=== PATIENT | female | born 1975 | race Caucasian/White ===

== ENCOUNTER → 2017-11-08 11:09 | Outpatient (CLI) | payer OTHER, SELFPAY ==
--- NOTE | 2017-11-08 11:11 | BI_ITS ---
MAMMOGRAPHY - BILATERAL SCREENING REASON FOR EXAM: Female, 42 years old. Routine annual screening examination. PERTINENT HISTORY: Non-contributory. TECHNIQUE: Digital bilateral breast larry (3D mammographic acquisition) in the CC and MLO projections. 2-D mediolateral oblique (MLO) and craniocaudad (CC) views of both breasts were obtained. CAD: Full Field Digital Mammography with Computer Added Detection was performed. COMPARISON: None. Baseline examination. FINDINGS: Breast Composition: The breasts are almost entirely fatty. There are no dominant masses or suspicious calcifications. Several small benign-appearing bilateral axillary lymph nodes. No other significant abnormalities are identified. BI/SCREENING MAMM (CAD), BILAT IMPRESSION: Negative screening mammogram. Yearly followup mammogram recommended. (A) ASSESSMENT CATEGORY: BIRADS Category 2: Benign. A letter regarding these results will be sent to the patient by the facility within 30 days. Approximately 10% of breast cancers are not detected by mammography. A normal mammogram should not delay biopsy of a clinically suspicious abnormality. [id number] Electronically Signed: Erwin Griffin MD at 12:46 EDT Tel [phone], Service support ,
== END ==
PROVIDERS: Family Provider Internal Medicine; PCP Internal Medicine; Visit Provider Obstetrics & Gynecology
DX: Z12.31 Encounter for screening mammogram for malignant neoplasm of breast (principal)
CPT/HCPCS: 77063; 77067

== ENCOUNTER 2019-01-19 17:41 | Emergency (ER) | payer OTHER, SELFPAY ==
[2019-01-19 17:42] VITALS: BP 167/80; PULSE 78; RESP 16; TEMP 36.1; O2SAT 97; BMI 51.5
--- NOTE | 2019-01-19 18:11 | RAD_ITS ---
STUDY: X-RAY - RIGHT SHOULDER REASON FOR EXAM: Female, 43 years old. Injury TECHNIQUE: 4 view(s) of the shoulder. COMPARISON: None. FINDINGS: Normal glenohumeral articulation. Normal acromioclavicular joint. Normal acromion. Normal humeral head and visualized proximal humerus. There is periarticular soft tissue calcification consistent with a calcific tendinitis. There is no demonstrated fracture. Normal visualized pulmonary apex. RAD/Shoulder min 2 Views IMPRESSION: No acute fracture or dislocation. Calcific tendinitis. Electronically Signed: Mik Figueroa MD at 18:47 EDT , Service support ,
--- NOTE | 2019-01-19 18:12 | ED.VISSUMM ---
- ER Visit Summary Date of Service: 01/19/19 Chief Complaint: Right shoulder pain History of Present Illness: The patient is a 43 F presenting with right shoulder pain. Patient states that yesterday she was playing badminton and injured her right shoulder. She states that she was reaching backwards several times over her head as she was using the racquet. She did not fall directly on her shoulder. She denies other injuries. She has tried Tylenol at home. Physical Examination: Vitals are stable. Patient is afebrile. Alert no acute distress. HEENT exam is unremarkable. Neck is supple. Right paraspinal cervical muscle tenderness. No midline tenderness Lungs are clear and equal bilaterally. Heart is regular rate and rhythm. Abdomen is soft nontender nondistended. Extremities right shoulder diffuse tenderness. Painful active full range of motion. Neurovascular intact distally. Skin is warm and dry. No focal neurologic deficit. Remainder of exam is unremarkable. Emergency Department Course and Treatment: Patient was given Toradol IM. Right shoulder x-ray shows no acute fracture or dislocation. Calcific tendinitis. Patient was given a sling and advised range of motion exercises. Advised to follow-up with primary care physician. She is given a prescription for Naprosyn and Flexeril. Advised return to ED for worsening complaints. Disposition: Discharge home Impression: Right shoulder sprain This note was generated with [employer] dictation software. It may contain incorrect words, spelling, and punctuation that were not noted in review of the chart prior to signing ED Disposition - Plan for ED Patient: Instructions: Shoulder Sprain Prescriptions: cycloBENZAPRine HCl [Flexeril] 10 mg PO TID PRN #20 tab PRN Reason: Muscle Spasm Prescription Printed Naproxen [Naprosyn] 500 mg PO BID PRN #20 tab Prescription Printed Referrals: Liana Ashley MD [Primary Care Provider] -
[2019-01-19] MEDS: Ketorolac 60 MG/2 ML Vial IM (18:28)
--- NOTE | 2019-01-19 19:35 | ED.DEP ---
ED Disposition - Plan for ED Patient: Instructions: Shoulder Sprain Prescriptions: cycloBENZAPRine HCl [Flexeril] 10 mg PO TID PRN #20 tablet PRN Reason: Muscle Spasm Naproxen [Naprosyn] 500 mg PO BID PRN #20 tablet Referrals: Liana Ashley MD [Primary Care Provider] -
== END 2019-01-19 19:47 | disposition home or self-care (01) ==
LOC: ED 18:11
PROVIDERS: Emergency Provider Emergency Medicine; Family Provider Internal Medicine; PCP Internal Medicine
DX: S43.401A Unspecified sprain of right shoulder joint, initial encounter (principal); E11.9 Type 2 diabetes mellitus without complications; I10 Essential (primary) hypertension; Z79.84 Long term (current) use of oral hypoglycemic drugs; Z79.899 Other long term (current) drug therapy; X50.1XXA Overexertion from prolonged static or awkward postures, initial encounter; Y93.73 Activity, racquet and hand sports; Y92.89 Other specified places as the place of occurrence of the external cause; Y99.8 Other external cause status
CPT/HCPCS: 73030; 96372; 99283

== ENCOUNTER → 2019-07-18 | Outpatient (CLI) | payer OTHER, SELFPAY ==
--- NOTE | 2019-07-18 07:15 | BI_ITS ---
MAMMOGRAPHY - BILATERAL SCREENING REASON FOR EXAM: Female, 44 years old. Routine annual screening examination. PERTINENT HISTORY: Non-contributory. TECHNIQUE: Digital bilateral breast nasreen (3D mammographic acquisition) in the CC and MLO projections. 2-D mediolateral oblique (MLO) and craniocaudad (CC) views of both breasts were obtained. CAD: Full Field Digital Mammography with Computer Added Detection was performed. COMPARISON: Comparison is made with prior study dated November 08, 2017. FINDINGS: Breast Composition: The breasts are almost entirely fatty. There are no dominant masses or suspicious calcifications. Stable small benign-appearing bilateral axillary lymph nodes. No other significant abnormalities are identified. There has been no significant change since the prior study. BI/SCREEN MAMM (CAD) W/NASREEN BILAT IMPRESSION: Stable bilateral screening mammogram. Yearly follow-up mammogram recommended. (A) ASSESSMENT CATEGORY: BIRADS Category 2: Benign. A letter regarding these results will be sent to the patient by the facility within 30 days. Approximately 10% of breast cancers are not detected by mammography. A normal mammogram should not delay biopsy of a clinically suspicious abnormality. [id number] Electronically Signed: Erwin Griffin, at 8:36 EDT , Service support ,
== END | disposition home or self-care (01) ==
LOC: OPBI 07:13
PROVIDERS: Family Provider Internal Medicine; PCP Internal Medicine; Referring Provider Obstetrics & Gynecology; Visit Provider Obstetrics & Gynecology
DX: Z12.31 Encounter for screening mammogram for malignant neoplasm of breast (principal)
CPT/HCPCS: 77063; 77067

== ENCOUNTER → 2020-05-10 | Outpatient (CLI) | payer OTHER, SELFPAY ==
[2020-05-17 14:20] LABS: HPV APTIMA, High Risk Negative (Negative)
== END | disposition home or self-care (01) ==
LOC: LABSPEC 13:29
PROVIDERS: PCP Internal Medicine; Visit Provider Student in an Organized Health Care Education/Training Program
DX: Z12.4 Encounter for screening for malignant neoplasm of cervix (principal)
CPT/HCPCS: 87624; 88175; G0145

== ENCOUNTER → 2020-08-16 15:09 | Outpatient (CLI) | payer OTHER, SELFPAY ==
--- NOTE | 2020-08-16 15:12 | BI_ITS ---
MAMMOGRAPHY - BILATERAL SCREENING 3-D TOMOSYNTHESIS REASON FOR EXAM: Female, 45 years old. SCREENING PERTINENT HISTORY: No significant family history. TECHNIQUE: 2-D mammograms and 3-D Tomosynthesis of the breast (s) were performed. CAD was performed. COMPARISON: 07/18/2019 FINDINGS: The breast composition is almost entirely fat. Scattered benign calcifications are seen. No dense spiculated masses or suspicious microcalcifications are identified. No architectural distortion is identified. There is no skin thickening or retraction. There has been no significant change since the prior study. BI/SCRN MAMM (CAD)W/NASREEN BILAT IMPRESSION: No mammographic signs of malignancy. Routine yearly mammograms recommended. ASSESSMENT CATEGORY: BIRADS Category 1: Negative. A letter regarding these results will be sent to the patient by the facility within 30 days. FOLLOW UP RECOMMENDATION: Yearly follow up mammogram recommended. (A) Approximately 10% of breast cancers are not detected by mammography. A normal mammogram should not delay biopsy of a clinically suspicious abnormality. Electronically Signed: Manoj Polk MD at 8:36 EDT , Service support ,
== END ==
PROVIDERS: PCP Internal Medicine; Visit Provider Student in an Organized Health Care Education/Training Program
DX: Z12.31 Encounter for screening mammogram for malignant neoplasm of breast (principal)
CPT/HCPCS: 77063; 77067

== ENCOUNTER 2021-03-27 17:34 | Emergency (ER) | payer OTHER, SELFPAY ==
[2021-03-27 17:35] VITALS: BP 155/102; PULSE 71; RESP 16; TEMP 36.6; O2SAT 97; BMI 54.1
--- NOTE | 2021-03-27 18:26 | EDS_ITS ---
HPI History of Present Illness Chief Complaint: Lower Extremity Injury Informant: patient Narrative Narrative: 46-year-old female states that on Saturday she attempted to lift for vishnu of paper as she did so she felt a pulling sensation in her right buttock upper hamstring region. By the time she woke up on Saturday she was having significant pain in the buttock radiating down to her foot and really was unable to get out of bed for most of the weekend. Symptoms persisted through today. She denies any bowel or bladder dysfunction. No fevers. No prolonged steroid use is. She is a diabetic. She states she has had pains in her back before but nothing like this. No IVDU. No red flag history [facility] Medical History Depression Hypertension Home Medications sertraline [Zoloft] 100 mg PO DAILY 11/19/13 [History Last Taken Unknown] buspirone 10 mg PO BID 05/17/17 [History Last Taken Unknown] lorazepam 1 tab PO DAILY PRN PRN 05/17/17 [History Last Taken Unknown] losartan-hydrochlorothiazide 1 ea PO DAILY 05/17/17 [History Last Taken Unknown] metformin 1,000 mg PO BID 05/17/17 [History Last Taken Unknown] norgestimate-ethinyl estradiol [Sprintec] 1 ea PO DAILY 05/17/17 [History Last Taken Unknown] aspirin 1 tab PO DAILY 01/19/19 [History Last Taken Unknown] cyclobenzaprine 10 mg PO TID PRN #20 tab 01/19/19 [Rx Last Taken Unknown] liraglutide SQ DAILY 01/19/19 [History Last Taken Unknown] naproxen 500 mg PO BID PRN #20 tab 01/19/19 [Rx Last Taken Unknown] potassium chloride 10 meq PO DAILY 01/19/19 [History Last Taken Unknown] pravastatin 20 mg PO DAILY 01/19/19 [History Last Taken Unknown] cyclobenzaprine 10 mg PO TID PRN #15 tablet 03/27/21 [Rx Last Taken Unknown] ketorolac 10 mg PO TID PRN 5 Days #15 tab 03/27/21 [Rx Last Taken Unknown] oxycodone 10 mg PO TID PRN 3 Days #9 tab 03/27/21 [Rx Last Taken Unknown] Allergy/AdvReac Type Severity Reaction Status Date / Time amoxicillin [Amoxicillin] Allergy Other Verified 03/27/21 17:37 niacin Allergy Hives Verified 03/27/21 17:37 Social History (Updated 03/27/21 @ 18:[address] Geovany Nichols, DO) current gender identity: female Smoking Status: Never smoker substance use type: does not use ROS ROS ED Constitutional Constitutional ED: Denies chills or weight loss Eyes Eyes: Denies change in vision or diplopia ENT ENT ED: Denies ear pain, rhinorrhea or sore throat Cardiovascular Cardiovascular: Denies chest pain, orthopnea, palpitations or racing heartbeat Respiratory/Chest Respiratory/Chest: Denies cough, dyspnea or orthopnea Gastrointestinal Gastrointestinal: Denies abdominal pain, diarrhea, nausea or vomiting Genitourinary Genitourinary ED: Denies dysuria, hematuria or urinary frequency Musculoskeletal Musculoskeletal: Reports back pain; Denies arthralgias or myalgias Integumentary Denies abscess or rash Neurologic Neurologic: Denies headache(s), paresthesias or weakness Psychiatric Psychiatric: Denies anxiety, depression, suicidal ideation or suicidal thoughts Endocrine Endocrinology: Denies polydipsia, polyphagia or polyuria Allergic/Immunologic Allergic/Immunologic ED: Denies mouth swelling, tongue swelling or urticaria EXAM Physical Exam Const Vital Signs: 03/27/21 17:35 03/27/21 19:15 Temperature 97.8 F Temperature Source Temporal Pulse Rate 71 Respiratory Rate 16 18 Blood Pressure 155/102 H Blood Pressure Mean 119 Pulse Ox 97 Oxygen Delivery Method Room Air Positive well nourished, well developed and obese General Appearance ED: well developed Nutritional Appearance: obese HEENT Reports normocephalic, head/scalp atraumatic, TM's clear and moist mucous membranes Negative for trauma Tympanic Membrane ED: Yes TM's clear Eyes PERRL and EOMs intact bilaterally Neck no lymphadenopathy, supple and no JVD Resp normal respiratory effort and clear to auscultation bilaterally Cardio regular rate, regular rhythm and no murmurs GI normal to inspection, nondistended, normoactive bowel sounds and non-tender Palpation: soft Back/Spine no CVA tenderness and normal ROM Back/Spine Narrative: Right lower paraspinal muscular tenderness. Tenderness in the right buttock. No rashes or cutaneous findings to suggest underlying abscess or infection Extremity General Extremety ED: Negative for edema General Extremity: Negative for edema Neuro oriented x3 and CN's II-XII intact bilaterally Neuro Narrative: Normal patellar and Achilles DTR. Sensorium / Orientation: alert Motor Exam: strength 5/5 throughout Psych mental status grossly normal Mood & Affect: Negative for depressed or tearful Skin no rashes or lesions noted and no wounds MDM MDM MDM Narrative Medical decision making narrative: The patient will be started on oxycodone and Flexeril. I will also add in Toradol. She can get a dose of Toradol here. I recommend that she follow-up with her primary care doctor as I suspect this may become a recurrent issue. She would probably benefit from physical therapy eval. I do feel that her BMI/deconditioning is a significant contributor. The original prescriptions were sent to the [facility] pharmacy. Unfortunately unbeknownst to us or the patient they do not have a pharmacist on tonight. The prescriptions were canceled and sent to [facility] Discharge Plan Triage Chief Complaint: Lower Extremity Injury ED Provider: Geovany Nichols Dx/Rx/DC Orders Clinical Impression: Acute right-sided back pain with sciatica Instructions: ED Sciatica Prescriptions: New cyclobenzaprine [cyclobenzaprine] 10 MG tablet 10 mg PO TID PRN (Reason: Muscle Spasm) Qty: 15 RF: 0 ketorolac 10 mg tablet 10 mg PO TID PRN (Reason: pain) 5 Days Qty: 15 RF: 0 oxycodone 10 mg tablet 10 mg PO TID PRN (Reason: pain) 3 Days Qty: 9 RF: 0 No Action sertraline [Zoloft] 25 MG tablet 100 mg PO DAILY RF: 0 buspirone 5 MG tablet 10 mg PO BID RF: 0 norgestimate-ethinyl estradiol [Sprintec (28)] 1 TABLET tablet 1 ea PO DAILY RF: 0 lorazepam 0.5 tablet 1 tab PO DAILY PRN PRN (Reason: Anxiety) RF: 0 losartan-hydrochlorothiazide 1 EACH tablet 1 ea PO DAILY RF: 0 metformin 500 MG tablet 1,000 mg PO BID RF: 0 potassium chloride 10 MEQ capsule, extended release 10 meq PO DAILY RF: 0 aspirin 81 tablet,chewable 1 tab PO DAILY RF: 0 pravastatin 20 MG tablet 20 mg PO DAILY RF: 0 liraglutide 18 pen injector SQ DAILY RF: 0 cyclobenzaprine 10 MG tablet 10 mg PO TID PRN (Reason: Muscle Spasm) Qty: 20 RF: 0 naproxen 500 MG tablet 500 mg PO BID PRN Qty: 20 RF: 0 Stand Alone Forms: ED Work / School Excuse Primary Care Provider: Liana Ashley Referrals: Liana Ashley MD [Primary Care Provider] - 1-2 Weeks (As discussed you would most likely benefit from a physical therapy evaluation.) Disposition Disposition: Home, Self Care Discharge Date/Time: 03/27/21 19:16
[2021-03-27] MEDS: Ketorolac 60 MG/2 ML Vial IM (18:36)
[2021-03-27 19:15] VITALS: RESP 18
== END 2021-03-27 19:16 | disposition home or self-care (01) ==
LOC: ED 18:29
PROVIDERS: Emergency Provider Emergency Medicine; PCP Internal Medicine
DX: M54.41 Lumbago with sciatica, right side (principal); E11.9 Type 2 diabetes mellitus without complications; I10 Essential (primary) hypertension; E66.9 Obesity, unspecified; Z79.84 Long term (current) use of oral hypoglycemic drugs; Z79.899 Other long term (current) drug therapy
CPT/HCPCS: 96372; 99282

== ENCOUNTER → 2021-09-01 | Outpatient (CLI) | payer OTHER, SELFPAY ==
--- NOTE | 2021-09-01 10:24 | BI_ITS ---
MAMMOGRAPHY - BILATERAL SCREENING 3-D TOMOSYNTHESIS REASON FOR EXAM: Female, 46 years old. SCREENING PERTINENT HISTORY: No significant family history. TECHNIQUE: 2-D mammograms and 3-D Tomosynthesis of the breast (s) were performed. CAD was performed. COMPARISON: 08/16/2020 FINDINGS: The breast composition is composed of scattered fibroglandular density. Scattered benign calcifications are seen. No dense spiculated masses or suspicious microcalcifications are identified. No architectural distortion is identified. There is no skin thickening or retraction. There has been no significant change since the prior study. BI/SCRN MAMM (CAD)W/NASREEN BILAT IMPRESSION: No mammographic signs of malignancy. Routine yearly mammograms recommended. ASSESSMENT CATEGORY: BIRADS Category 1: Negative. A letter regarding these results will be sent to the patient by the facility within 30 days. FOLLOW UP RECOMMENDATION: Yearly follow up mammogram recommended. (A) Approximately 10% of breast cancers are not detected by mammography. A normal mammogram should not delay biopsy of a clinically suspicious abnormality. Electronically Signed: Dagoberto Potter MD at 15:42 EDT ,
== END | disposition home or self-care (01) ==
PROVIDERS: PCP Internal Medicine; Referring Provider Student in an Organized Health Care Education/Training Program; Visit Provider Student in an Organized Health Care Education/Training Program
DX: Z12.31 Encounter for screening mammogram for malignant neoplasm of breast (principal)
CPT/HCPCS: 77063; 77067

== ENCOUNTER → 2022-09-11 | Outpatient (CLI) | payer OTHER, SELFPAY ==
--- NOTE | 2022-09-11 16:28 | BI_ITS ---
MAMMOGRAPHY - BILATERAL SCREENING REASON FOR EXAM: Female, 47 years old. Routine annual screening examination. PERTINENT HISTORY: Non-contributory. TECHNIQUE: Digital bilateral breast nasreen (3D mammographic acquisition) in the CC and MLO projections. 2-D mediolateral oblique (MLO) and craniocaudad (CC) views of both breasts were obtained. CAD: Full Field Digital Mammography with Computer Added Detection was performed. COMPARISON: Comparison is made with prior study dated September 01, 2021 and August 16, 2020. FINDINGS: Breast Composition: The breasts are almost entirely fatty. There are no dominant masses or suspicious calcifications. Stable benign-appearing bilateral axillary lymph nodes. No other significant abnormalities are identified. There has been no significant change since the prior study. BI/SCRN MAMM (CAD)W/NASREEN BILAT IMPRESSION: Stable bilateral screening mammogram. Yearly follow-up mammogram recommended. (A) ASSESSMENT CATEGORY: BIRADS Category 2: Benign. A letter regarding these results will be sent to the patient by the facility within 30 days. Approximately 10% of breast cancers are not detected by mammography. A normal mammogram should not delay biopsy of a clinically suspicious abnormality. [id number] Electronically Signed: Erwin Griffin MD at 8:41 EDT ,
== END | disposition home or self-care (01) ==
LOC: OPBI 09-12 07:02
PROVIDERS: PCP Internal Medicine; Referring Provider Student in an Organized Health Care Education/Training Program; Visit Provider Student in an Organized Health Care Education/Training Program
DX: Z12.31 Encounter for screening mammogram for malignant neoplasm of breast (principal)
CPT/HCPCS: 77063; 77067

== ENCOUNTER → 2024-11-10 | Outpatient (CLI) | payer OTHER, SELFPAY ==
--- OUTSIDE RECORDS SUMMARY | 2024-11-10 06:58 | XMS RPT_ITS | CCD ---
Author Organization 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, Morenita Unavailable Quentin Salazar PA-C Unavailable GANTA, DARSHANA Primary Care Unavailable GANTA, DARSHANA Referring Unavailable GANTA, DARSHANA Primary Care Unavailable SELF Referring Unavailable OLDER, MORENITA Attending Unavailable GANTA, DARSHANA Primary Care Unavailable ABDIRASHID MILLER Attending Unavailable GANTA, DARSHANA Primary Care Unavailable LUDWIG LINDSAY Referring Unavailable GANTA, DARSHANA Primary Care Unavailable OLDER, MORENITA Referring Unavailable GANTA, DARSHANA Primary Care Unavailable OLDER, MORENITA Referring Unavailable GANTA, DARSHANA Primary Care Unavailable SELF Referring Unavailable OLDER, MORENITA Attending Unavailable GANTA, DARSHANA Primary Care Unavailable BEBETO LOPEZ Referring Unavailable GANTA, DARSHANA Primary Care Unavailable SOLITARIO PERERA Attending Unavailable GANTA, DARSHANA Primary Care Unavailable GANTA, DARSHANA Primary Care Unavailable GANTA, DARSHANA Primary Care Unavailable CHEYENNE SOTELO Referring Unavailable GANTA, DARSHANA Primary Care Unavailable OLDER, MORENITA Referring Unavailable GANTA, DARSHANA Primary Care Unavailable GANTA, DARSHANA Primary Care Unavailable NEVAEH PARKER Referring Unavailable GANTA, DARSHANA Primary Care Unavailable BOGHEBERT, QUENTIN Attending Unavailable GANTA, DARSHANA Primary Care Unavailable GANTA, DARSHANA Primary Care Unavailable ROSA BALLARD Referring Unavailable GANTA, DARSHANA Primary Care Unavailable BOGNER, QUENTIN Referring Unavailable GANTA, DARSHANA Primary Care Unavailable BOGNER, QUENTIN Referring Unavailable GANTA, DARSHANA Primary Care Unavailable SHIRLEY MANDI Attending Unavailable GANTA, DARSHANA Primary Care Unavailable SHIRLEY, MANDI Attending Unavailable GANTA, DARSHANA Primary Care Unavailable MORENITA BUTLER Referring Unavailable Juan Barker Attending Unavailable Ganta, Darshana Primary Care Unavailable Ganta, Darshana Referring Unavailable Juan Barker Referring Unavailable Ganta, Darshana Primary Care Unavailable Juan Barker Attending Unavailable Allergies Allergy Classification Reported Allergen(s) Allergy Type Date of Onset Reaction(s) Facility Angiotensin Converting Enzyme (LEONORA) Inhibitors (1 source) Lisinopril Drug Allergy 02-22-2017 [facility] Work Phone: Niacin (1 source) Niacin Drug Allergy 12-13-2008 Intolerance [facility] Penicillins (antibiotic) (1 source) Amoxicillin Drug Allergy 01-04-2012 [facility] (20 sources) amoxicillin; Translations: [AMOXICILLIN] Drug Allergy 01-04-2012 [facility] Other [place] [facility] (20 sources) niacin; Translations: [NIACIN] Drug Allergy 12-13-2008 [facility] Repository (20 sources) Lisinopril; Translations: [LISINOPRIL] Drug Allergy 02-22-2017 [facility] Work Phone: (1 source) Lisinopril Drug Allergy 09-16-2024 [facility] Repository Medications Current Medications Medication Drug Class(es) Dates Sig (Normalized) Sig (Original) [id number] 200 actuat albuterol 0.09 mg/actuat metered dose inhaler (20 sources) beta2-Adrenergic Agonist Start: 06-23-2024 take 2 puff(s) by inhalation every four hours as needed for wheezing albuterol HFA (PROVENTIL HFA, VENTOLIN HFA) 90 mcg/actuation inhaler Inhale 2 Puffs as instructed every 4 hours as needed for wheezing/shortnes s of breath. 1 Each 3 06/23/2024 Active Start: 03-22-2016 End: 11-26-2023 take 2 puff(s) by inhalation every four hours as needed for wheezing albuterol HFA (PROAIR HFA) 90 mcg/actuation inhaler Indications: Sinobronchitis Inhale 2 Puffs as instructed every 4 hours as needed for Wheezing/Shortness of Breath. 1 Inhaler 0 03/22/2016 11/26/2023 Discontinued (Other) Comment on above: Inhale 2 Puffs as in structed every 4 hours as needed for Wheezing/Shortness of Breath. aspirin 81 mg chewable tablet (20 sources) Platelet Aggregation Inhibitor, Nonsteroidal Anti-inflammatory Drug Start: 01-19-2019 aspirin 81 mg chewable tablet Indications: Type 2 diabetes mellitus with microalbuminuria, without long-term current use of insulin (HCC) CHEW 1 TABLET ONCE DAILY 90 tablet 3 10/20/2020 Active Comment on above: CHEW 1 TABLET ONCE D AILY Blood-Glucose Meter monitoring kit (20 sources) Start: 04-11-2017 Blood-Glucose Meter monitoring kit Glucose Meter of Choice (pending insurance coverage) - Kit - Dx: Type 2 DM - Uncontrolled E11.65 1 Each 04/11/2017 Active Start: 04-11-2017 Blood-Glucose Meter monitoring kit Glucose Meter of Choice (pending insurance coverage) - Kit - Dx: Type 2 DM - Uncontrolled E11.65 1 Each 0 04/11/2017 Active Comment on above: Glucose Meter of Cho ice (pending insurance coverage) - Kit - Dx: Type 2 DM - Uncontrolled E11.65 busPIRone hydrochloride 10 mg oral tablet (20 sources) Start: take 1 tablet by mouth twice daily busPIRone (BUSPAR) 10 mg tablet Indications: Anxiety Take 1 tablet by mouth two times a day. 20 tablet 08/22/2024 Active Start: 05-14-2024 End: 08-12-2024 take 1 tablet by mouth twice daily busPIRone (BUSPAR) 10 mg tablet Indications: Anxiety Take 1 tablet by mouth two times a day. 20 tablet 08/22/2024 Active Start: 04-25-2023 End: 04-19-2024 take 1 tablet by mouth twice daily busPIRone (BUSPAR) 10 mg tablet Take 1 tablet by mouth two times a day. 180 tablet 3 04/25/2023 04/19/2024 Active Start: 04-24-2021 End: 05-30-2022 take 1 tablet by mouth twice daily busPIRone (BUSPAR) 10 mg tablet Take 1 tablet by mouth twice daily. 180 tablet 3 03/01/2022 05/30/2022 Active Start: 05-17-2017 take 10 mg by mouth twice joseph y Buspirone Active 10 MG PO TWICE A DAY May 17, 2017 2:07am Comment on above: TAKE 1 TABLET TWICE A DAY AT 6AM AND 9PM Take 1 tablet by miki th twice daily. Take 1 tablet by miki th two times a day. CPAP (20 sources) Start: 11-28-2022 CPAP Indicatio ns: RANDA (obstructive sleep apnea) Settings 13 - 20 cm H2O, suitable mask per pt preference, chin strap, head gear, humidity, filters, tubing, lifetime supplies. G47.33 RANDA 1 Each 11/28/2022 Active Start: 11-28-2022 CPAP Indicatio ns: RANDA (obstructive sleep apnea) Settings 13 - 20 cm H2O, suitable mask per pt preference, chin strap, head gear, humidity, filters, tubing, lifetime supplies. G47.33 RANDA 1 Each 0 11/28/2022 Active Start: 11-27-2022 End: 11-28-2022 CPAP Indications: RANDA (obstr uctive sleep apnea) Settings 13 - 20 cm H2O, suitable mask per pt preference, chin strap, head gear, humidity, filters, tubing, lifetime supplies. G47.33 RANDA 1 Each 0 11/27/2022 11/28/2022 Discontinued Start: 05-08-2018 End: 11-27-2022 CPAP Settings 13 - 20 cm H2O , suitable mask per pt preference, chin strap, head gear, humidity, filters, tubing, lifetime supplies. G47.33 RANDA 1 Device 0 05/08/2018 11/27/2022 Discontinued Start: 05-08-2018 CPAP Settings 13 - 20 cm H2O, suitable mask per pt preference, chin strap, head gear, humidity, filters, tubing, lifetime supplies. G47.33 RANDA 1 Device 0 05/08/2018 Active Comment on above: Settings 13 - 20 cm H2O, suitable mask per pt preference, chin strap, head gear, humidity, filters, tubing, lifetime supplies. G47.33 RANDA cyclobenzaprine hydrochloride 10 mg oral tablet (4 sources) Muscle Relaxant Start: 01-20-20 take 10 mg by mouth three times daily Cyclobenzaprine Active 10 MG PO THREE TIMES A DAY March 27, 2021 1:00am doxycycline hyclate 100 mg oral tablet (4 sources) Tetracycline-class Drug Start: 10-30-19 End: 11-06-19 take 1 tablet by mouth twice daily doxycycline (VIBRA-TABS) 100 mg tablet Indications: Rash and other nonspecific skin eruption Take 1 tablet by mouth two times a day for 7 days. 14 tablet 10/29/2024 11/05/2024 Active Start: 03-26-2024 End: 04-02-2024 take 1 tablet by mouth twice daily doxycycline (VIBRA-TABS) 100 mg tablet Indications: Rhinosinusitis Take 1 tablet by mouth two times a day for 7 days. 14 tablet 03/26/2024 04/02/2024 Active Start: 12-31-2023 End: 01-05-2024 take 1 tablet by mouth twice daily doxycycline (VIBRA-TABS) 100 mg tablet Take 1 tablet by mouth two times a day for 5 days. 10 tablet 12/31/2023 01/05/2024 Active Norgestimate-Ethinyl Estradiol (4 sources) Progestin, Estrogen Start: 05-17-2017 take 1 tablet by mouth once daily Norgestimate-Ethinyl Estradiol (Sprintec) 1 TABLET tablet Active 1 EACH PO DAILY May 17, 2017 2:07am Start: 05-17-2017 take 1 tablet by [facility] once daily Norgestimate-Ethinyl Estradiol (Sprintec) 1 TABLET tablet Active 1 EACH PO DAILY May 17, 2017 1:00am Start: 11-22-2013 End: 11-24-2013 take 2 tablets by mouth once daily Norgestimate-Ethinyl Estradiol (Sprintec 28 Day Tablet) 1 EACH tablet Discontinued 2 EACH PO DAILY November 22, 2013 4:42am November 24, 2013 10:50am 2 tabs a day until D&C Start: 11-22-2013 End: 11-24-2013 take 2 tablets by mouth once daily Norgestimate-Ethinyl Estradiol (Sprintec 28 Day Tablet) 1 EACH tablet Discontinued 2 EACH PO DAILY November 22, 2013 12:00am November 24, 2013 10:50am 2 tabs a day until D&C ferrous sulfate 325 mg oral tablet (20 sources) Start: 09-23-2024 take 1 tablet by mouth once daily ferrous sulfate 325 mg (65 mg iron) tablet Take 1 tablet by mouth once daily. 90 tablet 1 09/23/2024 Active Start: 01-08-2022 End: 09-23-2024 take 1 tablet by mouth twice daily at mealtime ferrous sulfate 325 mg (65 mg iron) tablet Take 1 tablet by mouth two times a day with meals. 180 tablet 1 03/11/2024 09/23/2024 Discontinued Start: 04-27-2021 End: 01-06-2022 take 1 tablet by mouth twice daily at mealtime ferrous sulfate 325 mg (65 mg iron) tablet Take 1 tablet by mouth twice daily with meals. 180 tablet 1 09/04/2021 01/06/2022 Discontinued Comment on above: Take 1 tablet by miki th twice daily with meals. gabapentin 100 mg oral capsule (20 sources) Anti-epileptic Agent Start: 10-19-2023 End: 11-10-2024 take 1 capsule by mouth three times daily gabapentin (NEURONTIN) 100 mg capsule Indications: Acute pain of right knee , Positive Lauryn test of right knee, initial encounter Take 1 capsule by mouth three times a day for 180 days. 270 capsule 1 05/14/2024 11/10/2024 Active Start: 08-16-2023 End: 10-17-2023 take 1 capsule by mouth three times daily gabapentin (NEURONTIN) 100 mg capsule Indications: Acute pain of right knee , Positive Lauryn test of right knee, initial encounter Take 1 capsule by mouth three times a day for 30 days. 90 capsule 08/16/2023 10/17/2023 Discontinued Start: 06-27-2023 End: 08-16-2023 take 1 capsule by mouth twice daily gabapentin (NEURONTIN) 100 mg capsule Take 1 capsule by mouth two times a day for 30 days. 60 capsule 06/27/2023 08/16/2023 Discontinued Start: 01-03-2022 End: 02-02-2022 take 1 capsule by mouth twice daily gabapentin (NEURONTIN) 300 mg capsule Take 1 capsule by mouth twice daily for 30 days. 60 capsule 5 01/03/2022 Active Start: 10-23-2021 End: 11-22-2021 take 1 capsule by mouth twice daily gabapentin (NEURONTIN) 300 mg capsule Take 1 capsule by mouth twice daily for 30 days. 60 capsule 1 10/23/2021 Active Start: 07-27-2021 End: 08-26-2021 take 1 capsule by mouth twice daily gabapentin (NEURONTIN) 300 mg capsule Take 1 capsule by mouth twice daily for 30 days. 60 capsule 1 07/27/2021 Active Comment on above: Take 1 capsule by mo uth twice daily for 30 days. Take 1 capsule by mo uth two times a day for 30 days. Take 1 capsule by mo uth three times a day for 30 days. glimepiride 4 mg oral tablet (20 sources) Sulfonylurea Start: 02-06-20 End: 09-24-19 25 take 1 tablet by mouth once daily at breakfast glimepiride (AMARYL) 4 mg tablet Indications: Controlled type 2 diabetes mellitus without complication, without long-term current use of insulin (HCC) Take 1 tablet by mouth daily with breakfast. 90 tablet 3 09/23/2024 Active Start: 05-09-2022 take 1 tablet by miki th once daily at breakfast glimepiride (AMARYL) 4 mg tablet Indications: Controlled type 2 diabetes mellitus without complication, without long-term current use of insulin (HCC) Take 1 tablet by mouth daily with breakfast. 90 tablet 1 05/09/2022 Active Start: 04-26-2021 take 1 tablet by miki th twice daily at mealtime glimepiride (AMARYL) 4 mg tablet Indications: Controlled type 2 diabetes mellitus without complication, without long-term current use of insulin (HCC) Take 1 tablet by mouth twice daily with meals. 180 tablet 3 04/26/2021 Active Comment on above: Take 1 tablet by miki th twice daily with meals. Take 1 tablet by miki th daily with breakfast. TAKE 1 TABLET DAILY WITH BREAKFAST hydroCHLOROthiazide 12.5 mg / losartan potassium 50 mg oral tablet (20 sources) Thiazide Diuretic, Angiotensin 2 Receptor Lilia Start: End: take 1 tablet by mouth once daily losartan-hydro CHLOROthiazide (HYZAAR) 50-12.5 mg per tablet Take 1 tablet by mouth once daily. 90 tablet 3 08/12/2024 Active Start: 07-11-2020 End: 10-11-2023 losartan-hydroCHLOROthiazide (HYZAAR) 50-12.5 mg per tablet TAKE 1 TABLET ONCE DAILY 90 tablet 3 08/27/2022 Active Start: 05-17-2017 Losartan-Alber[place]on chlorothiazide Active 1 EACH PO DAILY May 17, 2017 2:07am Comment on above: TAKE 1 TABLET ONCE D AILY Take 1 tablet by miki th once daily. ketorolac tromethamine 10 mg oral tablet (2 sources) Nonsteroidal Anti-inflammatory Drug, Cyclooxygenase Inhibitor Start: 1 take 10 mg by mouth three times daily Ketorolac Active 10 MG PO THREE TIMES A DAY 24 09March 27, 2021 9:10pm Lancing Device misc (20 sources) Start: 1 Lancing Device misc Indications: Controlled type 2 diabetes mellitus without complication, without long-term current use of insulin (HCC) Use to monitor blood sugars a directed 1 Each 04/26/2021 Active Start: 04-26-2021 Lancing Device misc Indications: Controlled type 2 diabetes mellitus without complication, without long-term current use of insulin (HCC) Use to monitor blood sugars a directed 1 Each 0 04/26/2021 Active Comment on above: Use to monitor blood sugars a directed 3 ml liraglutide 6 mg/ml pen injector (2 sources) GLP-1 Receptor Agonist Start: 01-20-20 19 Liraglutide Active SQ DAILY January 19, 2019 6:01pm LORazepam 0.5 mg oral tablet (2 sources) Benzodiazepine Start: 05-17-19 18 take 1 tablet by mouth once daily as needed Lorazepam Active 1 TABLET PO DAILY NEEDED May 17, 2017 2:07am 24 hr metFORMIN hydrochloride 500 mg extended release oral tablet (20 sources) Biguanide Start: 07-06-19 25 take 2 tablets by mouth twice daily in the morning, then take 9 tablets by mouth in the evening metFORMIN ER (GLUCOPHAGE XR) 500 mg 24 hr tablet Indications: Controlled type 2 diabetes mellitus without complication, without long-term current use of insulin (HCC) Take 2 tablets by mouth two times a day at 6 am and 9 pm. 360 tablet 1 07/06/2024 Active Start: 10-19-2023 End: 07-04-2024 take 2 tablets by mouth twice daily in the morning, then take 9 tablets by mouth in the evening metFORMIN ER (GLUCOPHAGE XR) 500 mg 24 hr tablet Indications: Controlled type 2 diabetes mellitus without complication, without long-term current use of insulin (HCC) Take 2 tablets by mouth two times a day at 6 am and 9 pm. 360 tablet 1 10/19/2023 07/04/2024 Discontinued Start: 10-22-2022 End: 10-17-2023 take 2 tablets by mouth twice daily metFORMIN ER (GLUCOPHAGE XR) 500 mg 24 hr tablet Take 2 tablets by mouth twice daily at 6AM and 9PM. 360 tablet 3 10/22/2022 10/17/2023 Discontinued Start: 05-17-2017 take 2 tablets by mo uth twice daily metFORMIN ER (GLUCOPHAGE XR) 500 mg 24 hr tablet Take 2 tablets by mouth twice daily at 6AM and 9PM. 360 tablet 3 11/03/2021 Active Comment on above: Take 2 tablets by mo uth twice daily at 6AM and 9PM. montelukast 10 mg oral tablet (8 sources) Leukotriene Receptor Antagonist Start: End: take 1 tablet by mouth once daily at bedtime montelukast (SINGULAIR) 10 mg tablet Take 1 tablet by mouth daily at bedtime. 90 tablet 1 09/23/2024 Active mupirocin 0.02 mg/mg topical ointment (2 sources) RNA Synthetase Inhibitor Antibacterial Start: End: mupirocin (BACTROBAN) 2 % ointment Indications: Rash and other nonspecific skin eruption Apply 1 application to affected area two times a day for 10 days. 30 g 1 10/29/2024 11/08/2024 Active Start: 12-31-2023 End: 01-05-2024 mupirocin (BACTROBAN) 2 % oi ntment Apply to affected area three times a day for 5 days. 30 g 12/31/2023 01/05/2024 Active naproxen 500 mg oral tablet (2 sources) Nonsteroidal Anti-inflammatory Drug Start: 01-19-2019 take 500 mg by mouth twice daily as needed Naproxen Active 500 MG PO TWICE DAILY NEEDED January 19, 2019 7:36pm NORGESTIMATE-ETH INYL ESTRADIOL (PREVIFEM ORAL) (20 sources) take 1 tablet by mouth once daily NORGESTIMATE-ET HINYL ESTRADIOL (PREVIFEM ORAL) Take 1 tablet by mouth once daily. Active take 1 tablet by mouth once joseph y NORGESTIMATE-ETHINYL ESTRADIOL (PREVIFEM ORAL) Take 1 tablet by mouth once daily. 0 Active Comment on above: Take 1 tablet by miki th once daily. oxyCODONE hydrochloride 10 mg oral tablet (2 sources) Opioid Agonist Start: 021 take 10 mg by mouth three times daily Oxycodone Active 10 MG PO THREE TIMES A DAY 9 March 27, 2021 9:10pm pioglitazone 15 mg oral tablet (20 sources) Peroxisome Proliferator Receptor alpha Agonist, Peroxisome Proliferator Receptor gamma Agonist, Thiazolidinedione Start: 025 take 1 tablet by mouth once daily pioglitazone (ACTOS) 15 mg tablet Take 1 tablet by mouth once daily. 90 tablet 3 10/28/2024 Active Start: 10-22-2022 End: 10-26-2024 pioglitazone (ACTOS) 15 mg t ablet take 1 tablet once daily 90 tablet 3 10/04/2023 10/26/2024 Discontinued Start: 11-03-2021 take 1 tablet by miki th once daily pioglitazone (ACTOS) 15 mg tablet Take 1 tablet by mouth once daily. 90 tablet 3 11/03/2021 Active Start: 04-04-2021 take 1 tablet by miki th once daily pioglitazone (ACTOS) 15 mg tablet Take 1 tablet by mouth once daily. 30 tablet 1 04/04/2021 Active Comment on above: Take 1 tablet by miki th once daily. potassium chloride 10 meq extended release oral tablet (20 sources) Start: 01-03-2022 End: 09-23-2024 take 1 tablet by mouth once daily at breakfast potassium chloride (K-TAB) 10 mEq tablet Indications: Hypokalemia Take 1 tablet by mouth daily with breakfast. 90 tablet 3 09/23/2024 Active Start: 12-28-2020 End: 12-31-2021 take 1 tablet by mouth once daily at breakfast potassium chloride (K-TAB) 10 mEq tablet Indications: Hypokalemia Take 1 tablet by mouth daily with breakfast. 90 tablet 3 12/28/2020 12/31/2021 Discontinued Start: 01-19-2019 take 10 mEq by mouth once joseph y Potassium Chloride Active 10 MEQ PO DAILY January 19, 2019 6:01pm Comment on above: Take 1 tablet by miki th daily with breakfast. TAKE 1 TABLET DAILY WITH BREAKFAST pravastatin sodium 20 mg oral tablet (20 sources) HMG-CoA Reductase Inhibitor Start: End: take 1 tablet by mouth once daily pravastatin (PRAVACHOL) 20 mg tablet Indications: Mixed hyperlipidemia Take 1 tablet by mouth once daily. 90 tablet 3 08/12/2024 Active Start: 01-19-2019 End: 03-27-2022 take 1 tablet by mouth once daily pravastatin (PRAVACHOL) 20 mg tablet Indications: Mixed hyperlipidemia Take 1 tablet by mouth once daily. 90 tablet 1 03/27/2022 Active Comment on above: Take 1 tablet by miki th once daily. take 1 tablet once d aily predniSONE 10 mg oral tablet (20 sources) Start: 06-17-2024 End: 06-22-2024 take 2 tablets by mouth once daily predniSONE (DELTASONE) 20 mg tablet Indications: URI, acute , Wheezing Take 2 tablets by mouth once daily for 5 days. 10 tablet 06/17/2024 06/22/2024 Active Start: 05-21-2024 End: 10-29-2024 take 4 tablets by mouth once daily, then take 3 tablets by mouth once daily, then take 2 tablets by mouth once daily, then take 1 tablet by mouth once daily predniSONE (DELTASONE) 10 mg tablet Indications: Rash and other nonspecific skin eruption TAKE BY MOUTH 4 TABLETS DAILY FOR 2 DAYS, THEN 3 TABLETS DAILY FOR 2 DAYS, THEN 2 TABLETS DAILY FOR 2 DAYS, THEN 1 TABLET DAILY FOR 2 DAYS. 20 tablet 10/29/2024 Active semaglutide (OZEMPIC) 2 mg/dose (8 mg/3 mL) pen injector (20 sources) Start: 09-23-2024 inject 2 mg by subcutaneous injection every week semaglutide (OZEMPIC) 2 mg/dose (8 mg/3 mL) pen injector Indications: Controlled type 2 diabetes mellitus without complication, without long-term current use of insulin (HCC) Inject 2 mg subcutaneously one time a week. 3 each 5 09/23/2024 Active Start: 05-14-2024 End: 09-23-2024 inject 2 mg by subcutaneous injection every week semaglutide (OZEMPIC) 2 mg/dose (8 mg/3 mL) pen injector Indications: Controlled type 2 diabetes mellitus without complication, without long-term current use of insulin (HCC) Inject 2 mg subcutaneously one time a week. 3 Each 05/14/2024 09/23/2024 Discontinued Start: 05-14-2024 inject 2 mg by subcu taneous injection every week semaglutide (OZEMPIC) 2 mg/dose (8 mg/3 mL) pen injector Indications: Controlled type 2 diabetes mellitus without complication, without long-term current use of insulin (HCC) Inject 2 mg subcutaneously one time a week. 3 Each 05/14/2024 Active Start: 03-11-2024 End: 05-14-2024 inject 2 mg by subcutaneous injection every week semaglutide (OZEMPIC) 2 mg/dose (8 mg/3 mL) pen injector Indications: Controlled type 2 diabetes mellitus without complication, without long-term current use of insulin (HCC) Inject 2 mg subcutaneously one time a week. 3 Each 03/11/2024 05/14/2024 Discontinued Start: 03-11-2024 inject 2 mg by subcu taneous injection every week semaglutide (OZEMPIC) 2 mg/dose (8 mg/3 mL) pen injector Indications: Controlled type 2 diabetes mellitus without complication, without long-term current use of insulin (HCC) Inject 2 mg subcutaneously one time a week. 3 Each 03/11/2024 Active Start: 10-22-2022 End: 03-11-2024 inject 2 mg by subcutaneous injection every week semaglutide (OZEMPIC) 2 mg/dose (8 mg/3 mL) pen injector Indications: Controlled type 2 diabetes mellitus without complication, without long-term current use of insulin (HCC) Inject 2 mg subcutaneously one time a week. 3 Each 5 10/22/2022 03/11/2024 Discontinued Start: 10-22-2022 inject 2 mg by subcu taneous injection every week semaglutide (OZEMPIC) 2 mg/dose (8 mg/3 mL) pen injector Indications: Controlled type 2 diabetes mellitus without complication, without long-term current use of insulin (HCC) Inject 2 mg subcutaneously one time a week. 3 Each 5 10/22/2022 Active Comment on above: Inject 2 mg subcutan eously one time a week. sertraline 100 mg oral tablet (20 sources) Serotonin Reuptake Inhibitor Start: take 1.5 tablets by mouth once daily sertraline (ZOLOFT) 100 mg tablet Take 1.5 tablets by mouth once daily. 135 tablet 3 09/18/2024 Active Start: 10-04-2023 End: 09-16-2024 sertraline (ZOLOFT) 100 mg t ablet TAKE 1 AND 1/2 TABLETS ONCEDAILY 135 tablet 3 10/04/2023 09/16/2024 Discontinued Start: 10-22-2022 End: 10-04-2023 take 1.5 tablets by mouth once daily sertraline (ZOLOFT) 100 mg tablet Take 1.5 tablets by mouth once daily. 135 tablet 3 10/22/2022 10/04/2023 Discontinued Start: 07-27-2021 take 1.5 tablets by mouth once daily sertraline (ZOLOFT) 100 mg tablet Take 1.5 tablets by mouth once daily. 135 tablet 3 07/27/2021 Active Start: 11-19-2013 take 4 tablets by mo [facility] once daily Sertraline (Zoloft) 25 MG tablet Active 100 MG PO DAILY November 19, 2013 10:26am Comment on above: Take 1.5 tablets by mouth once daily. terbinafine 250 mg oral tablet (1 source) Allylamine Antifungal Start: 10-23-19 End: 12-04-19 take 1 tablet by mouth once daily terbinafine HCl (LAMISIL) 250 mg tablet Take 1 tablet by mouth once daily. 30 tablet 1 10/22/2022 12/03/2022 Active Comment on above: Take [facility] daily. triamcinolone acetonide 1 mg/ml topical cream (1 source) Corticosteroid Start: 10-30-19 End: 11-09-19 triamcinolone acetonide (KENALOG) 0.1 % cream Indications: Rash and other nonspecific skin eruption Apply 1 application to affected area two times a day for 10 days. Apply to affected area. 30 g 1 10/29/2024 11/08/2024 Active Completed/Discontinued Medications Medication Drug Class(es) Dates Sig (Normalized) Sig (Original) 60 actuat budesonide 0.09 mg/actuat dry powder inhaler (18 sources) Corticosteroid Start: 06-23-2024 End: 01-27-2025 take 1 puff(s) by inhalation twice daily budesonide (PULMICORT FLEXHALER) 90 mcg/actuation aepb Indications: Dyspnea on exertion , Wheezing Inhale 1 puff as instructed two times a day. 1 each 2 10/29/2024 10/29/2024 Discontinued buPROPion hydrochloride 75 mg oral tablet (20 sources) Aminoketone Start: 02-13-2021 End: 12-12-2021 take 1 tablet by mouth twice daily buPROPion (WELLBUTRIN) 75 mg tablet Indications: Anxiety Take 1 tablet by mouth twice daily. 180 tablet 1 12/13/2021 Active Comment on above: Take 1 tablet by miki twice daily. ergocalciferol 1.25 mg oral capsule (20 sources) Provitamin D2 Compound Start: 10-19-2023 End: 09-23-2024 take 1 capsule by mouth every week ergocalciferol 50,000 unit capsule (VITAMIN D2, DRISDOL) Indications: Vitamin D deficiency Take 1 capsule by mouth one time a week. 12 capsule 05/14/2024 09/23/2024 Discontinued Start: 09-06-2021 End: 10-17-2023 take 1 capsule by mouth every week ergocalciferol 50,000 unit capsule (VITAMIN D2, DRISDOL) Indications: Vitamin D deficiency Take 1 capsule by mouth one time a week. 12 capsule 1 05/02/2023 Active Start: 11-28-2020 End: 09-03-2021 take 1 capsule by mouth every week ergocalciferol 50,000 unit capsule (VITAMIN D2, DRISDOL) Indications: Vitamin D deficiency Take 1 capsule by mouth one time a week. 12 capsule 1 11/28/2020 09/03/2021 Discontinued Comment on above: Take 1 capsule by mo [facility] one time a week. flash glucose scanning reader (FREESTYLE SHILO 2 READER) (20 sources) Start: 07-05-2021 End: 08-16-2023 flash glucose scanning reader (FREESTYLE SHILO 2 READER) Indications: Controlled type 2 diabetes mellitus without complication, without long-term current use of insulin (HCC) Use to monitor blood sugars 4 times daily 1 Each 07/05/2021 08/16/2023 Discontinued Start: 07-05-2021 End: 08-16-2023 flash glucose scanning reade r (FREESTYLE SHILO 2 READER) Indications: Controlled type 2 diabetes mellitus without complication, without long-term current use of insulin (HCC) Use to monitor blood sugars 4 times daily 1 Each 0 07/05/2021 08/16/2023 Discontinued Start: 07-05-2021 flash glucose scanning reader (FREESTYLE SHILO 2 READER) Indications: Controlled type 2 diabetes mellitus without complication, without long-term current use of insulin (HCC) Use to monitor blood sugars 4 times daily 1 Each 0 07/05/2021 Active Comment on above: Use to monitor blood sugars 4 times daily flash glucose sensor (FREESTYLE SHILO 2 SENSOR) kit (20 sources) Start: 07-05-2021 End: 08-16-2023 flash glucose sensor (FREESTYLE SHILO 2 SENSOR) kit Indications: Controlled type 2 diabetes mellitus without complication, without long-term current use of insulin (HCC) Use to monitor blood sugars 4 times daily 6 Each 2 07/05/2021 08/16/2023 Discontinued Start: 07-05-2021 flash glucose sensor (FREESTYLE SHILO 2 SENSOR) kit Indications: Controlled type 2 diabetes mellitus without complication, without long-term current use of insulin (HCC) Use to monitor blood sugars 4 times daily 6 Each 2 07/05/2021 Active Comment on above: Use to monitor blood sugars 4 times daily perflutren lipid microspheres 1.3 mL in NaCl (PF) 0.9% 10 mL injection (DEFINITY) (2 sources) Start: 08-10-2024 End: 08-10-2024 perflutren lipid microspheres 1.3 mL in NaCl (PF) 0.9% 10 mL injection (DEFINITY) Start: 08-10-2024 End: 08-10-2024 take 1 dose intravenously once as needed INTRAVENOUS, DIRECTED NEEDED, 1 dose, Starting on Sat08/10/24 at 1204, Until Sat08/10/24 at 1130, Per-Protocol - for use during ECHO procedure only, If no IV access, insert saline lock prior to administering contrast. Discontinue saline lock post exam. It patient has central line or IVAD, may access for administering according to line specific nursing protocol. Once exam is complete, flush line and de-access per line specific nursing protocol. Dilute 1.3 mL of Definity with 8.7 mL of preservative-free saline., Cardiac Procedure Med Orders 0.25 mg, 0.5 mg dose 1.5 ml semaglutide 1.34 mg/ml pen injector (4 sources) Start: 07-27-2021 End: 09-05-2021 semaglutide (OZEMPIC) 0.25 mg or 0.5 mg(2 mg/1.5 mL) pen injector Indications: Controlled type 2 diabetes mellitus without complication, without long-term current use of insulin (HCC) Inject 0.5 mg subcutaneously one time a week. 4 mL 3 07/27/2021 09/05/2021 Discontinued (Dosage adjustment) Comment on above: Inject 0.5 mg subcutaneously one time a week. semaglutide (OZEMPIC) 1 mg/dose (4 mg/3 mL) pen (7 sources) Start: 03-29-2022 inject 1 mg by subcutaneous injection every week semaglutide (OZEMPIC) 1 mg/dose (4 mg/3 mL) pen Indications: Controlled type 2 diabetes mellitus without complication, without long-term current use of insulin (HCC) Inject 1 mg subcutaneously one time a week. 9 mL 4 03/29/2022 Active Comment on above: Inject 1 mg subcutaneously one time a we ek. semaglutide (OZEMPIC) 1 mg/dose (4 mg/3 mL) pen injector (5 sources) Start: 09-05-2021 inject 1 mg by subcutaneous injection every week semaglutide (OZEMPIC) 1 mg/dose (4 mg/3 mL) pen injector Indications: Controlled type 2 diabetes mellitus without complication, without long-term current use of insulin (HCC) Inject 1 mg subcutaneously one time a week. 9 mL 4 09/05/2021 Active Comment on above: Inject 1 mg subcutaneously one time a we ek. semaglutide (OZEMPIC) 2 mg/dose (8 mg/3 mL) pen injector (10 sources) Start: 03-27-2022 inject 2 mg by subcutaneous injection every week semaglutide (OZEMPIC) 2 mg/dose (8 mg/3 mL) pen injector Indications: Controlled type 2 diabetes mellitus without complication, without long-term current use of insulin (HCC) Inject 2 mg subcutaneously one time a week. 9 mL 2 03/27/2022 Active Start: 12-11-2021 End: 03-27-2022 inject 2 mg by subcutaneous injection every week semaglutide (OZEMPIC) 2 mg/dose (8 mg/3 mL) pen injector Indications: Controlled type 2 diabetes mellitus without complication, without long-term current use of insulin (HCC) Inject 2 mg subcutaneously one time a week. 9 mL 2 12/11/2021 03/27/2022 Discontinued Start: 12-11-2021 inject 2 mg by subcu taneous injection every week semaglutide (OZEMPIC) 2 mg/dose (8 mg/3 mL) pen injector Indications: Controlled type 2 diabetes mellitus without complication, without long-term current use of insulin (HCC) Inject 2 mg subcutaneously one time a week. 9 mL 2 12/11/2021 Active Comment on above: Inject 2 mg subcutan eously one time a week. 125 ml sodium chloride 9 mg/ml prefilled syringe (2 sources) Start: 08-10-2024 End: 08-10-2024 sodium chloride 0.9 % (flush) 10 mL (BD POSIFLUSH) Start: 08-10-2024 End: 08-10-2024 10 mL, INTRAVENOUS, DIREC KATHY NEEDED, 1 dose, Starting on Sat08/10/24 at 1204, Until Sat08/10/24 at 1130, Per-Protocol - for use during ECHO procedure only, If no IV access, insert saline lock prior to administering contrast. Discontinue saline lock post exam. If patient has central line or IVAD, may access for administering according to line specific nursing protocol. Once exam is complete, flush line and de-access per line specific nursing protocol., Cardiac Procedure Med Orders tirzepatide (MOUNJARO) 2.5 mg/0.5 mL pen injector (5 sources) Start: 05-09-2022 inject 2.5 mg by subcutaneous injection every week tirzepatide (MOUNJARO) 2.5 mg/0.5 mL pen injector Inject 2.5 mg subcutaneously one time a week. 4 Each 1 05/09/2022 Active Comment on above: Inject 2.5 mg subcutaneously one time a week. Problems Active Problems Problem Classification Problem Date Documented Da te Episodic/Chronic Anxiety disorders (20 sources) Anxiety; Translations: [Anxiety disorder, unspecified] Onset: 03-01-2015 05-08-2021 Chronic Diabetes mellitus without complication (20 sources) Type 2 diabetes mellitus without complication; Translations: [Type 2 diabetes mellitus without complications] Onset: 10-01-2018 07-08-2019 Chronic Disorders of lipid metabolism (20 sources) Mixed hyperlipidemia; Translations: [Mixed hyperlipidemia] Onset: 09-01-2010 07-04-2011 Chronic Essential hypertension (20 sources) Essential hypertension; Translations: [Essential (primary) hypertension] Onset: 01-09-2008 02-22-2017 Chronic Fluid and electrolyte disorders (5 sources) Hypokalemia; Translations: [Hypokalemia] Onset: 09-23-2024 Episodic Immunizations and screening for infectious disease (4 sources) Needs influenza immunization; Translations: [Encounter for immunization] Onset: 09-23-2024 05-02-2023 Episodic Malaise and fatigue (2 sources) Other fatigue; Translations: [Fatigue] Onset: 11-15-2016 05-02-2023 Episodic Nonspecific chest pain (2 sources) Chest pain, unspecified; Translations: [Chest pain, unspecified] Onset: 09-16-2024 Episodic Nutritional deficiencies (7 sources) Vitamin D deficiency; Translations: [Vitamin D deficiency, unspecified] Onset: 08-10-2024 Chronic Nutritional deficiencies (2 sources) Iron deficiency; Translations: [Iron deficiency] Onset: 09-23-2024 09-23-2024 Episodic Other and ill-defined heart disease (2 sources) Left ventricular hypertrophy; Translations: [Cardiomegaly] 08-12-2024 Chronic Other and ill-defined heart disease (2 sources) Cardiomegaly; Translations: [LVH (left ventricular hypertrophy)] Onset: 08-12-2024 Chronic Other connective tissue disease (2 sources) Pain in right hand; Translations: [Pain in right hand] 07-10-2023 Episodic Other lower respiratory disease (5 sources) Cough; Translations: [Acute cough] 03-26-2024 Episodic Other lower respiratory disease (7 sources) Wheezing; Translations: [Wheezing] 06-17-2024 Episodic Other lower respiratory disease (6 sources) Dyspnea; Translations: [Shortness of breath] 06-23-2024 Episodic Other lower respiratory disease (4 sources) Dyspnea on exertion; Translations: [Other forms of dyspnea] 08-12-2024 Episodic Other lower respiratory disease (3 sources) Chronic cough; Translations: [Chronic cough] Onset: 09-23-2024 08-12-2024 Episodic Other lower respiratory disease (3 sources) Other forms of dyspnea; Translations: [Dyspnea on exertion] Onset: 09-16-2024 Episodic Other lower respiratory disease (1 source) Wheezing; Translations: [Wheezing] Onset: 09-23-2024 Episodic Other lower respiratory disease (1 source) Shortness of breath; Translations: [SOB (shortness of breath)] Onset: 08-10-2024 Episodic Other nervous system disorders (20 sources) Carpal tunnel syndrome; Translations: [Carpal tunnel syndrome, unspecified upper limb] 09-07-2013 Chronic Other non-traumatic joint disorders (3 sources) Pain in wrist; Translations: [Pain in left wrist] 05-18-2024 Episodic Other nutritional; endocrine; and metabolic disorders (20 sources) Morbid obesity; Translations: [Morbid (severe) obesity due to excess calories] Onset: 12-18-2006 07-04-2011 Chronic Other nutritional; endocrine; and metabolic disorders (20 sources) Metabolic syndrome X; Translations: [Metabolic syndrome] Onset: 01-02-2007 01-02-2007 Chronic Other nutritional; endocrine; and metabolic disorders (2 sources) History of iron deficiency; Translations: [Personal history of other endocrine, nutritional and metabolic disease] 05-02-2023 Episodic Other nutritional; endocrine; and metabolic disorders (1 source) Personal history of other endocrine, nutritional and metabolic disease; Translations: [History of iron deficiency] Onset: 08-12-2024 Episodic Other skin disorders (1 source) Eruption; Translations: [Rash and other nonspecific skin eruption] 10-29-2024 Episodic Other skin disorders (1 source) Rash and other nonspecific skin eruption; Translations: [Rash and other nonspecific skin eruption] Onset: 10-29-2024 Episodic Other upper respiratory infections (3 sources) Chronic sinusitis, unspecified; Translations: [Unspecified sinusitis (chronic)] Onset: 10-29-2024 03-26-2024 Chronic Other upper respiratory infections (3 sources) Acute upper respiratory infection; Translations: [Acute upper respiratory infection, unspecified] Onset: 08-12-2024 06-17-2024 Episodic Residual codes; unclassified (20 sources) Obstructive sleep apnea syndrome; Translations: [Obstructive sleep apnea (adult) (pediatric)] Onset: 08-14-2017 08-14-2017 Chronic Residual codes; unclassified (1 source) Obstructive sleep apnea (adult) (pediatric); Translations: [Obstructive sleep apnea (adult) (pediatric)] Onset: 09-23-2024 Chronic Residual codes; unclassified (2 sources) Family history of sudden cardiac ; Translations: [Family history of sudden cardiac ] 08-12-2024 Episodic Residual codes; unclassified (1 source) Family history of sudden cardiac ; Translations: [Family history of sudden cardiac ] Onset: 08-12-2024 Episodic Skin and subcutaneous tissue infections (1 source) Cellulitis of skin; Translations: [Cellulitis, unspecified] 12-31-2023 Episodic Unclassified (1 source) Hypersomnia, unspecified; Translations: [Hypersomnia, unspecified] Onset: 11-15-2016 Unclassified (1 source) Acute cough 06-23-2024 Unclassified (1 source) Acute cough; Translations: [Acute cough] Onset: 03-26-2024 Past or Other Problems Problem Classification Problem Date Documented Date Episodic/Chronic Intestinal infection (20 sources) Clostridium difficile diarrhea; Translations: [Enterocolitis due to Clostridium difficile, not specified as recurrent] Resolved: 05-21-2024 05-08-2021 Episodic Joint disorders and dislocations; trauma-related (9 sources) Lauryn test positive; Translations: [Unspecified tear of unspecified meniscus, current injury, right knee, initial encounter] Onset: 12-12-2023 10-17-2023 Episodic Other circulatory disease (20 sources) Elevated blood-pressure reading without diagnosis of hypertension; Translations: [Elevated blood-pressure reading, without diagnosis of hypertension] Onset: 12-18-2006 Resolved: 01-09-2008 01-09-2008 Episodic Other lower respiratory disease (1 source) Apnea, not elsewhere classified; Translations: [Apnea, not elsewhere classified] Onset: 11-15-2016 Episodic Other non-traumatic joint disorders (8 sources) Pain in right knee; Translations: [Pain in joint, lower leg] Onset: 12-12-2023 10-17-2023 Episodic Other non-traumatic joint disorders (1 source) Pain in left wrist; Translations: [Acute wrist pain, left] Onset: 05-18-2024 Episodic Other screening for suspected conditions (not mental disorders or infectious disease) (20 sources) Echocardiogram abnormal; Translations: [Abnormal findings on diagnostic imaging of heart and coronary circulation] Onset: 10-23-2010 05-08-2021 Episodic Other skin disorders (5 sources) Localized swelling, mass and lump, right upper limb; Translations: [Localized superficial swelling, mass, or lump] Onset: 12-04-2023 11-01-2023 Episodic Spondylosis; intervertebral disc disorders; other back problems (20 sources) Sciatica; Translations: [Sciatica, unspecified side] Onset: 04-11-2021 Resolved: 05-11-2021 03-27-2021 Episodic Results Test Name Value Interpretation Reference Range Facility [facility] 10-29-2024 CNOV Office Visit (INTMWS ) TOBI FARFAN ([id number]) 1975 F Date Time Provider Department 10/29/24 10:40 AM ABDIRASHID MILLER INTMWS During your visit today, we recorded the following information about you: Pulse Respiration Blood pressure Weight 65/minute 16/minute 109/74 142 kg Abdirashid Miller APRN.[employer]PER[employer] 10/29/2024 11:26 AM Signed Subjective Patient ID: Tobi is a 49 year old female who presents for Rash (R inner arm, R inner thigh and L side). HPI Tobi Farfan is a 49-year-old female presenting with a rash, suspected to be poison oak. Rash: - Suspected poison oak exposure while trimming bushes and discarding them into the [place] her [place]. - Rash is located on the back, inner thighs, and sides. - Wore pants but short sleeves during exposure. - Rash has been present for about a week. - Applying alcohol and cortisone anti-itch spray with no improvement; reports rash is spreading. - Rash is both sore and pruritic. - Previous similar episode last year treated with an oral medication from urgent care, which was effective. - Reports minimal drainage from the rash on the back. ROS Skin: (+) rash, (+) pruritus, (+) skin pain, (+) skin drainage Objective BP 109/74 Pulse 65 Resp 16 Wt (!) 142 kg (313 lb 0.9 oz) LMP 11/05/2023 (Exact Date) BMI 52.09 kg/m? Physical Exam Vitals and nursing note reviewed. Constitutional: Appearance: Normal appearance. HENT: Head: Normocephalic and atraumatic. Eyes: Conjunctiva/sclera: Conjunctivae normal. Cardiovascular: Rate and Rhythm: Normal rate. Pulmonary: Effort: Pulmonary effort is normal. Skin: General: Skin is warm and dry. Comments: multiple erythematous partial-thickness wounds over both arms and legs, largest behind the right knee approximately 3 x 5 inches there are drainage some warmth no induration, painful and pruritic Neurological: General: No focal deficit present. Mental Status: She is alert and oriented to person, place, and time. 1. Rash and other nonspecific skin eruption (R21) - Likely contact dermatitis from poison oak exposure; no signs of infection observed. - Initiated oral prednisone for a few days to reduce inflammation. - Prescribed topical steroid cream and antibacterial cream, to be applied once daily each; can increase frequency if needed. - Provided prescription for oral antibiotic to be used if no improvement in 2 days. - Follow-up next week if no improvement or if concerns arise. 2. Dyspnea on exertion (R06.09) 3. Wheezing (R06.2) 4. Rhinosinusitis (J32.9) - Refilled inhaler prescription; sent to mail order pharmacy ([facility]). Abdirashid Miller APRN.CNS Medical Decision Making: Problems: Low: Acute, uncomplicated illness or injury Risk: Moderate: Drug management Medical Decision Making Level: 3 - Abdirashid Chavarria APRN.CNS 10/29/2024 11:17 AM Signed Stop using alcohol on your skin and start using soap and water instead for cleaning. - Start the prescribed oral prednisone and take it each day for the next few days to calm the skin reaction. - Apply the topical steroid cream to the affected areas once daily (morning or evening); you may use it twice daily if itching persists. - Apply the topical antibiotic cream to the affected areas once daily (opposite time of day from the steroid); you may use it twice daily if needed. - If your rash has not improved after 2 days, fill and take the printed oral antibiotic prescription at [facility]; if you?re better in 2 days, do not take the antibiotic. - Your inhaler refill has been sent to mail-order pharmacy ([facility]). - Return in one week if your rash worsens or you have new concerns; no routine follow-up is needed if you?re improving. Allergies As of Date: 10/29/2024 Noted Allergy Reaction AMOXICILLIN 01/04/2012 2 - Rash LISINOPRIL 02/22/2017 3 - Cough Comments: cough NIACIN 12/13/2008 5 - Intolerance Comments: Caused whole body to become red and warm. Date Reviewed: 10/29/2024 Reviewed by: Abdirashid Miller APRN.SUPERVISOR [employer]ING ROOM - Fully Assessed Reason for Visit: Rash [1087] Cmt: R inner arm, R inner thigh and L side Primary Visit Diagnosis:Rash and other nonspecific skin eruption [R21] Other Visit Diagnoses:Dyspnea on exertion [R06.09] Wheezing [R06.2] Rhinosinusitis [J32.9] Order(s):predniSONE (DELTASONE) 10 mg tabletTAKE BY MOUTH 4 TABLETS DAILY FOR 2 DAYS, THEN 3 TABLETS DAILY FOR 2 DAYS, THEN 2 TABLETS DAILY FOR 2 DAYS, THEN 1 TABLET DAILY FOR 2 DAYS.Disp: 20 tabletRfl: 0 triamcinolone acetonide (KENALOG) 0.1 % creamApply 1 application to affected area two times a day for 10 days. Apply to affected area.Disp: 30 gRfl: 1 mupirocin (BACTROBAN) 2 % ointmentApply 1 application to affected area two times a day for 10 days.Disp: 30 gRfl: 1 doxycycline (VIBRA-TABS) 100 mg tabletTake 1 tablet by mouth two times a day for 7 days (more content not included)... [facility] CNOVon 09-23-2024 CNOV Office Visit (INTMWS ) TOBI FARFAN ([id number]) 1975 F Date Time Provider Department 09/23/24 4:40 PM MORENITA BUTLER INTMWS During your visit today, we recorded the following information about you: Pulse Respiration Blood pressure Weight 68/minute 16/minute 118/72 142.9 kg Morenita Butler APRN.[facility] 09/23/2024 6:51 PM Signed CC: Patient presents with: Recheck: 6 week follow up HPI Tobi Farfan is a 49 year old female who presents today for follow up. Recording using Lumoid software for draft documentation of the visit was discussed with the patient/authorized billing customer service representative; all questions welcomed and answered. Patient/authorized billing customer service representative agreed to proceed Chronic cough: - Started on montelukast 6 weeks ago; reports decreased cough. - Occasional wheezing and dyspnea on exertion, improved with inhaler and montelukast. - Noted cough when lying down at night, requiring elevation to alleviate. With the dyspnea on exertion she also has some chest pressure and family history of early cardiac . - Undergoing further evaluation by cardiology, including a nuclear stress test as she was unable to get appropriate heart rate with treadmill stress test. . - Has undergone pulmonary function testing. Hypertension: - Blood pressure today: 118/72 mmHg. - No home blood pressure monitoring. - Occasional chest pain and palpitations, especially when not using CPAP. - Denies edema or headaches. - Currently on losartan-hydrochlorot hiazide and a potassium supplement. REVIEW OF SYSTEMS See HPI PAST MEDICAL HISTORY Diagnosis Date Anxiety Carpal tunnel syndrome Clostridium difficile diarrhea Recurrent infection 2011 Diabetes mellitus (HCC) Dysmetabolic syndrome Gestational diabetes (HCC) Hypertension Obesity RANDA (obstructive sleep apnea) DME [employer] for AutoPAP - AHI 70.5 PAST SURGICAL HISTORY Procedure Laterality Date DELIVERY ONLY 12/03/2011 , low transverse; wound infection DILATION AND CURETTAGE DXAND/THER NONOBSTETRIC 11/24/2013 Dilation AND curettage HYSTEROSCOPY, DIAGNOSTIC (SEPARATE 11/24/2013 Hysteroscopy PAST SURGICAL HISTORY OF 01/12/2012 debridement post infection WOUND VAC 2012 ALLERGIES Amoxicillin, Lisinopril, and Niacin MEDICATIONS glimepiride (AMARYL) 4 mg tablet Take 1 tablet by mouth daily with breakfast. potassium chloride (K-TAB) 10 mEq tablet Take 1 tablet by mouth daily with breakfast. semaglutide (OZEMPIC) 2 mg/dose (8 mg/3 mL) pen injector Inject 2 mg subcutaneously one time a week. montelukast (SINGULAIR) 10 mg tablet Take 1 tablet by mouth daily at bedtime. ferrous sulfate 325 mg (65 mg iron) tablet Take 1 tablet by mouth once daily. sertraline (ZOLOFT) 100 mg tablet Take 1.5 tablets by mouth once daily. busPIRone (BUSPAR) 10 mg tablet Take 1 tablet by mouth two times a day. busPIRone (BUSPAR) 10 mg tablet Take 1 tablet by mouth two times a day. losartan-hydroCHLOROt hiazide (HYZAAR) 50-12.5 mg per tablet Take 1 tablet by mouth once daily. pravastatin (PRAVACHOL) 20 mg tablet Take 1 tablet by mouth once daily. metFORMIN ER (GLUCOPHAGE XR) 500 mg 24 hr tablet Take 2 tablets by mouth two times a day at 6 am and 9 pm. albuterol HFA (PROVENTIL HFA, VENTOLIN HFA) 90 mcg/actuation inhaler Inhale 2 Puffs as instructed every 4 hours as needed for wheezing/shortness of breath. budesonide (PULMICORT FLEXHALER) 90 mcg/actuation aepb Inhale 1 Puff as instructed two times a day. predniSONE (DELTASONE) 10 mg tablet TAKE BY MOUTH 4 TABLETS DAILY FOR 2 DAYS, THEN 3 TABLETS DAILY FOR 2 DAYS, THEN 2 TABLETS DAILY FOR 2 DAYS, THEN 1 TABLET DAILY FOR 2 DAYS. (Patient not taking: Reported on 06/17/2024) gabapentin (NEURONTIN) 100 mg capsule Take 1 capsule by mouth three times a day for 180 days. pioglitazone (ACTOS) 15 mg tablet take 1 tablet once daily CPAP Settings 13 - 20 cm H2O, suitable mask per pt preference, chin strap, head gear, humidity, filters, tubing, lifetime supplies. G47.33 RANDA Lancing Device misc Use to monitor blood sugars a directed Lancets lancets Use as instructed to monitor blood sugars when prompted by Freestyle Shilo. Up to 4 per day. insulin needles, DISPOSABLE, (BD INSULIN PEN NEEDLE UF) 31 gauge x 5/16 1 Each once daily. With Victoza. ICD10: E11.65 aspirin 81 mg chewable tablet CHEW 1 TABLET ONCE DAILY Blood-Glucose Meter monitoring kit Glucose Meter of Choice (pending insurance coverage) - Kit - Dx: Type 2 DM - Uncontrolled E11.65 NORGESTIMATE-ETHINYL ESTRADIOL (PREVIFEM ORAL) Take 1 tablet by mouth once daily. (Patient not taking: Reported on 06/23/2024) FAMILY HISTORY Problem Relation Age of Onset Osteoporosis Mother Psychiatry Mother anorexia, depression Diabetes Father Hypertension Father Psychiatry Father bipolar d/o Cancer Maternal Grandmother Liver Heart Maternal (more content not included)... Normal [facility] ALBUMIN/CREATININE RATIO, UR INEon 09-19-2024 Albumin DL <= 20 mg/L (U) [Mass/Vol] mg/dL Normal [facility] Comment on above: Order Comment: Speci men Type: URINE SPECIMENOrdering Facility: [facility] Address: [address] [place] [address] Performed By: #### U ACR ####[facility] LABIA [id number] [place] [address] [place] Albumin/Creatinine (U) [Mass ratio] <5 Normal <30 [facility] Comment on above: Order Comment: Speci men Type: URINE SPECIMENOrdering Facility: [facility] Address: [address] [place] [address] Result Comment: Adul t Male and Female Nephrotic Criteria: <30 mg/g is considered normal to mildly increased 30-300 mg/g is considered moderately increased >300 mg/g is considered severely increased KDIGO. (2013). KDIGO 2012 Clinical Practice Guideline for the Evaluation and Management of Chronic Kidney Disease. Official Journal of the International Society of Nephrology, 3(1), 1-150. Performed By: #### U ACR ####[facility] LABCLIA [id number] [place] [id number] [place] Creatinine (U) [Mass/Vol] 219.6 mg/dL Normal 20.0-300.0 [facility] Comment on above: Order Comment: Speci men Type: URINE SPECIMENOrdering Facility: [facility] Address: [address] [place] [address] Performed By: #### U ACR ####[facility] LABCLIA [id number] [place] [address] [place] Lipid 1996 panelon 5 Cholesterol [Mass/Vol] 135 mg/dL Normal <200 [facility] Comment on above: Order Comment: Speci men Type: BLOOD SPECIMENOrdering Facility: [facility] Address: [address] [place] [address] Result Comment: <200 mg/dL, Desirable 200-239 mg/dL, Borderline high >239 mg/dL, High Performed By: #### 2 4331-1 ####[facility] LABCLIA [id number] [address] [place] [facility] Cholesterol in HDL [Mass/Vol] 37 mg/dL Low >39 [facility] Comment on above: Order Comment: Speci men Type: BLOOD SPECIMENOrdering Facility: [facility] Address: [address] [place] [address] Result Comment: 40-5 9 mg/dL, Acceptable >59 mg/dL, High: Negative risk factor for coronary heart disease <40 mg/dL, Low: Positive risk factor for coronary heart disease Performed By: #### 2 4331-1 ####[facility] LABCLIA [id number] [address] STATES [place] [facility] Cholesterol in LDL [Mass/Vol] 81 mg/dL Normal <100 [facility] Comment on above: Order Comment: Speci men Type: BLOOD SPECIMENOrdering Facility: [facility] Address: [address] [place] [address] Result Comment: <100 mg/dL, Optimal 100-129 mg/dL, Near optimal/above optimal 130-159 mg/dL, Borderline high 160-189 mg/dL, High >189 mg/dL, Very high Secondary prevention optimal LDL Cholesterol levels are recommended to be <70 mg/dL LDL cholesterol is calculated using the Sanford-NIH equation. Performed By: #### 2 4331-1 ####[facility] LABIA [id number] [address] [place] Cholesterol in LDL/Cholesterol in HDL [Mass ratio] 2.19 {ratio} Normal <2.54 [facility] Comment on above: Order Comment: Michelle men Type: BLOOD SPECIMENOrdering Facility: [facility] Address: [address] [place] [address] Result Comment: Refe rence: 1. National Cholesterol Education Program ATP III Guideline At-A-Glance Quick Desk Reference: National Heart, Lung, and Blood [place]. National Institutes of Health. 2001: NIH Publication No. 01-3305. 2. An International Atherosclerosis Society position paper: global recommendations for the management of dyslipidemia: executive summary, Atherosclerosis. 2014: 232(2):410-413. Performed By: #### 2 4331-1 ####[facility] LABIA [id number] [place] [address] [place] Cholesterol in VLDL [Mass/Vol] 14 mg/dL Normal <30 [facility] Comment on above: Order Comment: Michelle ashby Type: BLOOD SPECIMENOrdering Facility: [facility] Address: [address] [place] [address] Performed By: #### 2 4331-1 ####[facility] LABIA [id number] [place] [id number] [place] Cholesterol non HDL [Mass/Vol] 98 mg/dL Normal <130 [facility] Comment on above: Order Comment: Michelle ashby Type: BLOOD SPECIMENOrdering Facility: [facility] Address: [address] [place] [address] Result Comment: <130 mg/dL, Optimal 130-159 mg/dL, Near optimal/above optimal 160-189 mg/dL, Borderline high 190-219 mg/dL, High >219 mg/dL, Very high Secondary prevention optimal non HDL Cholesterol levels are recommended to be <100 mg/dL Performed By: #### 2 4331-1 ####[facility] LABCLIA [id number] [address] [address] [place] Cholesterol.total/[place] sterol in HDL [Mass ratio] 3.65 {ratio} Normal <5.10 [facility] Comment on above: Order Comment: Speci men Type: BLOOD SPECIMENOrdering Facility: [facility] Address: [address] [place] [address] Performed By: #### 2 4331-1 ####[facility] LABCLIA [id number] [place] [id number] [place] FASTING TIME 13 hrs Normal [facility] Comment on above: Order Comment: Speci men Type: BLOOD SPECIMENOrdering Facility: [facility] Address: [address] [place] [address] Performed By: #### 2 4331-1 ####[facility] LABCLIA [id number] [address] [address] [place] Triglyceride [Mass/Vol] 89 mg/dL Normal <[address] [facility] Comment on above: Order Comment: Speci men Type: BLOOD SPECIMENOrdering Facility: [facility] Address: [address] [place] [address] Result Comment: <150 mg/dL, Normal 150-199 mg/dL, Borderline high 200-499 mg/dL, High >499 mg/dL, Very high Performed By: #### 2 4331-1 ####[facility] LABCLIA [id number] [address] [place] [address] [place] 12 Lead EKG performed by [facility] on 09-16-2024 12 Lead EKG performed by [facility] [address] [place] [address] 12 Lead EKG performed by [facility] 09/16/24 1120 MR#: [id number] Acct: [id number] Name: TOBI FARFAN Rep #: [id number] : 1975 49 From: Juan Barker MD Attending Dr: Dr. Juan Barker MD Status: DE P AMB Ordering Dr: Juan Barker MD Date: 09/16/24 Location: [facility] Sex: F C Admitted: BMS/12 Lead EKG performed by [facility] ECG Report Interpretation -----Sinus Rhythm Low voltage in precordial leads. ABNORMAL Electronically signed on 09/16/2024 at 15:[address] Juan Barker [employer] Software Version [id number] 09/16/24 1532 Date Juan Barker MD CC: Dr. Darshana Munoz MD Date Dictated: 09/16/24 1120 Date Transcribed: 09/16/24 112 Console Attendant: Signed Normal [facility] Cardiology Visit Reporton Cardiology Visit Report [facility] [address] [place], [place] [address] OFFICE VISIT Date of Service: 09/16/24 MR#: [id number] Acct: [id number] Name: TOBI FARFAN Rep #: [id number] : 1975 Provider: Dr. Juan barber MD Age/Sex: 49/F Location: [facility] Status: Signed HPI HPI History of Present Illness Details: The patient is a pleasant 49-year-old white female that comes in today with her . She is here for a new patient visit because of family history of sudden cardiac in her grandfather. She also has a history of a nondiagnostic stress echocardiogram done August 12, 2024. Patient reports that she has occasional some chest discomfort she does not know of is related to stress or activity. She also does have significant dyspnea on exertion but she is morbidly obese. Patient carries a history of increased LV size documented at the [facility] was said to be related to obesity. Last echocardiogram done as part of the stress test scented to her EF was 58???5%. But she only reached 67% of maximal predicted heart rate. Patient does carry history of LVH as well. She has a history of hypertension which is well-controlled she is diabetic hemoglobin A1c has been well-controlled by her report. Last fasting blood sugar was 105. She also has a history of obstructive sleep apnea treated with CPAP which she uses about 5 hours a night. The patient is here because of this nondiagnostic stress test. She does have some worrisome symptoms of this dyspnea on exertion and she has a significant risk factor profile with a family history in her grandfather, she is hypertensive, hyperlipidemic, and diabetic. She does not smoke. She has been diabetic for about 5 years. The patient has failed Jardiance in the past due to yeast infection she is currently on Ozempic and originally had lost 30 pounds but is now started to gain it back. ECG in the office today shows normal sinus rhythm at 63 bpm low voltage in the precordial leads probably related to body habitus otherwise is unremarkable. 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 Accompanied by: Is patient in pain?: No Allergies amoxicillin (Amoxicillin) Allergy (Verified 09/16/24 14:18) Other lisinopril Allergy (Verified 09/16/24 14:18) Other niacin Allergy (Verified 09/16/24 14:18) Hives Medications ???Medication ???Instructions ???Recorded ???Confirmed ???Type losartan 50 mg-hydrochlorothiazid e 1 ea PO DAILY 05/17/17 09/16/24 History 12.5 mg tablet metformin 500 mg tablet,extended 1,000 mg PO BID 05/17/17 09/16/24 History release 24 hr aspirin 81 mg chewable tablet 1 tab PO DAILY 01/19/19 09/16/24 H istory potassium chloride 10 mEq 10 meq PO DAILY 01/19/19 09/16/24 History capsule,extended release pravastatin 20 mg tablet 20 mg PO DAILY 01/19/19 09/16/24 H istory albuterol sulfate 90 mcg/actuation 2 puff inhalation Q4-6H PRN 10/0409/16/24 History aerosol inhaler budesonide 90 mcg/actuation breath 1 inh inhalation BID 09/14/24 History activated powder inhaler (Pulmicort Flexhaler) ergocalciferol (vitamin D2) 1,250 1,250 mcg PO QWEEK 09/14/2409/16 History mcg (50,000 unit) capsule (Vitamin D2) gabapentin 100 mg capsule 100 mg PO TID 09/14/24 09/16/24 Hi story glimepiride 4 mg tablet 4 mg PO QDAY 09/14/24 09/16/24 His tory pioglitazone 15 mg tablet (Actos) 15 mg PO QDAY 09/14/24 09/16/24 H istory semaglutide 2 mg/dose (8 mg/3 mL) 2 mg subcut QWEEK 09/14/24 History subcutaneous pen injector sertraline 100 mg tablet 150 mg PO QDAY 09/14/24 09/16/24 H istory buspirone 10 mg tablet 10 mg PO BID 09/16/24 09/16/24 His tory ferrous sulfate 325 mg (65 mg 325 mg PO QDAY 09/16/24 09/16/24 H istory iron) tablet montelukast 10 mg tablet 10 mg PO QHS 09/16/24 09/16/24 His tory Ejection fraction %: 58 Have you fallen in the past year?: No PFS Medical History Family history of sudden cardiac Mixed hyperlipidemia Left ventricular hypertrophy Dyspnea on exertion RANDA (obstructive sleep apnea) Obesity Dysmetabolic syndrome Type 2 diabetes mellitus Carpal tunnel syndrome Anxiety Depression Hypertension Surgical History History of section Family History ... Normal [facility] CBC W Auto Differential pane l (Bld)on 08-22-2024 Basophils (Bld) [#/Vol] 0.03 10*3/uL Normal <0.11 [facility] Comment on above: Order Comment: Speci men Type: BLOOD SPECIMENOrdering Facility: [facility] Address: [address] [place] [address] Performed By: #### 5 7021-8 ####[facility] LABCLIA [id number] [address] [place] [address] [place] Basophils/100 WBC (Bld) 0.4 % Normal [facility] Comment on above: Order Comment: Speci men Type: BLOOD SPECIMENOrdering Facility: [facility] Address: [address] [place] [address] Performed By: #### 5 7021-8 ####[facility] LABCLIA [id number] [address], [place] [address] [place] Differential cell count method Nom (Bld) Auto Normal [facility] Comment on above: Order Comment: Speci men Type: BLOOD SPECIMENOrdering Facility: [facility] Address: [address] [place] [address] Performed By: #### 5 7021-8 ####[facility] LABCLIA [id number] [place] [address] [place] Eosinophils (Bld) [#/Vol] 0.22 10*3/uL Normal <0.46 [facility] Comment on above: Order Comment: Speci men Type: BLOOD SPECIMENOrdering Facility: [facility] Address: [address] [place] [address] Performed By: #### 5 7021-8 ####[facility] LABCLIA [id number] [address] [place] Eosinophils/100 WBC (Bld) 2.9 % Normal [facility] Comment on above: Order Comment: Speci men Type: BLOOD SPECIMENOrdering Facility: [facility] Address: [address] [place] [address] Performed By: #### 5 7021-8 ####[facility] LABCLIA [id number] [place] [address] [place] Erythrocyte distribution width (RBC) [Ratio] 14.3 % Normal 11.5-15.0 [facility] Comment on above: Order Comment: Speci men Type: BLOOD SPECIMENOrdering Facility: [facility] Address: [address] [place] [address] Performed By: #### 5 7021-8 ####[facility] LABIA [id number] [place] [address] [place] Hematocrit (Bld) [Volume fraction] 40.6 % Normal 36.0-46.0 [facility] Comment on above: Order Comment: Speci men Type: BLOOD SPECIMENOrdering Facility: [facility] Address: [address] [place] [address] Performed By: #### 5 7021-8 ####[facility] LABIA [id number] [place] [address] [place] Hemoglobin (Bld) [Mass/Vol] 12.6 g/dL Normal 11.5-15.5 [facility] Comment on above: Order Comment: Speci men Type: BLOOD SPECIMENOrdering Facility: [facility] Address: [address] [place] [address] Performed By: #### 5 7021-8 ####[facility] LABIA [id number] [place] [address] [place] Immature granulocytes (Bld) [#/Vol] 10*3/uL Normal <0.10 [facility] Comment on above: Order Comment: Speci men Type: BLOOD SPECIMENOrdering Facility: [facility] Address: [address] [place] [address] Performed By: #### 5 7021-8 ####[facility] LABIA [id number] [place] [address] [place] Immature granulocytes/100 WBC (Bld) 0.3 % Normal [facility] Comment on above: Order Comment: Speci men Type: BLOOD SPECIMENOrdering Facility: [facility] Address: [address] [place] [address] Performed By: #### 5 7021-8 ####[facility] LABCLIA [id number] [place] [address] [place] Lymphocytes (Bld) [#/Vol] 1.92 10*3/uL Normal 1.00-4.00 [facility] Comment on above: Order Comment: Speci men Type: BLOOD SPECIMENOrdering Facility: [facility] Address: [address] [place] [address] Performed By: #### 5 7021-8 ####[facility] LABCLIA [id number] [place] [address] [place] Lymphocytes/100 WBC (Bld) 25.7 % Normal [facility] Comment on above: Order Comment: Speci men Type: BLOOD SPECIMENOrdering Facility: [facility] Address: [address] [place] [address] Performed By: #### 5 7021-8 ####[facility] LABCLIA [id number] [place] [address] [place] MCH (RBC) [Entitic mass] 27.6 pg Normal 26.0-34.0 [facility] Comment on above: Order Comment: Speci men Type: BLOOD SPECIMENOrdering Facility: [facility] Address: [address] [place] [address] Performed By: #### 5 7021-8 ####[facility] LABCLIA [id number] [place] [address] [place] MCHC (RBC) [Mass/Vol] 31.0 g/dL Normal 30.5-36.0 [facility] Comment on above: Order Comment: Speci men Type: BLOOD SPECIMENOrdering Facility: [facility] Address: [address] [place] [address] Performed By: #### 5 7021-8 ####[facility] LABCLIA [id number] [place] [address] [place] MCV (RBC) [Entitic vol] 89.0 fL Normal 80.0-100.[address] [facility] Comment on above: Order Comment: Speci men Type: BLOOD SPECIMENOrdering Facility: [facility] Address: [address] [place] [address] Performed By: #### 5 7021-8 ####[facility] LABCLIA [id number] [place] [address] [place] Monocytes (Bld) [#/Vol] 0.47 10*3/uL Normal <0.87 [facility] Comment on above: Order Comment: Speci men Type: BLOOD SPECIMENOrdering Facility: [facility] Address: [address] [place] [address] Performed By: #### 5 7021-8 ####[facility] LABIA [id number] [place] [address] [place] Monocytes/100 WBC (Bld) 6.3 % Normal [facility] Comment on above: Order Comment: Speci men Type: BLOOD SPECIMENOrdering Facility: [facility] Address: [address] [place] [address] Performed By: #### 5 7021-8 ####[facility] LABCLIA [id number] [place] [address] [place] Neutrophils (Bld) [#/Vol] 4.81 10*3/uL Normal 1.45-7.50 [facility] Comment on above: Order Comment: Speci men Type: BLOOD SPECIMENOrdering Facility: [facility] Address: [address] [place] [address] Performed By: #### 5 7021-8 ####[facility] LABIA [id number] [place] [address] [place] Neutrophils/100 WBC (Bld) 64.4 % Normal [facility] Comment on above: Order Comment: Speci men Type: BLOOD SPECIMENOrdering Facility: [facility] Address: [address] [place] [address] Performed By: #### 5 7021-8 ####[facility] LABCLIA [id number] [facility] [address], [place] [address] [place] Nucleated RBC (Bld) [#/Vol] 10*3/uL Normal <0.01 [facility] Comment on above: Order Comment: Speci men Type: BLOOD SPECIMENOrdering Facility: [facility] Address: [address] [place] [address] Performed By: #### 5 7021-8 ####[facility] LABCLIA [id number] [address], [place] [address] [place] Nucleated RBC/100 WBC (Bld) [Ratio] 0.0 /100 WBC Normal [facility] Comment on above: Order Comment: Speci men Type: BLOOD SPECIMENOrdering Facility: [facility] Address: [address] [place] [address] Performed By: #### 5 7021-8 ####[facility] LABCLIA [id number] [address], [facility] [place] Platelet mean volume (Bld) [Entitic vol] 11.6 fL Normal 9.0-12.7 [facility] Comment on above: Order Comment: Speci men Type: BLOOD SPECIMENOrdering Facility: [facility] Address: [address] [place] [address] Performed By: #### 5 7021-8 ####[facility] LABCLIA [id number] [place] [id number] [place] Platelets (Bld) [#/Vol] 247 10*3/uL Normal 150-400 [facility] Comment on above: Order Comment: Speci men Type: BLOOD SPECIMENOrdering Facility: [facility] Address: [address] [place] [address] Performed By: #### 5 7021-8 ####[facility] LABIA [id number] [address] [address] [place] RBC (Bld) [#/Vol] 4.56 10*6/uL Normal 3.90-5.20 [facility] Comment on above: Order Comment: Speci men Type: BLOOD SPECIMENOrdering Facility: [facility] Address: [address] [place] [address] Performed By: #### 5 7021-8 ####[facility] LABIA [id number] [place] [id number] [place] WBC (Bld) [#/Vol] 7.47 10*3/uL Normal 3.70-11.00 [facility] Comment on above: Order Comment: Speci men Type: BLOOD SPECIMENOrdering Facility: [facility] Address: [address] [place] [address] Performed By: #### 5 7021-8 ####[facility] [id number] [place] [id number] [place] Comprehensive metabolic 2000 panelon 08-22-2024 Albumin [Mass/Vol] 3.8 g/dL Low 3.9-4.9 [facility] Comment on above: Order Comment: Speci men Type: BLOOD SPECIMENOrdering Facility: [facility] Address: [address] [place] [address] Performed By: #### 2 4323-8, 70034-2, 2276-4, 3016-3 ####[facility] [id number] [place] [id number] [place] ALP [Catalytic activity/Vol] 106 U/L Normal 34-123 [facility] Comment on above: Order Comment: Speci men Type: BLOOD SPECIMENOrdering Facility: [facility] Address: [address] [place] [address] Performed By: #### 2 4323-8, 55168-0, 6-4, 3016-3 ####[facility] LABCLIA [id number] [address] [address] [place] ALT [Catalytic activity/Vol] 21 U/L Normal 7-38 [facility] Comment on above: Order Comment: Speci men Type: BLOOD SPECIMENOrdering Facility: [facility] Address: [address] [place] [address] Performed By: #### 2 4323-8, 15095-2, 6-4, 3016-3 ####[facility] LABCLIA [id number] [place] [id number] [place] Anion gap [Moles/Vol] 12 mmol/L Normal 8-15 [facility] Comment on above: Order Comment: Speci men Type: BLOOD SPECIMENOrdering Facility: [facility] Address: [address] [place] [address] Performed By: #### 2 4323-8, 34539-5, 6-4, 3016-3 ####[facility] LABIA [id number] [address] [address] [place] AST [Catalytic activity/Vol] 15 U/L Normal 13-35 [facility] Comment on above: Order Comment: Speci men Type: BLOOD SPECIMENOrdering Facility: [facility] Address: [address] [place], [place] [address] Performed By: #### 2 4323-8, 38621-2, 6-4, 3016-3 ####[facility] LABIA [id number] [address] [address] [place] Bilirubin [Mass/Vol] 0.5 mg/dL Normal 0.2-1.3 [facility] Comment on above: Order Comment: Speci men Type: BLOOD SPECIMENOrdering Facility: [facility] Address: [address] [place], [place] [address] Performed By: #### 2 4323-8, 85762-9, 6-4, 3016-3 ####[facility] LABCLIA [id number] [address] [address] [place] Calcium [Mass/Vol] 8.6 mg/dL Normal 8.5-10.2 [facility] Comment on above: Order Comment: Speci men Type: BLOOD SPECIMENOrdering Facility: [facility] Address: [address] [place], [place] [address] Performed By: #### 2 4323-8, 57779-3, 6-4, 3016-3 ####[facility] [facility] LAB[facility] [id number] [address] [address] [place] Chloride [Moles/Vol] 102 mmol/L Normal 98-107 [facility] Comment on above: Order Comment: Speci men Type: BLOOD SPECIMENOrdering Facility: [facility] Address: [address] [place], [place] [address] Performed By: #### 2 4323-8, 36608-4, 6-4, 3016-3 ####[facility] LABIA [id number] [address] [address] [place] CO2 [Moles/Vol] 23 mmol/L Normal 22-30 [facility] Comment on above: Order Comment: Speci men Type: BLOOD SPECIMENOrdering Facility: [facility] Address: [address] [place], [place] [address] Performed By: #### 2 4323-8, 03634-9, 6-4, 3016-3 ####[facility] LABIA [id number] [address] [address] [place] Creatinine [Mass/Vol] 0.44 mg/dL Low 0.58-0.96 [facility] Comment on above: Order Comment: Speci men Type: BLOOD SPECIMENOrdering Facility: [facility] Address: [address] [place], [place] [address] Performed By: #### 2 4323-8, 92012-4, 2276-4, 3016-3 ####[facility] LABIA [id number] [place] [id number] [place] Creatinine and Glomerular filtration rate.predicted panel (S/P/Bld) 120 mL/min/1.73m??? Normal >=60 [facility] Comment on above: Order Comment: Michelle ashby Type: BLOOD SPECIMENOrdering Facility: [facility] Address: [address] [place] [address] Result Comment: Zelda mated Glomerular Filtration Rate (eGFR) is calculated using the 2020 CKD-EPI creatinine equation. This equation utilizes serum creatinine, sex, and age as parameters. The creatinine assay has traceable calibration to isotope dilution-mass spectrometry. Refer to KDIGO guidelines for clinical interpretation. In patients with unstable renal function, e.g. those with acute kidney injury, the eGFR may not accurately reflect actual GFR. Performed By: #### 2 4323-8, 93383-8, 6-4, 3016-3 ####[facility] LABIA [id number] [address] [address] [place] Glucose [Mass/Vol] 105 mg/dL High 74-99 [facility] Comment on above: Order Comment: Michelle ashby Type: BLOOD SPECIMENOrdering Facility: [facility] Address: [address] [place] [address] Result Comment: The [place] Diabetes Association (ADA) provides guidance for cutoff values for fasting glucose and random glucose. The ADA defines fasting as no caloric intake for at least 8 hours. Fasting plasma glucose results between 100 to 125 mg/dL indicate increased risk for diabetes (prediabetes). Fasting plasma glucose results greater than or equal to 126 mg/dL meet the criteria for diagnosis of diabetes. In the absence of unequivocal hyperglycemia, results should be confirmed by repeat testing. In a patient with classic symptoms of hyperglycemia or hyperglycemic crisis, random plasma glucose results greater than or equal to 200 mg/dL meet the criteria for diagnosis of diabetes. Reference: Standards of Medical Care in Diabetes 2016, [place] Diabetes Association. Diabetes Care. 2016.39(Suppl 1). Performed By: #### 2 4323-8, 86683-6, 6-4, 3016-3 ####[facility] LABCLIA [id number] [address] [address] [place] Potassium [Moles/Vol] 4.4 mmol/L Normal 3.7-5.1 [facility] Comment on above: Order Comment: Speci men Type: BLOOD SPECIMENOrdering Facility: [facility] Address: [address] [place], [place] [address] Performed By: #### 2 4323-8, 26905-9, 6-4, 3016-3 ####[facility] LABIA [id number] [address] [address] [place] Protein [Mass/Vol] 7.0 g/dL Normal 6.3-8.0 [facility] Comment on above: Order Comment: Speci men Type: BLOOD SPECIMENOrdering Facility: [facility] Address: [address] [place] [address] Performed By: #### 2 4323-8, 67886-7, 6-4, 3016-3 ####[facility] LABIA [id number] [address] [address] [place] Sodium [Moles/Vol] 137 mmol/L Normal 136-144 [facility] Comment on above: Order Comment: Speci men Type: BLOOD SPECIMENOrdering Facility: [facility] Address: [address] [place], [place] [address] Performed By: #### 2 4323-8, 86181-2, 6-4, 3016-3 ####[facility] LABIA [id number] [address] [address] [place] Urea nitrogen [Mass/Vol] 9 mg/dL Normal 7-21 [facility] Comment on above: Order Comment: Speci men Type: BLOOD SPECIMENOrdering Facility: [facility] Address: [address] [place], [place] [address] Performed By: #### 2 4323-8, 97334-6, 6-4, 3016-3 ####[facility] LABCLIA [id number] [address] [address] [place] Ferritin SerPl-mCncon 2024 Ferritin [Mass/Vol] 49.2 ng/mL Normal 14.7-205.1 [facility] Comment on above: Order Comment: Speci men Type: BLOOD SPECIMENOrdering Facility: [facility] Address: [address] [place] [address] Performed By: #### 2 4323-8, 81173-4, 6-4, 3016-3 ####[facility] LABCLIA [id number] [place] [id number] [place] Iron and Iron binding capaci ty panel 08-22-2024 Iron [Mass/Vol] 37 ug/dL Low 41-186 [facility] Comment on above: Order Comment: Speci men Type: BLOOD SPECIMENOrdering Facility: [facility] Address: [address] [place] [address] Performed By: #### 2 4323-8, 94031-7, 6-4, 3016-3 ####[facility] LABIA [id number] [place] [id number] [place] Iron binding capacity [Mass/Vol] 325 ug/dL Normal 232-386 [facility] Comment on above: Order Comment: Speci men Type: BLOOD SPECIMENOrdering Facility: [facility] Address: [address] [place] [address] Performed By: #### 2 4323-8, 98907-2, 6-4, 3016-3 ####[facility] LABCLIA [id number] [place] [id number] [place] Iron/TIBC [Molar ratio] 11.4 % Low 15.0-57.[address] [facility] Comment on above: Order Comment: Speci men Type: BLOOD SPECIMENOrdering Facility: [facility] Address: [address] [place] [id number] Performed By: #### 2 4323-8, 91463-2, 2276-4, 3016-3 ####[facility] LABIA [id number] [address] [address] [place] TSH SerPl-aCncon 08-22-2024 TSH Qn 1.820 m[IU]/L Normal 0.270-4.200 [facility] Comment on above: Order Comment: Speci men Type: BLOOD SPECIMENOrdering Facility: [facility] Address: [address] [place] [id number] Result Comment: If t he patient is , TSH reference range varies by gestational period: First Trimester (weeks 9-12): 0.180-2.990 mIU/L Second Trimester: 0.110-3.980 mIU/L Third Trimester: 0.480-4.710 mIU/L Fabian Kimbrough et al. A Practical Approach for the Verifications and Determination of Site- and Trimester-Specific Reference Intervals for Thyroid Function tests in . Thyroid, 2019:29:3:412-420. Low E, et al. 2017 Guidelines of the [place] Thyroid Association for the Diagnosis and Management of Thyroid Disease during and the . Thyroid, 2017:27:3:315-389. Performed By: #### 2 4323-8, 08579-4, 2276-4, 3016-3 ####[facility] LABIA [id number] [address] [address] [place] CNOVon 08-12-2024 CNOV Office Visit (INTMWS ) TOBI AFRFAN ([id number]) 1975 F Date Time Provider Department 08/12/24 5:40 PM MORENITA BUTLER During your visit today, we recorded the following information about you: Pulse Respiration Blood pressure Weight 70/minute 16/minute 126/78 142 kg Morenita Butler APRN.RETAIL WIRELESS SALES REPRESENTATIVE 08/12/2024 6:40 PM Signed CC: Patient presents with: Recheck: DM follow up HPI Tobi Farfan is a 49 year old female who presents today for shortness of breath on exertion, cough, and wheezing. Her to review her new medications and workup. Over the winter had 2 different respiratory infections requiring antibiotics. CXR was normal but still with symptoms. Saw other provider 2 months ago, started on pulmicort and albuterol inhaler. Has seen some improvement with her cough, shortness of breath,and wheezing with her medications. Still present but with heavier exertion. Cough is dry when present. Has history of sinus issues but has not noticed sinus drainage. Voice seems to crack easily. Denies fever, chills, ear pressure, sore throat, heartburn, difficulty swallowing, or nausea. PFTs: Unremarkable. Stress ECHO: Moderately enlarged left ventricle but unable to get accurate stress reading due to termination due to fatigue and not getting HR up. RANDA: Wears CPAP nightly for average of 5 hours. Wakes up feeling refreshed. HTN: Ms. Farfan denies headache, chest pain, palpitations, dyspnea, and peripheral edema. Patient denies any side effects of her medication(s) and is compliant with their regimen. Tobi denies regular aerobic exercise. She watches her diet for sodium, low fat and low cholesterol some of the time. Last 3 Encounter BP Readings: Date: BP: 08/12/2024 126/78 06/23/2024 117/73 06/17/2024 114/80 REVIEW OF SYSTEMS See HPI PAST MEDICAL HISTORY Diagnosis Date Anxiety Carpal tunnel syndrome Clostridium difficile diarrhea Recurrent infection 2011 Diabetes mellitus (HCC) Dysmetabolic syndrome Gestational diabetes Hypertension Obesity RANDA (obstructive sleep apnea) DME [employer] for AutoPAP - AHI 70.5 PAST SURGICAL HISTORY Procedure Laterality Date DELIVERY ONLY 12/03/2011 , low transverse; wound infection DILATION AND CURETTAGE DXAND/THER NONOBSTETRIC 11/24/2013 Dilation AND curettage HYSTEROSCOPY, DIAGNOSTIC (SEPARATE 11/24/2013 Hysteroscopy PAST SURGICAL HISTORY OF 01/12/2012 debridement post infection WOUND VAC 2012 ALLERGIES Amoxicillin, Lisinopril, and Niacin MEDICATIONS metFORMIN ER (GLUCOPHAGE XR) 500 mg 24 hr tablet Take 2 tablets by mouth two times a day at 6 am and 9 pm. albuterol HFA (PROVENTIL HFA, VENTOLIN HFA) 90 mcg/actuation inhaler Inhale 2 Puffs as instructed every 4 hours as needed for wheezing/shortness of breath. budesonide (PULMICORT FLEXHALER) 90 mcg/actuation aepb Inhale 1 Puff as instructed two times a day. predniSONE (DELTASONE) 10 mg tablet TAKE BY MOUTH 4 TABLETS DAILY FOR 2 DAYS, THEN 3 TABLETS DAILY FOR 2 DAYS, THEN 2 TABLETS DAILY FOR 2 DAYS, THEN 1 TABLET DAILY FOR 2 DAYS. (Patient not taking: Reported on 06/17/2024) ergocalciferol 50,000 unit capsule (VITAMIN D2, DRISDOL) Take 1 capsule by mouth one time a week. busPIRone (BUSPAR) 10 mg tablet Take 1 tablet by mouth two times a day. gabapentin (NEURONTIN) 100 mg capsule Take 1 capsule by mouth three times a day for 180 days. semaglutide (OZEMPIC) 2 mg/dose (8 mg/3 mL) pen injector Inject 2 mg subcutaneously one time a week. ferrous sulfate 325 mg (65 mg iron) tablet Take 1 tablet by mouth two times a day with meals. potassium chloride (K-TAB) 10 mEq tablet Take 1 tablet by mouth daily with breakfast. losartan-hydroCHLOROt hiazide (HYZAAR) 50-12.5 mg per tablet Take 1 tablet by mouth once daily. sertraline (ZOLOFT) 100 mg tablet TAKE 1 AND 1/2 TABLETS ONCEDAILY pioglitazone (ACTOS) 15 mg tablet take 1 tablet once daily pravastatin (PRAVACHOL) 20 mg tablet take 1 tablet once daily glimepiride (AMARYL) 4 mg tablet TAKE 1 TABLET DAILY WITH BREAKFAST CPAP Settings 13 - 20 cm H2O, suitable mask per pt preference, chin strap, head gear, humidity, filters, tubing, lifetime supplies. G47.33 RANDA Lancing Device misc Use to monitor blood sugars a directed Lancets lancets Use as instructed to monitor blood sugars when prompted by Tamy Montgomery. Up to 4 per day. insulin needles, DISPOSABLE, (BD INSULIN PEN NEEDLE UF) 31 gauge x 5/16 1 Each once daily. With Victoza. ICD10: E11.65 aspirin 81 mg chewable tablet CHEW 1 TABLET ONCE DAILY Blood-Glucose Meter monitoring kit Glucose Meter of Choice (pending insurance coverage) - Kit - Dx: Type 2 DM - Uncontrolled E11.65 NORGESTIMATE-ETHINYL ESTRADIOL (PREVIFEM ORAL) Take 1 tablet by mouth once daily. (Patient not taking: Reported on 06/23/2024) FAMILY HISTORY Problem Relation Age of Onset Osteoporosis (more content not included)... Normal [facility] 25(OH)D3 SerPl-mCncon 2024 25-hydroxyvitamin D3 [Mass/Vol] 53.9 ng/mL Normal 31.0-80.0 [facility] Comment on above: Order Comment: Speci men Type: BLOOD SPECIMENOrdering Facility: [facility] Address: [address] [place] [address] Performed By: #### 1 989-3 ####[facility] LABCLIA [id number] [address] [place] CNOVon 08-10-2024 CNOV Office Visit (CARDWS ) TOBI FARFAN ([id number]) 1975 F Date Time Provider Department 08/10/24 11:20 AM ECHOCARDIOGRAM WSTR CARDWS During your visit today, we recorded the following information about you: Madhuri Rodriguez RN 08/10/2024 12:06 PM Signed 22 ga angio started to Left FA. Good blood return. Flushed easily with NSS. Dressing applied. Pt tolerated procedure well. No C/o's, Hep lock D/c'd and dressing applied. Patient discharged ambulatory with It Service Delivery Manager. Madhuri Rodriguez RN Referring Provider: QUENTIN SALAZAR [[id number]] Allergies As of Date: 08/10/2024 Noted Allergy Reaction AMOXICILLIN 01/04/2012 2 - Rash LISINOPRIL 02/22/2017 3 - Cough Comments: cough NIACIN 12/13/2008 5 - Intolerance Comments: Caused whole body to become red and warm. Date Reviewed: 08/10/2024 Reviewed by: Lainey Weiner RPFT - Fully Assessed Visit Diagnoses:Controlled type 2 diabetes mellitus without complication, without long-term current use of insulin (HCC) [E11.9] SOB (shortness of breath) [R06.02] Order(s):STRESS ECHO TREADMILL [[id number]] Order #: [id number]: 1 [] perflutren lipid microspheres 1.3 mL in NaCl (PF) 0.9% 10 mL injection (DEFINITY)Disp: Rfl: [] sodium chloride 0.9 % (flush) 10 mL (BD POSIFLUSH)Disp: Rfl: Prescriptions as of 08/10/2024 - metFORMIN ER (GLUCOPHAGE XR) 500 mg 24 hr tablet Take 2 tablets by mouth two times a day at 6 am and 9 pm. - albuterol HFA (PROVENTIL HFA, VENTOLIN HFA) 90 mcg/actuation inhaler Inhale 2 Puffs as instructed every 4 hours as needed for wheezing/shortness of breath. - budesonide (PULMICORT FLEXHALER) 90 mcg/actuation aepb Inhale 1 Puff as instructed two times a day. - predniSONE (DELTASONE) 10 mg tablet TAKE BY MOUTH 4 TABLETS DAILY FOR 2 DAYS, THEN 3 TABLETS DAILY FOR 2 DAYS, THEN 2 TABLETS DAILY FOR 2 DAYS, THEN 1 TABLET DAILY FOR 2 DAYS. - ergocalciferol 50,000 unit capsule (VITAMIN D2, DRISDOL) Take 1 capsule by mouth one time a week. - busPIRone (BUSPAR) 10 mg tablet Take 1 tablet by mouth two times a day. - gabapentin (NEURONTIN) 100 mg capsule Take 1 capsule by mouth three times a day for 180 days. - semaglutide (OZEMPIC) 2 mg/dose (8 mg/3 mL) pen injector Inject 2 mg subcutaneously one time a week. - ferrous sulfate 325 mg (65 mg iron) tablet Take 1 tablet by mouth two times a day with meals. - potassium chloride (K-TAB) 10 mEq tablet Take 1 tablet by mouth daily with breakfast. - losartan-hydroCHLOROt hiazide (HYZAAR) 50-12.5 mg per tablet Take 1 tablet by mouth once daily. - sertraline (ZOLOFT) 100 mg tablet TAKE 1 AND 1/2 TABLETS ONCEDAILY - pioglitazone (ACTOS) 15 mg tablet take 1 tablet once daily - pravastatin (PRAVACHOL) 20 mg tablet take 1 tablet once daily - glimepiride (AMARYL) 4 mg tablet TAKE 1 TABLET DAILY WITH BREAKFAST - CPAP Settings 13 - 20 cm H2O, suitable mask per pt preference, chin strap, head gear, humidity, filters, tubing, lifetime supplies. G47.33 RANDA - Lancing Device misc Use to monitor blood sugars a directed - Lancets lancets Use as instructed to monitor blood sugars when prompted by [employer]. Up to 4 per day. - insulin needles, DISPOSABLE, (BD INSULIN PEN NEEDLE UF) 31 gauge x 5/16 1 Each once daily. With Victoza. ICD10: E11.65 - aspirin 81 mg chewable tablet CHEW 1 TABLET ONCE DAILY - Blood-Glucose Meter monitoring kit Glucose Meter of Choice (pending insurance coverage) - Kit - Dx: Type 2 DM - Uncontrolled E11.65 - NORGESTIMATE-ETHINYL ESTRADIOL (PREVIFEM ORAL) Take 1 tablet by mouth once daily. Problem List As Of Date 08/10/2024 Noted Resolved Morbid obesity [E66.01] 12/18/2006 ELEV BL PRES W/O HYPERTN [R03.0] 12/18/2006 01/09/2008 DYSMETABOLIC SYNDROME X [E88.810] 01/02/2007 Essential hypertension [I10] 01/09/2008 Mixed hyperlipidemia [E78.2] 09/01/2010 Abnormal echocardiogram [R93.1] 10/23/2010 Routine gynecological examination [Z01.419] 07/04/2011 Class: Chronic Clostridium difficile diarrhea [A04.72] 05/21/2024 Carpal tunnel syndrome [G56.00] Anxiety [F41.9] Panic attack [F41.0] 03/01/2015 RANDA (obstructive sleep apnea) [G47.33] 08/14/2017 Controlled type 2 diabetes mellitus without com*10/01/2018 Right sided sciatica [M54.31] 04/11/2021 05/11/2021 Prescriptions ordered this encounter Disp Refills Start End PERFLUTREN LIPID MICROSPHERES 1.1 MG* 08/10/2024 08/10/2024 Route: INTRAVENOUS SODIUM CHLORIDE 0.9 % (FLUSH) INJECT* 08/10/2024 08/10/2024 Route: INTRAVENOUS Encounter Status:Closed by MADHURI RODRIGUEZ on 08/10/24 Normal [facility] SPIROMETRY - BASELINE AND PO ST DILATORon 08-10-2024 FEF25% POST (L/S) 3.59 L/S [facility] FEF25% PRE (L/S) 4.35 L[facility]S [facility] BZH18-83% LLN (L/S) 1.67 L/S [facility] JDU01-58% POST (L/S) 2.85 L/S [facility] SZB60-85% PRE (L/S) 2.36 L/S [facility] AJB40-79% PREDICTED (L/S) 2.91 L/S [facility] FEF75% LLN (L/S) 0.45 L/S [facility] FEF75% POST (L/S) 1.28 L/S [facility] FEF75% PRE (L/S0 0.82 L/S [facility] FEF75% PREDICTED (L/S) 1.02 L/S Cl [facility] FEF75% ULN (L/S) 2.07 L[facility] FET POST (S) 5.95 S [facility] FET PRE (S) 7.06 S [facility] FEV1 LLN (L) 2.08 L [facility] FEV1 PRE (L) 2.39 L [facility] FEV1 PREDICTED (L) 2.8 L [facility] FEV1 ULN (L) 3.47 L [facility] FEV1/FVC LLN (%) 70 % [facility] FEV1/FVC POST (%) 82 % [facility] FEV1/FVC PRE (%) 80 % [facility] FEV1/FVC PREDICTED (%) 81 % Cl [facility] FEV1_POST (L) 2.49 L [facility] FVC LLN (L) 2.57 L [facility] FVC POST (L) 3.04 L [facility] FVC PRE (L) 2.99 L [facility] FVC PREDICTED (L) 3.42 L [facility] FVC ULN (L) 4.3 L [facility] PEF LLN (L/S) 5.2 L/S [facility] PEF POST (L/S) 4.78 L/S [facility] PEF PRE (L/S) 4.49 L/S [facility] PEF ULN (L/S) 8.73 L/S [facility] [address] [place] [address] Test Date: 2024-08-10 Pat Name: TOBI FARFAN Department: Room: Gender: Female Roll Up Helper: : 1975 Requested By: Order Number: [id number] Reading MD: Sherry Zayas MD Interpretive Statements Medications and Allergies were reviewed for possible drug interactions per policy. No contraindications or sensitivities were noted. Meds taken: Pulmicort flexhaler 1.5 hours before testing. 2 puffs Albuterol (180 mcg) delivered by MDI via holding chamber. HR pre = 65/min, HR post = 68/min. PRE/POST BRONCHODILATOR: The two largest FVCs were repeatable. The two largest FEV1s were repeatable. Time to Peak Flow greater than ATS/ERS standard, FEV1 may not be valid. IMPRESSION: Spirometry is normal. Negative bronchodilator response. Electronically Signed On 08-10-2024 16:35:10 EDT by Sherry Zayas MD ID: [id number] Name: TOBI FARFAN Race: White Ht: 65.00 in Wt: 314.00 lbs Age: 49 Gender: Female : 1975 Dx: Shortness of breath Smoking Hx: Non-smoker Doctor: QUENTIN SALAZAR Test Date: 08/10/2024 Site: [facility] [place]: Lainey Weiner PRE-BRONCH POST-BRONCH Zheng LLN Pred ULN %Pred ZScore Zheng %Pred %Chg ZScore SPIROMETRY FVC 2.99 2.57 3.42 4.30 87 -0.82 3.04 88 1 -0.73 FEV1 2.39 2.08 2.80 3.47 85 -0.95 2.49 88 3 -0.72 FEV1/FVC 0.80 0.70 0.81 0.90 98 -0.27 0.82 100 2 0.07 FEFMax 4.49 5.20 6.97 8.73 64 -2.31 4.78 68 6 -2.04 FEF50 4.15 2.11 3.72 5.33 111 0.44 3.13 84 -24 -0.60 FIF50 3.01 2.32 -22 FEF50/FIF50 1.38 90-100 1.35 -2 FIVC 2.95 2.82 -4 KHB51-40 2.36 1.67 2.91 4.46 81 -0.68 2.85 97 20 -0.07 ExpiredTime 7.06 5.95 -15 TimeToFEFMax 0.13 0.19 44 FRANCOIS 0.07 0.10 43 VolExtrap% 2 3 40 Comments: Medications and Allergies were reviewed for possible drug interactions per policy. No contraindications or sensitivities were noted. Meds taken: Pulmicort flexhaler 1.5 hours before testing. 2 puffs Albuterol (180 mcg) delivered by MDI via holding chamber. HR pre = 65/min, HR post = 68/min. PRE/POST BRONCHODILATOR: The two largest FVCs were repeatable. The two largest FEV1s were repeatable. Time to Peak Flow greater than ATS/ERS standard, FEV1 may not be valid. PULMONARY FUNCTION LAB [facility] STRESS ECHO TREADMILLon 03-3 STRESS ECHO TREADMILL Stress Pulp Drier Report: Stress Echo [facility] Date of service: 08/10/2024 11:07:11 AM THERAPY PROFESSOR Supervising physician: Quan Mayes MD PATIENT: Name: MRS. TOBI FARFAN Age: 49 years Gender: F The supervising physician was in the department and immediately available. Final -------- Echocardiography Report: Stress Echo [facility] Date of service: 08/10/2024 11:07:11 AM THERAPY PROFESSOR Ordering physician: QUENTIN SALAZAR Indication: Shortness of Breath Technologist: Idalia Bell [facility] Interpreting physician: Fitz Walker MD PATIENT: Name: MRS. TOBI FARFAN : 1975 Age: 49 years Gender: F Height: 165.10 cm BSA: 2.54 m Weight: 140.34 kg BMI: 51.5 kg/m Heart rate 60 bpm Blood pressure 142/68 mmHg Technically difficult exam due to body habitus. Color Doppler was utilized to interrogate the cardiac valves assessed and spectral Doppler was utilized to determine the flow velocities and pressure gradients reported in this exam. MEASUREMENTS: Value Indexed Normal Max aortic dimension 3.3 cm Ao < 3.8 Left atrial volume 73 ml (biplane A-L) 29 ml/m Dell <= 34 LV ID (diastole) 4.7 cm (2D) 1.85 cm/m LV ID (systole) 3.0 cm (2D) 1.18 cm/m IVS, leaflet tips 1.0 cm (2D) Posterior wall thickness 0.9 cm (2D) Left ventricular mass 155 g (2D) 61 g/m LV stroke volume 107 ml (2D biplane) LV end diastolic volume 183 ml (2D biplane) 72.1 ml/m 29<=EDVi<62 LV end systolic volume 76 ml (2D biplane) 30.1 ml/m Ejection Fraction 58 % (2D biplane) EF > 54 FINDINGS: LEFT VENTRICLE The left ventricle is moderately dilated. Left ventricular systolic function is normal. Normal left ventricular diastolic function. Mitral annular lateral E/e': 7.7. Mitral annular septal E/e': 14.4. Definity contrast used for endocardial border detection. Wall Motion: Rest: All scored segments are normal. Stress: RIGHT VENTRICLE The right ventricle is normal in size. Right ventricular systolic function is normal. LEFT ATRIUM The left atrial cavity is normal in size. RIGHT ATRIUM Unable to reliably measure RA volume due to technical limitations. MITRAL VALVE The mitral valve leaflets are structurally normal. There is trace mitral valve regurgitation. The pressure half time is 63 msec. The peak mitral E/A ratio is 1.08. The average mitral E/e' ratio is 11.1. The mitral flow deceleration time is 217 msec. TRICUSPID VALVE The tricuspid valve leaflets are structurally normal. There is trace tricuspid valve regurgitation. AORTIC VALVE The aortic valve cusps are structurally normal. There is no aortic valve regurgitation. The peak gradient is 11 mmHg (peak velocity = 168.6 cm/s). PULMONIC VALVE AORTA The visualized aorta is normal in size. Measurements - Mid ascending aorta 3.3 cm. PERICARDIUM There is no pericardial effusion. There is an epicardial fat pad. STRESS ECHO Peak HR 116 bpm. (67 % MPHR) Peak BP 158 mmHg/82 mmHg. The left ventricular cavity size is unchanged with stress. CONCLUSIONS: - Technically difficult exam due to body habitus. - Exam indication: Shortness of Breath - The exercise stress echo was non-diagnostic due to sub-optimal heart rate response at 67 % of MPHR (6.4 METS). No regional wall motion abnormality seen at heart rate achieved. - The left ventricle is moderately dilated. Left ventricular systolic function is normal. EF = 58 5% (2D biplane) Definity contrast used for endocardial border detection. Normal left ventricular diastolic function. - The right ventricle is normal in size. Right ventricular systolic function is normal. - Exam was compared with the prior echocardiographic exam performed on 10/25/2010, the LV is dilated in size now. Final -------- Stress ECG Report: Stress Echo [facility] Date of service: 08/10/2024 11:07:11 AM THERAPY PROFESSOR Ordering physician: QUENTIN SALAZAR acute specialist: Madhuri Rodriguez RN Interpreting physician: Quan Mayes MD Patient name: MRS. TOBI FARFAN Age: 49 years Gender: F Height: 165.10 cm BSA: 2.54 m Weight: 140.34 kg BMI: 51.5 kg/m Indication: Shortness of breath and Encounter for screening for cardiovascular disorders Stress ECG Conclusion: Conclusion: Non-diagnostic due to technical difficulty Comments: unable to get accurate HR during stress due to technical difficulty. Prior exam comparison: No prior CC exam Stress ECG Summary: The patient's resting heart rate was 60 bpm and blood pressure was 142/68 mmHg. The patient exercised accord (more content not included)... [facility] CNOVon 06-23-2024 CNOV Office Visit (FAMPWS ) TOBI FARFAN ([id number]) 1975 F Date Time Provider Department 06/23/24 8:20 AM [facility] During your visit today, we recorded the following information about you: Temperature Pulse Respiration Blood pressure 95.2 degrees 67/minute 16/minute 117/73 Weight 140.3 kg Quentin Salazar PA-C 06/23/2024 9:17 AM Signed 06/23/2024 Patient presents with: Cough with SOB AND intermittent wheeze x6 months SUBJECTIVE: This is a 49 year old that is here today for cough x 6 months. States she had CXR in March-normal. Prednisone seemed to help. She then recently had a cold on top of the cough and repeat CXR was normal on 06/17/24. URI symptoms improved overall, but cough is persisting. Describes as deep cough with wheezing and some SOB. Denies fever/chills, chest pain, hemoptysis, night sweats, weight loss, recent travel, leg swelling, recent surgeries, calf pain. No history of asthma or COPD. Non-smoker. FH cardiac disease-maternal GF with KS at age 49. PMH DM-well controlled. Last A1c 5.7 1 month ago. PAST MEDICAL HISTORY Diagnosis Date Anxiety Carpal tunnel syndrome Clostridium difficile diarrhea Recurrent infection 2011 Diabetes mellitus (HCC) Dysmetabolic syndrome Gestational diabetes Hypertension Obesity RANDA (obstructive sleep apnea) DME [employer] for AutoPAP - AHI 70.5 ALLERGIES Amoxicillin, Lisinopril, and Niacin MEDICATIONS Current Outpatient Medications Medication Sig ergocalciferol 50,000 unit capsule (VITAMIN D2, DRISDOL) Take 1 capsule by mouth one time a week. busPIRone (BUSPAR) 10 mg tablet Take 1 tablet by mouth two times a day. gabapentin (NEURONTIN) 100 mg capsule Take 1 capsule by mouth three times a day for 180 days. semaglutide (OZEMPIC) 2 mg/dose (8 mg/3 mL) pen injector Inject 2 mg subcutaneously one time a week. ferrous sulfate 325 mg (65 mg iron) tablet Take 1 tablet by mouth two times a day with meals. potassium chloride (K-TAB) 10 mEq tablet Take 1 tablet by mouth daily with breakfast. metFORMIN ER (GLUCOPHAGE XR) 500 mg 24 hr tablet Take 2 tablets by mouth two times a day at 6 am and 9 pm. losartan-hydroCHLOROt hiazide (HYZAAR) 50-12.5 mg per tablet Take 1 tablet by mouth once daily. sertraline (ZOLOFT) 100 mg tablet TAKE 1 AND 1/2 TABLETS ONCEDAILY pioglitazone (ACTOS) 15 mg tablet take 1 tablet once daily pravastatin (PRAVACHOL) 20 mg tablet take 1 tablet once daily glimepiride (AMARYL) 4 mg tablet TAKE 1 TABLET DAILY WITH BREAKFAST CPAP Settings 13 - 20 cm H2O, suitable mask per pt preference, chin strap, head gear, humidity, filters, tubing, lifetime supplies. G47.33 RANDA Lancing Device misc Use to monitor blood sugars a directed Lancets lancets Use as instructed to monitor blood sugars when prompted by Freestyle Shilo. Up to 4 per day. insulin needles, DISPOSABLE, (BD INSULIN PEN NEEDLE UF) 31 gauge x 5/16 1 Each once daily. With Victoza. ICD10: E11.65 aspirin 81 mg chewable tablet CHEW 1 TABLET ONCE DAILY Blood-Glucose Meter monitoring kit Glucose Meter of Choice (pending insurance coverage) - Kit - Dx: Type 2 DM - Uncontrolled E11.65 predniSONE (DELTASONE) 10 mg tablet TAKE BY MOUTH 4 TABLETS DAILY FOR 2 DAYS, THEN 3 TABLETS DAILY FOR 2 DAYS, THEN 2 TABLETS DAILY FOR 2 DAYS, THEN 1 TABLET DAILY FOR 2 DAYS. (Patient not taking: Reported on 06/17/2024) NORGESTIMATE-ETHINYL ESTRADIOL (PREVIFEM ORAL) Take 1 tablet by mouth once daily. (Patient not taking: Reported on 06/23/2024) No current facility-administered medications for this visit. SOCIAL HISTORY Social History Tobacco Use Smoking status: Never Smokeless tobacco: Never Vaping Use Vaping status: Never Used Substance Use Topics Alcohol use: No Drug use: No REVIEW OF SYSTEMS See HPI OBJECTIVE: BP 117/73 Pulse 67 Temp (!) 35.1 ?C (95.2 ?F) (Temporal) Resp 16 Wt (!) 140.3 kg (309 lb 6.4 oz) LMP 11/05/2023 (Exact Date) SpO2 97% BMI 51.49 kg/m? PHYSICAL EXAMINATION: General appearance: Well appearing, alert, in no acute distress, well-hydrated, well nourished. Skin: Skin color, texture, turgor normal, no suspicious rashes or lesions Head: Normocephalic, no masses, lesions, tenderness or abnormalities Eyes: Anicteric sclera. Pupils are equally round and reactive to light. Extraocular movements are intact. Nose/Sinuses: Nares normal, septum midline, mucosa normal, no drainage or sinus tenderness Oropharynx: Lips, mucosa, and tongue normal, teeth and gums normal, oropharynx normal Neck: Supple, no adenopathy; thyroid symmetric, normal size, no bruits Back: Lungs: Lungs clear to auscultation. + SINDHU scattered expiratory wheezing, no ronchi, rales. No accessory muscle use. Heart: RRR without murmur, gallop, or rubs EXT no LE edema. No calf TTP. Negative Homans' SINDHU. ASSESSMENT/PLAN: 1. Controlled type (more content not included)... [facility] ECG COMPLETEon 06-23-2024 ECG COMPLETE Ventricular Rate : 6 2 BPM Atrial Rate : 62 BPM P-R Interval : 144 ms QRS Duration : 96 ms Q-T Interval : 444 ms QTC Calculation(Bazett) : 450 ms Calculated P Edna : 31 degrees Calculated R Edna : -6 degrees Calculated T Edna : 34 degrees NORMAL SINUS RHYTHM NORMAL ECG Confirmed by MD AARON, FITZ ([id number]) on 06/24/2024 1:11:34 PM NAME : TOBI FARFAN PID : [id number] : 1975 Gender : Female Race : ORD : [id number] Procedure Date : Jun 23 2024 08:53:23 Edit Date : Jun 24 2024 13:11:40 Diagnosis: NORMAL SINUS RHYTHM NORMAL ECG Confirmed by MD WALKER QARAB ([id number]) on 06/24/2024 1:11:34 PM Test Reason : E11.9 Controlled type 2 diabetes mellitus without complication, without long-te Location : [address] : [place] Overread By : MD WALKER QARAB Edited By : MD WALKER QARAB Referred By : , Acquired by : [facility] [place] Telephone ([facility]) TOBI FARFAN ([id number]) 1975 F Date Time Provider Department 06/18/24 VANITA MEYER [facility] During your visit today, we recorded the following information about you: Vanita Meyer, PA 06/18/2024 7:09 AM Signed Negative COVID flu RSV Yana Munoz LPN 06/18/2024 12:56 PM Signed Pt reviewed her results on Mychart on 06/18 @ 10:42 am. Yana Munoz LPN Allergies As of Date: 06/18/2024 Noted Allergy Reaction AMOXICILLIN 01/04/2012 2 - Rash LISINOPRIL 02/22/2017 3 - Cough Comments: cough NIACIN 12/13/2008 5 - Intolerance Comments: Caused whole body to become red and warm. Date Reviewed: 06/17/2024 Reviewed by: Marielena Miranda MA - Fully Assessed Reason for Visit: Results [95] Prescriptions as of 06/18/2024 - predniSONE (DELTASONE) 20 mg tablet Take 2 tablets by mouth once daily for 5 days. - predniSONE (DELTASONE) 10 mg tablet TAKE BY MOUTH 4 TABLETS DAILY FOR 2 DAYS, THEN 3 TABLETS DAILY FOR 2 DAYS, THEN 2 TABLETS DAILY FOR 2 DAYS, THEN 1 TABLET DAILY FOR 2 DAYS. - ergocalciferol 50,000 unit capsule (VITAMIN D2, DRISDOL) Take 1 capsule by mouth one time a week. - busPIRone (BUSPAR) 10 mg tablet Take 1 tablet by mouth two times a day. - gabapentin (NEURONTIN) 100 mg capsule Take 1 capsule by mouth three times a day for 180 days. - semaglutide (OZEMPIC) 2 mg/dose (8 mg/3 mL) pen injector Inject 2 mg subcutaneously one time a week. - ferrous sulfate 325 mg (65 mg iron) tablet Take 1 tablet by mouth two times a day with meals. - potassium chloride (K-TAB) 10 mEq tablet Take 1 tablet by mouth daily with breakfast. - metFORMIN ER (GLUCOPHAGE XR) 500 mg 24 hr tablet Take 2 tablets by mouth two times a day at 6 am and 9 pm. - losartan-hydroCHLOROt hiazide (HYZAAR) 50-12.5 mg per tablet Take 1 tablet by mouth once daily. - sertraline (ZOLOFT) 100 mg tablet TAKE 1 AND 1/2 TABLETS ONCEDAILY - pioglitazone (ACTOS) 15 mg tablet take 1 tablet once daily - pravastatin (PRAVACHOL) 20 mg tablet take 1 tablet once daily - glimepiride (AMARYL) 4 mg tablet TAKE 1 TABLET DAILY WITH BREAKFAST - CPAP Settings 13 - 20 cm H2O, suitable mask per pt preference, chin strap, head gear, humidity, filters, tubing, lifetime supplies. G47.33 RANDA - Lancing Device misc Use to monitor blood sugars a directed - Lancets lancets Use as instructed to monitor blood sugars when prompted by Freestyle Shilo. Up to 4 per day. - insulin needles, DISPOSABLE, (BD INSULIN PEN NEEDLE UF) 31 gauge x 5/16 1 Each once daily. With Victoza. ICD10: E11.65 - aspirin 81 mg chewable tablet CHEW 1 TABLET ONCE DAILY - Blood-Glucose Meter monitoring kit Glucose Meter of Choice (pending insurance coverage) - Kit - Dx: Type 2 DM - Uncontrolled E11.65 - NORGESTIMATE-ETHINYL ESTRADIOL (PREVIFEM ORAL) Take 1 tablet by mouth once daily. Problem List As Of Date 06/18/2024 Noted Resolved Morbid obesity [E66.01] 12/18/2006 ELEV BL PRES W/O HYPERTN [R03.0] 12/18/2006 01/09/2008 DYSMETABOLIC SYNDROME X [E88.810] 01/02/2007 Essential hypertension [I10] 01/09/2008 Mixed hyperlipidemia [E78.2] 09/01/2010 Abnormal echocardiogram [R93.1] 10/23/2010 Routine gynecological examination [Z01.419] 07/04/2011 Class: Chronic Clostridium difficile diarrhea [A04.72] 05/21/2024 Carpal tunnel syndrome [G56.00] Anxiety [F41.9] Panic attack [F41.0] 03/01/2015 RANDA (obstructive sleep apnea) [G47.33] 08/14/2017 Controlled type 2 diabetes mellitus without com*10/01/2018 Right sided sciatica [M54.31] 04/11/2021 05/11/2021 Encounter Status:Closed by YANA MUNOZ on 06/18/24 [facility] CNOVon 06-17-2024 CNOV Office Visit (UCWSTR ) NAHEED,TOBI Kimbrough ([id number]) 1975 F Date Time Provider Department 06/17/24 11:30 AM NEVAEH PARKER [facility] During your visit today, we recorded the following information about you: Temperature Pulse Respiration Blood pressure 98.1 degrees 70/minute 20/minute 114/80 Weight 141.1 kg Nevaeh Parker APRN.[employer]ENT[employer]IVE 06/17/2024 12:47 PM Signed Subjective HPI HPI Tobi Kaylan Naheed is a 49 year old female who presents today for CC of cough, sob, congestion. This started 5 days ago. Has tried otc medication for relief. Symptoms are worsened by nothing. nonsmoker Has had cough/sob for 6 months .Patient presents with: Cough: Sob, sore throat, chest congestion x 5 days PAST MEDICAL HISTORY Diagnosis Date Anxiety Carpal tunnel syndrome Clostridium difficile diarrhea Recurrent infection 2011 Diabetes mellitus (HCC) Dysmetabolic syndrome Gestational diabetes Hypertension Obesity RANDA (obstructive sleep apnea) DME [employer] for AutoPAP - AHI 70.5 PAST SURGICAL HISTORY Procedure Laterality Date DELIVERY ONLY 12/03/2011 , low transverse; wound infection DILATION AND CURETTAGE DXAND/THER NONOBSTETRIC 11/24/2013 Dilation AND curettage HYSTEROSCOPY, DIAGNOSTIC (SEPARATE 11/24/2013 Hysteroscopy PAST SURGICAL HISTORY OF 01/12/2012 debridement post infection WOUND VAC 2011 ALLERGIES Amoxicillin, Lisinopril, and Niacin MEDICATIONS ergocalciferol 50,000 unit capsule (VITAMIN D2, DRISDOL) Take 1 capsule by mouth one time a week. busPIRone (BUSPAR) 10 mg tablet Take 1 tablet by mouth two times a day. gabapentin (NEURONTIN) 100 mg capsule Take 1 capsule by mouth three times a day for 180 days. semaglutide (OZEMPIC) 2 mg/dose (8 mg/3 mL) pen injector Inject 2 mg subcutaneously one time a week. ferrous sulfate 325 mg (65 mg iron) tablet Take 1 tablet by mouth two times a day with meals. potassium chloride (K-TAB) 10 mEq tablet Take 1 tablet by mouth daily with breakfast. metFORMIN ER (GLUCOPHAGE XR) 500 mg 24 hr tablet Take 2 tablets by mouth two times a day at 6 am and 9 pm. losartan-hydroCHLOROt hiazide (HYZAAR) 50-12.5 mg per tablet Take 1 tablet by mouth once daily. sertraline (ZOLOFT) 100 mg tablet TAKE 1 AND 1/2 TABLETS ONCEDAILY pioglitazone (ACTOS) 15 mg tablet take 1 tablet once daily pravastatin (PRAVACHOL) 20 mg tablet take 1 tablet once daily glimepiride (AMARYL) 4 mg tablet TAKE 1 TABLET DAILY WITH BREAKFAST CPAP Settings 13 - 20 cm H2O, suitable mask per pt preference, chin strap, head gear, humidity, filters, tubing, lifetime supplies. G47.33 RANDA Lancing Device [facility] Use to monitor blood sugars a directed Lancets lancets Use as instructed to monitor blood sugars when prompted by Freestyle Shilo. Up to 4 per day. insulin needles, DISPOSABLE, (BD INSULIN PEN NEEDLE UF) 31 gauge x 5/16 1 Each once daily. With Victoza. ICD10: E11.65 aspirin 81 mg chewable tablet CHEW 1 TABLET ONCE DAILY Blood-Glucose Meter monitoring kit Glucose Meter of Choice (pending insurance coverage) - Kit - Dx: Type 2 DM - Uncontrolled E11.65 predniSONE (DELTASONE) 10 mg tablet TAKE BY MOUTH 4 TABLETS DAILY FOR 2 DAYS, THEN 3 TABLETS DAILY FOR 2 DAYS, THEN 2 TABLETS DAILY FOR 2 DAYS, THEN 1 TABLET DAILY FOR 2 DAYS. (Patient not taking: Reported on 06/17/2024) NORGESTIMATE-ETHINYL ESTRADIOL (PREVIFEM ORAL) Take 1 tablet by mouth once daily. FAMILY HISTORY Problem Relation Age of Onset Osteoporosis Mother Psychiatry Mother anorexia, depression Diabetes Father Hypertension Father Psychiatry Father bipolar d/o Cancer Maternal Grandmother Liver Heart Maternal Grandfather [place] Diabetes Paternal Aunt Social History Tobacco Use Smoking status: Never Smokeless tobacco: Never Vaping Use Vaping status: Never Used Substance Use Topics Alcohol use: No Drug use: No Review of Systems Constitutional: Negative for fever. HENT: Positive for congestion and sore throat. Negative for ear pain and nosebleeds. Respiratory: Positive for cough and shortness of breath. Negative for wheezing. Musculoskeletal: Negative for neck pain. Objective Blood pressure 114/80, pulse 70, temperature 36.7 ?C (98.1 ?F), resp. rate 20, weight (!) 141.1 kg (311 lb 1.1 oz), last menstrual period 11/05/2023, SpO2 98%. Physical Exam Constitutional: General: She is not in acute distress. Appearance: She is not toxic-appearing or diaphoretic. HENT: Head: Normocephalic and atraumatic. Cardiovascular: Rate and Rhythm: Normal rate and regular rhythm. Heart sounds: Normal heart sounds, S1 normal and S2 normal. Pulmonary: Effort: Pulmonary effort is normal. Breath sounds: Examination of the right-lower field reveals wheezing. Examination of the left-lower field reveals wheezing. Wheezing present. No decreased breath sounds, rhonchi or rales. Lym (more content not included)... [facility] COVID AND INFLUENZA A/B AND RSV PCR, ROUTINEon 06-17-2024 SARS-CoV-2 (COVID-19) RNA WILLOW+probe Ql (Unsp spec) SARS-COV-2 (AGENT OF COVID-19) RNA: Not detected INFLUENZA A RNA: Not detected INFLUENZA B RNA: Not detected RESPIRATORY SYNCYTIAL VIRUS (RSV) RNA: Not detected [facility] Comment on above: Performed By: #### C VFLRS ####[facility] LABCLIA [id number] [address] [address] [place] XR CHEST 2V FRONTAL/LATon XR CHEST 2V FRONTAL/LAT * * *Final Repor t* * * DATE OF EXAM: Jun 17 2024 12:00PM WOX [id number] - XR CHEST 2V FRONTAL/LAT / PROCEDURE REASON: Acute cough * * * * Physician Interpretation * * * * EXAMINATION: CHEST RADIOGRAPH (2 VIEW FRONTAL and LATERAL) CLINICAL HISTORY: Acute cough MQ: XC2_6 EXAM DATE/TIME: 06/17/2024 12:00 PM COMPARISON: Chest x-ray of 03/26/2024 RESULT: Lines, tubes, and devices: None. Lungs and pleura: No consolidation. No lung mass. No pleural effusion. No pneumothorax. Cardiomediastinal silhouette: Normal cardiomediastinal silhouette. Bones and soft tissues: Unremarkable. IMPRESSION: No acute radiographic abnormality. Console Attendant: VERN Transcribe Date/Time: Jun 17 2024 12:01P Dictated by : DIANA CAMPBELL MD This examination was interpreted and the report reviewed and electronically signed by: DIANA CAMPBELL MD on Jun 17 2024 12:01PM EST [id number] [facility] XR Chest PA and Lateralon IMPRESSION: No acute radiographic abnormality. Console Attendant: PSCB Transcribe Date/Time: Jun 17 2024 12:01P Dictated by : DIANA CAMPBELL MD This examination was interpreted and the report reviewed and electronically signed by: DIANA CAMPBELL MD on Jun 17 2024 12:01PM EST DIVISION OF RADIOLOGY * * *Final Report* * * DATE OF EXAM: Jun 17 2024 12:00PM WOX [id number] - XR CHEST 2V FRONTAL/LAT / PROCEDURE REASON: Acute cough * * * * Physician Interpretation * * * * EXAMINATION: CHEST RADIOGRAPH (2 VIEW FRONTAL & LATERAL) CLINICAL HISTORY: Acute cough MQ: XC2_6 EXAM DATE/TIME: 06/17/2024 12:00 PM COMPARISON: Chest x-ray of 03/26/2024 RESULT: Lines, tubes, and devices: None. Lungs and pleura: No consolidation. No lung mass. No pleural effusion. No pneumothorax. Cardiomediastinal silhouette: Normal cardiomediastinal silhouette. Bones and soft tissues: Unremarkable. DIVISION OF RADIOLOGY Provider, [facility] [place] - 06/17/2024 * * *Final Report* * * DATE OF EXAM: Jun 17 2024 12:00PM WOX [id number] - XR CHEST 2V FRONTAL/LAT / PROCEDURE REASON: Acute cough * * * * Physician Interpretation * * * * EXAMINATION: CHEST RADIOGRAPH (2 VIEW FRONTAL & LATERAL) CLINICAL HISTORY: Acute cough MQ: XC2_6 EXAM DATE/TIME: 06/17/2024 12:00 PM COMPARISON: Chest x-ray of 03/26/2024 RESULT: Lines, tubes, and devices: None. Lungs and pleura: No consolidation. No lung mass. No pleural effusion. No pneumothorax. Cardiomediastinal silhouette: Normal cardiomediastinal silhouette. Bones and soft tissues: Unremarkable. IMPRESSION IMPRESSION: No acute radiographic abnormality. Console Attendant: PSCB Transcribe Date/Time: Jun 17 2024 12:01P Dictated by : DIANA CAMPBELL MD This examination was interpreted and the report reviewed and electronically signed by: DIANA CAMPBELL MD on Jun 17 2024 12:01PM [facility] Radiology Study observation (narrative) Liya loaiza [facility] XR Chest PA and LateralOrder ed By: Cc Provider on 06-17-2024 [facility] CNOVon 05-21-2024 CNOV Office Visit (INTMWS ) TOBI FARFAN ([id number]) 1975 F Date Time Provider Department 05/21/24 2:20 PM SOLITARIO PERERA INTMWS During your visit today, we recorded the following information about you: Temperature Pulse Respiration Blood pressure 97.9 degrees 72/minute 20/minute 118/53 Weight 140.3 kg Solitario Perera MD 05/21/2024 2:43 PM Signed This note was created using [employer]. Subjective Tobi Farfan is a 49 year old female. She developed progressively severe pain and swelling of the left wrist 12 days ago. 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 She was seen in 3 days ago, and xray of the wrist was negative. She was given a wrist splint. Advil 2 caps TID was not helping. Her diabetes mellitus was controlled. Review of Systems Constitutional: Negative for fatigue and fever. Neurological: Negative for weakness and numbness. ACTIVE PROBLEM LIST Morbid Obesity (Hcc) Dysmetabolic Syndrome X Essential Hypertension Mixed Hyperlipidemia Abnormal Echocardiogram Routine Gynecological Examination Carpal Tunnel Syndrome Anxiety Panic Attack Randa (Obstructive Sleep Apnea) Controlled Type 2 Diabetes Mellitus Without Complication, Without Long-Term Current Use of Insulin ([facility]) Social History Tobacco Use Smoking status: Never Smokeless tobacco: Never Vaping Use Vaping status: Never Used Substance Use Topics Alcohol use: No Drug use: No Current Outpatient Medications Medication Sig ergocalciferol 50,000 unit capsule (VITAMIN D2, DRISDOL) Take 1 capsule by mouth one time a week. busPIRone (BUSPAR) 10 mg tablet Take 1 tablet by mouth two times a day. gabapentin (NEURONTIN) 100 mg capsule Take 1 capsule by mouth three times a day for 180 days. semaglutide (OZEMPIC) 2 mg/dose (8 mg/3 mL) pen injector Inject 2 mg subcutaneously one time a week. ferrous sulfate 325 mg (65 mg iron) tablet Take 1 tablet by mouth two times a day with meals. potassium chloride (K-TAB) 10 mEq tablet Take 1 tablet by mouth daily with breakfast. metFORMIN ER (GLUCOPHAGE XR) 500 mg 24 hr tablet Take 2 tablets by mouth two times a day at 6 am and 9 pm. losartan-hydroCHLOROt hiazide (HYZAAR) 50-12.5 mg per tablet Take 1 tablet by mouth once daily. sertraline (ZOLOFT) 100 mg tablet TAKE 1 AND 1/2 TABLETS ONCEDAILY pioglitazone (ACTOS) 15 mg tablet take 1 tablet once daily pravastatin (PRAVACHOL) 20 mg tablet take 1 tablet once daily glimepiride (AMARYL) 4 mg tablet TAKE 1 TABLET DAILY WITH BREAKFAST CPAP Settings 13 - 20 cm H2O, suitable mask per pt preference, chin strap, head gear, humidity, filters, tubing, lifetime supplies. G47.33 RANDA Lancing Device misc Use to monitor blood sugars a directed Lancets lancets Use as instructed to monitor blood sugars when prompted by Freestyle Shilo. Up to 4 per day. insulin needles, DISPOSABLE, (BD INSULIN PEN NEEDLE UF) 31 gauge x 5/16 1 Each once daily. With Victoza. ICD10: E11.65 aspirin 81 mg chewable tablet CHEW 1 TABLET ONCE DAILY Blood-Glucose Meter monitoring kit Glucose Meter of Choice (pending insurance coverage) - Kit - Dx: Type 2 DM - Uncontrolled E11.65 NORGESTIMATE-ETHINYL ESTRADIOL (PREVIFEM ORAL) Take 1 tablet by mouth once daily. No current facility-administered medications for this visit. Objective BP 118/53 (BP Site: Left Arm, BP Position: Sitting, BP Cuff Size: Large Adult) Pulse 72 Temp 36.6 ?C (97.9 ?F) (Temporal) Resp 20 Wt (!) 140.3 kg (309 lb 4.9 oz) LMP 11/05/2023 (Exact Date) SpO2 99% BMI 51.47 kg/m? Physical Exam Constitutional: Appearance: She is not ill-appearing. Pulmonary: Effort: Pulmonary effort is normal. Musculoskeletal: Left elbow: Normal. Left forearm: Normal. Left wrist: Swelling and tenderness present. No deformity, effusion or crepitus. Decreased range of motion. Normal pulse. Left hand: Swelling present. No deformity or tenderness. Normal strength. Normal sensation. Normal capillary refill. Skin: Findings: No erythema. Neurological: Mental Status: She is alert. Sensory: No sensory deficit. Motor: No weakness. Assessment and Plan 1. Acute wrist pain, left - ICD9: 719.43, ICD10: M25.532 (primary diagnosis) Overuse vs. Crystal induced. - PREDNISONE 10 MG TABLET Discussed medication dosage, usage, goals of therapy, and side effects. Hold Advil temporarily. - Continue splint for support till better. - Work excuse per request. 2. Controlled type 2 diabetes mellitus without complication, without long-term current use of insulin ([facility] [facility]) - ICD9: 250.00, ICD10: E11.9 - Controlled - Expect temporary glucose elevation on prednisone. Solitario Perera MD Allergies As of Date: 05/21/2024 Noted Allergy Reaction AMOXICILLIN 01/04/2012 2 - Rash LISINOPRIL 02/22/2017 3 - Cough Comments: cough (more content not included)... [facility] CNPNon 05-21-2024 CNPN Telephone (INTMWS) TOBI FARFAN ([id number]) 1975 F Date Time Provider Department 05/21/24 DARSHANA MUNOZ INTWS During your visit today, we recorded the following information about you: Tania Yarbrough, GINO 05/21/2024 10:35 AM Signed Pt calling in and states she was seen in [facility] on Saturday for left wrist pain. Pt states the pain is worse and she had to call off of work today. States the swelling in her left hand is much worse. States her hand and fingers are so swollen and tight that she can't make a fist or fasten her seatbelt. States pain is an 8/10. Pt booked for an appt with Dr. Perera at 220 pm this afternoon. Allergies As of Date: 05/21/2024 Noted Allergy Reaction AMOXICILLIN 01/04/2012 2 - Rash LISINOPRIL 02/22/2017 3 - Cough Comments: cough NIACIN 12/13/2008 5 - Intolerance Comments: Caused whole body to become red and warm. Date Reviewed: 05/18/2024 Reviewed by: Yessy Hartman LPN - Fully Assessed Reason for Visit: continued left wrist pain [Other] Prescriptions as of 05/21/2024 - ergocalciferol 50,000 unit capsule (VITAMIN D2, DRISDOL) Take 1 capsule by mouth one time a week. - busPIRone (BUSPAR) 10 mg tablet Take 1 tablet by mouth two times a day. - gabapentin (NEURONTIN) 100 mg capsule Take 1 capsule by mouth three times a day for 180 days. - semaglutide (OZEMPIC) 2 mg/dose (8 mg/3 mL) pen injector Inject 2 mg subcutaneously one time a week. - ferrous sulfate 325 mg (65 mg iron) tablet Take 1 tablet by mouth two times a day with meals. - potassium chloride (K-TAB) 10 mEq tablet Take 1 tablet by mouth daily with breakfast. - metFORMIN ER (GLUCOPHAGE XR) 500 mg 24 hr tablet Take 2 tablets by mouth two times a day at 6 am and 9 pm. - losartan-hydroCHLOROt hiazide (HYZAAR) 50-12.5 mg per tablet Take 1 tablet by mouth once daily. - sertraline (ZOLOFT) 100 mg tablet TAKE 1 AND 1/2 TABLETS ONCEDAILY - pioglitazone (ACTOS) 15 mg tablet take 1 tablet once daily - pravastatin (PRAVACHOL) 20 mg tablet take 1 tablet once daily - glimepiride (AMARYL) 4 mg tablet TAKE 1 TABLET DAILY WITH BREAKFAST - CPAP Settings 13 - 20 cm H2O, suitable mask per pt preference, chin strap, head gear, humidity, filters, tubing, lifetime supplies. G47.33 RANDA - Lancing Device misc Use to monitor blood sugars a directed - Lancets lancets Use as instructed to monitor blood sugars when prompted by Freestyle Shilo. Up to 4 per day. - insulin needles, DISPOSABLE, (BD INSULIN PEN NEEDLE UF) 31 gauge x 5/16 1 Each once daily. With Victoza. ICD10: E11.65 - aspirin 81 mg chewable tablet CHEW 1 TABLET ONCE DAILY - Blood-Glucose Meter monitoring kit Glucose Meter of Choice (pending insurance coverage) - Kit - Dx: Type 2 DM - Uncontrolled E11.65 - NORGESTIMATE-ETHINYL ESTRADIOL (PREVIFEM ORAL) Take 1 tablet by mouth once daily. Problem List As Of Date 05/21/2024 Noted Resolved Morbid obesity [E66.01] 12/18/2006 ELEV BL PRES W/O HYPERTN [R03.0] 12/18/2006 01/09/2008 DYSMETABOLIC SYNDROME X [E88.810] 01/02/2007 Essential hypertension [I10] 01/09/2008 Mixed hyperlipidemia [E78.2] 09/01/2010 Abnormal echocardiogram [R93.1] 10/23/2010 Routine gynecological examination [Z01.419] 07/04/2011 Class: Chronic Clostridium difficile diarrhea [A04.72] Carpal tunnel syndrome [G56.00] Anxiety [F41.9] Panic attack [F41.0] 03/01/2015 RANDA (obstructive sleep apnea) [G47.33] 08/14/2017 Controlled type 2 diabetes mellitus without com*10/01/2018 Right sided sciatica [M54.31] 04/11/2021 05/11/2021 Encounter Status:Closed by TANIA YARBROUGH on 05/21/24 [facility] CNOVon 05-18-2024 CNOV Office Visit (UCWSTR ) TOBI FARFAN ([id number]) 1975 F Date Time Provider Department 05/18/24 5:30 PM BEBETO LOPEZ [facility] During your visit today, we recorded the following information about you: Temperature Pulse Respiration Blood pressure 97.5 degrees 60/minute 18/minute 112/68 Weight 141.8 kg Bebeto Lopez MD 05/18/2024 6:54 PM Signed Patient presents with: left wrist pain: X 8-9 days-cannot recall an injury HPI: Left wrist pain: Duration: 9 days. Thinks it may have been triggered by playing a new handheld game. Location: left ulnar wrist Character: aching and throbbing Radiation: sometimes up the forearm Aggravating: twisting and bending wrist, flexing fingers Relieving: Pain relievers: Advil, ice, heat, cockup splint Associated: numbness in 3-5th fingers, swelling Pertinent negatives: MEDICATIONS: ergocalciferol 50,000 unit capsule (VITAMIN D2, DRISDOL) Take 1 capsule by mouth one time a week. busPIRone (BUSPAR) 10 mg tablet Take 1 tablet by mouth two times a day. gabapentin (NEURONTIN) 100 mg capsule Take 1 capsule by mouth three times a day for 180 days. semaglutide (OZEMPIC) 2 mg/dose (8 mg/3 mL) pen injector Inject 2 mg subcutaneously one time a week. ferrous sulfate 325 mg (65 mg iron) tablet Take 1 tablet by mouth two times a day with meals. potassium chloride (K-TAB) 10 mEq tablet Take 1 tablet by mouth daily with breakfast. metFORMIN ER (GLUCOPHAGE XR) 500 mg 24 hr tablet Take 2 tablets by mouth two times a day at 6 am and 9 pm. losartan-hydroCHLOROt hiazide (HYZAAR) 50-12.5 mg per tablet Take 1 tablet by mouth once daily. sertraline (ZOLOFT) 100 mg tablet TAKE 1 AND 1/2 TABLETS ONCEDAILY pioglitazone (ACTOS) 15 mg tablet take 1 tablet once daily pravastatin (PRAVACHOL) 20 mg tablet take 1 tablet once daily glimepiride (AMARYL) 4 mg tablet TAKE 1 TABLET DAILY WITH BREAKFAST CPAP Settings 13 - 20 cm H2O, suitable mask per pt preference, chin strap, head gear, humidity, filters, tubing, lifetime supplies. G47.33 RANDA Lancing Device misc Use to monitor blood sugars a directed Lancets lancets Use as instructed to monitor blood sugars when prompted by Freestyle Shilo. Up to 4 per day. insulin needles, DISPOSABLE, (BD INSULIN PEN NEEDLE UF) 31 gauge x 5/16 1 Each once daily. With Victoza. ICD10: E11.65 aspirin 81 mg chewable tablet CHEW 1 TABLET ONCE DAILY Blood-Glucose Meter monitoring kit Glucose Meter of Choice (pending insurance coverage) - Kit - Dx: Type 2 DM - Uncontrolled E11.65 NORGESTIMATE-ETHINYL ESTRADIOL (PREVIFEM ORAL) Take 1 tablet by mouth once daily. ALLERGIES: ALLERGIES Allergen Reactions Amoxicillin Rash Lisinopril Cough cough Niacin Intolerance Caused whole body to become red and warm. VITALS: BP 112/68 Pulse 60 Temp 36.4 ?C (97.5 ?F) (Tympanic) Resp 18 Wt (!) 141.8 kg (312 lb 9.8 oz) LMP 11/05/2023 (Exact Date) SpO2 99% BMI 52.02 kg/m? PHYSICAL EXAM: GEN: pleasant, alert, no acute distress ELBOW: Left. No pain with flexion or extension. Near normal supination and pronation. No distal symptoms with cubital tunnel percussion. WRIST: left. Mild swelling. Limits flexion and extension. No pain with radial or ulnar deviation. Tender ulnar wrist. No snuffbox tenderness. HAND: left. Subjective pain with movement of medial fingers. Limited flexion and avoids full extension. Normal distal sensation. ASSESSMENT/PLAN: 1. Acute wrist pain, left - ICD9: 719.43, ICD10: M25.532 - XR WRIST GENERAL 3V PA/LAT/OBL LEFT - RESULT: No fracture, dislocation or destructive changes. Joint spaces and articular surfaces are preserved. Small ossicles project along the volar to the carpal bones on the lateral view. Suspect ulnar neuropathy and connective tissue irritation from positioning and overuse with new game system. Continue treatment with rest, ice, cock up splint, and NSAID. She may continue using ibuprofen 400 mg 3 times a day. Follow up with orthopedics with persistent or worsening symptoms. Bebeto Lopez MD Allergies As of Date: 05/18/2024 Noted Allergy Reaction AMOXICILLIN 01/04/2012 2 - Rash LISINOPRIL 02/22/2017 3 - Cough Comments: cough NIACIN 12/13/2008 5 - Intolerance Comments: Caused whole body to become red and warm. Date Reviewed: 05/18/2024 Reviewed by: Yessy Hartman LPN - Fully Assessed Reason for Visit: left wrist pain [Other] Cmt: X 8-9 days-cannot recall an injury Primary Visit Diagnosis:Acute wrist pain, left [M25.532] Order(s):XR WRIST GENERAL 3V PA/LAT/OBL LEFT [[id number]] Order #: [id number] FUTURE Prescriptions as of 05/18/2024 - ergocalciferol 50,000 unit capsule (VITAMIN D2, DRISDOL) Take 1 capsule by mouth one time a week. - busPIRone (BUSPAR) 10 mg tablet Take 1 tablet by mouth two times a day. - gabapentin (NEURONTIN) 100 mg capsule Take 1 capsule by mo (more content not included)... [facility] XR WRIST 3V PA/LAT/OBL LTon 05-18-2024 XR WRIST 3V PA/LAT/OBL LT * * *Final Report* * * DATE OF EXAM: May 18 2024 5:39PM WOX 5270 - XR WRIST 3V PA/LAT/OBL LT / PROCEDURE REASON: Acute wrist pain, left * * * * Physician Interpretation * * * * LEFT WRIST X-RAY SERIES HISTORY: Acute wrist pain, left TECHNIQUE: PA, lateral, oblique COMPARISON: None available. RESULT: No fracture, dislocation or destructive changes. Joint spaces and articular surfaces are preserved. Small ossicles project along the volar to the carpal bones on the lateral view. IMPRESSION: No acute osseous abnormalities are identified. Console Attendant: [facility] Transcribe Date/Time: May 18 2024 6:39P Dictated by : VANESSA HART MD This examination was interpreted and the report reviewed and electronically signed by: VANESSA HART MD on May 18 2024 6:42PM EST [id number] [facility] XR Wrist - left PA and Later al and Obliqueon 05-18-2024 IMPRESSION: No acute osseous abnormalities are identified. Console Attendant: [facility] Transcribe Date/Time: May 18 2024 6:39P Dictated by : VANESSA HART MD This examination was interpreted and the report reviewed and electronically signed by: VANESSA HART MD on May 18 2024 6:42PM EST DIVISION OF RADIOLOGY * * *Final Report* * * DATE OF EXAM: May 18 2024 5:39PM WOX 5270 - XR WRIST 3V PA/LAT/OBL LT / PROCEDURE REASON: Acute wrist pain, left * * * * Physician Interpretation * * * * LEFT WRIST X-RAY SERIES HISTORY: Acute wrist pain, left TECHNIQUE: PA, lateral, oblique COMPARISON: None available. RESULT: No fracture, dislocation or destructive changes. Joint spaces and articular surfaces are preserved. Small ossicles project along the volar to the carpal bones on the lateral view. DIVISION OF RADIOLOGY Provider, [facility] Mathew [facility] - 05/18/2024 * * *Final Report* * * DATE OF EXAM: May 18 2024 5:39PM WOX 5270 - XR WRIST 3V PA/LAT/OBL LT / PROCEDURE REASON: Acute wrist pain, left * * * * Physician Interpretation * * * * LEFT WRIST X-RAY SERIES HISTORY: Acute wrist pain, left TECHNIQUE: PA, lateral, oblique COMPARISON: None available. RESULT: No fracture, dislocation or destructive changes. Joint spaces and articular surfaces are preserved. Small ossicles project along the volar to the carpal bones on the lateral view. IMPRESSION IMPRESSION: No acute osseous abnormalities are identified. Console Attendant: [facility] Transcribe Date/Time: May 18 2024 6:39P Dictated by : VANESSA HART MD This examination was interpreted and the report reviewed and electronically signed by: VANESSA HART MD on May 18 2024 6:42PM EST [facility] Radiology Study observation (narrative) [facility] XR Wrist - left PA and Later al and ObliqueOrdered By: [facility] Provider on 05-18-2024 [facility] Basic metabolic 2000 panelon 05-08-2024 Anion gap [Moles/Vol] 11 mmol/L Normal 8-15 [facility] Comment on above: Order Comment: Speci men Type: BLOOD SPECIMENOrdering Facility: [facility] Address: [address] [place] [address] Performed By: #### 2 4321-2 ####[facility] [id number] [place] [address] [place] Calcium [Mass/Vol] 8.6 mg/dL Normal 8.5-10.2 [facility] Comment on above: Order Comment: Speci men Type: BLOOD SPECIMENOrdering Facility: [facility] Address: [address] [place] [address] Performed By: #### 2 4321-2 ####[facility] [id number] [place] [address] [place] Chloride [Moles/Vol] 101 mmol/L Normal 98-107 [facility] Comment on above: Order Comment: Speci men Type: BLOOD SPECIMENOrdering Facility: [facility] Address: [address] [place] [address] Performed By: #### 2 4321-2 ####[facility] [id number] [place] [address] [place] CO2 [Moles/Vol] 26 mmol/L Normal 22-30 [facility] Comment on above: Order Comment: Speci men Type: BLOOD SPECIMENOrdering Facility: [facility] Address: [address] [place] [address] Performed By: #### 2 4321-2 ####[facility] [id number] [place] [address] [place] Creatinine [Mass/Vol] 0.52 mg/dL Low 0.58-0.96 [facility] Comment on above: Order Comment: Speci men Type: BLOOD SPECIMENOrdering Facility: [facility] Address: [address] [place] [address] Performed By: #### 2 4321-2 ####[facility] [id number] [place] [address] [place] Creatinine and Glomerular filtration rate.predicted panel (S/P/Bld) 115 mL/min/1.73m??? Normal >=60 [facility] Comment on above: Order Comment: Speci men Type: BLOOD SPECIMENOrdering Facility: [facility] Address: [address] [place] [address] Result Comment: Zelda mated Glomerular Filtration Rate (eGFR) is calculated using the 2020 CKD-EPI creatinine equation. This equation utilizes serum creatinine, sex, and age as parameters. The creatinine assay has traceable calibration to isotope dilution-mass spectrometry. Refer to KDIGO guidelines for clinical interpretation. In patients with unstable renal function, e.g. those with acute kidney injury, the eGFR may not accurately reflect actual GFR. Performed By: #### 2 4321-2 ####[facility]CL[facility] [id number] [place] [address] [place] Glucose [Mass/Vol] 98 mg/dL Normal 74-99 [facility] Comment on above: Order Comment: Speci men Type: BLOOD SPECIMENOrdering Facility: [facility] Address: [address] [place] [address] Result Comment: The [place] Diabetes Association (ADA) provides guidance for cutoff values for fasting glucose and random glucose. The ADA defines fasting as no caloric intake for at least 8 hours. Fasting plasma glucose results between 100 to 125 mg/dL indicate increased risk for diabetes (prediabetes). Fasting plasma glucose results greater than or equal to 126 mg/dL meet the criteria for diagnosis of diabetes. In the absence of unequivocal hyperglycemia, results should be confirmed by repeat testing. In a patient with classic symptoms of hyperglycemia or hyperglycemic crisis, random plasma glucose results greater than or equal to 200 mg/dL meet the criteria for diagnosis of diabetes. Reference: Standards of Medical Care in Diabetes 2016, [place] Diabetes Association. Diabetes Care. 2016.39(Suppl 1). Performed By: #### 2 4321-2 ####[facility]ITALNILSONRichard [id number] [place] [address] [place] Potassium [Moles/Vol] 4.1 mmol/L Normal 3.7-5.1 [facility] Comment on above: Order Comment: Speci men Type: BLOOD SPECIMENOrdering Facility: [facility] Address: [address] [place] [address] Performed By: #### 2 4321-2 ####[facility] SYSTEMNGHIA [id number] [place] [address] [place] Sodium [Moles/Vol] 138 mmol/L Normal 136-144 [facility] Comment on above: Order Comment: Speci men Type: BLOOD SPECIMENOrdering Facility: [facility] Address: [address] [place] [id number] Performed By: #### 2 4321-2 ####[facility] [id number] [place] [address] [place] Urea nitrogen [Mass/Vol] 9 mg/dL Normal 7-21 [facility] Comment on above: Order Comment: Speci men Type: BLOOD SPECIMENOrdering Facility: [facility] Address: [address] [id number] Performed By: #### 2 4321-2 ####[facility] [id number] [place] [id number] [place] HbA1c (Bld)on 05-08-2024 Average glucose Estimated from glycated hemoglobin (Bld) [Mass/Vol] 117 mg/dL [facility] Comment on above: Order Comment: Michelle ashby Type: BLOOD SPECIMEN [facility] Address: [address] [place] [address] Result Comment: eAG: (Estimated average glucose) is a calculated value from HgbA1c and is billing customer service representative of the average blood glucose level in the last 2-3 month period. Performed By: #### 5 5454-3 #### [facility] CLIA [id number] [address] [place] [address] [place] HbA1c (Bld) [Mass fraction] 5.7 % High 4.3-5.6 [facility] Comment on above: Order Comment: Michelle ashby Type: BLOOD SPECIMEN [facility] Address: [address] [place] [address] Result Comment: [place] Diabetes Association guidelines indicate that patients with HgbA1c in the range 5.7-6.4% are at increased risk for development of diabetes, and intervention by lifestyle modification may be beneficial. HgbA1c greater or equal to 6.5% is considered diagnostic of diabetes. Performed By: #### 5 5454-3 #### [facility] CLIA [id number] [address] [place] [address] [place] CNOVon 03-26-2024 CNOV Office Visit (UCWSTR ) TOBI FARFAN ([id number]) 1975 F Date Time Provider Department 03/26/24 4:15 PM FE WHALEN During your visit today, we recorded the following information about you: Temperature Pulse Respiration Blood pressure 99.2 degrees 72/minute 20/minute 120/78 Weight 137.9 kg FritzCheyenne APRN.CNP 03/26/2024 5:49 PM Signed CC: Patient presents with: Cough: Cough persistent x 6 months last week became more deep AND productive Cough with sore throat, intermittent fever AND chest congesti: Persistent cough x 6 months last week became more deep with productive in the last 48 HR HPI: Tobi Farfan is a 49 year old female who presents to the office with complaint of chest congestion, head congestion, and cough, nonproductive for 2 weeks. Symptoms are worsening Associated symptoms includes wheezing and dyspnea. Denies nausea, vomiting , and diarrhea. Treatments tried include nothing so far. with no relief of symptoms. Sick contacts: unknown. History of asthma, frequent episodes of bronchitis, chronic bronchitis, bronchiectasis or COPD: No Smoker: No Seasonal/environmenta l allergies: No The ROS is otherwise negative. The patient's pmh, medications, allergies, and past visits are reviewed. PHYSICAL EXAM: BP 120/78 Pulse 72 Temp 37.3 ?C (99.2 ?F) (Left Tympanic) Resp 20 Wt (!) 137.9 kg (304 lb 0.2 oz) LMP 11/05/2023 (Exact Date) SpO2 96% BMI 50.59 kg/m? General appearance: alert, cooperative, pleasant, in no acute distress Head: Normocephalic Eyes: EOM's intact, conjunctiva pink and moist, no icterus, sclera white, non-injected Ears: Right ear: External ear/canal- Normal, TM - clear with good landmarks. Left ear: External ear/canal- Normal, TM - clear with good landmarks Oropharynx:mild erythema, without exudates present Heart: Negative. RRR without obvious murmur, gallop, or rubs. No ectopy. Lungs: clear to auscultation, without rales or wheeze, good air exchange PAST MEDICAL HISTORY Diagnosis Date Anxiety Carpal tunnel syndrome Clostridium difficile diarrhea Recurrent infection 2011 Diabetes mellitus (HCC) Dysmetabolic syndrome Gestational diabetes Hypertension Obesity RANDA (obstructive sleep apnea) DME [employer] for AutoPAP - AHI 70.5 PAST SURGICAL HISTORY Procedure Laterality Date DELIVERY ONLY 12/03/2011 , low transverse; wound infection DILATION AND CURETTAGE DXAND/THER NONOBSTETRIC 11/24/2013 Dilation AND curettage HYSTEROSCOPY, DIAGNOSTIC (SEPARATE 11/24/2013 Hysteroscopy PAST SURGICAL HISTORY OF 01/12/2012 debridement post infection WOUND VAC 2011 ALLERGIES Amoxicillin, Lisinopril, and Niacin MEDICATIONS ferrous sulfate 325 mg (65 mg iron) tablet Take 1 tablet by mouth two times a day with meals. semaglutide (OZEMPIC) 2 mg/dose (8 mg/3 mL) pen injector Inject 2 mg subcutaneously one time a week. potassium chloride (K-TAB) 10 mEq tablet Take 1 tablet by mouth daily with breakfast. gabapentin (NEURONTIN) 100 mg capsule Take 1 capsule by mouth three times a day for 180 days. metFORMIN ER (GLUCOPHAGE XR) 500 mg 24 hr tablet Take 2 tablets by mouth two times a day at 6 am and 9 pm. ergocalciferol 50,000 unit capsule (VITAMIN D2, DRISDOL) Take 1 capsule by mouth one time a week. losartan-hydroCHLOROt hiazide (HYZAAR) 50-12.5 mg per tablet Take 1 tablet by mouth once daily. sertraline (ZOLOFT) 100 mg tablet TAKE 1 AND 1/2 TABLETS ONCEDAILY pioglitazone (ACTOS) 15 mg tablet take 1 tablet once daily pravastatin (PRAVACHOL) 20 mg tablet take 1 tablet once daily glimepiride (AMARYL) 4 mg tablet TAKE 1 TABLET DAILY WITH BREAKFAST busPIRone (BUSPAR) 10 mg tablet Take 1 tablet by mouth two times a day. CPAP Settings 13 - 20 cm H2O, suitable mask per pt preference, chin strap, head gear, humidity, filters, tubing, lifetime supplies. G47.33 RANDA Lancing Device [facility] Use to monitor blood sugars a directed Lancets lancets Use as instructed to monitor blood sugars when prompted by Tamy [place]. Up to 4 per day. insulin needles, DISPOSABLE, (BD INSULIN PEN NEEDLE UF) 31 gauge x 5/16 1 Each once daily. With Victoza. ICD10: E11.65 aspirin 81 mg chewable tablet CHEW 1 TABLET ONCE DAILY Blood-Glucose Meter monitoring kit Glucose Meter of Choice (pending insurance coverage) - Kit - Dx: Type 2 DM - Uncontrolled E11.65 NORGESTIMATE-ETHINYL ESTRADIOL (PREVIFEM ORAL) Take 1 tablet by mouth once daily. (Patient not taking: Reported on 11/26/2023) FAMILY HISTORY Problem Relation Age of Onset Osteoporosis Mother Psychiatry Mother anorexia, depression Diabetes Father Hypertension Father Psychiatry Father bipolar d/o Cancer Maternal Grandmother Liver Heart Maternal Grandfather [place] Diabetes Paternal Aunt Social History Tobacco Use Smoking status: Never Smok (more content not included)... [facility] XR CHEST 2V FRONTAL/LATon XR CHEST 2V FRONTAL/LAT * * *Final Repor t* * * DATE OF EXAM: Mar 26 2024 4:58PM WOX 5291 - XR CHEST 2V FRONTAL/LAT / PROCEDURE REASON: Acute cough * * * * Physician Interpretation * * * * EXAMINATION: CHEST RADIOGRAPH (2 VIEW FRONTAL and LATERAL) CLINICAL HISTORY: Acute cough MQ: XC2_6 EXAM DATE/TIME: 03/26/2024 4:58 PM COMPARISON: No relevant prior studies available. RESULT: Lines, tubes, and devices: None. Lungs and pleura: No consolidation. No lung mass. No pleural effusion. No pneumothorax. Cardiomediastinal silhouette: Normal cardiomediastinal silhouette. Bones and soft tissues: Degenerative changes are present within the thoracic spine. IMPRESSION: No acute radiographic abnormality. Console Attendant: [facility] Transcribe Date/Time: Mar 26 2024 5:43P Dictated by : SABINA PADILLA MD This examination was interpreted and the report reviewed and electronically signed by: SABINA PADILLA MD on Mar 26 2024 5:44PM EST [id number] [facility] XR Chest PA and Lateralon IMPRESSION: No acute radiographic abnormality. Console Attendant: [facility] Transcribe Date/Time: Mar 26 2024 5:43P Dictated by : SABINA PADILLA MD This examination was interpreted and the report reviewed and electronically signed by: SABINA PADILLA MD on Mar 26 2024 5:44PM EST DIVISION OF RADIOLOGY * * *Final Report* * * DATE OF EXAM: Mar 26 2024 4:58PM WOX 5291 - XR CHEST 2V FRONTAL/LAT / PROCEDURE REASON: Acute cough * * * * Physician Interpretation * * * * EXAMINATION: CHEST RADIOGRAPH (2 VIEW FRONTAL & LATERAL) CLINICAL HISTORY: Acute cough MQ: XC2_6 EXAM DATE/TIME: 03/26/2024 4:58 PM COMPARISON: No relevant prior studies available. RESULT: Lines, tubes, and devices: None. Lungs and pleura: No consolidation. No lung mass. No pleural effusion. No pneumothorax. Cardiomediastinal silhouette: Normal cardiomediastinal silhouette. Bones and soft tissues: Degenerative changes are present within the thoracic spine. DIVISION OF RADIOLOGY Provider, [facility] - 03/26/2024 * * *Final Report* * * DATE OF EXAM: Mar 26 2024 4:58PM WOX [id number] - XR CHEST 2V FRONTAL/LAT / PROCEDURE REASON: Acute cough * * * * Physician Interpretation * * * * EXAMINATION: CHEST RADIOGRAPH (2 VIEW FRONTAL & LATERAL) CLINICAL HISTORY: Acute cough MQ: [id number] EXAM DATE/TIME: 03/26/2024 4:58 PM COMPARISON: No relevant prior studies available. RESULT: Lines, tubes, and devices: None. Lungs and pleura: No consolidation. No lung mass. No pleural effusion. No pneumothorax. Cardiomediastinal silhouette: Normal cardiomediastinal silhouette. Bones and soft tissues: Degenerative changes are present within the thoracic spine. IMPRESSION IMPRESSION: No acute radiographic abnormality. Console Attendant: VERN Transcribe Date/Time: Mar 26 2024 5:43P Dictated by : SABINA PADILLA MD This examination was interpreted and the report reviewed and electronically signed by: SABINA PADILLA MD on Mar 26 2024 5:44PM EST [facility] Radiology Study observation (narrative) Liya Nguyen XR Chest PA and LateralOrder ed By: Cc Provider on 03-26-2024 [facility] CNOVon 12-31-2023 CNOV Office Visit (UCWSTR ) TOBI FARFAN ([id number]) 1975 F Date Time Provider Department 12/31/23 7:45 PM NAWAF GALLARDO [facility] During your visit today, we recorded the following information about you: Temperature Pulse Respiration Blood pressure 97.5 degrees 63/minute 18/minute 115/77 Weight 138.2 kg Nawaf Gallardo APRN.[employer] 12/31/2023 7:55 PM Signed Subjective HPI Nontoxic-appearing female presents urgent care chief complaint possible cellulitis. Duration of symptoms 1 week. Associated symptoms pain redness. Initially area was rash that was pruritic. States itching has improved pain is stayed persistent. No OTC medications today. Has tried a triple antibiotic. Feels like symptoms are worsening. No recent medication changes antibiotic use. Overall feels well. Denies any fever body aches chills productive cough chest pain shortness of breath pleuritic pain hemoptysis nausea vomiting abdominal pain change in bowel or bladder habits. Past medical history prescription medication use and allergies reviewed. Denies chance of . BP 115/77 Pulse 63 Temp 36.4 ?C (97.5 ?F) Resp 18 Wt (!) 138.2 kg (304 lb 10.8 oz) LMP 11/05/2023 (Exact Date) SpO2 98% BMI 50.70 kg/m? .Patient presents with: Derm Problem: Sore on abdomen possibly infected x1 week PAST MEDICAL HISTORY No date: Anxiety No date: Carpal tunnel syndrome No date: Clostridium difficile diarrhea Comment: Recurrent infection 2011 No date: Diabetes mellitus (HCC) No date: Dysmetabolic syndrome No date: Gestational diabetes No date: Hypertension No date: Obesity No date: RANDA (obstructive sleep apnea) Comment: JEFFREY Arzate for AutoPAP - AHI 70.5 PAST SURGICAL HISTORY 12/03/2011: DELIVERY ONLY Comment: , low transverse; wound infection 11/24/2013: DILATION AND CURETTAGE DXAND/THER NONOBSTETRIC Comment: Dilation AND curettage 11/24/2013: HYSTEROSCOPY, DIAGNOSTIC (SEPARATE Comment: Hysteroscopy 01/12/2012: PAST SURGICAL HISTORY OF Comment: debridement post infection 2011: WOUND VAC ALLERGIES Amoxicillin, Lisinopril, and Niacin MEDICATIONS potassium chloride (K-TAB) 10 mEq tablet Take 1 tablet by mouth daily with breakfast. gabapentin (NEURONTIN) 100 mg capsule Take 1 capsule by mouth three times a day for 180 days. metFORMIN ER (GLUCOPHAGE XR) 500 mg 24 hr tablet Take 2 tablets by mouth two times a day at 6 am and 9 pm. ergocalciferol 50,000 unit capsule (VITAMIN D2, DRISDOL) Take 1 capsule by mouth one time a week. losartan-hydroCHLOROt hiazide (HYZAAR) 50-12.5 mg per tablet Take 1 tablet by mouth once daily. sertraline (ZOLOFT) 100 mg tablet TAKE 1 AND 1/2 TABLETS ONCEDAILY pioglitazone (ACTOS) 15 mg tablet take 1 tablet once daily pravastatin (PRAVACHOL) 20 mg tablet take 1 tablet once daily glimepiride (AMARYL) 4 mg tablet TAKE 1 TABLET DAILY WITH BREAKFAST busPIRone (BUSPAR) 10 mg tablet Take 1 tablet by mouth two times a day. CPAP Settings 13 - 20 cm H2O, suitable mask per pt preference, chin strap, head gear, humidity, filters, tubing, lifetime supplies. G47.33 RANDA semaglutide (OZEMPIC) 2 mg/dose (8 mg/3 mL) pen injector Inject 2 mg subcutaneously one time a week. ferrous sulfate 325 mg (65 mg iron) tablet Take 1 tablet by mouth twice daily with meals. Lancing Device misc Use to monitor blood sugars a directed Lancets lancets Use as instructed to monitor blood sugars when prompted by Freestyle Shilo. Up to 4 per day. insulin needles, DISPOSABLE, (BD INSULIN PEN NEEDLE UF) 31 gauge x 5/16 1 Each once daily. With Victoza. ICD10: E11.65 aspirin 81 mg chewable tablet CHEW 1 TABLET ONCE DAILY Blood-Glucose Meter monitoring kit Glucose Meter of Choice (pending insurance coverage) - Kit - Dx: Type 2 DM - Uncontrolled E11.65 NORGESTIMATE-ETHINYL ESTRADIOL (PREVIFEM ORAL) Take 1 tablet by mouth once daily. (Patient not taking: Reported on 11/26/2023) FAMILY HISTORY Problem Relation Age of Onset Osteoporosis Mother Psychiatry Mother anorexia, depression Diabetes Father Hypertension Father Psychiatry Father bipolar d/o Cancer Maternal Grandmother Liver Heart Maternal Grandfather [place] Diabetes Paternal Aunt Social History Tobacco Use Smoking status: Never Smokeless tobacco: Never Vaping Use Vaping status: Never Used Substance Use Topics Alcohol use: No Drug use: No Review of Systems Constitutional: Negative for chills, fever and malaise/fatigue. HENT: Negative for congestion, ear discharge, ear pain, sinus pain and sore throat. Eyes: Negative for blurred vision, pain, discharge and redness. Respiratory: Negative for cough, hemoptysis, sputum production, shortness of breath, wheezing and stridor. Cardiovascular: Negative for chest pain. Gastrointestinal: Negative for abdominal pain, diarrhea, nausea and vomiting. (more content not included)... [facility] TOBI [facility]AR[facility] ([id number]) 1975 F Date Time Provider Department 12/25/23 LUDWIG LINDSAY INTWS During your visit today, we recorded the following information about you: Allergies As of Date: 12/25/2023 Noted Allergy Reaction AMOXICILLIN 01/04/2012 2 - Rash LISINOPRIL 02/22/2017 3 - Cough Comments: cough NIACIN 12/13/2008 5 - Intolerance Comments: Caused whole body to become red and warm. Date Reviewed: 11/26/2023 Reviewed by: Mandi Watson APRN.[facility] - Fully Assessed Reason for Visit: Results [95] Primary Visit Diagnosis:Tear of medial meniscus of knee, current, unspecified laterality, unspecified tear type, subsequent encounter [S83.249D] Order(s):CONSULT TO ORTHOPAEDICS [9063] Order #: [id number]: 1 FUTURE Prescriptions as of 12/25/2023 - potassium chloride (K-TAB) 10 mEq tablet Take 1 tablet by mouth daily with breakfast. - gabapentin (NEURONTIN) 100 mg capsule Take 1 capsule by mouth three times a day for 180 days. - metFORMIN ER (GLUCOPHAGE XR) 500 mg 24 hr tablet Take 2 tablets by mouth two times a day at 6 am and 9 pm. - ergocalciferol 50,000 unit capsule (VITAMIN D2, DRISDOL) Take 1 capsule by mouth one time a week. - losartan-hydroCHLOROt hiazide (HYZAAR) 50-12.5 mg per tablet Take 1 tablet by mouth once daily. - sertraline (ZOLOFT) 100 mg tablet TAKE 1 AND 1/2 TABLETS ONCEDAILY - pioglitazone (ACTOS) 15 mg tablet take 1 tablet once daily - pravastatin (PRAVACHOL) 20 mg tablet take 1 tablet once daily - glimepiride (AMARYL) 4 mg tablet TAKE 1 TABLET DAILY WITH BREAKFAST - busPIRone (BUSPAR) 10 mg tablet Take 1 tablet by mouth two times a day. - CPAP Settings 13 - 20 cm H2O, suitable mask per pt preference, chin strap, head gear, humidity, filters, tubing, lifetime supplies. G47.33 RANDA - semaglutide (OZEMPIC) 2 mg/dose (8 mg/3 mL) pen injector Inject 2 mg subcutaneously one time a week. - ferrous sulfate 325 mg (65 mg iron) tablet Take 1 tablet by mouth twice daily with meals. - Lancing Device misc Use to monitor blood sugars a directed - Lancets lancets Use as instructed to monitor blood sugars when prompted by Freestyle Shilo. Up to 4 per day. - insulin needles, DISPOSABLE, (BD INSULIN PEN NEEDLE UF) 31 gauge x 5/16 1 Each once daily. With Victoza. ICD10: E11.65 - aspirin 81 mg chewable tablet CHEW 1 TABLET ONCE DAILY - Blood-Glucose Meter monitoring kit Glucose Meter of Choice (pending insurance coverage) - Kit - Dx: Type 2 DM - Uncontrolled E11.65 - NORGESTIMATE-ETHINYL ESTRADIOL (PREVIFEM ORAL) Take 1 tablet by mouth once daily. Problem List As Of Date 12/25/2023 Noted Resolved Morbid obesity [E66.01] 12/18/2006 ELEV BL PRES W/O HYPERTN [R03.0] 12/18/2006 01/09/2008 DYSMETABOLIC SYNDROME X [E88.810] 01/02/2007 Essential hypertension [I10] 01/09/2008 Mixed hyperlipidemia [E78.2] 09/01/2010 Abnormal echocardiogram [R93.1] 10/23/2010 Routine gynecological examination [Z01.419] 07/04/2011 Class: Chronic Clostridium difficile diarrhea [A04.72] Carpal tunnel syndrome [G56.00] Anxiety [F41.9] Panic attack [F41.0] 03/01/2015 RANDA (obstructive sleep apnea) [G47.33] 08/14/2017 Controlled type 2 diabetes mellitus without com*10/01/2018 Right sided sciatica [M54.31] 04/11/2021 05/11/2021 Encounter Status:Closed by LUDWIG LINDSAY on 12/25/23 Normal [facility] MRI KNEE WO IVCON RTon 12-11 MRI KNEE WO IVCON RT * * *Final Report* * * DATE OF EXAM: Dec 12 2023 3:20PM [id number] [id number] - MRI KNEE WO IVCON RT / PROCEDURE REASON: multiple diagnoses * * * * Physician Interpretation * * * * EXAMINATION: MRI RIGHT KNEE WITHOUT CONTRAST CLINICAL HISTORY: Acute medial right knee pain while playing basketball, felt pop. Positive Lauryn test on the right. TECHNIQUE: Routine non-contrast MRI of the knee MQ: [id number] COMPARISON: Right knee radiograph 08/16/2023 RESULT: MENISCI: Medial Meniscus: Complete radial tear extending from the periphery to the inner margin in the posterior root with approximately 3 mm extrusion medially. Lateral Meniscus: Intact. LIGAMENTS: ACL: Intact PCL: Intact with mucoid degeneration MCL: Intact LCL Complex: Intact CARTILAGE: Medial Femoral Condyle: Moderate sized area(s) of high grade (greater than 50% thickness) partial thickness cartilage loss and or fissuring Medial Tibial Plateau: Moderate sized area(s) of high grade (greater than 50% thickness) partial thickness cartilage loss and or fissuring Lateral Femoral Condyle: Small area(s) of low grade (less than 50% thickness) partial thickness cartilage loss and or fissuring Lateral Tibial Plateau: Small area(s) of low grade (less than 50% thickness) partial thickness cartilage loss and or fissuring Patella: Moderate sized area(s) of high grade (greater than 50% thickness) partial thickness cartilage loss and or fissuring Trochlea: Small area(s) of high grade (greater than 50% thickness) partial thickness cartilage loss and or fissuring TENDONS: The distal quadriceps and patellar tendons are intact. The popliteus tendon is intact. BONES AND MARROW: No evidence of fracture or bone marrow replacing process. MUSCLES: Muscle bulk and signal intensity are normal. JOINT FLUID AND SYNOVIUM: Small joint effusion. No synovitis. No James's cyst. OTHER: Bone fragmentation along the tibial tuberosity compatible with sequela of Glencoe-Schlatter. Associated inferior Hoffa's fat pad ganglion formation. Localizer images: Unremarkable. IMPRESSION: DEGENERATIVE CHONDRAL CHANGES AND COMPLETE RADIAL TEAR OF THE MEDIAL MENISCAL ROOT, WITH MEDIAL EXTRUSION. Console Attendant: VERN Transcribe Date/Time: Dec 13 2023 8:17A Dictated by : GARRETT BARNETT MD This examination was interpreted and the report reviewed and electronically signed by: RICO TRAVIS MD on Dec 16 2023 5:01PM EST [id number] N Normal [facility] DBT Breast - bilateral diagn ostic for implanton 12-04-2023 * * *Final Report* * * DATE OF EXAM: Dec 04 2023 10:37AM [facility] 0627 - [facility] SocialthingG W NASREEN SINDHU / PROCEDURE REASON: Mass of right axilla * * * * Physician Interpretation * * * * RESULT: #[id number] - [facility]OLU DIAG W NASREEN SINDHU BILATERAL DIGITAL DIAGNOSTIC MAMMOGRAM TOMOSYNTHESIS WITH CAD: 12/04/2023 HISTORY: Mass Of Right Axilla, not painful, 6-12 months. /priors available for comparison /SEE TECH NOTE. RESULT: TECHNIQUE: The study was acquired using full field digital technology and interpreted from soft copy. Digital Breast Tomosynthesis (DBT) images were obtained and used to assist in the interpretation of this examination. Current study was also evaluated with a Computer Aided Detection (CAD). Comparison is made to exam dated: 09/11/2022 mammogram. The breasts are heterogeneously dense, which may obscure small masses. There is an oval asymmetry within the skin of the right axilla. This correlates as palpated. No other significant masses, calcifications, or other findings are seen in either breast. DIVISION OF RADIOLOGY Provider, [facility] - 12/04/2023 * * *Final Report* * * DATE OF EXAM: Dec 04 2023 10:37AM [facility] 0627 - TOLU DIAG W NASREEN SINDHU / PROCEDURE REASON: Mass of right axilla * * * * Physician Interpretation * * * * RESULT: #[id number] - TOLU CESAR Carvalho NASREEN SINDHU BILATERAL DIGITAL DIAGNOSTIC MAMMOGRAM TOMOSYNTHESIS WITH CAD: 12/04/2023 HISTORY: Mass Of Right Axilla, not painful, 6-12 months. /priors available for comparison /SEE TECH NOTE. RESULT: TECHNIQUE: The study was acquired using full field digital technology and interpreted from soft copy. Digital Breast Tomosynthesis (DBT) images were obtained and used to assist in the interpretation of this examination. Current study was also evaluated with a Computer Aided Detection (CAD). Comparison is made to exam dated: 09/11/2022 mammogram. The breasts are heterogeneously dense, which may obscure small masses. There is an oval asymmetry within the skin of the right axilla. This correlates as palpated. No other significant masses, calcifications, or other findings are seen in either breast. IMPRESSION IMPRESSION: INCOMPLETE: NEED ADDITIONAL IMAGING EVALUATION The oval asymmetry within the skin is indeterminate. An ultrasound is recommended. Geovany norris/sweta:12/04/2023 11:39:38 Production Roustabout(s): RT Bernard(R)(M), [facility] Mammogram BI-RADS: Category 0: Incomplete: Need Additional Imaging Evaluation Multiple national specialty organizations have released breast cancer screening guidelines for women at average risk for developing breast cancer - guidelines that are based on both evidence and opinion, yet differ on when to start and how often to screen for breast cancer. With representation from Breast Imaging, Internal Medicine, Women's Health, Family Medicine, and Medical/Surgical Oncology, the [facility] has carefully reviewed the data and reached the following consensus: 1) All women should engage in shared decision-making with their providers to decide when to start and how often to screen; 2) All women should have the opportunity to start screening mammography at age 40; 3) For women ages 45-55, we recommend annual screening mammograms; 4) For women ages 55 and over, we support both the transition from an annual to a biennial interval if this aligns more with patient's values and preferences, or continuation with annual screening; 5) All women should discuss with their providers when to stop screening mammograms. Console Attendant: Sweta Transcribe Date/Time: Dec 04 2023 10:37A Dictated by: GEOVANY CROWELL MD This examination was interpreted and the report reviewed and electronically signed by: GEOVANY CROWELL MD on Dec 04 2023 11:39AM EST [facility] DBT Breast - bilateral diagn ostic for implantOrdered By: Ccf Provider on 12-04-2023 [facility] TOLU DIAG W NASREEN BILon 2023 TOLU DIAG W NASREEN SINDHU * * *Final Report* * * DATE OF EXAM: Dec 04 2023 10:37AM [facility] 0627 - TOLU DIAG W NASREEN SINDHU / PROCEDURE REASON: Mass of right axilla * * * * Physician Interpretation * * * * RESULT: #[id number] - TOLU DIAG W NASREEN SINDHU BILATERAL DIGITAL DIAGNOSTIC MAMMOGRAM TOMOSYNTHESIS WITH CAD: 12/04/2023 HISTORY: Mass Of Right Axilla, not painful, 6-12 months. /priors available for comparison /SEE TECH NOTE. RESULT: TECHNIQUE: The study was acquired using full field digital technology and interpreted from soft copy. Digital Breast Tomosynthesis (DBT) images were obtained and used to assist in the interpretation of this examination. Current study was also evaluated with a Computer Aided Detection (CAD). Comparison is made to exam dated: 09/11/2022 mammogram. The breasts are heterogeneously dense, which may obscure small masses. There is an oval asymmetry within the skin of the right axilla. This correlates as palpated. No other significant masses, calcifications, or other findings are seen in either breast. IMPRESSION: INCOMPLETE: NEED ADDITIONAL IMAGING EVALUATION The oval asymmetry within the skin is indeterminate. An ultrasound is recommended. Geovany norris/sweta:12/04/2023 11:39:38 Production Roustabout(s): RT Bernard(R)(M), [facility] Mammogram BI-RADS: Category 0: Incomplete: Need Additional Imaging Evaluation Multiple national specialty organizations have released breast cancer screening guidelines for women at average risk for developing breast cancer - guidelines that are based on both evidence and opinion, yet differ on when to start and how often to screen for breast cancer. With representation from Breast Imaging, Internal Medicine, Women's Health, Family Medicine, and Medical/Surgical Oncology, the [facility] has carefully reviewed the data and reached the following consensus: 1) All women should engage in shared decision-making with their providers to decide when to start and how often to screen; 2) All women should have the opportunity to start screening mammography at age 40; 3) For women ages 45-55, we recommend annual screening mammograms; 4) For women ages 55 and over, we support both the transition from an annual to a biennial interval if this aligns more with patient's values and preferences, or continuation with annual screening; 5) All women should discuss with their providers when to stop screening mammograms. Console Attendant: Sweta Transcribe Date/Time: Dec 04 2023 10:37A Dictated by: GEOVANY CROWELL MD This examination was interpreted and the report reviewed and electronically signed by: GEOVANY CROWELL MD on Dec 04 2023 11:39AM EST [id number] N Normal [facility] US AXILLA ONLY RTon 11-11 [facility] US AXILLA ONLY RT * * *Final Report* * * DATE OF EXAM: Dec 04 2023 11:26AM [facility] [id number] - [facility] US AXILLA ONLY RT / PROCEDURE REASON: Mass of right axilla * * * * Physician Interpretation * * * * #[id number] - [facility] US AXILLA ONLY RT ULTRASOUND OF RIGHT AXILLA: 12/04/2023 HISTORY: Mass Of Right Axilla. RESULT: Comparison is made to exams dated: 12/04/2023 mammogram - [facility] and 09/11/2022 mammogram. Color flow and real-time ultrasound of the right axilla were performed. Vazquez scale images of the real-time examination were reviewed. There is a benign 1.1 cm x 1 cm x 0.8 cm oval lesion with a circumscribed margin in the right axillary tail. This oval lesion is of mixed echogenicity with posterior acoustic enhancement. Color flow imaging demonstrates that there is no vascularity present. IMPRESSION: BENIGN There is no sonographic evidence of malignancy. The 1.1 cm x 1 cm x 0.8 cm oval lesion has a differential diagnosis of a benign process such as sebaceous cyst or epidermal inclusion cyst and is benign. Return to annual mammogram screening schedule is recommended. Geovany derasg/:12/04/2023 11:46:33 Production Roustabout(s): Marisol Ibarra [facility] Ultrasound BI-RADS: Category 2: Benign Multiple national specialty organizations have released breast cancer screening guidelines for women at average risk for developing breast cancer - guidelines that are based on both evidence and opinion, yet differ on when to start and how often to screen for breast cancer. With representation from Breast Imaging, Internal Medicine, Women's Health, Family Medicine, and Medical/Surgical Oncology, the [facility] has carefully reviewed the data and reached the following consensus: 1) All women should engage in shared decision-making with their providers to decide when to start and how often to screen; 2) All women should have the opportunity to start screening mammography at age 40; 3) For women ages 45-55, we recommend annual screening mammograms; 4) For women ages 55 and over, we support both the transition from an annual to a biennial interval if this aligns more with patient's values and preferences, or continuation with annual screening; 5) All women should discuss with their providers when to stop screening mammograms. Console Attendant: Sweta Transcribe Date/Time: Dec 04 2023 11:24A Dictated by : GEOVANY CROWELL MD This examination was interpreted and the report reviewed and electronically signed by: GEOVANY CROWELL MD on Dec 04 2023 11:46AM EST [id number] N Normal [facility] No Panel Informationon 12-03 Radiology Study observation (narrative) [facility] US Axilla - righton 12-04-19 IMPRESSION: BENIGN There is no sonographic evidence of malignancy. The 1.1 cm x 1 cm x 0.8 cm oval lesion has a differential diagnosis of a benign process such as sebaceous cyst or epidermal inclusion cyst and is benign. Return to annual mammogram screening schedule is recommended. Geovany derasg/:12/04/2023 11:46:33 Production Roustabout(s): Marisol Ibarra [facility] Ultrasound BI-RADS: Category 2: Benign Multiple national specialty organizations have released breast cancer screening guidelines for women at average risk for developing breast cancer - guidelines that are based on both evidence and opinion, yet differ on when to start and how often to screen for breast cancer. With representation from Breast Imaging, Internal Medicine, Women's Health, Family Medicine, and Medical/Surgical Oncology, the [facility] has carefully reviewed the data and reached the following consensus: 1) All women should engage in shared decision-making with their providers to decide when to start and how often to screen; 2) All women should have the opportunity to start screening mammography at age 40; 3) For women ages 45-55, we recommend annual screening mammograms; 4) For women ages 55 and over, we support both the transition from an annual to a biennial interval if this aligns more with patient's values and preferences, or continuation with annual screening; 5) All women should discuss with their providers when to stop screening mammograms. Console Attendant: Sweta Transcribe Date/Time: Dec 04 2023 11:24A Dictated by : GEOVANY CROWELL MD This examination was interpreted and the report reviewed and electronically signed by: GEOVANY CROWELL MD on Dec 04 2023 11:46AM [facility] DIVISION OF RADIOLOGY * * *Final Report* * * DATE OF EXAM: Dec 04 2023 11:26AM [facility] [id number] - [facility] US AXILLA ONLY RT / PROCEDURE REASON: Mass of right axilla * * * * Physician Interpretation * * * * #[id number] - [facility] US AXILLA ONLY RT ULTRASOUND OF RIGHT AXILLA: 12/04/2023 HISTORY: Mass Of Right Axilla. RESULT: Comparison is made to exams dated: 12/04/2023 mammogram - [facility] and 09/11/2022 mammogram. Color flow and real-time ultrasound of the right axilla were performed. Vazquez scale images of the real-time examination were reviewed. There is a benign 1.1 cm x 1 cm x 0.8 cm oval lesion with a circumscribed margin in the right axillary tail. This oval lesion is of mixed echogenicity with posterior acoustic enhancement. Color flow imaging demonstrates that there is no vascularity present. DIVISION OF RADIOLOGY Provider, [facility] Mathew [facility] - 12/04/2023 * * *Final Report* * * DATE OF EXAM: Dec 04 2023 11:26AM WRU [id number] - TOLU US AXILLA ONLY RT / PROCEDURE REASON: Mass of right axilla * * * * Physician Interpretation * * * * #[id number] - [facility] US AXILLA ONLY RT ULTRASOUND OF RIGHT AXILLA: 12/04/2023 HISTORY: Mass Of Right Axilla. RESULT: Comparison is made to exams dated: 12/04/2023 mammogram - [facility] and 09/11/2022 mammogram. Color flow and real-time ultrasound of the right axilla were performed. Vazquez scale images of the real-time examination were reviewed. There is a benign 1.1 cm x 1 cm x 0.8 cm oval lesion with a circumscribed margin in the right axillary tail. This oval lesion is of mixed echogenicity with posterior acoustic enhancement. Color flow imaging demonstrates that there is no vascularity present. IMPRESSION IMPRESSION: BENIGN There is no sonographic evidence of malignancy. The 1.1 cm x 1 cm x 0.8 cm oval lesion has a differential diagnosis of a benign process such as sebaceous cyst or epidermal inclusion cyst and is benign. Return to annual mammogram screening schedule is recommended. Geovany derasg/:12/04/2023 11:46:33 Production Roustabout(s): Marisol Ibarra [facility] Ultrasound BI-RADS: Category 2: Benign Multiple national specialty organizations have released breast cancer screening guidelines for women at average risk for developing breast cancer - guidelines that are based on both evidence and opinion, yet differ on when to start and how often to screen for breast cancer. With representation from Breast Imaging, Internal Medicine, Women's Health, Family Medicine, and Medical/Surgical Oncology, the [facility] has carefully reviewed the data and reached the following consensus: 1) All women should engage in shared decision-making with their providers to decide when to start and how often to screen; 2) All women should have the opportunity to start screening mammography at age 40; 3) For women ages 45-55, we recommend annual screening mammograms; 4) For women ages 55 and over, we support both the transition from an annual to a biennial interval if this aligns more with patient's values and preferences, or continuation with annual screening; 5) All women should discuss with their providers when to stop screening mammograms. Console Attendant: Sweta Transcribe Date/Time: Dec 04 2023 11:24A Dictated by : GEOVANY CROWELL MD This examination was interpreted and the report reviewed and electronically signed by: GEOVANY CROWELL MD on Dec 04 2023 11:46AM EST [facility] US Axilla - rightOrdered By: Ccf Provider on 12-04-2023 [facility] CNOVon 11-26-2023 CNOV Office Visit (OBGYWM ) TOBI FARFAN ([id number]) 1975 F Date Time Provider Department 11/26/23 9:30 AM MANDI WATSON OBGYWM During your visit today, we recorded the following information about you: Blood pressure Weight Height Last Period 132/82 134.3 kg 1.651 m 11/05/23 Mandi Watson APRN.RETAIL WIRELESS SALES REPRESENTATIVE 11/26/2023 10:05 AM Signed Tobi is a 48 year old who presents for an annual gynecologic exam without complaints. [place] transfer Menses: cycles every 25-30 days and 5 days of flow. Contraception: none HPV vaccine: No Last Pap: 2020 normal HPV: 2020 negative History of abnormal pap: No Last mammogram: Dx upcoming @ [facility] Sexually active: Yes Patient concerns for STD exposure: No. 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 History Comments: Sexual Activity: Yes; Male Contraception: No contraception data on record PAST MEDICAL HISTORY Diagnosis Date Anxiety Carpal tunnel syndrome Clostridium difficile diarrhea Recurrent infection 2011 Diabetes mellitus (HCC) Dysmetabolic syndrome Gestational diabetes Hypertension Obesity RANDA (obstructive sleep apnea) DME [employer] for AutoPAP - AHI 70.5 PAST SURGICAL HISTORY Procedure Laterality Date DELIVERY ONLY 12/03/2011 , low transverse; wound infection DILATION AND CURETTAGE DXAND/THER NONOBSTETRIC 11/24/2013 Dilation AND curettage HYSTEROSCOPY, DIAGNOSTIC (SEPARATE 11/24/2013 Hysteroscopy PAST SURGICAL HISTORY OF 01/12/2012 debridement post infection WOUND VAC 2012 FAMILY HISTORY Problem Relation Age of Onset Osteoporosis Mother Psychiatry Mother anorexia, depression Diabetes Father Hypertension Father Psychiatry Father bipolar d/o Cancer Maternal Grandmother Liver Heart Maternal Grandfather [place] Diabetes Paternal Aunt SOCIAL HISTORY Social History Tobacco Use Smoking status: Never Smokeless tobacco: Never Vaping Use Vaping Use: Never used Substance Use Topics Alcohol use: No Drug use: No REVIEW OF SYSTEMS Abdomen: No abdominal pain, nausea, vomiting, diarrhea, or constipation. No bloating, early satiety, indigestion, or increased flatulence. Bladder: No dysuria, gross hematuria, urinary frequency, urinary urgency, or incontinence. Breast: No breast lumps, nipple d/c, overlying skin changes, redness or skin retraction and +right armpit lump. Allergies and current medication updated:Yes EXAM: BP 132/82 Ht 5' 5 (1.65m) Wt 296 lb (134.3kg) LMP 11/05/2023 BMI 49.26 kg/(m2). GENERAL: pleasant, female in no apparent distress HEENT: Normocephalic, atraumatic, mucus membranes moist, and no lesions NECK: Supple, full range of motion, no adenopathy, and thyroid normal DERMATOLOGY: Normal, without lesions, non-icteric, and non-hirsute BREAST: soft, non-tender, symmetric, no dominant mass, normal nipple-areolar complex, no lymphadenopathy, and no nipple discharge +small firm lump in the right armpit CHEST: Normal inspiratory effort ABDOMEN: soft, non-tender, and no masses PELVIC: external genitalia normal, normal Bartholin's glands, urethra, [place]'s glands, no vulvar lesions, no cervical lesions, good vaginal support, physiologic discharge present, normal appearing perineal body and perianal region BIMANUAL: uterus normal size, shape and consistency, no adnexal masses, and non-tender RECTOVAGINAL: deferred. NEURO: alert and oriented x3,exam grossly non-focal EXTREMITIES: normal ASSESSMENT/PLAN: 1) Health maintenance: Pap done with HPV. Mammogram up to date . Nutrition, exercise and routine health maintenance exams reviewed. Calcium/Vitamin D supplementation information provided. Colon cancer screening: doing Cologuard 2) Contraception: none. Contraceptive options reviewed and information provided. 3) STD screening: Declined STD check. 4) Follow up one year or sooner as needed Mandi Watson APRN.RETAIL WIRELESS SALES REPRESENTATIVE Allergies As of Date: 11/26/2023 Noted Allergy Reaction AMOXICILLIN 01/04/2012 2 - Rash LISINOPRIL 02/22/2017 3 - Cough Comments: cough NIACIN 12/13/2008 5 - Intolerance Comments: Caused whole body to become red and warm. Date Reviewed: 11/26/2023 Reviewed by: Mandi Watson APRN.RETAIL WIRELESS SALES REPRESENTATIVE - Fully Assessed Reason for Visit: Yearly Exam [187] Cmt: SAVI from [place] Primary Visit Diagnosis:Encounter for gynecological examination (general) (routine) without abnormal findings [Z01.419] Other Visit Diagnoses:Screening for cervical cancer [Z12.4] Encounter for screening for human papillomavirus (HPV) [Z11.51] Order(s):PAP TEST [[id number]] Order #: [id number] Prescriptions as of 11/26/2023 - gabapentin (NE (more content not included)... Normal [facility] HIGH RISK HUMAN PAPILLOMA GIDEON (HPV), PCR FOR DETECTION AND GENOTYPINGon 11-26-2023 HPV 16 Ag Ql (Unsp spec) Not detected Normal Not detected [facility] Comment on above: Order Comment: Speci men Type: FLUID SPECIMEN Ordering Facility: [facility] Address: [address] [place] [address] Performed By: #### L [id number], HPVHRT #### [facility] CLIA [id number] [address] [place] [address] [place] HPV 18 Ag Ql (Unsp spec) Not detected Normal Not detected [facility] Comment on above: Order Comment: Speci men Type: FLUID SPECIMEN Ordering Facility: [facility] Address: [address] [place] [address] Performed By: #### L [id number], HPVHRT #### [facility] CLIA [id number] [address] [place] [address] [place] HPV 31+33+35+39+45+51+52+56 +58+59+66+68 DNA WILLOW+probe Ql (Cvx) Not detected Normal Not detected [facility] Comment on above: Order Comment: Speci men Type: FLUID SPECIMEN Ordering Facility: [facility] Address: [address] [place] [address] Result Comment: High Risk HPV Other Type includes HPV types 31, 33, 35, 39, 45, 51, 52, 56, 58, 59, 66 and 68. Performed By: #### L [id number], HPVHRT #### [facility] CLIA [id number] [address] [place] [address] [place] PAP TESTon 11-26-2023 ADEQUACY Normal [facility] Comment on above: Order Comment: Speci men Type: FLUID SPECIMEN Ordering Facility: [facility] Address: [address] [place] [address] Result Comment: Sati sfactory for interpretation. No endocervical component Performed By: #### L [id number], HPVHRT #### [facility] CLIA [id number] [address] [place] [address] [place] CASE REPORT Normal [facility] Comment on above: Order Comment: Speci men Type: FLUID SPECIMEN Ordering Facility: [facility] Address: [address] [place] [address] Result Comment: Gyne cologic Cytology Report Case: [id number] Authorizing Provider: Mandi Watson APRN.RETAIL WIRELESS SALES REPRESENTATIVE Collected: 11/26/2023 10:06 AM Ordering Location: OB/Gynecology Received: 11/26/2023 11:57 AM First Screen: Marielos Mcmanus CT, ASCP Specimen: Pap Test, ThinPrep, Cervix Performed By: #### L [id number], HPVHRT #### [facility] CLIA [id number] [address] [place] [address] [place] CLINICAL HISTORY, CYTOLOGY, PLUMBING FOREMAN Routine Exam Normal [facility] Comment on above: Order Comment: Speci men Type: FLUID SPECIMEN Ordering Facility: [facility] Address: [address] [place] [address] Performed By: #### L [id number], HPVHRT #### [facility] CLIA [id number] [address] [place] [address] [place] FINAL PERFORMING LAB Normal [facility] Comment on above: Order Comment: Speci men Type: FLUID SPECIMEN Ordering Facility: [facility] Address: [address] [place] [address] Result Comment: Tech nical component, supervisor statement clerks screening performed at [facility], [address] [place] [address] [place] [address] CLIA# [id number] Diagnostic interpretation performed at [facility], [address] [place] [address] [place] [address] CLIA# [id number] Category Manager: Alf Ruelas M.D. Performed By: #### L [id number], HPVHRT #### [facility] CLIA [id number] [address] [place] [address] [place] HPV REFLEX Yes HPV Normal [facility] Comment on above: Order Comment: Speci men Type: FLUID SPECIMEN Ordering Facility: [facility] Address: [address] [place] [address] Performed By: #### L [id number], HPVHRT #### [facility] CLIA [id number] [address] [place] [address] [place] INTERPRETATION, CYTOLOGY, PLUMBING FOREMAN Normal [facility] Comment on above: Order Comment: Speci men Type: FLUID SPECIMEN Ordering Facility: [facility] Address: [address] [place] [address] Result Comment: Nega tive for intraepithelial lesion or malignancy. Performed By: #### L [id number], HPVHRT #### [facility] CLIA [id number] [address] [place] [address] [place] LMP 11/05/2023 Normal [facility] Comment on above: Order Comment: Speci men Type: FLUID SPECIMEN Ordering Facility: [facility] Address: [address] [place] [address] Performed By: #### L [id number], HPVHRT #### [facility] CLIA [id number] [address] [place] [address] PAP DISCLAIMER COMMENT The Pap Smear is a screening test for cervical cancer. False negative results occur with all screening tests, emphasizing the need for rescreening at recommended intervals, and clinical correlation. Normal [facility] Comment on above: Order Comment: Speci men Type: FLUID SPECIMEN Ordering Facility: [facility] Address: [address] [place] [address] Performed By: #### L [id number], HPVHRT #### [facility] CLIA [id number] [address] [place] [address] PAP APPLIED BEHAVIOR SCIENCE SPECIALIST COMMENT This specimen has been analyzed by the ThinPrep Imaging System, an automated imaging and review system, which assists the laboratory in evaluating cells on ThinPrep Pap tests. Following automated imaging, selected case from every slide are reviewed by a supervisor statement clerks. Normal [facility] Comment on above: Order Comment: Speci men Type: FLUID SPECIMEN Ordering Facility: [facility] Address: [address] [place] [address] Performed By: #### L [id number], HPVHRT #### [facility] CLIA [id number] [address] [place] [address] OF [place] CNPKarolyn 11-13-2023 MARIAN Telephone (GIDEON) TOBI FARFAN ([id number]) 1975 F Date Time Provider Department 11/13/23 MORENITA BUTLER During your visit today, we recorded the following information about you: Marisol Ibarra RDMS 11/13/2023 10:30 AM Signed May we please have orders placed for Bilateral Diagnostic Mammogram for right breast lump. Pt is due for bilateral, last screening was completed in September of 2022 at [facility]. Pt will need to be rescheduled for Diagnostic mammogram with ultrasound to follow. Thank you so much! Marisol Ibarra [facility] Victoria Anguiano 11/13/2023 2:06 PM Signed Patient is wanting to know if diagnostic mammogram is necessary. She is concerned that her insurance will not pay for the additional imaging. Please contact patient to advise. Morenita [facility] APRN.MARIA 11/13/2023 2:27 PM Signed Last mammogram on record was in September of 2022, when I first looked at it I thought it was this past September. So either way she is overdue for mammogram. She can call her insurance to verify coverage. Thank you Morenita Butler APRN.Mellissa Wharton MA 11/13/2023 3:16 PM Signed Patient notified. Order faxed to [facility]. Allergies As of Date: 11/13/2023 Noted Allergy Reaction AMOXICILLIN 01/04/2012 2 - Rash LISINOPRIL 02/22/2017 3 - Cough Comments: cough NIACIN 12/13/2008 5 - Intolerance Comments: Caused whole body to become red and warm. Date Reviewed: 08/16/2023 Reviewed by: Ludwig Lindsay APRN.MARIA - Fully Assessed Reason for Visit: Orders [681] Primary Visit Diagnosis:Mass of right axilla [R22.31] Order(s):TOLU DIAGNOSTIC BILATERAL [[id number]] Order #: [id number] FUTURE Prescriptions as of 11/13/2023 - gabapentin (NEURONTIN) 100 mg capsule Take 1 capsule by mouth three times a day for 180 days. - metFORMIN ER (GLUCOPHAGE XR) 500 mg 24 hr tablet Take 2 tablets by mouth two times a day at 6 am and 9 pm. - ergocalciferol 50,000 unit capsule (VITAMIN D2, DRISDOL) Take 1 capsule by mouth one time a week. - losartan-hydroCHLOROt hiazide (HYZAAR) 50-12.5 mg per tablet Take 1 tablet by mouth once daily. - sertraline (ZOLOFT) 100 mg tablet TAKE 1 AND 1/2 TABLETS ONCEDAILY - pioglitazone (ACTOS) 15 mg tablet take 1 tablet once daily - pravastatin (PRAVACHOL) 20 mg tablet take 1 tablet once daily - glimepiride (AMARYL) 4 mg tablet TAKE 1 TABLET DAILY WITH BREAKFAST - busPIRone (BUSPAR) 10 mg tablet Take 1 tablet by mouth two times a day. - CPAP Settings 13 - 20 cm H2O, suitable mask per pt preference, chin strap, head gear, humidity, filters, tubing, lifetime supplies. G47.33 RANDA - semaglutide (OZEMPIC) 2 mg/dose (8 mg/3 mL) pen injector Inject 2 mg subcutaneously one time a week. - potassium chloride (K-TAB) 10 mEq tablet TAKE 1 TABLET DAILY WITH BREAKFAST - ferrous sulfate 325 mg (65 mg iron) tablet Take 1 tablet by mouth twice daily with meals. - Lancing Device misc Use to monitor blood sugars a directed - Lancets lancets Use as instructed to monitor blood sugars when prompted by Freestyle Shilo. Up to 4 per day. - insulin needles, DISPOSABLE, (BD INSULIN PEN NEEDLE UF) 31 gauge x 5/16 1 Each once daily. With Victoza. ICD10: E11.65 - aspirin 81 mg chewable tablet CHEW 1 TABLET ONCE DAILY - Blood-Glucose Meter monitoring kit Glucose Meter of Choice (pending insurance coverage) - Kit - Dx: Type 2 DM - Uncontrolled E11.65 - albuterol HFA (PROAIR HFA) 90 mcg/actuation inhaler Inhale 2 Puffs as instructed every 4 hours as needed for Wheezing/Shortness of Breath. - NORGESTIMATE-ETHINYL ESTRADIOL (PREVIFEM ORAL) Take 1 tablet by mouth once daily. Problem List As Of Date 11/13/2023 Noted Resolved Morbid obesity [E66.01] 12/18/2006 ELEV BL PRES W/O HYPERTN [R03.0] 12/18/2006 01/09/2008 DYSMETABOLIC SYNDROME X [E88.810] 01/02/2007 Essential hypertension [I10] 01/09/2008 Mixed hyperlipidemia [E78.2] 09/01/2010 Abnormal echocardiogram [R93.1] 10/23/2010 Routine gynecological examination [Z01.419] 07/04/2011 Class: Chronic Clostridium difficile diarrhea [A04.72] Carpal tunnel syndrome [G56.00] Anxiety [F41.9] Panic attack [F41.0] 03/01/2015 RANDA (obstructive sleep apnea) [G47.33] 08/14/2017 Controlled type 2 diabetes mellitus without com*10/01/2018 Right sided sciatica [M54.31] 04/11/2021 05/11/2021 Encounter Status:Closed by MORENITA BUTLER on 11/13/23 Normal [facility] XR Knee - right AP and Later marisol 08-18-2023 IMPRESSION: 1. No acute radiographic abnormality of the right knee with enthesophytes and tibial tubercle fragmentation as above Console Attendant: VERN Transcribe Date/Time: Aug 18 2023 10:54A Dictated by : RAFAELA SHARMA MD This examination was interpreted and the report reviewed and electronically signed by: RAFAELA SHARMA MD on Aug 18 2023 10:55AM [facility] DIVISION OF RADIOLOGY * * *Final Report* * * DATE OF EXAM: Aug 16 2023 10:58AM WOX 5207 - XR KNEE 2V AP/LAT RT / PROCEDURE REASON: multiple diagnoses * * * * Physician Interpretation * * * * KNEE RADIOGRAPHS - RIGHT HISTORY: Acute pain of right knee Positive Lauryn test of right knee, initial encounter TECHNOLOGIST PROVIDED HISTORY (if applicable): shooting hoops last night and heard a pop in right knee pain posterior side TECHNIQUE: XR KNEE 2V AP/LAT RT COMPARISON: None available RESULT: Right knee: There is no acute osseous, articular, or soft tissue abnormality. There is trace joint effusion without soft tissue swelling. Joint spaces are preserved. Marginal osteophytes at the patella. Patellar and tibial tubercle enthesophytes and osseous fragmentation at the tibial tubercle characteristic for old [place]-Schlatter disease. DIVISION OF RADIOLOGY Provider, [facility] Mathew [place] - 08/18/2023 * * *Final Report* * * DATE OF EXAM: Aug 16 2023 10:58AM WOX 5207 - XR KNEE 2V AP/LAT RT / PROCEDURE REASON: multiple diagnoses * * * * Physician Interpretation * * * * KNEE RADIOGRAPHS - RIGHT HISTORY: Acute pain of right knee Positive Lauryn test of right knee, initial encounter TECHNOLOGIST PROVIDED HISTORY (if applicable): shooting hoops last night and heard a pop in right knee pain posterior side TECHNIQUE: XR KNEE 2V AP/LAT RT COMPARISON: None available RESULT: Right knee: There is no acute osseous, articular, or soft tissue abnormality. There is trace joint effusion without soft tissue swelling. Joint spaces are preserved. Marginal osteophytes at the patella. Patellar and tibial tubercle enthesophytes and osseous fragmentation at the tibial tubercle characteristic for old [place]-Schlatter disease. IMPRESSION IMPRESSION: 1. No acute radiographic abnormality of the right knee with enthesophytes and tibial tubercle fragmentation as above Console Attendant: [facility] Transcribe Date/Time: Aug 18 2023 10:54A Dictated by : RAFAELA SHARMA MD This examination was interpreted and the report reviewed and electronically signed by: RAFAELA SHARMA MD on Aug 18 2023 10:55AM EST [facility] XR Knee - right AP and Later alOrdered By: Ccf Provider on 08-18-2023 [facility] XR Knee - right AP and Later marisol 08-16-2023 Radiology Study observation (narrative) [facility] No Panel Informationon 07-10 IMPRESSION: No acute osseous abnormalities are identified. Degenerative changes Console Attendant: [facility] Transcribe Date/Time: Jul 10 2023 5:51P Dictated by : VANESSA HART MD This examination was interpreted and the report reviewed and electronically signed by: VANESSA HART MD on Jul 10 2023 5:54PM [facility] DIVISION OF RADIOLOGY Radiology Study observation (narrative) [facility] No Panel InformationOrdered By: Ccf Provider on 07-10-2023 [facility] XR Hand - right PA and Later al and Obliqueon 07-10-2023 * * *Final Report* * * DATE OF EXAM: Jul 10 2023 5:41PM WOX 5346 - XR HAND 3V PA/LAT/OBL RT / PROCEDURE REASON: Pain of right hand * * * * Physician Interpretation * * * * RIGHT WRIST X-RAY SERIES HISTORY: Pain TECHNIQUE: PA, lateral, oblique and scaphoid view. COMPARISON: None available. RESULT: No fracture, dislocation or destructive changes. Joint spaces and articular surfaces are preserved. Small ossicles project near the radiocarpal joint on the lateral view. RIGHT HAND X-RAY SERIES TECHNIQUE: PA, lateral and oblique views. COMPARISON: None available. RESULT: No fracture, dislocation or destructive changes. Mild osteophytic spurring is noted involving the DIP joints of the second through fifth fingers. [facility] DIVISION OF RADIOLOGY Provider, [facility] - 07/10/2023 * * *Final Report* * * DATE OF EXAM: Jul 10 2023 5:41PM WOX 5346 - XR HAND 3V PA/LAT/OBL RT / PROCEDURE REASON: Pain of right hand * * * * Physician Interpretation * * * * RIGHT WRIST X-RAY SERIES HISTORY: Pain TECHNIQUE: PA, lateral, oblique and scaphoid view. COMPARISON: None available. RESULT: No fracture, dislocation or destructive changes. Joint spaces and articular surfaces are preserved. Small ossicles project near the radiocarpal joint on the lateral view. RIGHT HAND X-RAY SERIES TECHNIQUE: PA, lateral and oblique views. COMPARISON: None available. RESULT: No fracture, dislocation or destructive changes. Mild osteophytic spurring is noted involving the DIP joints of the second through fifth fingers. COMBINED IMPRESSION IMPRESSION: No acute osseous abnormalities are identified. Degenerative changes Console Attendant: VERN Transcribe Date/Time: Jul 10 2023 5:51P Dictated by : VANESSA HART MD This examination was interpreted and the report reviewed and electronically signed by: VANESSA HART MD on Jul 10 2023 5:54PM [facility] XR Wrist - right 4 Viewson 0 07-10-2023 * * *Final Report* * * DATE OF EXAM: Jul 10 2023 5:41PM WOX 5273 - XR WRIST 4V PA/LAT/OBL/SCAPH RT / PROCEDURE REASON: Pain of right hand * * * * Physician Interpretation * * * * RIGHT WRIST X-RAY SERIES HISTORY: Pain TECHNIQUE: PA, lateral, oblique and scaphoid view. COMPARISON: None available. RESULT: No fracture, dislocation or destructive changes. Joint spaces and articular surfaces are preserved. Small ossicles project near the radiocarpal joint on the lateral view. RIGHT HAND X-RAY SERIES TECHNIQUE: PA, lateral and oblique views. COMPARISON: None available. RESULT: No fracture, dislocation or destructive changes. Mild osteophytic spurring is noted involving the DIP joints of the second through fifth fingers. [facility]BIN[facility] DIVISION OF RADIOLOGY Provider, Magnus Carmona [facility] - 07/10/2023 * * *Final Report* * * DATE OF EXAM: Jul 10 2023 5:41PM WOX [id number] - XR WRIST 4V PA/LAT/OBL/SCAPH RT / PROCEDURE REASON: Pain of right hand * * * * Physician Interpretation * * * * RIGHT WRIST X-RAY SERIES HISTORY: Pain TECHNIQUE: PA, lateral, oblique and scaphoid view. COMPARISON: None available. RESULT: No fracture, dislocation or destructive changes. Joint spaces and articular surfaces are preserved. Small ossicles project near the radiocarpal joint on the lateral view. RIGHT HAND X-RAY SERIES TECHNIQUE: PA, lateral and oblique views. COMPARISON: None available. RESULT: No fracture, dislocation or destructive changes. Mild osteophytic spurring is noted involving the DIP joints of the second through fifth fingers. COMBINED IMPRESSION IMPRESSION: No acute osseous abnormalities are identified. Degenerative changes Console Attendant[facility] Transcribe Date/Time: Jul 10 2023 5:51P Dictated by : VANESSA HART MD This examination was interpreted and the report reviewed and electronically signed by: VANESSA HART MD on Jul 10 2023 5:54PM EST [facility] FERRITIN [facility] 05-02-2023 Ferritin [Mass/Vol] 56.7 ng/mL 14.7 - 2 05.1 ng/mL [facility] Iron and Iron binding capaci ty panelon 05-02-2023 Iron [Mass/Vol] 38 ug/dL Low 41 - 186 ug/dL [facility] Iron binding capacity [Mass/Vol] 322 ug/dL 232 - 386 ug/dL [facility] Iron/TIBC [Molar ratio] 11.8 % Low 15.0 - 57.0 % [facility] T4 FREE/FREE THYROXon 2022 Free T4 [Mass/Vol] 1.1 ng/dL 0.9 - 1.7 ng/dL [facility] TSH [facility] 05-02-2023 TSH Qn 1.610 m[IU]/L 0.270 - 4.200 mIU/L [facility] VITAMIN B12 BLOODon 05-02-20 Cobalamin (Vitamin B12) [Mass/Vol] 272 pg/mL 232 - 1,245 pg/mL [facility] HbA1c (Bld)on 05-08-2022 Average glucose Estimated from glycated hemoglobin (Bld) [Mass/Vol] 169 mg/dL [facility] HbA1c (Bld) [Mass fraction] 7.5 % High 4.3 - 5.6 % [facility] Vital Signs Date Time Vital Sign Value Performing Clinician Aldair winters 10-29-2024 10:41-0400 Body mass index (BMI) [Ratio] 52.09 kg/m2 Abdirashid Miller SALES AND MANAGEMENT TRAINEE.SUPERVISOR ROLLING ROOM Work Phone: [facility] 10-29-2024 10:41-0400 Body weight 142 kg Abdirashid Miller SALES AND MANAGEMENT TRAINEE.SUPERVISOR ROLLING ROOM Work Phone: [facility] 10-29-2024 10:41-0400 Diastolic blood pressure 74 mm[Hg] Abdirashid Miller SALES AND MANAGEMENT TRAINEE.SUPERVISOR ROLLING ROOM Work Phone: [facility] 10-29-2024 10:41-0400 Heart rate 65 /min Abdirashid Miller SALES AND MANAGEMENT TRAINEE.SUPERVISOR ROLLING ROOM Work Phone: [facility] 10-29-2024 10:41-0400 Respiratory rate 16 /min Abdirashid Miller SALES AND MANAGEMENT TRAINEE.SUPERVISOR ROLLING ROOM Work Phone: [facility] 10-29-2024 10:41-0400 Systolic blood pressure 109 mm[Hg] Abdirashid Miller SALES AND MANAGEMENT TRAINEE.SUPERVISOR ROLLING ROOM Work Phone: [facility] 09-23-2024 16:32-0400 Body mass index (BMI) [Ratio] 52.42 kg/m2 Morenita Older SALES AND MANAGEMENT TRAINEE.RETAIL WIRELESS SALES REPRESENTATIVE Work Phone: [facility] 09-23-2024 16:32-0400 Body weight 142.88 kg Morenita Older SALES AND MANAGEMENT TRAINEE.RETAIL WIRELESS SALES REPRESENTATIVE Work Phone: [facility] 09-23-2024 16:32-0400 Diastolic blood pressure 72 mm[Hg] Morenita Older SALES AND MANAGEMENT TRAINEE.RETAIL WIRELESS SALES REPRESENTATIVE Work Phone: [facility] 09-23-2024 16:32-0400 Heart rate 68 /min Morenita Older SALES AND MANAGEMENT TRAINEE.RETAIL WIRELESS SALES REPRESENTATIVE Work Phone: [facility] 09-23-2024 16:32-0400 Respiratory rate 16 /min Morenita Older SALES AND MANAGEMENT TRAINEE.RETAIL WIRELESS SALES REPRESENTATIVE Work Phone: [facility] 09-23-2024 16:32-0400 SaO2% (BldA) [Mass fraction] 96 % Morenita Older SALES AND MANAGEMENT TRAINEE.RETAIL WIRELESS SALES REPRESENTATIVE Work Phone: [facility] 09-23-2024 16:32-0400 Systolic blood pressure 118 mm[Hg] Morenita Older SALES AND MANAGEMENT TRAINEE.RETAIL WIRELESS SALES REPRESENTATIVE Work Phone: [facility] 08-12-2024 17:25-0400 Body mass index (BMI) [Ratio] 52.09 kg/m2 Morenita Older SALES AND MANAGEMENT TRAINEE.RETAIL WIRELESS SALES REPRESENTATIVE Work Phone: [facility] 08-12-2024 17:25-0400 Body weight 141.98 kg Morenita Older SALES AND MANAGEMENT TRAINEE.RETAIL WIRELESS SALES REPRESENTATIVE Work Phone: [facility] 08-12-2024 17:25-0400 Diastolic blood pressure 78 mm[Hg] Morenita Older SALES AND MANAGEMENT TRAINEE.RETAIL WIRELESS SALES REPRESENTATIVE Work Phone: [facility] 08-12-2024 17:25-0400 Heart rate 70 /min Morenita Older SALES AND MANAGEMENT TRAINEE.RETAIL WIRELESS SALES REPRESENTATIVE Work Phone: [facility] 08-12-2024 17:25-0400 Respiratory rate 16 /min Morenita Older SALES AND MANAGEMENT TRAINEE.RETAIL WIRELESS SALES REPRESENTATIVE Work Phone: [facility] 08-12-2024 17:25-0400 SaO2% (BldA) [Mass fraction] 97 % Morenita Older SALES AND MANAGEMENT TRAINEE.RETAIL WIRELESS SALES REPRESENTATIVE Work Phone: [facility] 08-12-2024 17:25-0400 Systolic blood pressure 126 mm[Hg] Morenita Older SALES AND MANAGEMENT TRAINEE.RETAIL WIRELESS SALES REPRESENTATIVE Work Phone: [facility] 08-10-2024 09:50-0400 Body height 165.1 cm Pulm Wstr Work Phone: [facility] 08-10-2024 09:50-0400 Body mass index (BMI) [Ratio] 52.25 kg/m2 Pulm Wstr Work Phone: [facility] 08-10-2024 09:50-0400 Body weight 142.43 kg Pulm Wstr Work Phone: [facility] 08-10-2024 09:50-0400 Heart rate 65 /min Pulm Wstr Work Phone: [facility] 08-10-2024 09:50-0400 Respiratory rate 14 /min Pulm Wstr Work Phone: [facility] 08-10-2024 09:50-0400 SaO2% (BldA) [Mass fraction] 99 % Pulm Wstr Work Phone: [facility] 06-23-2024 08:19-0500 Body mass index (BMI) [Ratio] 51.49 kg/m2 Quentin Bogner PA-C Work Phone: [facility] 06-23-2024 08:19-0500 Body temperature 95.2 [degF] Quentin Bogner PA-C Work Phone: [facility] 06-23-2024 08:19-0500 Body weight 140.34 kg Quentin Bogner PA-C Work Phone: [facility] 06-23-2024 08:19-0500 Diastolic blood pressure 73 mm[Hg] Quentin Bogner PA-C Work Phone: [facility] 06-23-2024 08:19-0500 Heart rate 67 /min Quentin Bogner PA-C Work Phone: [facility] 06-23-2024 08:19-0500 Respiratory rate 16 /min Quentin Bogner PA-C Work Phone: [facility] 06-23-2024 08:19-0500 SaO2% (BldA) [Mass fraction] 97 % Quentin Bogner PA-C Work Phone: [facility] 06-23-2024 08:19-0500 Systolic blood pressure 117 mm[Hg] Quentin Salazar PA-C Work Phone: [facility] 06-17-2024 11:32-0500 Body mass index (BMI) [Ratio] 51.76 kg/m2 Nevaeh Parker SALES AND MANAGEMENT TRAINEE.RETAIL WIRELESS SALES REPRESENTATIVE Work Phone: [facility] 06-17-2024 11:32-0500 Body temperature 98.1 [degF] Nevaeh Parker SALES AND MANAGEMENT TRAINEE.RETAIL WIRELESS SALES REPRESENTATIVE Work Phone: [facility] 06-17-2024 11:32-0500 Body weight 141.1 kg Nevaeh Parker SALES AND MANAGEMENT TRAINEE.RETAIL WIRELESS SALES REPRESENTATIVE Work Phone: [facility] 06-17-2024 11:32-0500 Diastolic blood pressure 80 mm[Hg] Nevaeh Parker SALES AND MANAGEMENT TRAINEE.RETAIL WIRELESS SALES REPRESENTATIVE Work Phone: [facility] 06-17-2024 11:32-0500 Heart rate 70 /min Nevaeh Parker SALES AND MANAGEMENT TRAINEE.RETAIL WIRELESS SALES REPRESENTATIVE Work Phone: [facility] 06-17-2024 11:32-0500 Respiratory rate 20 /min Nevaeh Parker SALES AND MANAGEMENT TRAINEE.RETAIL WIRELESS SALES REPRESENTATIVE Work Phone: [facility] 06-17-2024 11:32-0500 SaO2% (BldA) [Mass fraction] 98 % Nevaeh Parker SALES AND MANAGEMENT TRAINEE.RETAIL WIRELESS SALES REPRESENTATIVE Work Phone: [facility] 06-17-2024 11:32-0500 Systolic blood pressure 114 mm[Hg] Nevaeh Parker SALES AND MANAGEMENT TRAINEE.RETAIL WIRELESS SALES REPRESENTATIVE Work Phone: [facility] 05-21-2024 14:04-0500 Body mass index (BMI) [Ratio] 51.47 kg/m2 Solitario Perera MD Work Phone: [facility] 05-21-2024 14:04-0500 Body temperature 97.9 [degF] Solitario Perera MD Work Phone: [facility] 05-21-2024 14:04-0500 Body weight 140.3 kg Solitario Perera MD Work Phone: [facility] 05-21-2024 14:04-0500 Diastolic blood pressure 53 mm[Hg] Solitario Perera MD Work Phone: [facility] 05-21-2024 14:04-0500 Heart rate 72 /min Solitario Perera MD Work Phone: [facility] 05-21-2024 14:04-0500 Respiratory rate 20 /min Solitario Perera MD Work Phone: [facility] 05-21-2024 14:04-0500 SaO2% (BldA) [Mass fraction] 99 % Solitario Perera MD Work Phone: [facility] 05-21-2024 14:04-0500 Systolic blood pressure 118 mm[Hg] Solitario Perera MD Work Phone: [facility] 05-18-2024 17:20-0500 Body mass index (BMI) [Ratio] 52.02 kg/m2 Bebeto Lopez MD Work Phone: [facility] 05-18-2024 17:20-0500 Body temperature 97.5 [degF] Bebeto Lopez MD Work Phone: [facility] 05-18-2024 17:20-0500 Body weight 141.8 kg Bebeto Lopez MD Work Phone: [facility] 05-18-2024 17:20-0500 Diastolic blood pressure 68 mm[Hg] Bebeto Lopez MD Work Phone: [facility] 05-18-2024 17:20-0500 Heart rate 60 /min Bebeto Lopez MD Work Phone: [facility] 05-18-2024 17:20-0500 Respiratory rate 18 /min Bebeto Lopez MD Work Phone: [facility] 05-18-2024 17:20-0500 SaO2% (BldA) [Mass fraction] 99 % Bebeto Lopez MD Work Phone: [facility] 05-18-2024 17:20-0500 Systolic blood pressure 112 mm[Hg] Bebeto Lopez MD Work Phone: [facility] 03-26-2024 16:30-0500 Body mass index (BMI) [Ratio] 50.59 kg/m2 Fepiyush Whalen SALES AND MANAGEMENT TRAINEE.RETAIL WIRELESS SALES REPRESENTATIVE Work Phone: [facility] 03-26-2024 16:30-0500 Body temperature 99.19 [degF] Fe Whalen SALES AND MANAGEMENT TRAINEE.RETAIL WIRELESS SALES REPRESENTATIVE Work Phone: [facility] 03-26-2024 16:30-0500 Body weight 137.9 kg Fe Whalen SALES AND MANAGEMENT TRAINEE.RETAIL WIRELESS SALES REPRESENTATIVE Work Phone: [facility] 03-26-2024 16:30-0500 Diastolic blood pressure 78 mm[Hg] Fe Whalen SALES AND MANAGEMENT TRAINEE.RETAIL WIRELESS SALES REPRESENTATIVE Work Phone: [facility] 03-26-2024 16:30-0500 Heart rate 72 /min Fe Whalen SALES AND MANAGEMENT TRAINEE.RETAIL WIRELESS SALES REPRESENTATIVE Work Phone: [facility] 03-26-2024 16:30-0500 Respiratory rate 20 /min Fe Whalen SALES AND MANAGEMENT TRAINEE.RETAIL WIRELESS SALES REPRESENTATIVE Work Phone: [facility] 03-26-2024 16:30-0500 SaO2% (BldA) [Mass fraction] 96 % Fe Whalen SALES AND MANAGEMENT TRAINEE.RETAIL WIRELESS SALES REPRESENTATIVE Work Phone: [facility] 03-26-2024 16:30-0500 Systolic blood pressure 120 mm[Hg] Fe Whalen SALES AND MANAGEMENT TRAINEE.RETAIL WIRELESS SALES REPRESENTATIVE Work Phone: [facility] 12-31-2023 19:44-0400 Body mass index (BMI) [Ratio] 50.7 kg/m2 Nawaf Gallardo SALES AND MANAGEMENT TRAINEE.RETAIL WIRELESS SALES REPRESENTATIVE Work Phone: [facility] 12-31-2023 19:44-0400 Body temperature 97.5 [degF] Nawaf Gallardo SALES AND MANAGEMENT TRAINEE.RETAIL WIRELESS SALES REPRESENTATIVE Work Phone: [facility] 12-31-2023 19:44-0400 Body weight 138.2 kg Nawaf Gallardo SALES AND MANAGEMENT TRAINEE.RETAIL WIRELESS SALES REPRESENTATIVE Work Phone: [facility] 12-31-2023 19:44-0400 Diastolic blood pressure 77 mm[Hg] Nawaf Pendlebury SALES AND MANAGEMENT TRAINEE.RETAIL WIRELESS SALES REPRESENTATIVE Work Phone: [facility] 12-31-2023 19:44-0400 Heart rate 63 /min [facility] SALES AND MANAGEMENT TRAINEE.RETAIL WIRELESS SALES REPRESENTATIVE Work Phone: [facility] 12-31-2023 19:44-0400 Respiratory rate 18 /min [facility] SALES AND MANAGEMENT TRAINEE.RETAIL WIRELESS SALES REPRESENTATIVE Work Phone: [facility] 12-31-2023 19:44-0400 SaO2% (BldA) [Mass fraction] 98 % Nawaf Mcwilliamsevan SALES AND MANAGEMENT TRAINEE.RETAIL WIRELESS SALES REPRESENTATIVE Work Phone: [facility] 12-31-2023 19:44-0400 Systolic blood pressure 115 mm[Hg] [facility] SALES AND MANAGEMENT TRAINEE.RETAIL WIRELESS SALES REPRESENTATIVE Work Phone: [facility] 11-26-2023 09:40-0400 Body height 165.1 cm Mandi Shirley SALES AND MANAGEMENT TRAINEE.RETAIL WIRELESS SALES REPRESENTATIVE Work Phone: [facility] 11-26-2023 09:40-0400 Body mass index (BMI) [Ratio] 49.26 kg/m2 Mandi Shirley SALES AND MANAGEMENT TRAINEE.RETAIL WIRELESS SALES REPRESENTATIVE Work Phone: [facility] 11-26-2023 09:40-0400 Body weight 134.26 kg Mandi Delta SALES AND MANAGEMENT TRAINEE.RETAIL WIRELESS SALES REPRESENTATIVE Work Phone: [facility] 11-26-2023 09:40-0400 Diastolic blood pressure 82 mm[Hg] Mandi Delta SALES AND MANAGEMENT TRAINEE.RETAIL WIRELESS SALES REPRESENTATIVE Work Phone: [facility] 11-26-2023 09:40-0400 Systolic blood pressure 132 mm[Hg] Mandi Shirley SALES AND MANAGEMENT TRAINEE.RETAIL WIRELESS SALES REPRESENTATIVE Work Phone: [facility] 11-01-2023 10:12-0400 Body mass index (BMI) [Ratio] 50.81 kg/m2 Morenita Butler SALES AND MANAGEMENT TRAINEE.RETAIL WIRELESS SALES REPRESENTATIVE Work Phone: [facility] 11-01-2023 10:12-0400 Body weight 134.26 kg Morenita Older SALES AND MANAGEMENT TRAINEE.RETAIL WIRELESS SALES REPRESENTATIVE Work Phone: [facility] 11-01-2023 10:12-0400 Diastolic blood pressure 78 mm[Hg] Morenita Older SALES AND MANAGEMENT TRAINEE.RETAIL WIRELESS SALES REPRESENTATIVE Work Phone: [facility] 11-01-2023 10:12-0400 Heart rate 80 /min Morenita Older SALES AND MANAGEMENT TRAINEE.RETAIL WIRELESS SALES REPRESENTATIVE Work Phone: [facility] 11-01-2023 10:12-0400 Respiratory rate 16 /min Morenita Older SALES AND MANAGEMENT TRAINEE.RETAIL WIRELESS SALES REPRESENTATIVE Work Phone: [facility] 11-01-2023 10:12-0400 SaO2% (BldA) [Mass fraction] 97 % Morenita Older SALES AND MANAGEMENT TRAINEE.RETAIL WIRELESS SALES REPRESENTATIVE Work Phone: [facility] 11-01-2023 10:12-0400 Systolic blood pressure 130 mm[Hg] Morenita Older SALES AND MANAGEMENT TRAINEE.RETAIL WIRELESS SALES REPRESENTATIVE Work Phone: [facility] 08-16-2023 10:15-0400 Body temperature 97.5 [degF] Ludwig Erika SALES AND MANAGEMENT TRAINEE.RETAIL WIRELESS SALES REPRESENTATIVE Work Phone: [facility] 08-16-2023 10:15-0400 Body weight 132.9 kg Ludwig Erika SALES AND MANAGEMENT TRAINEE.RETAIL WIRELESS SALES REPRESENTATIVE Work Phone: [facility] 08-16-2023 10:15-0400 Diastolic blood pressure 80 mm[Hg] Ludwig Erika SALES AND MANAGEMENT TRAINEE.RETAIL WIRELESS SALES REPRESENTATIVE Work Phone: [facility] 08-16-2023 10:15-0400 Heart rate 64 /min Ludwig Erika SALES AND MANAGEMENT TRAINEE.RETAIL WIRELESS SALES REPRESENTATIVE Work Phone: [facility] 08-16-2023 10:15-0400 Respiratory rate 16 /min Ludwig Erika SALES AND MANAGEMENT TRAINEE.RETAIL WIRELESS SALES REPRESENTATIVE Work Phone: [facility] 08-16-2023 10:15-0400 Systolic blood pressure 120 mm[Hg] Ludwig Erika SALES AND MANAGEMENT TRAINEE.RETAIL WIRELESS SALES REPRESENTATIVE Work Phone: [facility] 07-10-2023 17:10-0500 Body temperature 98.1 [degF] Nawaf New[place]bury SALES AND MANAGEMENT TRAINEE.RETAIL WIRELESS SALES REPRESENTATIVE Work Phone: [facility] 07-10-2023 17:10-0500 Body weight 134.9 kg [facility] SALES AND MANAGEMENT TRAINEE.RETAIL WIRELESS SALES REPRESENTATIVE Work Phone: [facility] 07-10-2023 17:10-0500 Diastolic blood pressure 100 mm[Hg] [facility] SALES AND MANAGEMENT TRAINEE.RETAIL WIRELESS SALES REPRESENTATIVE Work Phone: [facility] 07-10-2023 17:10-0500 Heart rate 72 /min Nawaf Pendlebury SALES AND MANAGEMENT TRAINEE.RETAIL WIRELESS SALES REPRESENTATIVE Work Phone: [facility] 07-10-2023 17:10-0500 Respiratory rate 21 /min [facility] SALES AND MANAGEMENT TRAINEE.RETAIL WIRELESS SALES REPRESENTATIVE Work Phone: [facility] 07-10-2023 17:10-0500 SaO2% (BldA) [Mass fraction] 98 % [facility]awaf [facility] SALES AND MANAGEMENT TRAINEE.RETAIL WIRELESS SALES REPRESENTATIVE Work Phone: [facility] 07-10-2023 17:10-0500 Systolic blood pressure 130 mm[Hg] [facility] SALES AND MANAGEMENT TRAINEE.RETAIL WIRELESS SALES REPRESENTATIVE Work Phone: [facility] 05-02-2023 10:04-0500 Body weight 132.9 kg Morenita Older SALES AND MANAGEMENT TRAINEE.RETAIL WIRELESS SALES REPRESENTATIVE Work Phone: [facility] 05-02-2023 10:04-0500 Diastolic blood pressure 70 mm[Hg] Morenita Older SALES AND MANAGEMENT TRAINEE.RETAIL WIRELESS SALES REPRESENTATIVE Work Phone: [facility] 05-02-2023 10:04-0500 Heart rate 68 /min Morenita Older SALES AND MANAGEMENT TRAINEE.RETAIL WIRELESS SALES REPRESENTATIVE Work Phone: [facility] 05-02-2023 10:04-0500 Respiratory rate 16 /min Morenita Older SALES AND MANAGEMENT TRAINEE.RETAIL WIRELESS SALES REPRESENTATIVE Work Phone: [facility] 05-02-2023 10:04-0500 SaO2% (BldA) [Mass fraction] 97 % Morenita Older SALES AND MANAGEMENT TRAINEE.RETAIL WIRELESS SALES REPRESENTATIVE Work Phone: [facility] 05-02-2023 10:04-0500 Systolic blood pressure 118 mm[Hg] Morenita Older SALES AND MANAGEMENT TRAINEE.RETAIL WIRELESS SALES REPRESENTATIVE Work Phone: [facility] 05-09-2022 17:33-0500 Body weight 131.09 kg SALES AND MANAGEMENT TRAINEE.RETAIL WIRELESS SALES REPRESENTATIVE Work Phone: [facility] 05-09-2022 17:33-0500 Diastolic blood pressure 70 mm[Hg] Morenita Older SALES AND MANAGEMENT TRAINEE.RETAIL WIRELESS SALES REPRESENTATIVE Work Phone: [facility] 05-09-2022 17:33-0500 Heart rate 60 /min Morenita Older SALES AND MANAGEMENT TRAINEE.RETAIL WIRELESS SALES REPRESENTATIVE Work Phone: [facility] 05-09-2022 17:33-0500 Respiratory rate 16 /min Morenita Older SALES AND MANAGEMENT TRAINEE.RETAIL WIRELESS SALES REPRESENTATIVE Work Phone: [facility] 05-09-2022 17:33-0500 Systolic blood pressure 118 mm[Hg] SALES AND MANAGEMENT TRAINEE.RETAIL WIRELESS SALES REPRESENTATIVE Work Phone: [facility] Encounters Encounter Date Encounter Type Care Provider Facility Start: 11-10-2024 ambulatory Juan Barker Facility :[facility] Start: 10-29-2024 End: 10-29-2024 Office outpatient visit 15 minutes Abdirashid Miller SALES AND MANAGEMENT TRAINEE.SUPERVISOR ROLLING ROOM Work Phone: Internal Medicine [facility] Comment on above: Rash and other nonsp ecific skin eruption (Primary Dx); Dyspnea on exertion; Wheezing; Rhinosinusitis Start: 10-29-2024 End: 10-29-2024 ambulatory DARSHANA MUNOZ Facility:[facility] Start: 10-26-2024 End: 10-28-2024 Refill Darshana Munoz MD Work Phone: [address] [place] [address] Comment on above: Refill Request Start: 09-23-2024 End: 09-23-2024 Office outpatient visit 25 minutes Morenita Butler SALES AND MANAGEMENT TRAINEE.RETAIL WIRELESS SALES REPRESENTATIVE Work Phone: [facility] Comment on above: Chronic cough (Prima ry Dx); Dyspnea on exertion; Wheezing; Essential hypertension; Obstructive sleep apnea (adult) (pediatric); Iron deficiency; Controlled type 2 diabetes mellitus without complication, without long-term current use of insulin (HCC); Hypokalemia; Encounter for immunization Start: 09-23-2024 End: 09-23-2024 ambulatory [facility] Facility:[facility] Start: 09-19-2024 End: 09-19-2024 ambulatory [facility] Facility:[facility] Start: 09-16-2024 End: 09-18-2024 Refill Darshana Munoz MD Work Phone: [address] [place] [address] Comment on above: Refill Request Start: 09-08-2024 End: 09-11-2024 ambulatory Darshana Munoz MD Work Phone: Internal Medicine [facility] Start: 08-27-2024 End: 10-27-2024 Follow-up encounter Morenita Butler APRN.RETAIL WIRELESS SALES REPRESENTATIVE Work Phone: [facility] [place] Start: 08-22-2024 End: 08-22-2024 Refill Darshana Munoz MD Work Phone: Internal Medicine [facility] Comment on above: Refill Request (Need s only short term) Start: 08-13-2024 End: 10-13-2024 Follow-up encounter Katie Greer APRN.RETAIL WIRELESS SALES REPRESENTATIVE Work Phone: [facility] [place] Start: 08-12-2024 End: 08-12-2024 Patient encounter procedure Morenita Butler APRN.RETAIL WIRELESS SALES REPRESENTATIVE Work Phone: [facility] [place] Comment on above: Dyspnea on exertion (Primary Dx); LVH (left ventricular hypertrophy); Family history of sudden cardiac ; Chronic cough; Wheezing; Post-nasal drainage; History of iron deficiency; Mixed hyperlipidemia; Anxiety Start: 08-12-2024 End: 08-12-2024 [facility] Facility:[facility] Start: 08-11-2024 End: 08-12-2024 Follow-up encounter Rosa Ballard SALES AND MANAGEMENT TRAINEE.RETAIL WIRELESS SALES REPRESENTATIVE Work Phone: [facility] Start: 08-10-2024 End: 08-10-2024 Patient encounter procedure [facility] Work Phone: [facility] Comment on above: Controlled type 2 di abetes mellitus without complication, without long-term current use of insulin (HCC); SOB (shortness of breath) Start: 08-10-2024 End: 08-10-2024 ambulatory [facility] Work Phone: [facility] Comment on above: Spirometry Start: 08-05-2024 End: 08-05-2024 ambulatory Nurse Card [facility] Work Phone: Cardiology Comment on above: Stress Test Instruct ions for 08/10/24 Start: 08-05-2024 End: 08-05-2024 E-mail encounter from caregiver Nurse Card [facility] Work Phone: Cardiology Start: 07-04-2024 End: 07-06-2024 Refill Solitario Perera MD Work Phone: Internal Medicine [facility] Comment on above: Refill Request Start: 06-23-2024 End: 06-23-2024 [facility] Facility:[facility] [place] Start: 06-23-2024 End: 06-23-2024 Office outpatient visit 25 minutes Quentin Salazar PA-C Work Phone: [facility] Comment on above: Controlled type 2 di abetes mellitus without complication, without long-term current use of insulin (HCC) (Primary Dx); SOB (shortness of breath); Acute cough; Wheezing Start: 06-18-2024 End: 06-18-2024 Telephone encounter Vanita NGUYEN Work Phone: [facility] Comment on above: Results Start: 06-17-2024 End: 06-17-2024 Subsequent hospital visit by physician Xr [facility] Work Phone: Radiology Start: 06-17-2024 End: 06-17-2024 ambulatory [facility] Facility:[facility] Start: 06-17-2024 End: 06-17-2024 Patient encounter procedure Nevaeh Parker APRN.CNP Work Phone: [facility] Comment on above: URI, acute (Primary Dx); Acute cough; Wheezing Start: 05-21-2024 End: 05-21-2024 [facility] Facility:[facility] Start: 05-21-2024 End: 05-21-2024 Patient encounter procedure Solitario Perera MD Work Phone: [facility] Comment on above: Acute wrist pain, le ft (Primary Dx); Controlled type 2 diabetes mellitus without complication, without long-term current use of insulin (HCC) Start: 05-21-2024 End: 05-21-2024 Telephone encounter Darshana Munoz MD Work Phone: [facility] Comment on above: continued left wrist pain Start: 05-20-2024 End: 05-22-2024 ambulatory Morenita Butler APRN.RETAIL WIRELESS SALES REPRESENTATIVE Work Phone: [facility] Comment on above: Oral steroid Start: 05-18-2024 End: 05-18-2024 Subsequent hospital visit by physician Xr [facility] Work Phone: Radiology Comment on above: Acute wrist pain, le ft [M25.532] Start: 05-18-2024 End: 05-18-2024 [facility] Start: 05-18-2024 End: 05-18-2024 Office outpatient visit 15 minutes Bebeto Lopez MD Work Phone: [facility] Comment on above: Acute wrist pain, le ft (Primary Dx) Start: 05-14-2024 End: 05-14-2024 Refill Morenita Butler APRN.RETAIL WIRELESS SALES REPRESENTATIVE Work Phone: [facility] Comment on above: Refill Request Start: 05-08-2024 End: 05-08-2024 [facility] Start: 03-26-2024 End: 03-26-2024 Subsequent hospital visit by physician Xr [facility] Work Phone: Radiology Comment on above: Acute cough [R05.1] Start: 03-26-2024 End: 03-26-2024 [facility] Start: 03-26-2024 End: 03-26-2024 Patient encounter procedure Fe Whalen SALES AND MANAGEMENT TRAINEE.RETAIL WIRELESS SALES REPRESENTATIVE Work Phone: [facility] Comment on above: Acute cough (Primary Dx); Rhinosinusitis Start: 03-10-2024 End: 03-11-2024 Refill Morenita Older SALES AND MANAGEMENT TRAINEE.MARIA Work Phone: [facility] Comment on above: Refill Request Ozempic Start: 12-31-2023 End: 12-31-2023 [facility] Facility:[facility] Start: 12-31-2023 End: 12-31-2023 Office outpatient visit 15 minutes Nawaf Gallardo APRN.MARIA Work Phone: [facility] Comment on above: Cellulitis of skin ( Primary Dx) Start: 12-30-2023 End: 12-31-2023 Refill Morenita Older SALES AND MANAGEMENT TRAINEE.MARIA Work Phone: [facility] Comment on above: Refill Request Start: 12-25-2023 Telephone encounter Ludwig montoya APRN.CNP Work Phone: [facility] Comment on above: Results Start: 12-12-2023 End: 12-12-2023 [facility] Facility:[facility] Start: 12-12-2023 End: 12-12-2023 Subsequent hospital visit by physician Mri Radio [facility] (I-Stat/1.5t) Work Phone: Radiology Comment on above: Acute pain of right knee [M25.561] Start: 12-04-2023 End: 12-04-2023 Refill Morenitamarya Butler APRN.MARIA Work Phone: [facility] Comment on above: Refill Request Mass of right axilla [R22.31] Start: 11-26-2023 End: 11-26-2023 [facility] Facility:[facility] Start: 11-26-2023 End: 11-26-2023 Patient encounter procedure Mandi Watson APRN.MARIA Work Phone: OB/Gynecology Comment on above: Encounter for gyneco logical examination (general) (routine) without abnormal findings (Primary Dx); Screening for cervical cancer; Encounter for screening for human papillomavirus (HPV) Start: 11-26-2023 End: 11-26-2023 Patient encounter status Mandi Shirley SALES AND MANAGEMENT TRAINEE.RETAIL WIRELESS SALES REPRESENTATIVE Work Phone: [facility] Start: 11-15-2023 ambulatory DARSHANA MUNOZ Facility:[facility] Start: 11-13-2023 ambulatory Morenita Older SALES AND MANAGEMENT TRAINEE .RETAIL WIRELESS SALES REPRESENTATIVE Work Phone: [facility] Comment on above: Cologuard Start: 11-13-2023 Telephone encounter Morenita Older SALES AND MANAGEMENT TRAINEE.RETAIL WIRELESS SALES REPRESENTATIVE Work Phone: Radiology Comment on above: Orders Start: 11-01-2023 End: 11-01-2023 Patient encounter procedure Morenita Older SALES AND MANAGEMENT TRAINEE.RETAIL WIRELESS SALES REPRESENTATIVE Work Phone: [facility] Comment on above: Controlled type 2 di abetes mellitus without complication, without long-term current use of insulin (HCC) (Primary Dx); Essential hypertension; Mixed hyperlipidemia; Mass of right axilla; Acute pain of right knee; Positive Lauryn test of right knee, initial encounter Start: 10-21-2023 Telephone encounter Darshana richter MD Work Phone: [facility] Comment on above: Patient Question Start: 10-17-2023 Refill Ludwig Erika A PRN.RETAIL WIRELESS SALES REPRESENTATIVE Work Phone: [facility] [place] Comment on above: Refill Request Start: 10-16-2023 ambulatory Darshana Loaiza Work Phone: Internal Medicine [place] [id number] Start: 10-11-2023 Refill Morenita Older SALES AND MANAGEMENT TRAINEE .RETAIL WIRELESS SALES REPRESENTATIVE Work Phone: [facility] Comment on above: Refill Request Losartan Start: 10-04-2023 Refill Morenita Older SALES AND MANAGEMENT TRAINEE .RETAIL WIRELESS SALES REPRESENTATIVE Work Phone: [facility] [place] Comment on above: Refill Request Start: 08-20-2023 Refill Morenita Older SALES AND MANAGEMENT TRAINEE .RETAIL WIRELESS SALES REPRESENTATIVE Work Phone: [facility] Comment on above: Refill Request Start: 08-16-2023 End: 08-16-2023 Subsequent hospital visit by physician Patty [facility] Work Phone: Radiology Comment on above: Acute pain of right knee [M25.561] Start: 08-16-2023 End: 08-16-2023 Patient encounter procedure Ludwig Careyr SALES AND MANAGEMENT TRAINEE.RETAIL WIRELESS SALES REPRESENTATIVE Work Phone: [facility] Comment on above: Acute pain of right knee (Primary Dx); Positive Lauryn test of right knee, initial encounter Start: 07-10-2023 End: 07-10-2023 Subsequent hospital visit by physician Patty [facility] Work Phone: Radiology Comment on above: Pain of right hand [ M79.641] Start: 07-10-2023 End: 07-10-2023 Office outpatient visit 15 minutes Nawaf Gallardo SALES AND MANAGEMENT TRAINEE.RETAIL WIRELESS SALES REPRESENTATIVE Work Phone: [facility] Comment on above: Pain of right hand ( Primary Dx) Start: 06-30-2023 Refill Morenita Older SALES AND MANAGEMENT TRAINEE .RETAIL WIRELESS SALES REPRESENTATIVE Work Phone: [facility] Comment on above: Refill Request Start: 06-26-2023 ambulatory Morenita Older SALES AND MANAGEMENT TRAINEE .RETAIL WIRELESS SALES REPRESENTATIVE Work Phone: [facility] Comment on above: Gabapentin Start: 05-02-2023 End: 05-02-2023 Patient encounter procedure Morenita Older SALES AND MANAGEMENT TRAINEE.RETAIL WIRELESS SALES REPRESENTATIVE Work Phone: [facility] Comment on above: Controlled type 2 di abetes mellitus without complication, without long-term current use of insulin (HCC) (Primary Dx); Other fatigue; RANDA (obstructive sleep apnea); Vitamin D deficiency; Need for influenza vaccination; History of iron deficiency Start: 11-26-2022 ambulatory Morenita Older SALES AND MANAGEMENT TRAINEE .RETAIL WIRELESS SALES REPRESENTATIVE Work Phone: [facility] Comment on above: CPAP Prescription Start: 09-14-2022 Refill Morenita Older SALES AND MANAGEMENT TRAINEE .RETAIL WIRELESS SALES REPRESENTATIVE Work Phone: [facility] Comment on above: Refill Request Start: 09-11-2022 End: 09-11-2022 ambulatory [facility] Work Phone: Start: 09-11-2022 End: 09-11-2022 Patient encounter procedure [facility] Start: 08-25-2022 Refill Morenita Older SALES AND MANAGEMENT TRAINEE .RETAIL WIRELESS SALES REPRESENTATIVE Work Phone: [facility] Comment on above: Refill Request Start: 07-17-2022 Refill Morenita Older SALES AND MANAGEMENT TRAINEE .RETAIL WIRELESS SALES REPRESENTATIVE Work Phone: [facility] Comment on above: Refill Request Start: 05-11-2022 ambulatory Darshana Loaiza Work Phone: [facility] Comment on above: Mounjaro Start: 05-11-2022 E-mail encounter fro m caregiver Darshana Munoz MD Work Phone: [facility] Start: 05-09-2022 End: 05-09-2022 Patient encounter procedure Morenita Older SALES AND MANAGEMENT TRAINEE.RETAIL WIRELESS SALES REPRESENTATIVE Work Phone: [facility] Comment on above: Controlled type 2 di abetes mellitus without complication, without long-term current use of insulin (HCC) (Primary Dx) Start: 05-08-2022 Telephone encounter Darshana richter MD Work Phone: [facility] Comment on above: Orders Start: 03-29-2022 Telephone encounter Darshana richter MD Work Phone: [facility] Comment on above: Medication Problem Start: 03-28-2022 Refill Abdirashid Ramos PRN.SUPERVISOR ROLLING ROOM Work Phone: [facility] Comment on above: Med Change Request Start: 03-27-2022 Refill Miriam Older SALES AND MANAGEMENT TRAINEE .RETAIL WIRELESS SALES REPRESENTATIVE Work Phone: [facility] Comment on above: Refill Request Start: 02-28-2022 Refill Dilip Ramos PRN.RETAIL WIRELESS SALES REPRESENTATIVE Work Phone: [facility] Comment on above: Refill Request Start: 02-09-2022 Telephone encounter Luz Sun [facility] Work Phone: [facility] Comment on above: Transition Of Care Start: 01-06-2022 Refill Morenita Older SALES AND MANAGEMENT TRAINEE .RETAIL WIRELESS SALES REPRESENTATIVE Work Phone: [facility] Comment on above: Refill Request Start: 12-31-2021 Refill Darshana Loaiza Work Phone: [facility] Comment on above: Refill Request Start: 12-12-2021 Refill Darshana Loaiza Work Phone: [address] [place] [address] Comment on above: Refill Request Start: 10-22-2021 Refill Morenita Older SALES AND MANAGEMENT TRAINEE .MARIA Work Phone: [facility] Comment on above: Refill Request Start: 10-21-2021 Refill Morenita Older SALES AND MANAGEMENT TRAINEE .RETAIL WIRELESS SALES REPRESENTATIVE Work Phone: [facility] Comment on above: Refill Request Start: 10-17-2021 ambulatory Darshana Loaiza Work Phone: [facility] [place] Start: 10-10-2021 Refill Morenita Older SALES AND MANAGEMENT TRAINEE .RETAIL WIRELESS SALES REPRESENTATIVE Work Phone: [facility] Comment on above: Refill Request Start: 09-03-2021 Refill Vidhi Cerdains on PA-C Work Phone: [facility] Comment on above: Refill Request Ozempic Start: 09-01-2021 End: 09-01-2021 Patient encounter procedure [facility] Start: 08-19-2021 Refill Dilip Ramos PRN.RETAIL WIRELESS SALES REPRESENTATIVE Work Phone: [facility] Comment on above: Refill Request Start: 11-15-[address] [facility] Start: 03-26-2012 Patient encounter status Dilip Dowd APRN.RETAIL WIRELESS SALES REPRESENTATIVE Work Phone: [facility] Work Phone: Procedures Date Procedure Procedure Detail Performing Clinician Start: 09-23-2024 PFIZER-OlocodeNTReclog COVI D-19 VACCINE AGE 12+ YR (COMIRNATY) Morenita Older SALES AND MANAGEMENT TRAINEE.RETAIL WIRELESS SALES REPRESENTATIVE Work Phone: Start: 08-10-2024 Echo tthrc r-t 2d w/ wo m-mode complete rest&st Quentin Salazar PA-C Work Phone: Start: 08-10-2024 Brncdilat rspse spmt ry pre&post-brncdilat admn Quentin Salazar PA-C Work Phone: Start: 06-23-2024 Ecg routine ecg w/le ast 12 lds i&r only Quentin Salazar PA-C Work Phone: Start: 06-17-2024 Radiologic exam ches t 2 views Nevaeh Parker SALES AND MANAGEMENT TRAINEE.RETAIL WIRELESS SALES REPRESENTATIVE Work Phone: Start: 05-18-2024 Radex wrist complete minimum 3 views Bebeto Lopez MD Work Phone: Start: 03-26-2024 Radiologic exam ches t 2 views Cheyenne Fritz SALES AND MANAGEMENT TRAINEE.RETAIL WIRELESS SALES REPRESENTATIVE Work Phone: Start: 12-04-2023 Digital breast tomosynthesis bilateral Morenita Older SALES AND MANAGEMENT TRAINEE.RETAIL WIRELESS SALES REPRESENTATIVE Work Phone: Start: 12-04-2023 Us lmtd joint/oth no nvasc xtr strux r-t w/img Morenita Older SALES AND MANAGEMENT TRAINEE.RETAIL WIRELESS SALES REPRESENTATIVE Work Phone: Start: 08-16-2023 Radiologic examinati on knee 1/2 views Ludwig Lindsay SALES AND MANAGEMENT TRAINEE.RETAIL WIRELESS SALES REPRESENTATIVE Work Phone: Start: 08-16-2023 Adult depression scr eening assessment Morenita Older SALES AND MANAGEMENT TRAINEE.RETAIL WIRELESS SALES REPRESENTATIVE Work Phone: Start: 07-10-2023 Radex hand minimum 3 views Nawaf Gallardo SALES AND MANAGEMENT TRAINEE.RETAIL WIRELESS SALES REPRESENTATIVE Work Phone: Start: 05-02-2023 INFLUENZA VACCINE, A GE 6 MO - 64 YR, QUADRIVALENT (AFLURIA, FLULAVAL, FLUZONE) Morenita Older SALES AND MANAGEMENT TRAINEE.RETAIL WIRELESS SALES REPRESENTATIVE Work Phone: Start: 09-11-2022 End: 09-11-2022 Mammography Morenita Older SALES AND MANAGEMENT TRAINEE.RETAIL WIRELESS SALES REPRESENTATIVE Work Phone: Start: 10-31-2021 Adult depression scr eening assessment Darshana Munoz MD Work Phone: Start: 09-01-2021 End: 09-01-2021 Mammography Vidhi [facility] Work Phone: Start: 07-27-2021 Adult depression scr eening assessment Dilip Dowd SALES AND MANAGEMENT TRAINEE.RETAIL WIRELESS SALES REPRESENTATIVE Work Phone: Start: 08-16-2020 Mammography Dilip guallpa SALES AND MANAGEMENT TRAINEE.RETAIL WIRELESS SALES REPRESENTATIVE Work Phone: Plan of Treatment Date Care Activity Detail Author Start: 11-25-2028 Screening for malign ant neoplasm of cervix Cervical Cancer Screening [facility] Start: 12-10-2026 Screening for malign ant neoplasm of colon [facility] Start: 09-23-2025 Annual PCP Team Director Of Outside Sales daphne Disease Visit Annual PCP Team Chronic Disease Visit [facility] Start: 09-23-2025 BP Controlled (<130/80) BP Controlle d (<130/80) [facility] Start: 09-23-2025 Hepatitis B Vaccine (1 of 3 - 19+ 3-dose series) Hepatitis B Vaccine (1 of 3 - 19+ 3-dose series) [facility] Comment on above: Postponed from 01/20 (Declined at this time) Start: 09-23-2025 Urine microalbumin profile DTaP,Tdap,Td Vaccine (9 - Td or Tdap) [facility] Comment on above: Postponed from 01/02 (Declined at this time) Start: 09-19-2025 Hepatitis B screening Urine Al bumin:Creatinine Ratio [facility] Start: 09-19-2025 Hepatitis B surface antibody level LDL Cholesterol [facility] Start: 08-12-2025 Annual PCP Team Director Of Outside Sales daphne Disease Visit Annual PCP Team Chronic Disease Visit [facility] Start: 08-12-2025 BP Controlled (<130/80) BP Controlle d (<130/80) [facility] Start: 06-23-2025 Annual PCP Team Director Of Outside Sales daphne Disease Visit Annual PCP Team Chronic Disease Visit [facility] Start: 06-23-2025 BP Controlled (<130/80) BP Controlle d (<130/80) [facility] Start: 05-21-2025 Annual PCP Team Director Of Outside Sales daphne Disease Visit Annual PCP Team Chronic Disease Visit [facility] Start: 05-21-2025 BP Controlled (<130/80) BP Controlle d (<130/80) [facility] Start: 05-18-2025 BP Controlled (<130/80) BP Controlle d (<130/80) [facility] Start: 05-10-2025 HPV TESTING HPV TESTING [facility] Start: 05-10-2025 PAP TESTING PAP TESTING [facility] Start: 05-10-2025 Screening for malign ant neoplasm of cervix [facility] Start: 03-26-2025 BP Controlled (<130/80) BP Controlle d (<130/80) [facility] Start: 01-11-2025 Influenza vaccination Influenz a Vaccine (Season Ended) [facility] Start: 12-30-2024 BP Controlled (<130/80) BP Controlle d (<130/80) [facility] Start: 12-23-2024 End: 12-23-2024 Patient encounter procedure 12/23/2024 5:20 PM EDT Office Visit [facility] [address] [facility] [place] [place] [address] Morenita Butler APRN.RETAIL WIRELESS SALES REPRESENTATIVE [address] [facility] [place] [place] [address] 3 month follow up [facility] Comment on above: 3 month follow up Start: 12-03-2024 Screening for malign ant neoplasm of breast Mammogram Screening [facility] Start: 11-26-2024 End: 11-26-2024 Patient encounter procedure 11/26/2024 1:00 PM EDT Office Visit OB/Gynecology [address] [place] [address] Mandi Watson APRN.RETAIL WIRELESS SALES REPRESENTATIVE [address] [place] [address] Annual Exam OB/Gynecology Comment on above: Annual Exam Start: 11-06-2024 Hemoglobin A1c measurement HbA1C [facility] Start: 10-31-2024 Annual PCP Team Director Of Outside Sales daphne Disease Visit Annual PCP Team Chronic Disease Visit [facility] Start: 10-31-2024 Diabetic foot examination Diabetic Foot Exam [facility] Start: 10-31-2024 Hepatitis B screening Urine Al bumin:Creatinine Ratio [facility] Start: 10-28-2024 Hepatitis B surface antibody level LDL Cholesterol [facility] Start: 09-23-2024 End: 09-23-2024 Patient encounter procedure 09/23/2024 4:40 PM EDT Office Visit [facility] [address] [facility] [place] [place] [place] [address] Morenita Butler APRN.RETAIL WIRELESS SALES REPRESENTATIVE [address] [place] [address] 6 week follow up [facility] Comment on above: 6 week follow up Start: 09-08-2024 End: 12-08-2024 Lipid 1996 panel - Serum or Plasma LIPID PANEL, FASTING Lab Routine Mixed hyperlipidemia Expected: 09/08/2024, Expires: 12/08/2024 [facility] Comment on above: Expected: 09/08/2024 , Expires: 12/08/2024 Start: 09-08-2024 End: 12-08-2024 Microalbumin/Creatinine [Mass Ratio] in Urine ALBUMIN/CREATININE RATIO, URINE Lab Routine Controlled type 2 diabetes mellitus without complication, without long-term current use of insulin (HCC) Expected: 09/08/2024, Expires: 12/08/2024 [facility] Work Phone: Comment on above: Expected: 09/08/2024 , Expires: 12/08/2024 Start: 08-15-2024 Annual PCP Team Director Of Outside Sales daphne Disease Visit Annual PCP Team Chronic Disease Visit [facility] Start: 08-15-2024 Depression Screening Depression Scre ening [facility] Start: 08-12-2024 End: 08-12-2024 Patient encounter procedure 08/12/2024 5:40 PM EDT Office Visit [facility] [address] [place] [address] Morenita Butler APRN.RETAIL WIRELESS SALES REPRESENTATIVE [address] [place] [address] 1 month follow up [facility] Comment on above: 1 month follow up Start: 08-12-2024 End: 11-11-2024 CBC W Auto Differential panel - Blood COMPLETE BLOOD COUNT AND DIFFERENTIAL Lab Routine LVH (left ventricular hypertrophy) Dyspnea on exertion History of iron deficiency Expected: 08/12/2024, Expires: 11/11/2024 [facility] Comment on above: Expected: 08/12/2024 , Expires: 11/11/2024 Start: 08-12-2024 End: 11-11-2024 Comprehensive metabolic 2000 panel - Serum or Plasma COMPREHENSIVE METABOLIC PANEL Lab Routine LVH (left ventricular hypertrophy) Dyspnea on exertion Expected: 08/12/2024, Expires: 11/11/2024 [facility] Comment on above: Expected: 08/12/2024 , Expires: 11/11/2024 Start: 08-12-2024 End: 11-11-2024 Ferritin [Mass/volume] in Serum or Plasma FERRITIN Lab Routine Dyspnea on exertion History of iron deficiency Expected: 08/12/2024, Expires: 11/11/2024 [facility] Comment on above: Expected: 08/12/2024 , Expires: 11/11/2024 Start: 08-12-2024 End: 11-11-2024 Iron and Iron binding capacity panel - Serum or Plasma IRON AND TIBC Lab Routine Dyspnea on exertion History of iron deficiency Expected: 08/12/2024, Expires: 11/11/2024 [facility] Work Phone: Comment on above: Expected: 08/12/2024 , Expires: 11/11/2024 Start: 08-12-2024 End: 11-11-2024 Thyrotropin [Units/volume] in Serum or Plasma THYROID STIMULATING HORMONE Lab Routine LVH (left ventricular hypertrophy) Expected: 08/12/2024, Expires: 11/11/2024 [facility] Comment on above: Expected: 08/12/2024 , Expires: 11/11/2024 Start: 08-11-2024 Glaucoma screening Dilated Retinal E xam [facility] Start: 08-10-2024 End: 08-10-2024 Patient encounter procedure 08/10/2024 11:20 AM EDT Office Visit Cardiology [address] [place] [id number] [facility], Nurse Card [address] [place] [address] Controlled type 2 diabetes mellitus without complication, without long-term current use of insulin (HCC) [E11.9]; SOB (shortness of breath) [R06.02] Cardiology Comment on above: Controlled type 2 di abetes mellitus without complication, without long-term current use of insulin (HCC) [E11.9]; SOB (shortness of breath) [R06.02] Start: 08-10-2024 End: 08-10-2024 ambulatory 08/10/2024 10:00 AM EDT Procedure PUL LAB [facility] [address] [place] [address] Wstr, Pulm Lab [facility] [address] [place] [address] SOB (shortness of breath) [R06.02]; Acute cough [R05.1]; Wheezing [R06.2] PUL LAB [facility] Comment on above: SOB (shortness of br eath) [R06.02]; Acute cough [R05.1]; Wheezing [R06.2] Start: 07-22-2024 End: 07-22-2024 Patient encounter procedure 07/22/2024 5:20 PM EDT Office Visit [facility] Medicine [place] [address] [place] [address] Morenita Butler APRN.RETAIL WIRELESS SALES REPRESENTATIVE [address] [place] [address] 1 month follow up [facility] Comment on above: 1 month follow up Start: 06-29-2024 End: 06-29-2024 ambulatory 06/29/2024 9:45 AM EST [facility] [address] [place] [address] Wstr, Pul Lab [facility] [address] [facility] [place] [address] SOB (shortness of breath) [R06.02]; Acute cough [R05.1]; Wheezing [R06.2] PUL LAB [facility] Comment on above: SOB (shortness of br eath) [R06.02]; Acute cough [R05.1]; Wheezing [R06.2] Start: 06-24-2024 End: 06-24-2024 Patient encounter procedure 06/24/2024 6:00 PM EST Office Visit [facility] Medicine [place] [address] [place] [address] Morenita Butler APRN.RETAIL WIRELESS SALES REPRESENTATIVE [address] [place] [address] 6 month follow up [facility] Comment on above: 6 month follow up Start: 06-23-2024 End: 06-23-2024 Patient encounter procedure 06/23/2024 8:20 AM EST Office Visit [facility] Medicine [facility] [address] [place] [address] Quentin Salazar PA-C [address] [place] [address] Urgent care follow up 06/17/24 [facility] Comment on above: Urgent care follow u p 06/17/24 Start: 05-14-2024 End: 08-13-2024 25-hydroxyvitamin D3 [Mass/volume] in Serum or Plasma VITAMIN D 25 HYDROXY Lab Routine Vitamin D deficiency Expected: 05/14/2024, Expires: 08/13/2024 [facility] Work Phone: Comment on above: Expected: 05/14/2024 , Expires: 08/13/2024 Start: 05-14-2024 End: 05-14-2024 Patient encounter procedure 05/14/2024 1:00 PM EST Office Visit Internal Medicine [place] [address] [place], [place] [address] Morenita Butler APRN.RETAIL WIRELESS SALES REPRESENTATIVE [address] [place] [address] 6 month follow up [facility] [place] Comment on above: 6 month follow up Start: 05-07-2024 BP Controlled (<130/80) BP Controlle d (<130/80) [facility] Start: 05-02-2024 Annual PCP Team Director Of Outside Sales daphne Disease Visit Annual PCP Team Chronic Disease Visit [facility] Start: 05-02-2024 BP Controlled (<130/80) BP Controlle d (<130/80) [facility] Start: 05-02-2024 Covid-19 Vaccine () Covid-19 Vaccine () [facility] Comment on above: Postponed from 01/11 (Declined at this time) Start: 05-02-2024 Hepatitis B Vaccine (1 of 3 - 19+ 3-dose series) Hepatitis B Vaccine (1 of 3 - 19+ 3-dose series) [facility] Comment on above: Postponed from 01/20 (Declined at this time) Start: 05-02-2024 Hepatitis B Vaccine (1 of 3 - 3-dose series) Hepatitis B Vaccine (1 of 3 - 3-dose series) [facility] Comment on above: Postponed from 01/20 (Declined at this time) Start: 05-02-2024 Urine microalbumin profile DTaP,Tdap,Td Vaccine (9 - Td or Tdap) [facility] Comment on above: Postponed from 01/02 (Declined at this time) Start: 04-29-2024 Hemoglobin A1c measurement HbA1C [facility] Start: 04-29-2024 Hepatitis B surface antibody level LDL Cholesterol [facility] Start: 04-20-2024 End: 07-20-2024 Basic metabolic 2000 panel - Serum or Plasma BASIC METABOLIC PANEL Lab Routine Controlled type 2 diabetes mellitus without complication, without long-term current use of insulin (HCC) Essential hypertension Expected: 04/20/2024 (Approximate), Expires: 07/20/2024 [facility] Comment on above: Expected: 04/20/2024 (Approximate), Expires: 07/20/2024 Start: 04-20-2024 End: 07-20-2024 Hemoglobin A1c in Blood HEMOGLOBIN A1C Lab Routine Controlled type 2 diabetes mellitus without complication, without long-term current use of insulin (HCC) Expected: 04/20/2024 (Approximate), Expires: 07/20/2024 [facility] Comment on above: Expected: 04/20/2024 (Approximate), Expires: 07/20/2024 Start: 02-04-2024 End: 02-04-2024 Patient encounter procedure 02/04/2024 1:00 PM EDT Office Visit Orthopaedics [address] [address] Shannon Do PA-C [address] [place] [address] appt rescheduled on 12/30/23 /// rt knee pain Orthopaedics Comment on above: appt rescheduled on 12/30/23 /// rt knee pain Start: 01-12-2024 Covid-19 Vaccine ( season) Covid-19 Vaccine () [facility] Start: 01-12-2024 Covid-19 Vaccine () Covid-19 Vaccine () [facility] Start: 01-12-2024 Influenza vaccination Influenza Vacc ine (#1) [facility] Start: 12-18-2023 End: 12-18-2023 Patient encounter procedure 12/18/2023 8:40 AM EDT Appointment Radiology [address] [place] [address] Acute pain of right knee [M25.561]; Positive Lauryn test of right knee, initial encounter [S83.206A] Radiology Comment on above: Acute pain of right knee [M25.561]; Positive Lauryn test of right knee, initial encounter [S83.206A] Start: 12-04-2023 End: 12-04-2023 Patient encounter procedure Mammogram Comment on above: Mass of right axilla [R22.31] Comp- priors in EI, Mass of right axilla [R22.31] Start: 11-19-2023 End: 11-19-2023 Patient encounter procedure 11/19/2023 10:30 AM EDT Appointment Radiology [address] [place] [address] Mass of right axilla [R22.31] Radiology Comment on above: Mass of right axilla [R22.31] Start: 11-15-2023 End: 11-15-2023 Patient encounter procedure 11/15/2023 7:30 AM EDT Office Visit OB/Gynecology [address] [place] [address] Mandi Watson APRN.RETA[employer] WIRELESS SALES REPRESENTATIVE [address] [place] [address] S[place]I from [place] - annual OB/Gynecology Comment on above: SAVI from [facility] nnual Start: 11-13-2023 End: 02-12-2024 COLOGUARD COLOGUARD Lab Routine Screening for colon cancer Expected: 11/13/2023, Expires: 02/12/2024 [facility] Work Phone: Comment on above: Expected: 11/13/2023 , Expires: 02/12/2024 Start: 11-08-2023 End: 11-08-2023 Patient encounter procedure 11/08/2023 1:00 PM EDT Office Visit OB/Gynecology [address] [place] [address] Kailey Mendoza APRN.RETAIL WIRELESS SALES REPRESENTATIVE [address] [place] [address] S[facility]I from [facility] OB/Gynecology Comment on above: SAVI from [facility] nnual Start: 11-01-2023 End: 01-31-2024 Microalbumin/Creatinine [Mass Ratio] in Urine [facility] Work Phone: Comment on above: Expected: 11/01/2023 , Expires: 01/31/2024 Start: 11-01-2023 End: 11-01-2023 Patient encounter procedure 11/01/2023 10:20 AM EDT Office Visit Internal Medicine [place] [address] [place] [address] Morenita Butler APRN.RETA[employer] W[employer] SALES REPRESENTATIVE [address] [place] [address] 6 month DM follow up [facility] Medicine [place] Comment on above: 6 month DM follow up Start: 10-29-2023 Hemoglobin A1c measurement HbA1C [facility] Start: 10-23-2023 End: 01-22-2024 25-hydroxyvitamin D3 [Mass/volume] in Serum or Plasma VITAMIN D 25 HYDROXY Lab Routine Vitamin D deficiency Expected: 10/23/2023, Expires: 01/22/2024 [facility] Comment on above: Expected: 10/23/2023 , Expires: 01/22/2024 Start: 10-23-2023 3 comp foot exam completed DIABETIC FOOT EXAM [facility] Start: 10-23-2023 ANNUAL PCP TEAM PHYSICAL THERAPY RESIDENT DAPHNE DISEASE VISIT ANNUAL PCP TEAM CHRONIC DISEASE VISIT [facility] Start: 10-23-2023 BP CONTROLLED (<130/80) BP CONTROLLE D (<130/80) [facility] Start: 10-23-2023 End: 01-22-2024 CBC panel - Blood by Automated count COMPLETE BLOOD COUNT Lab Routine Controlled type 2 diabetes mellitus without complication, without long-term current use of insulin (HCC) Essential hypertension Expected: 10/23/2023, Expires: 01/22/2024 [facility] Comment on above: Expected: 10/23/2023 , Expires: 01/22/2024 Start: 10-23-2023 End: 01-22-2024 Comprehensive metabolic 2000 panel - Serum or Plasma COMPREHENSIVE METABOLIC PANEL Lab Routine Controlled type 2 diabetes mellitus without complication, without long-term current use of insulin (HCC) Essential hypertension Mixed hyperlipidemia Expected: 10/23/2023, Expires: 01/22/2024 [facility] Comment on above: Expected: 10/23/2023 , Expires: 01/22/2024 Start: 10-23-2023 Diabetic foot examination Diabetic Foot Exam [facility] Start: 10-23-2023 End: 01-22-2024 Hemoglobin A1c in Blood HEMOGLOBIN A1C Lab Routine Controlled type 2 diabetes mellitus without complication, without long-term current use of insulin (HCC) Expected: 10/23/2023 (Approximate), Expires: 01/22/2024 [facility] Work Phone: Comment on above: Expected: 10/23/2023 (Approximate), Expires: 01/22/2024 Start: 10-23-2023 End: 01-22-2024 Lipid 1996 panel - Serum or Plasma LIPID PANEL BASIC Lab Routine Mixed hyperlipidemia Expected: 10/23/2023, Expires: 01/22/2024 [facility] Comment on above: Expected: 10/23/2023 , Expires: 01/22/2024 Start: 10-19-2023 Hepatitis B screening URINE AL BUMIN:CREATININE RATIO [facility] Start: 10-19-2023 Hepatitis B surface antibody level LDL CHOLESTEROL [facility] Start: 09-12-2023 Mammography MAMMOGRAM [facility] Start: 09-12-2023 Screening for malign ant neoplasm of breast Mammogram Screening [facility] Start: 05-13-2023 Behavioral Health Screening Behavioral Health Screening [facility] Start: 05-13-2023 Depression Assessment Depression Ass essment [facility] Start: 05-10-2023 Screening for malign ant neoplasm of cervix Cervical Cancer Screening [facility] Start: 05-09-2023 ANNUAL PCP TEAM PHYSICAL THERAPY RESIDENT DAPHNE DISEASE VISIT ANNUAL PCP TEAM CHRONIC DISEASE VISIT [facility] Start: 05-09-2023 BP CONTROLLED (<130/80) BP CONTROLLE D (<130/80) [facility] Start: 04-19-2023 Hemoglobin A1c/Hemoglobin.total in Blood HBA1C [facility] Start: 02-07-2023 ANNUAL PCP TEAM PHYSICAL THERAPY RESIDENT DAPHNE DISEASE VISIT ANNUAL PCP TEAM CHRONIC DISEASE VISIT [facility] Start: 02-07-2023 BP CONTROLLED (<130/80) BP CONTROLLE D (<130/80) [facility] Start: 02-07-2023 COLORECTAL CANCER SCREENING COLORECTAL CANCER SCREENING [facility] Comment on above: Postponed from 01/20 (Declined at this time) Start: 02-07-2023 COVID-19 VACCINE (4 - Booster for Pfizer series) COVID-19 VACCINE (4 - Booster for Pfizer series) [facility] Comment on above: Postponed from 04/27 (Declined at this time) Start: 02-07-2023 COVID-19 VACCINE (4 - Pfizer series) COVID-19 VACCINE (4 - Pfizer series) [facility] Comment on above: Postponed from 04/27 (Declined at this time) Start: 02-07-2023 Urine microalbumin profile DTAP,TDAP,TD (8 - Td or Tdap) [facility] Comment on above: Postponed from 01/02 (Declined at this time) Start: 01-11-2023 Influenza vaccination INFLUENZA (#1) [facility] Start: 12-26-2022 Glaucoma screening Dilated Retinal E xam [facility] Start: 12-26-2022 Hepatitis C antibody , confirmatory test DILATED RETINAL EXAM [facility] Start: 11-06-2022 Hemoglobin A1c/Hemoglobin.total in Blood HBA1C [facility] Start: 11-03-2022 3 comp foot exam completed DIABETIC FOOT EXAM [facility] Start: 11-03-2022 ANNUAL PCP TEAM PHYSICAL THERAPY RESIDENT DAPHNE DISEASE VISIT ANNUAL PCP TEAM CHRONIC DISEASE VISIT [facility] Start: 11-03-2022 BP CONTROLLED (<130/80) BP CONTROLLE D (<130/80) [facility] Start: 11-03-2022 HEPATITIS B (1 of 3 - Risk 3-dose series) [facility] Comment on above: Postponed from 01/20 (Declined at this time) Postponed from 01/20 (Declined at this time) Start: 10-31-2022 Adult depression screening assessment DEPRESSION SCREENING [facility] Start: 10-30-2022 Hepatitis B screening URINE AL BUMIN:CREATININE RATIO [facility] Start: 10-30-2022 Hepatitis B surface antibody level LDL CHOLESTEROL [facility] Start: 09-01-2022 Mammography MAMMOGRAM [facility] Start: 08-03-2022 Hemoglobin A1c/Hemoglobin.total in Blood HBA1C [facility] Start: 07-27-2022 Adult depression screening assessment DEPRESSION SCREENING [facility] Start: 07-27-2022 ANNUAL PCP TEAM PHYSICAL THERAPY RESIDENT DAPHNE DISEASE VISIT ANNUAL PCP TEAM CHRONIC DISEASE VISIT [facility] Start: 07-27-2022 BP CONTROLLED (<130/80) BP CONTROLLE D (<130/80) [facility] Start: 07-27-2022 Mammography MAMMOGRAM [facility] Comment on above: Postponed from 08/16 (Declined at this time) Start: 07-27-2022 ONE PNEUMOVAX PRIOR TO AGE 65 ONE PNEUMOVAX PRIOR TO AGE 65 [facility] Comment on above: Postponed from 01/20 (Declined at this time) Start: 07-27-2022 PNEUMOCOCCAL (1 - PCV) PNEUMOCOCCAL (1 - PCV) [facility] Comment on above: Postponed from 01/20 (Declined at this time) Start: 05-13-2022 DEPRESSION ASSESSMENT DEPRESSION ASS ESSMENT [facility] Start: 01-30-2022 Hemoglobin A1c/Hemoglobin.total in Blood HBA1C [facility] Start: 2022 COLOGUARD (FIT-DNA) COLOGUARD (FIT-D NA) [facility] Start: 2022 Colonoscopy COLONOSCOPY [facility] Start: [address] COLONOGRAPHY [facility] Start: 2022 FECAL OCCULT BLOOD FECAL OCCULT BLOO D [facility] Start: 2022 Screening for malign ant neoplasm of colon [facility] Start: 2022 SIGMOIDOSCOPY SIGMOIDOSCOPY [facility] Start: 01-11-2022 Influenza vaccination INFLUENZA (#1) [facility] Start: 01-02-2022 Urine microalbumin profile [facility] Start: 11-07-2021 Hepatitis C antibody , confirmatory test DILATED RETINAL EXAM [facility] Start: 10-20-2021 3 comp foot exam completed DIABETIC FOOT EXAM [facility] Start: 10-17-2021 End: 12-17-2021 ALBUMIN/CREAT RATIO RND UR ALBUMIN/CREAT RATIO RND UR Lab Routine Controlled type 2 diabetes mellitus without complication, without long-term current use of insulin ([facility]) Expected: 10/17/2021, Expires: 12/17/2021 [facility] Work Phone: Comment on above: Expected: 10/17/2021 , Expires: 12/17/2021 Start: 10-17-2021 End: 12-17-2021 Basic metabolic 2000 panel - Serum or Plasma BASIC METABOLIC PNL Lab Routine Controlled type 2 diabetes mellitus without complication, without long-term current use of insulin (HCC) Expected: 10/17/2021, Expires: 12/17/2021 [facility] Work Phone: Comment on above: Expected: 10/17/2021 , Expires: 12/17/2021 Start: 10-17-2021 End: 12-17-2021 CBC panel - Blood by Automated count CBC Lab Routine Controlled type 2 diabetes mellitus without complication, without long-term current use of insulin (HCC) Expected: 10/17/2021, Expires: 12/17/2021 [facility] Work Phone: Comment on above: Expected: 10/17/2021 , Expires: 12/17/2021 Start: 10-17-2021 End: 12-17-2021 Hemoglobin A1c in Blood HGB A1C Lab Routine Controlled type 2 diabetes mellitus without complication, without long-term current use of insulin (HCC) Expected: 10/17/2021, Expires: 12/17/2021 [facility] Work Phone: Comment on above: Expected: 10/17/2021 , Expires: 12/17/2021 Start: 10-17-2021 End: 12-17-2021 Lipid 1996 panel - Serum or Plasma LIPID PANEL BASIC Lab Routine Mixed hyperlipidemia Expected: 10/17/2021, Expires: 12/17/2021 [facility] Work Phone: Comment on above: Expected: 10/17/2021 , Expires: 12/17/2021 Start: 10-17-2021 End: 12-17-2021 SCHEDULE LAB TESTING SCHEDULE LAB TESTING Lab Routine Expected: 10/17/2021, Expires: 12/17/2021 [facility] Work Phone: Comment on above: Expected: 10/17/2021 , Expires: 12/17/2021 Start: 10-01-2021 Hemoglobin A1c/Hemoglobin.total in Blood HBA1C [facility] Start: 09-24-2021 Hepatitis B screening URINE AL BUMIN:CREATININE RATIO [facility] Start: 09-24-2021 Hepatitis B surface antibody level LDL CHOLESTEROL [facility] Start: 01-21-1996 HEPATITIS B (1 of 3 - Risk 3-dose series) HEPATITIS B (1 of 3 - Risk 3-dose series) [facility] Start: 01-21-1996 Hepatitis B Vaccine (1 of 3 - 19+ 3-dose series) Hepatitis B Vaccine (1 of 3 - 19+ 3-dose series) [facility] Start: 1983 PNEUMOCOCCAL (1 - PCV) PNEUMOCOCCAL (1 - PCV) [facility] Start: 1977 HEPATITIS B (1 of 3 - 3-dose series) HEPATITIS B (1 of 3 - 3-dose series) [facility] COVID & INFLUENZA A/ B & RSV PCR, ROUTINE COVID & INFLUENZA A/B & RSV PCR, ROUTINE Microbiology Routine URI, acute Ordered: 06/17/2024 [facility] Work Phone: Comment on above: Ordered: 06/17/2024 ECG COMPLETE ECG COMPLETE ECG Routine Controlled type 2 diabetes mellitus without complication, without long-term current use of insulin (HCC) SOB (shortness of breath) 06/23/2024 8:53 AM EST [facility] End: 08-02-2025 MG Breast - bilateral Diagnostic TOLU DIAGNOSTIC BILATERAL Radiology Routine Mass of right axilla 1 Occurrences starting 11/13/2023 until 12/12/2024 [facility] Work Phone: Comment on above: 1 Occurrences starti ng 11/13/2023 until 12/12/2024 End: 11-14-2024 MG Breast Screening TOLU SCREENING Radiology Routine Encounter for screening mammogram for breast cancer 1 Occurrences starting 10/16/2023 until 11/14/2024 [facility] Work Phone: Comment on above: 1 Occurrences starti ng 10/16/2023 until 11/14/2024 MR Knee - right WO contrast MRI KNEE WO IVCON RIGHT Radiology Routine Acute pain of right knee Positive Lauryn test of right knee, initial encounter 12/12/2023 3:37 PM EDT [facility] Work Phone: End: 09-14-2024 MR Knee - right WO contrast MRI KNEE WO IVCON RIGHT Radiology Routine Acute pain of right knee Positive Lauryn test of right knee, initial encounter 1 Occurrences starting 08/16/2023 until 09/14/2024 [facility] Work Phone: Comment on above: 1 Occurrences starti ng 08/16/2023 until 09/14/2024 PAP TEST PAP TEST Lab Benjamin palacios Encounter for gynecological examination (general) (routine) without abnormal findings Screening for cervical cancer Encounter for screening for human papillomavirus (HPV) 11/26/2023 10:06 AM EDT [facility] Work Phone: End: 07-23-2025 SPIROMETRY - BASELINE AND POST DILATOR SPIROMETRY - BASELINE AND POST DILATOR PFT Routine SOB (shortness of breath) Acute cough Wheezing 1 Occurrences starting 06/23/2024 until 07/23/2025 [facility] Work Phone: Comment on above: 1 Occurrences starti ng 06/23/2024 until 07/23/2025 End: 06-23-2025 STRESS ECHO TREADMILL STRESS ECHO TREADMILL Cardiology Routine Controlled type 2 diabetes mellitus without complication, without long-term current use of insulin (HCC) SOB (shortness of breath) 1 Occurrences starting 06/23/2024 until 06/23/2025 [facility] Comment on above: 1 Occurrences starti ng 06/23/2024 until 06/23/2025 STRESS ECHO TREADMILL STRESS ECH O TREADMILL Cardiology Routine Controlled type 2 diabetes mellitus without complication, without long-term current use of insulin (HCC) SOB (shortness of breath) 08/10/2024 11:07 AM EDT [facility] Work Phone: End: 11-30-2024 US Axilla - right US AXILLA ONLY RIGHT Radiology Routine Mass of right axilla 1 Occurrences starting 11/01/2023 until 11/30/2024 [facility] Comment on above: 1 Occurrences starti ng 11/01/2023 until 11/30/2024 End: 09-14-2024 XR Knee - right AP and Lateral XR KNEE LIMITED 2V AP/LAT RIGHT Radiology Routine Acute pain of right knee Positive Lauryn test of right knee, initial encounter 1 Occurrences starting 08/16/2023 until 09/14/2024 [facility] Work Phone: Comment on above: 1 Occurrences starti ng 08/16/2023 until 09/14/2024 XR Knee - right AP a nd Lateral XR KNEE LIMITED 2V AP/LAT RIGHT Radiology Routine Acute pain of right knee Positive Lauryn test of right knee, initial encounter 08/16/2023 10:58 AM EDT [facility] Work Phone: [facility] Immunizations Immunization Date Immunization Notes Care Provider Dane saldana 09-23-2024 COVID-19 vaccine, ag e 12+ yr ([employer] [facility] Morenita Older SALES AND MANAGEMENT TRAINEE.RETAIL WIRELESS SALES REPRESENTATIVE Work Phone: [facility] 05-02-2023 influenza, injectabl e, quadrivalent, contains preservative Morenita Older SALES AND MANAGEMENT TRAINEE.RETAIL WIRELESS SALES REPRESENTATIVE Work Phone: [facility] 05-02-2023 influenza virus vaccine, unspecified formulation Morenita Older SALES AND MANAGEMENT TRAINEE.RETAIL WIRELESS SALES REPRESENTATIVE Work Phone: [facility] 10-22-2022 pneumococcal (PCV20) vaccine, 20 valent (PREVNAR 20) Morenita Butler APRN.RETAIL WIRELESS SALES REPRESENTATIVE Work Phone: [facility] 02-07-2022 influenza, injectabl e, quadrivalent, contains preservative Annasandie Sun [facility] Work Phone: [facility] 03-02-2021 COVID-19 vaccine, ag e 12+ yr ([employer] - [facility]) Dilip Dowd APRN.RETAIL WIRELESS SALES REPRESENTATIVE Work Phone: [facility] 03-02-2021 influenza, injectabl e, quadrivalent, contains preservative Dilip Dowd APRN.RETAIL WIRELESS SALES REPRESENTATIVE Work Phone: [facility] 07-08-2020 COVID-19 vaccine, ag e 12+ yr ([employer] - [employer]) Dilip Dowd APRN.RETAIL WIRELESS SALES REPRESENTATIVE Work Phone: [facility] 06-16-2020 COVID-19 vaccine, ag e 12+ yr (P[employer]ION[employer] - PURPLE [facility]) Dilip Dowd APRN.[facility] Work Phone: [facility] 02-19-2018 influenza, injectabl e, quadrivalent, contains preservative Dilip Dowd APRN.[facility] Work Phone: [facility] Work Phone: 04-11-2017 influenza, injectabl e, quadrivalent, contains preservative Dilip Dowd APRN.[facility] Work Phone: [facility] 04-01-2014 influenza, seasonal, injectable Dilip Dowd APRN.RETA[employer] WIRELESS SALES REPRESENTATIVE Work Phone: [facility] Work Phone: 10-02-2013 measles, mumps and rubella virus vaccine Dilip Dowd APRN.RETAIL WIRELESS SALES REPRESENTATIVE Work Phone: [facility] Work Phone: 05-04-2013 influenza virus vaccine, unspecified formulation Dilip Dowd APRN.RETAIL WIRELESS SALES REPRESENTATIVE Work Phone: [facility] 03-26-2012 influenza virus vaccine, unspecified formulation Dilip Dowd APRN.[facility] Work Phone: [facility] Work Phone: 01-03-2012 tetanus toxoid, redu adrian diphtheria toxoid, and acellular pertussis vaccine, adsorbed Dilip Dowd APRN.RETA[employer] WIRELESS SALES REPRESENTATIVE Work Phone: [facility] 04-10-2010 influenza virus vaccine, unspecified formulation Dilip Dowd APRN.RETAIL WIRELESS SALES REPRESENTATIVE Work Phone: [facility] Work Phone: 12-21-2002 diphtheria and tetan us toxoids, adsorbed for pediatric use Dilip Dowd APRN.RETAIL WIRELESS SALES REPRESENTATIVE Work Phone: [facility] 12-11-1981 diphtheria, tetanus toxoids and acellular pertussis vaccine Dilip Dowd APRN.RETAIL WIRELESS SALES REPRESENTATIVE Work Phone: [facility] 12-11-1981 trivalent poliovirus vaccine, live, oral Dilip Dowd APRN.[facility] Work Phone: [facility] 03-12-1980 tuberculin skin test ; purified protein derivative solution, intradermal Morenita Butler APRN.RETA[employer] WIRELESS SALES REPRESENTATIVE Work Phone: [facility] 09-07-1978 diphtheria, tetanus toxoids and acellular pertussis vaccine Dilip Dowd APRN.[facility] Work Phone: [facility] 09-07-1978 trivalent poliovirus vaccine, live, oral Dilip Dowd APRN.RETAIL WIRELESS SALES REPRESENTATIVE Work Phone: [facility] 05-09-1978 measles, mumps and rubella virus vaccine Dilip Dowd APRN.RETAIL WIRELESS SALES REPRESENTATIVE Work Phone: [facility] 1977 diphtheria, tetanus toxoids and acellular pertussis vaccine Dilip Dowd APRN.RETAIL WIRELESS SALES REPRESENTATIVE Work Phone: [facility] 1977 diphtheria, tetanus toxoids and acellular pertussis vaccine Dilip Dowd APRN.RETAIL WIRELESS SALES REPRESENTATIVE Work Phone: [facility] 1977 trivalent poliovirus vaccine, live, oral Dilip Dowd SALES AND MANAGEMENT TRAINEE.RETAIL WIRELESS SALES REPRESENTATIVE Work Phone: [facility] 1977 diphtheria, tetanus toxoids and acellular pertussis vaccine Dilip Dowd APRN.RETAIL WIRELESS SALES REPRESENTATIVE Work Phone: [facility] 1975 trivalent poliovirus vaccine, live, oral Dilip Dowd REYNALDO.RETAIL WIRELESS SALES REPRESENTATIVE Work Phone: [facility] Payers Date Payer Category Payer Self-pay [id number] 2015 Private Health Insurance MMO SUP ERMED PPO [id number] 2015 Unknown MMO MMO SUPERMED PLUS [id number] 2015-Present [phone] [address] [place] [address] PPO [id number] 2015 Unknown [id number] 2015 Unknown [id number] Unknown [id number] Unknown [id number] Social History Date Type Detail Facility Start: 05-21-2011 End: 05-07-2023 Tobacco smoking status NHIS Never smoked tobacco [facility] Start: 07-27-2021 End: 10-29-2024 Alcohol intake Current non-drinker of alcohol (finding) [facility] Start: 10-22-2019 End: 05-09-2022 History SDOH Alcohol Frequency 1 [facility] Start: 10-21-2019 End: 05-09-2022 History SDOH Social Connections Phone 2 [facility] Start: 10-21-2019 End: 05-09-2022 History SDOH Social Connections Living 3 [facility] Start: 10-21-2019 History SDOH Financial 4 [facility] Start: 10-21-2019 Education 18 [facility] Start: 1975 Sex Assigned At Not on file [facility] Start: 01-19-2019 Tobacco smoking stat us WIIS Unknown if ever smoked [facility] Start: 1975 Sex Assigned At Female [facility] Start: 10-31-2021 End: 05-09-2022 History SDOH Physical Activity DPW 0 [facility] Start: 10-31-2021 End: 05-09-2022 History SDOH Financial 5 [facility] Start: 05-21-2011 End: 05-07-2023 Tobacco use and exposure Smokeless tobacco non-user [facility] Start: 01-28-2022 End: 02-07-2022 Exposure to SARS-CoV-2 (event) Unable to assess [facility] Start: 05-09-2022 End: 05-02-2023 History of Social function [facility] Start: 05-09-2022 End: 05-02-2023 Social connection and isolation panel [facility] Do you belong to any clubs or organizations such as christian groups, unions, fraternal or athletic groups, or school groups? Yes [facility] Are you now , , , , never or living with a partner? [facility] How often to you hav e a drink containing alcohol? Never [facility] How many standard dr inks containing alcohol do you have on a typical day? Patient does not drink [facility] Do you feel stress - tense, restless, nervous, or anxious, or unable to sleep at night because your mind is troubled all the time - these days [OSQ] To some extent [facility] (I/We) worried wheth er (my/our) food would run out before (I/we) got money to buy more. Never true [facility] In the past 12 month s, was there a time when you were not able to pay the mortgage or rent on time? No [facility] Start: 10-31-2021 Gender identity Identifies as female gender (finding) [facility] Medical Equipment Procedure Code Equipment Code Equipment Original Text Equipment Identifier Dates [id number], [id number], [id number] Start: 12-12-2020 End: 08-16-2023 Comment on above: Use as instructed to monitor blood sugars when prompted by Freestyle Shilo. Up to 4 per day. 1 Each once daily. Deven Mckenzie. ICD10: E11.65 Functional Status Date Assessment Result Facility 06-23-2024 Total score [AUDIT-C] 0 06/23/19 6:32 AM Aydee Lainez MA [facility] 06-23-2024 Within the last year , have you been humiliated or emotionally abused in other ways by your partner or ex-partner? No 06/23/2024 6:32 AM Aydee Lainez MA No [facility] 06-23-2024 Within the last year , have you been afraid of your partner or ex-partner? No 06/23/2024 6:32 AM Aydee Lainez MA No [facility] 06-23-2024 Within the last year , have you been raped or forced to have any kind of sexual activity by your partner or ex-partner? No 06/23/2024 6:32 AM Aydee Lainez MA No [facility] 06-23-2024 Within the last year , have you been kicked, hit, slapped, or otherwise physically hurt by your partner or ex-partner? No 06/23/2024 6:32 AM Aydee Lainez MA No [facility] 06-23-2024 How often to you hav e a drink containing alcohol? Never 06/23/2024 6:32 AM Aydee Lainez MA Never [facility] 06-23-2024 Functional status Patient does n ot drink 06/23/2024 6:32 AM Aydee Lainez MA Patient does not drink [facility] 06-23-2024 How often do you hav e 6 or more drinks on 1 occasion? Never 06/23/2024 6:32 AM Aydee Lainez MA Never [facility] 12-14-2014 Are you deaf, or do you have serious difficulty hearing No 12/14/2014 5:17 PM NELLYT Jaymie Altman RN No [facility] 12-14-2014 Are you blind, or do you have serious difficulty seeing, even when wearing glasses No 12/14/2014 5:17 PM EDT Jaymie Altman RN No [facility] 12-14-2014 Do you have serious difficulty walking or climbing stairs No 12/14/2014 5:17 PM EDT Jaymie Altman RN No [facility] 12-14-2014 Do you have difficul ty dressing or bathing No 12/14/2014 5:17 PM EDT Jaymie Altman RN No [facility] 12-14-2014 Because of a physica l, mental, or emotional condition, do you have difficulty doing errands alone such as visiting a physician's office or shopping No 12/14/2014 5:17 PM EDT Jaymie Altman RN No [facility] Mental Status Date Assessment Result Facility 12-14-2014 Because of a physica l, mental, or emotional condition, do you have serious difficulty concentrating, remembering, or making decisions No 12/14/2014 5:17 PM EDT Jaymie Altman RN No [facility] Clinical Notes 04-11-2021 to 10-29-2024 Patient InstructionsAbdirashid Miller APRN.SUPERVISOR ROLLING ROOM - 10/29/2024 11:03 AM EDTTelephone Encounter - Debra Baca - 10/26/2024 4:30 PM EDTPatient InstructionsGladys Panchal RT(R) - 12/12/2023 2:20 PM EDT Note Date & Type Note Facility 10-29-2024 Instructions Abdirashid Miller APRN.SUPERVISOR ROLLING ROOM - 10/29/2024 11:17 AM EDT Stop using alcohol on your skin and start using soap and water instead for cleaning. - Start the prescribed oral prednisone and take it each day for the next few days to calm the skin reaction. - Apply the topical steroid cream to the affected areas once daily (morning or evening); you may use it twice daily if itching persists. - Apply the topical antibiotic cream to the affected areas once daily (opposite time of day from the steroid); you may use it twice daily if needed. - If your rash has not improved after 2 days, fill and take the printed oral antibiotic prescription at [facility]; if you re better in 2 days, do not take the antibiotic. - Your inhaler refill has been sent to mail-order pharmacy ([facility]). - Return in one week if your rash worsens or you have new concerns; no routine follow-up is needed if you re improving. documented in this encounter [facility] 10-29-2024 Note HNO ID: [id number] Author: ABDIRASHID MLILER APRN.ATIYA Service: ? Author Type: Nurse Specialist Type: Progress Notes Filed: 10/29/2024 11:26 Note Text: Subjective Patient ID: Tobi is a 49 year old female who presents for Rash (R inner arm, R inner thigh and L side). HPI Tobi Farfan is a 49-year-old female presenting with a rash, suspected to be poison oak. Rash: - Suspected poison oak exposure while trimming bushes and discarding them [place]. - Rash is located on the back, inner thighs, and sides. - Wore pants but short sleeves during exposure. - Rash has been present for about a week. - Applying alcohol and cortisone anti-itch spray with no improvement; reports rash is spreading. - Rash is both sore and pruritic. - Previous similar episode last year treated with an oral medication from urgent care, which was effective. - Reports minimal drainage from the rash on the back. ROS Skin: (+) rash, (+) pruritus, (+) skin pain, (+) skin drainage Objective BP 109/74 Pulse 65 Resp 16 Wt (!) 142 kg (313 lb 0.9 oz) LMP 11/05/2023 (Exact Date) BMI 52.09 kg/m? Physical Exam Vitals and nursing note reviewed. Constitutional: Appearance: Normal appearance. HENT: Head: Normocephalic and atraumatic. Eyes: Conjunctiva/sclera: Conjunctivae normal. Cardiovascular: Rate and Rhythm: Normal rate. Pulmonary: Effort: Pulmonary effort is normal. Skin: General: Skin is warm and dry. Comments: multiple erythematous partial-thickness wounds over both arms and legs, largest behind the right knee approximately 3 x 5 inches there are drainage some warmth no induration, painful and pruritic Neurological: General: No focal deficit present. Mental Status: She is alert and oriented to person, place, and time. 1. Rash and other nonspecific skin eruption (R21) - Likely contact dermatitis from poison oak exposure; no signs of infection observed. - Initiated oral prednisone for a few days to reduce inflammation. - Prescribed topical steroid cream and antibacterial cream, to be applied once daily each; can increase frequency if needed. - Provided prescription for oral antibiotic to be used if no improvement in 2 days. - Follow-up next week if no improvement or if concerns arise. 2. Dyspnea on exertion (R06.09) 3. Wheezing (R06.2) 4. Rhinosinusitis (J32.9) - Refilled inhaler prescription; sent to mail order pharmacy ([facility]). Abdirashid Miller APRN.SUPERVISOR ROLLING ROOM Medical Decision Making: Problems: Low: Acute, uncomplicated illness or injury Risk: Moderate: Drug management Medical Decision Making Level: 3 - Low [facility] 10-29-2024 History of Presen t illness Narrative Subjective Patient ID: Tobi is a 49 year old female who presents for Rash (R inner arm, R inner thigh and L side). HPI Tobi Farfan is a 49-year-old female presenting with a rash, suspected to be poison oak. Rash: - Suspected poison oak exposure while trimming bushes and discarding them [place]. - Rash is located on the back, inner thighs, and sides. - Wore pants but short sleeves during exposure. - Rash has been present for about a week. - Applying alcohol and cortisone anti-itch spray with no improvement; reports rash is spreading. - Rash is both sore and pruritic. - Previous similar episode last year treated with an oral medication from urgent care, which was effective. - Reports minimal drainage from the rash on the back. ROS Skin: (+) rash, (+) pruritus, (+) skin pain, (+) skin drainage Objective BP 109/74 Pulse 65 Resp 16 Wt (!) 142 kg (313 lb 0.9 oz) LMP 11/05/2023 (Exact Date) BMI 52.09 kg/m Physical Exam Vitals and nursing note reviewed. Constitutional: Appearance: Normal appearance. HENT: Head: Normocephalic and atraumatic. Eyes: Conjunctiva/sclera: Conjunctivae normal. Cardiovascular: Rate and Rhythm: Normal rate. Pulmonary: Effort: Pulmonary effort is normal. Skin: General: Skin is warm and dry. Comments: multiple erythematous partial-thickness wounds over both arms and legs, largest behind the right knee approximately 3 x 5 inches there are drainage some warmth no induration, painful and pruritic Neurological: General: No focal deficit present. Mental Status: She is alert and oriented to person, place, and time. 1. Rash and other nonspecific skin eruption (R21) - Likely contact dermatitis from poison oak exposure; no signs of infection observed. - Initiated oral prednisone for a few days to reduce inflammation. - Prescribed topical steroid cream and antibacterial cream, to be applied once daily each; can increase frequency if needed. - Provided prescription for oral antibiotic to be used if no improvement in 2 days. - Follow-up next week if no improvement or if concerns arise. 2. Dyspnea on exertion (R06.09) 3. Wheezing (R06.2) 4. Rhinosinusitis (J32.9) - Refilled inhaler prescription; sent to mail order pharmacy ([facility]). Abdirashid Miller APRN.CNS Medical Decision Making: Problems: Low: Acute, uncomplicated illness or injury Risk: Moderate: Drug management Medical Decision Making Level: 3 - Low documented in this encounter [facility] 10-26-2024 Telephone encounter Note Prescription Refill Information The patient has been identified by name and date of : Yes Caregiver verified no other encounters exist for this prescription request: Yes Caregiver confirmed with patient/requestor that no other refills are due, in the near future, with this provider at this time: Yes The last office visit in the department: Does the patient have a future office visit with this provider/department: Yes Requested Prescriptions Pending Prescriptions Disp Refills pioglitazone (ACTOS) 15 mg tablet 90 tablet 3 Sig: Take 1 tablet by mouth once daily. Debra Smiley October 26, 2024 4:31 PM [facility] 10-26-2024 Miscellaneous Notes Prescription Refill Information The patient has been identified by name and date of : Yes Caregiver verified no other encounters exist for this prescription request: Yes Caregiver confirmed with patient/requestor that no other refills are due, in the near future, with this provider at this time: Yes The last office visit in the department: Does the patient have a future office visit with this provider/department: Yes Requested Prescriptions Pending Prescriptions Disp Refills pioglitazone (ACTOS) 15 mg tablet 90 tablet 3 Sig: Take 1 tablet by mouth once daily. Debra Smiley October 26, 2024 4:31 PM documented in this encounter [facility] 09-23-2024 Instructions Morenita Butler APRN.CNP - 09/23/2024 5:00 PM EDT Continue taking your montelukast as prescribed; a 90-day supply has been sent via mail order. Take your [id number] iron supplement once daily as usual. Continue your current blood pressure medications (losartan hydrochlorothiazide) and potassium supplement. Do not restart your vitamin D supplement now; hold onto it until your levels are rechecked in the fall. Increase your protein intake and try weight-bearing exercises (such as light weights) to help maintain muscle mass while on Ozempic. Please schedule the nuclear stress test with cardiology as advised, to evaluate your heart s response when lying down at night. If you would like the COVID vaccine today, let the staff know so it can be given. Follow up in 3 months so we can review your stress test results, adjust your weight loss management plan, and reassess your breathing. documented in this encounter [facility] 09-23-2024 Note HNO ID: [id number] Author: MORENITA BUTLER APRN.RETAIL WIRELESS SALES REPRESENTATIVE Service: ? Author Type: Nurse Practitioner Type: Progress Notes Filed: 09/23/2024 18:51 Note Text: CC: Patient presents with: Recheck: 6 week follow up HPI Tobi Farfan is a 49 year old female who presents today for follow up. Recording using Lumoid software for draft documentation of the visit was discussed with the patient/authorized billing customer service representative; all questions welcomed and answered. Patient/authorized billing customer service representative agreed to proceed Chronic cough: - Started on montelukast 6 weeks ago; reports decreased cough. - Occasional wheezing and dyspnea on exertion, improved with inhaler and montelukast. - Noted cough when lying down at night, requiring elevation to alleviate. With the dyspnea on exertion she also has some chest pressure and family history of early cardiac . - Undergoing further evaluation by cardiology, including a nuclear stress test as she was unable to get appropriate heart rate with treadmill stress test. . - Has undergone pulmonary function testing. Hypertension: - Blood pressure today: 118/72 mmHg. - No home blood pressure monitoring. - Occasional chest pain and palpitations, especially when not using CPAP. - Denies edema or headaches. - Currently on losartan-hydrochlorothiazide and a potassium supplement. REVIEW OF SYSTEMS See HPI PAST MEDICAL HISTORY Diagnosis Date Anxiety Carpal tunnel syndrome Clostridium difficile diarrhea Recurrent infection 2011 Diabetes mellitus (HCC) Dysmetabolic syndrome Gestational diabetes (HCC) Hypertension Obesity RANDA (obstructive sleep apnea) DME [facility] for AutoPAP - AHI 70.5 PAST SURGICAL HISTORY Procedure Laterality Date DELIVERY ONLY 12/03/2011 , low transverse; wound infection DILATION AND CURETTAGE DXAND/THER NONOBSTETRIC 11/24/2013 Dilation AND curettage HYSTEROSCOPY, DIAGNOSTIC (SEPARATE 11/24/2013 Hysteroscopy PAST SURGICAL HISTORY OF 01/12/2012 debridement post infection WOUND VAC 2011 ALLERGIES Amoxicillin, Lisinopril, and Niacin MEDICATIONS glimepiride (AMARYL) 4 mg tablet Take 1 tablet by mouth daily with breakfast. potassium chloride (K-TAB) 10 mEq tablet Take 1 tablet by mouth daily with breakfast. semaglutide (OZEMPIC) 2 mg/dose (8 mg/3 mL) pen injector Inject 2 mg subcutaneously one time a week. montelukast (SINGULAIR) 10 mg tablet Take 1 tablet by mouth daily at bedtime. ferrous sulfate 325 mg (65 mg iron) tablet Take 1 tablet by mouth once daily. sertraline (ZOLOFT) 100 mg tablet Take 1.5 tablets by mouth once daily. busPIRone (BUSPAR) 10 mg tablet Take 1 tablet by mouth two times a day. busPIRone (BUSPAR) 10 mg tablet Take 1 tablet by mouth two times a day. losartan-hydroCHLOROthiazide (HYZAAR) 50-12.5 mg per tablet Take 1 tablet by mouth once daily. pravastatin (PRAVACHOL) 20 mg tablet Take 1 tablet by mouth once daily. metFORMIN ER (GLUCOPHAGE XR) 500 mg 24 hr tablet Take 2 tablets by mouth two times a day at 6 am and 9 pm. albuterol HFA (PROVENTIL HFA, VENTOLIN HFA) 90 mcg/actuation inhaler Inhale 2 Puffs as instructed every 4 hours as needed for wheezing/shortness of breath. budesonide (PULMICORT FLEXHALER) 90 mcg/actuation aepb Inhale 1 Puff as instructed two times a day. predniSONE (DELTASONE) 10 mg tablet TAKE BY MOUTH 4 TABLETS DAILY FOR 2 DAYS, THEN 3 TABLETS DAILY FOR 2 DAYS, THEN 2 TABLETS DAILY FOR 2 DAYS, THEN 1 TABLET DAILY FOR 2 DAYS. (Patient not taking: Reported on 06/17/2024) gabapentin (NEURONTIN) 100 mg capsule Take 1 capsule by mouth three times a day for 180 days. pioglitazone (ACTOS) 15 mg tablet take 1 tablet once daily CPAP Settings 13 - 20 cm H2O, suitable mask per pt preference, chin strap, head gear, humidity, filters, tubing, lifetime supplies. G47.33 RANDA Lancing Device [facility] Use to monitor blood sugars a directed Lancets lancets Use as instructed to monitor blood sugars when prompted by Freestyle Shilo. Up to 4 per day. insulin needles, DISPOSABLE, (BD INSULIN PEN NEEDLE UF) 31 gauge x 5/16 1 Each once daily. With Victoza. ICD10: E11.65 aspirin 81 mg chewable tablet CHEW 1 TABLET ONCE DAILY Blood-Glucose Meter monitoring kit Glucose Meter of Choice (pending insurance coverage) - Kit - Dx: Type 2 DM - Uncontrolled E11.65 NORGESTIMATE-ETHINYL ESTRADIOL (PREVIFEM ORAL) Take 1 tablet by mouth once daily. (Patient not taking: Reported on 06/23/2024) FAMILY HISTORY Problem Relation Age of Onset Osteoporosis Mother Psychiatry Mother anorexia, depression Diabetes Father Hypertension Father Psychiatry Father bipolar d/o Cancer Maternal Grandmother Liver Heart Maternal Grandfather [place] Diabetes Paternal Aunt Social History Tobacco Use Smoking status: Never Smokeless tobacco: Never Vaping Use Vaping status: Never Used Substance Use Topics Alcohol use: No Drug use: No PHYSICAL EXAM BP 118/72 Pulse 68 (more content not included)... [facility] 09-23-2024 History of Presen t illness Narrative CC: Patient presents with: Recheck: 6 week follow up HPI Tobi Farfan is a 49 year old female who presents today for follow up. Recording using Lumoid software for draft documentation of the visit was discussed with the patient/authorized billing customer service representative; all questions welcomed and answered. Patient/authorized billing customer service representative agreed to proceed Chronic cough: - Started on montelukast 6 weeks ago; reports decreased cough. - Occasional wheezing and dyspnea on exertion, improved with inhaler and montelukast. - Noted cough when lying down at night, requiring elevation to alleviate. With the dyspnea on exertion she also has some chest pressure and family history of early cardiac . - Undergoing further evaluation by cardiology, including a nuclear stress test as she was unable to get appropriate heart rate with treadmill stress test. . - Has undergone pulmonary function testing. Hypertension: - Blood pressure today: 118/72 mmHg. - No home blood pressure monitoring. - Occasional chest pain and palpitations, especially when not using CPAP. - Denies edema or headaches. - Currently on losartan-hydrochlorothiazide and a potassium supplement. REVIEW OF SYSTEMS See HPI PAST MEDICAL HISTORY Diagnosis Date Anxiety Carpal tunnel syndrome Clostridium difficile diarrhea Recurrent infection 2011 Diabetes mellitus (HCC) Dysmetabolic syndrome Gestational diabetes (HCC) Hypertension Obesity RANDA (obstructive sleep apnea) DME [facility] for AutoPAP - AHI 70.5 PAST SURGICAL HISTORY Procedure Laterality Date DELIVERY ONLY 12/03/2011 , low transverse; wound infection DILATION & CURETTAGE DX&/THER NONOBSTETRIC 11/24/2013 Dilation & curettage HYSTEROSCOPY, DIAGNOSTIC (SEPARATE 11/24/2013 Hysteroscopy PAST SURGICAL HISTORY OF 01/12/2012 debridement post infection WOUND VAC 2011 ALLERGIES Amoxicillin, Lisinopril, and Niacin MEDICATIONS glimepiride (AMARYL) 4 mg tablet Take 1 tablet by mouth daily with breakfast. potassium chloride (K-TAB) 10 mEq tablet Take 1 tablet by mouth daily with breakfast. semaglutide (OZEMPIC) 2 mg/dose (8 mg/3 mL) pen injector Inject 2 mg subcutaneously one time a week. montelukast (SINGULAIR) 10 mg tablet Take 1 tablet by mouth daily at bedtime. ferrous sulfate 325 mg (65 mg iron) tablet Take 1 tablet by mouth once daily. sertraline (ZOLOFT) 100 mg tablet Take 1.5 tablets by mouth once daily. busPIRone (BUSPAR) 10 mg tablet Take 1 tablet by mouth two times a day. busPIRone (BUSPAR) 10 mg tablet Take 1 tablet by mouth two times a day. losartan-hydroCHLOROthiazide (HYZAAR) 50-12.5 mg per tablet Take 1 tablet by mouth once daily. pravastatin (PRAVACHOL) 20 mg tablet Take 1 tablet by mouth once daily. metFORMIN ER (GLUCOPHAGE XR) 500 mg 24 hr tablet Take 2 tablets by mouth two times a day at 6 am and 9 pm. albuterol HFA (PROVENTIL HFA, VENTOLIN HFA) 90 mcg/actuation inhaler Inhale 2 Puffs as instructed every 4 hours as needed for wheezing/shortness of breath. budesonide (PULMICORT FLEXHALER) 90 mcg/actuation aepb Inhale 1 Puff as instructed two times a day. predniSONE (DELTASONE) 10 mg tablet TAKE BY MOUTH 4 TABLETS DAILY FOR 2 DAYS, THEN 3 TABLETS DAILY FOR 2 DAYS, THEN 2 TABLETS DAILY FOR 2 DAYS, THEN 1 TABLET DAILY FOR 2 DAYS. (Patient not taking: Reported on 06/17/2024) gabapentin (NEURONTIN) 100 mg capsule Take 1 capsule by mouth three times a day for 180 days. pioglitazone (ACTOS) 15 mg tablet take 1 tablet once daily CPAP Settings 13 - 20 cm H2O, suitable mask per pt preference, chin strap, head gear, humidity, filters, tubing, lifetime supplies. G47.33 RANDA Lancing Device misc Use to monitor blood sugars a directed Lancets lancets Use as instructed to monitor blood sugars when prompted by Freestyle Shilo. Up to 4 per day. insulin needles, DISPOSABLE, (BD INSULIN PEN NEEDLE UF) 31 gauge x 5/16 1 Each once daily. With Victoza. ICD10: E11.65 aspirin 81 mg chewable tablet CHEW 1 TABLET ONCE DAILY Blood-Glucose Meter monitoring kit Glucose Meter of Choice (pending insurance coverage) - Kit - Dx: Type 2 DM - Uncontrolled E11.65 NORGESTIMATE-ETHINYL ESTRADIOL (PREVIFEM ORAL) Take 1 tablet by mouth once daily. (Patient not taking: Reported on 06/23/2024) FAMILY HISTORY Problem Relation Age of Onset Osteoporosis Mother Psychiatry Mother anorexia, depression Diabetes Father Hypertension Father Psychiatry Father bipolar d/o Cancer Maternal Grandmother Liver Heart Maternal Grandfather [place] Diabetes Paternal Aunt Social History Tobacco Use Smoking status: Never Smokeless tobacco: Never Vaping Use Vaping status: Never Used Substance Use Topics Alcohol use: No Drug use: No PHYSICAL EXAM BP 118/72 Pulse 68 Resp 16 Wt (!) 142.9 kg (315 lb) LMP 11/05/2023 (Exact Date) SpO2 96% BMI 52.42 kg/m General Appearance: well appearing, in no acute distress, alert Pysch: mood and affect broad and appropriate Lungs: Lungs clear to auscultation. No wheezing, rhonchi, rales. Heart: RRR without murmur, gallop, or rubs. No ectopy Health maintenance reviewed with patient: Covid-19 Vaccine( season) due on 01/12/2024 Dilated Retinal Exam due on 08/11/2024 Depression Screening due on 08/15/2024 Mammogram Screening due on 12/03/2024 DTaP,Tdap,Td Vaccine(9 - Td or Tdap) due on 09/23/2025 Hepatitis B Vaccine(1 of 3 - 19+ 3-dose series) due on 09/23/2025 Diabetic Foot Exam due on 10/31/2024 HbA1C due on 11/06/2024 Influenza Vaccine(Season Ended) due on 01/11/2025 Urine Albumin:Creatinine Ratio due on 09/19/2025 LDL Cholesterol due on 09/19/2025 Annual PCP Team Chronic Disease Visit due on 09/23/2025 BP Controlled (<130/80) due on 09/23/2025 Colorectal Cancer Screening due on 12/10/2026 Cervical Cancer Screening due on 11/25/2028 Hepatitis C Screening Completed HIV Screening Completed Pneumococcal Vaccine Completed DATA REVIEWED: Most recent labs Assessment/Plan 1. Chronic cough (R05.3) 2. Dyspnea on exertion (R06.09) 3. Wheezing (R06.2) - Symptoms have improved with montelukast and inhaler use; continue montelukast. - Ordered a 90-day supply of montelukast through [facility] mail order. - Flotation Tank Operator has ordered a nuclear stress test to further evaluate. - Follow-up in 3 months to reassess symptoms and review cardiology results. - if negative and still with dyspnea on exertion will need to send to pulmonology 4. Obstructive sleep apnea (adult) (pediatric) (G47.33) - Patient reports occasional palpitations when not using CPAP. - Advised to continue consistent use of CPAP. 5. Essential hypertension (I10) - Blood pressure well-controlled at 118/72 mmHg. - Continue losartan-hydrochlorothiazide and potassium supplementation. - discussed importance of weight management. Patient to work on diet control and healthy well balanced diet with portion control, once normal cardiac workup will start to discuss exercise options to assist with weight loss. 6. Iron deficiency (E61.1) - Recent labs show two iron levels slightly low but stable; ferritin and CBC are normal. - Resume ferrous sulfate once daily; discontinue OTC iron supplement. - Monitor for constipation; advised to maintain hydration and fiber intake. 7. Controlled type 2 diabetes mellitus without complication, without long-term current use of insulin (HCC) (E11.9) - Hemoglobin A1c not performed recently due to previous good control. - Continue Ozempic 2 mg weekly. - Recent labs: Albumin, creatinine, and liver function tests normal; albumin slightly low. - Advised to increase dietary protein intake and engage in weight-bearing exercises to prevent muscle loss. - Follow-up in 3 months to reassess weight management options post-cardiology clearance. 8. Hypokalemia (E87.6) - Potassium levels normal on current supplementation. - Continue current potassium supplementation. 9. Encounter for immunization (Z23) - Administered COVID-19 vaccine. Prescription instructions reviewed with patient as applicable. Potential red flag symptoms discussed with the patient. Reviewed appropriate action plan to take if red flag symptoms occur. Patient agreeable to treatment plan. Morenita Butler APRN.MARIA documented in this encounter [facility] 09-16-2024 Telephone encounter Note Prescription Refill Information The patient has been identified by name and date of : Yes Caregiver verified no other encounters exist for this prescription request: Yes Caregiver confirmed with patient/requestor that no other refills are due, in the near future, with this provider at this time: Yes The last office visit in the department: 08/12/24 Does the patient have a future office visit with this provider/department: Yes Requested Prescriptions Pending Prescriptions Disp Refills sertraline (ZOLOFT) 100 mg tablet 135 tablet 3 Sig: Take 1.5 tablets by mouth once daily. Berenice Singh September 16, 2024 8:28 AM [facility] 09-16-2024 Miscellaneous Notes Prescription Refill Information The patient has been identified by name and date of : Yes Caregiver verified no other encounters exist for this prescription request: Yes Caregiver confirmed with patient/requestor that no other refills are due, in the near future, with this provider at this time: Yes The last office visit in the department: 08/12/24 Does the patient have a future office visit with this provider/department: Yes Requested Prescriptions Pending Prescriptions Disp Refills sertraline (ZOLOFT) 100 mg tablet 135 tablet 3 Sig: Take 1.5 tablets by mouth once daily. Berenice Singh September 16, 2024 8:28 AM documented in this encounter [facility] 09-08-2024 Note Patient Outreach (IN [facility]) TOBI FARFAN ([id number]) 1975 F Date Time Provider Department 09/08/24 DARSHANA MUNOZ During your visit today, we recorded the following information about you: Allergies As of Date: 09/08/2024 Noted Allergy Reaction AMOXICILLIN 01/04/2012 2 - Rash LISINOPRIL 02/22/2017 3 - Cough Comments: cough NIACIN 12/13/2008 5 - Intolerance Comments: Caused whole body to become red and warm. Date Reviewed: 08/12/2024 Reviewed by: Mellissa Evans MA - Fully Assessed Visit Diagnoses:Controlled type 2 diabetes mellitus without complication, without long-term current use of insulin (HCC) [E11.9] Mixed hyperlipidemia [E78.2] Order(s):ALBUMIN/CREATININE RATIO, URINE [SQUACR] Order #: [id number] FUTURE LIPID PANEL, FASTING [SQLIPB] Order #: [id number] FUTURE Prescriptions as of 09/11/2024 - busPIRone (BUSPAR) 10 mg tablet Take 1 tablet by mouth two times a day. - busPIRone (BUSPAR) 10 mg tablet Take 1 tablet by mouth two times a day. - losartan-hydroCHLOROthiazide (HYZAAR) 50-12.5 mg per tablet Take 1 tablet by mouth once daily. - pravastatin (PRAVACHOL) 20 mg tablet Take 1 tablet by mouth once daily. - montelukast (SINGULAIR) 10 mg tablet Take 1 tablet by mouth daily at bedtime. - metFORMIN ER (GLUCOPHAGE XR) 500 mg 24 hr tablet Take 2 tablets by mouth two times a day at 6 am and 9 pm. - albuterol HFA (PROVENTIL HFA, VENTOLIN HFA) 90 mcg/actuation inhaler Inhale 2 Puffs as instructed every 4 hours as needed for wheezing/shortness of breath. - budesonide (PULMICORT FLEXHALER) 90 mcg/actuation aepb Inhale 1 Puff as instructed two times a day. - predniSONE (DELTASONE) 10 mg tablet TAKE BY MOUTH 4 TABLETS DAILY FOR 2 DAYS, THEN 3 TABLETS DAILY FOR 2 DAYS, THEN 2 TABLETS DAILY FOR 2 DAYS, THEN 1 TABLET DAILY FOR 2 DAYS. - ergocalciferol 50,000 unit capsule (VITAMIN D2, DRISDOL) Take 1 capsule by mouth one time a week. - gabapentin (NEURONTIN) 100 mg capsule Take 1 capsule by mouth three times a day for 180 days. - semaglutide (OZEMPIC) 2 mg/dose (8 mg/3 mL) pen injector Inject 2 mg subcutaneously one time a week. - ferrous sulfate 325 mg (65 mg iron) tablet Take 1 tablet by mouth two times a day with meals. - potassium chloride (K-TAB) 10 mEq tablet Take 1 tablet by mouth daily with breakfast. - sertraline (ZOLOFT) 100 mg tablet TAKE 1 AND 1/2 TABLETS ONCEDAILY - pioglitazone (ACTOS) 15 mg tablet take 1 tablet once daily - glimepiride (AMARYL) 4 mg tablet TAKE 1 TABLET DAILY WITH BREAKFAST - CPAP Settings 13 - 20 cm H2O, suitable mask per pt preference, chin strap, head gear, humidity, filters, tubing, lifetime supplies. G47.33 RANDA - Lancing Device misc Use to monitor blood sugars a directed - Lancets lancets Use as instructed to monitor blood sugars when prompted by Freestyle Shilo. Up to 4 per day. - insulin needles, DISPOSABLE, (BD INSULIN PEN NEEDLE UF) 31 gauge x 5/16 1 Each once daily. With Victoza. ICD10: E11.65 - aspirin 81 mg chewable tablet CHEW 1 TABLET ONCE DAILY - Blood-Glucose Meter monitoring kit Glucose Meter of Choice (pending insurance coverage) - Kit - Dx: Type 2 DM - Uncontrolled E11.65 - NORGESTIMATE-ETHINYL ESTRADIOL (PREVIFEM ORAL) Take 1 tablet by mouth once daily. Problem List As Of Date 09/08/2024 Noted Resolved Morbid obesity [E66.01] 12/18/2006 ELEV BL PRES W/O HYPERTN [R03.0] 12/18/2006 01/09/2008 DYSMETABOLIC SYNDROME X [E88.810] 01/02/2007 Essential hypertension [I10] 01/09/2008 Mixed hyperlipidemia [E78.2] 09/01/2010 Abnormal echocardiogram [R93.1] 10/23/2010 Routine gynecological examination [Z01.419] 07/04/2011 Class: Chronic Clostridium difficile diarrhea [A04.72] 05/21/2024 Carpal tunnel syndrome [G56.00] Anxiety [F41.9] Panic attack [F41.0] 03/01/2015 RANDA (obstructive sleep apnea) [G47.33] 08/14/2017 Controlled type 2 diabetes mellitus without com*10/01/2018 Right sided sciatica [M54.31] 04/11/2021 05/11/2021 Encounter Status:Closed by SHASHA KELLEY on 09/11/24 [facility] 08-22-2024 Telephone encounter Note Prescription Refill Information The patient has been identified by name and date of : Yes Caregiver verified no other encounters exist for this prescription request: Yes Caregiver confirmed with patient/requestor that no other refills are due, in the near future, with this provider at this time: Yes The last office visit in the department: 08/12/24 Does the patient have a future office visit with this provider/department: Yes Requested Prescriptions Pending Prescriptions Disp Refills busPIRone (BUSPAR) 10 mg tablet 20 tablet 0 Sig: Take 1 tablet by mouth two times a day. Patient is out of medication and is waiting for mail order to arrive; they told her there is a delay. She is requesting [facility] to [facility]. Made a copy of prescription and [facility] to [facility] 10 day supply. Please send today, if possible. Clair Mansfield [facility] August 22, 2024 8:35 AM [facility] 08-22-2024 Miscellaneous Notes Prescription Refill Information The patient has been identified by name and date of : Yes Caregiver verified no other encounters exist for this prescription request: Yes Caregiver confirmed with patient/requestor that no other refills are due, in the near future, with this provider at this time: Yes The last office visit in the department: 08/12/24 Does the patient have a future office visit with this provider/department: Yes Requested Prescriptions Pending Prescriptions Disp Refills busPIRone (BUSPAR) 10 mg tablet 20 tablet 0 Sig: Take 1 tablet by mouth two times a day. Patient is out of medication and is waiting for mail order to arrive; they told her there is a delay. She is requesting [facility] Made a copy of prescription and [facility] for 10 day supply. Please send today, if possible. Clair Mansfield [facility] August 22, 2024 8:35 AM documented in this encounter [facility] 08-12-2024 Note HNO ID: [id number] Author: MORENITA BUTLER APRN.[employer] SALES REPRESENTATIVE Service: ? Author Type: Nurse Practitioner Type: Progress Notes Filed: 08/12/2024 18:40 Note Text: CC: Patient presents with: Recheck: DM follow up HPI Tobi Farfan is a 49 year old female who presents today for shortness of breath on exertion, cough, and wheezing. Her to review her new medications and workup. Over the winter had 2 different respiratory infections requiring antibiotics. CXR was normal but still with symptoms. Saw other provider 2 months ago, started on pulmicort and albuterol inhaler. Has seen some improvement with her cough, shortness of breath,and wheezing with her medications. Still present but with heavier exertion. Cough is dry when present. Has history of sinus issues but has not noticed sinus drainage. Voice seems to crack easily. Denies fever, chills, ear pressure, sore throat, heartburn, difficulty swallowing, or nausea. PFTs: Unremarkable. Stress ECHO: Moderately enlarged left ventricle but unable to get accurate stress reading due to termination due to fatigue and not getting HR up. RANDA: Wears CPAP nightly for average of 5 hours. Wakes up feeling refreshed. HTN: Ms. Farfan denies headache, chest pain, palpitations, dyspnea, and peripheral edema. Patient denies any side effects of her medication(s) and is compliant with their regimen. Tobi denies regular aerobic exercise. She watches her diet for sodium, low fat and low cholesterol some of the time. Last 3 Encounter BP Readings: Date: BP: 08/12/2024 126/78 06/23/2024 117/73 06/17/2024 114/80 REVIEW OF SYSTEMS See HPI PAST MEDICAL HISTORY Diagnosis Date Anxiety Carpal tunnel syndrome Clostridium difficile diarrhea Recurrent infection 2011 Diabetes mellitus (HCC) Dysmetabolic syndrome Gestational diabetes Hypertension Obesity RANDA (obstructive sleep apnea) DME [facility] for AutoPAP - AHI 70.5 PAST SURGICAL HISTORY Procedure Laterality Date DELIVERY ONLY 12/03/2011 , low transverse; wound infection DILATION AND CURETTAGE DXAND/THER NONOBSTETRIC 11/24/2013 Dilation AND curettage HYSTEROSCOPY, DIAGNOSTIC (SEPARATE 11/24/2013 Hysteroscopy PAST SURGICAL HISTORY OF 01/12/2012 debridement post infection WOUND VAC 2012 ALLERGIES Amoxicillin, Lisinopril, and Niacin MEDICATIONS metFORMIN ER (GLUCOPHAGE XR) 500 mg 24 hr tablet Take 2 tablets by mouth two times a day at 6 am and 9 pm. albuterol HFA (PROVENTIL HFA, VENTOLIN HFA) 90 mcg/actuation inhaler Inhale 2 Puffs as instructed every 4 hours as needed for wheezing/shortness of breath. budesonide (PULMICORT FLEXHALER) 90 mcg/actuation aepb Inhale 1 Puff as instructed two times a day. predniSONE (DELTASONE) 10 mg tablet TAKE BY MOUTH 4 TABLETS DAILY FOR 2 DAYS, THEN 3 TABLETS DAILY FOR 2 DAYS, THEN 2 TABLETS DAILY FOR 2 DAYS, THEN 1 TABLET DAILY FOR 2 DAYS. (Patient not taking: Reported on 06/17/2024) ergocalciferol 50,000 unit capsule (VITAMIN D2, DRISDOL) Take 1 capsule by mouth one time a week. busPIRone (BUSPAR) 10 mg tablet Take 1 tablet by mouth two times a day. gabapentin (NEURONTIN) 100 mg capsule Take 1 capsule by mouth three times a day for 180 days. semaglutide (OZEMPIC) 2 mg/dose (8 mg/3 mL) pen injector Inject 2 mg subcutaneously one time a week. ferrous sulfate 325 mg (65 mg iron) tablet Take 1 tablet by mouth two times a day with meals. potassium chloride (K-TAB) 10 mEq tablet Take 1 tablet by mouth daily with breakfast. losartan-hydroCHLOROthiazide (HYZAAR) 50-12.5 mg per tablet Take 1 tablet by mouth once daily. sertraline (ZOLOFT) 100 mg tablet TAKE 1 AND 1/2 TABLETS ONCEDAILY pioglitazone (ACTOS) 15 mg tablet take 1 tablet once daily pravastatin (PRAVACHOL) 20 mg tablet take 1 tablet once daily glimepiride (AMARYL) 4 mg tablet TAKE 1 TABLET DAILY WITH BREAKFAST CPAP Settings 13 - 20 cm H2O, suitable mask per pt preference, chin strap, head gear, humidity, filters, tubing, lifetime supplies. G47.33 RANDA Lancing Device misc Use to monitor blood sugars a directed Lancets lancets Use as instructed to monitor blood sugars when prompted by Freestyle Shilo. Up to 4 per day. insulin needles, DISPOSABLE, (BD INSULIN PEN NEEDLE UF) 31 gauge x 5/16 1 Each once daily. With Victoza. ICD10: E11.65 aspirin 81 mg chewable tablet CHEW 1 TABLET ONCE DAILY Blood-Glucose Meter monitoring kit Glucose Meter of Choice (pending insurance coverage) - Kit - Dx: Type 2 DM - Uncontrolled E11.65 NORGESTIMATE-ETHINYL ESTRADIOL (PREVIFEM ORAL) Take 1 tablet by mouth once daily. (Patient not taking: Reported on 06/23/2024) FAMILY HISTORY Problem Relation Age of Onset Osteoporosis Mother Psychiatry Mother anorexia, depression Diabetes Father Hypertension Father Psychiatry Father bipolar d/o Cancer Maternal Grandmother Liver Heart Maternal Grandfather [place] Diabetes Paternal Aunt Social History Tobacco Use (more content not included)... [facility] 08-12-2024 History of Presen t illness Narrative CC: Patient presents with: Recheck: DM follow up HPI Tobi Farfan is a 49 year old female who presents today for shortness of breath on exertion, cough, and wheezing. Her to review her new medications and workup. Over the winter had 2 different respiratory infections requiring antibiotics. CXR was normal but still with symptoms. Saw other provider 2 months ago, started on pulmicort and albuterol inhaler. Has seen some improvement with her cough, shortness of breath,and wheezing with her medications. Still present but with heavier exertion. Cough is dry when present. Has history of sinus issues but has not noticed sinus drainage. Voice seems to crack easily. Denies fever, chills, ear pressure, sore throat, heartburn, difficulty swallowing, or nausea. PFTs: Unremarkable. Stress ECHO: Moderately enlarged left ventricle but unable to get accurate stress reading due to termination due to fatigue and not getting HR up. RANDA: Wears CPAP nightly for average of 5 hours. Wakes up feeling refreshed. HTN: Ms. Farfan denies headache, chest pain, palpitations, dyspnea, and peripheral edema. Patient denies any side effects of her medication(s) and is compliant with their regimen. Tobi denies regular aerobic exercise. She watches her diet for sodium, low fat and low cholesterol some of the time. Last 3 Encounter BP Readings: Date: BP: 08/12/2024 126/78 06/23/2024 117/73 06/17/2024 114/80 REVIEW OF SYSTEMS See HPI PAST MEDICAL HISTORY Diagnosis Date Anxiety Carpal tunnel syndrome Clostridium difficile diarrhea Recurrent infection 2011 Diabetes mellitus (HCC) Dysmetabolic syndrome Gestational diabetes Hypertension Obesity RANDA (obstructive sleep apnea) DME [facility] for AutoPAP - AHI 70.5 PAST SURGICAL HISTORY Procedure Laterality Date DELIVERY ONLY 12/03/2011 , low transverse; wound infection DILATION & CURETTAGE DX&/THER NONOBSTETRIC 11/24/2013 Dilation & curettage HYSTEROSCOPY, DIAGNOSTIC (SEPARATE 11/24/2013 Hysteroscopy PAST SURGICAL HISTORY OF 01/12/2012 debridement post infection WOUND VAC 2011 ALLERGIES Amoxicillin, Lisinopril, and Niacin MEDICATIONS metFORMIN ER (GLUCOPHAGE XR) 500 mg 24 hr tablet Take 2 tablets by mouth two times a day at 6 am and 9 pm. albuterol HFA (PROVENTIL HFA, VENTOLIN HFA) 90 mcg/actuation inhaler Inhale 2 Puffs as instructed every 4 hours as needed for wheezing/shortness of breath. budesonide (PULMICORT FLEXHALER) 90 mcg/actuation aepb Inhale 1 Puff as instructed two times a day. predniSONE (DELTASONE) 10 mg tablet TAKE BY MOUTH 4 TABLETS DAILY FOR 2 DAYS, THEN 3 TABLETS DAILY FOR 2 DAYS, THEN 2 TABLETS DAILY FOR 2 DAYS, THEN 1 TABLET DAILY FOR 2 DAYS. (Patient not taking: Reported on 06/17/2024) ergocalciferol 50,000 unit capsule (VITAMIN D2, DRISDOL) Take 1 capsule by mouth one time a week. busPIRone (BUSPAR) 10 mg tablet Take 1 tablet by mouth two times a day. gabapentin (NEURONTIN) 100 mg capsule Take 1 capsule by mouth three times a day for 180 days. semaglutide (OZEMPIC) 2 mg/dose (8 mg/3 mL) pen injector Inject 2 mg subcutaneously one time a week. ferrous sulfate 325 mg (65 mg iron) tablet Take 1 tablet by mouth two times a day with meals. potassium chloride (K-TAB) 10 mEq tablet Take 1 tablet by mouth daily with breakfast. losartan-hydroCHLOROthiazide (HYZAAR) 50-12.5 mg per tablet Take 1 tablet by mouth once daily. sertraline (ZOLOFT) 100 mg tablet TAKE 1 AND 1/2 TABLETS ONCEDAILY pioglitazone (ACTOS) 15 mg tablet take 1 tablet once daily pravastatin (PRAVACHOL) 20 mg tablet take 1 tablet once daily glimepiride (AMARYL) 4 mg tablet TAKE 1 TABLET DAILY WITH BREAKFAST CPAP Settings 13 - 20 cm H2O, suitable mask per pt preference, chin strap, head gear, humidity, filters, tubing, lifetime supplies. G47.33 RANDA Lancing Device misc Use to monitor blood sugars a directed Lancets lancets Use as instructed to monitor blood sugars when prompted by Freestyle Shilo. Up to 4 per day. insulin needles, DISPOSABLE, (BD INSULIN PEN NEEDLE UF) 31 gauge x 5/16 1 Each once daily. With Victoza. ICD10: E11.65 aspirin 81 mg chewable tablet CHEW 1 TABLET ONCE DAILY Blood-Glucose Meter monitoring kit Glucose Meter of Choice (pending insurance coverage) - Kit - Dx: Type 2 DM - Uncontrolled E11.65 NORGESTIMATE-ETHINYL ESTRADIOL (PREVIFEM ORAL) Take 1 tablet by mouth once daily. (Patient not taking: Reported on 06/23/2024) FAMILY HISTORY Problem Relation Age of Onset Osteoporosis Mother Psychiatry Mother anorexia, depression Diabetes Father Hypertension Father Psychiatry Father bipolar d/o Cancer Maternal Grandmother Liver Heart Maternal Grandfather [place] Diabetes Paternal Aunt Social History Tobacco Use Smoking status: Never Smokeless tobacco: Never Vaping Use Vaping status: Never Used Substance Use Topics Alcohol use: No Drug use: No PHYSICAL EXAM BP 126/78 Pulse 70 Resp 16 Wt (!) 142 kg (313 lb) LMP 11/05/2023 (Exact Date) SpO2 97% BMI 52.09 kg/m General Appearance: well appearing, in no acute distress, alert Eyes: conjunctiva pink and moist, no icterus, sclera white, non-injected Lungs: Lungs clear to auscultation. No wheezing, rhonchi, rales. Heart: RRR without murmur, gallop, or rubs. No ectopy Posterior Pharynx with post nasal drainage. Health maintenance reviewed with patient: Hepatitis B Vaccine(1 of 3 - 19+ 3-dose series) Never done DTaP,Tdap,Td Vaccine(9 - Td or Tdap) due on 01/02/2022 Influenza Vaccine(1) due on 01/12/2024 Covid-19 Vaccine( season) due on 01/12/2024 Dilated Retinal Exam due on 08/11/2024 Depression Screening due on 08/15/2024 Mammogram Screening due on 12/03/2024 LDL Cholesterol due on 10/28/2024 Urine Albumin:Creatinine Ratio due on 10/31/2024 Diabetic Foot Exam due on 10/31/2024 HbA1C due on 11/06/2024 Annual PCP Team Chronic Disease Visit due on 08/12/2025 BP Controlled (<130/80) due on 08/12/2025 Colorectal Cancer Screening due on 12/10/2026 Cervical Cancer Screening due on 11/25/2028 Hepatitis C Screening Completed HIV Screening Completed Pneumococcal Vaccine Completed DATA REVIEWED: Most recent labs and imaging results. ASSESSMENT/PLAN: 1. Dyspnea on exertion - ICD9: 786.09, ICD10: R06.09 (primary diagnosis) Improving with treatment but with LVH, inaccurate stress test and family history of sudden cardiac at young age will have her see cardiology - CONSULT TO CARDIOLOGY - IRON AND TIBC - FERRITIN - COMPLETE BLOOD COUNT AND DIFFERENTIAL - COMPREHENSIVE METABOLIC PANEL 2. LVH (left ventricular hypertrophy) - ICD9: 429.3, ICD10: I51.7 As above - CONSULT TO CARDIOLOGY - COMPLETE BLOOD COUNT AND DIFFERENTIAL - COMPREHENSIVE METABOLIC PANEL - THYROID STIMULATING HORMONE 3. Family history of sudden cardiac - ICD9: V17.41, ICD10: Z82.41 See #1 - CONSULT TO CARDIOLOGY 4. Chronic cough - ICD9: 786.2, ICD10: R05.3 Improving - continue current treatment, possibly from post nasal drainage as well Adding montelukast Follow up in 6 weeks 5. Wheezing - ICD9: 786.07, ICD10: R06.2 As above 6. Post-nasal drainage - ICD9: 473.9, ICD10: R09.82 Prefers no nasal spray at this time, will do daily montelukast to see if this will help both her cough wheezing and sinus drainage 7. History of iron deficiency - ICD9: V12.3, ICD10: Z86.39 On iron supplement, needs rechecked - IRON AND TIBC - FERRITIN - COMPLETE BLOOD COUNT AND DIFFERENTIAL 8. Mixed hyperlipidemia - ICD9: 272.2, ICD10: E78.2 Not discussed today, refill needed - PRAVASTATIN 20 MG TABLET 9. Anxiety - ICD9: 300.00, ICD10: F41.9 Not discussed today, refill needed - BUSPIRONE 10 MG TABLET Prescription instructions reviewed with patient as applicable. Potential red flag symptoms discussed with the patient. Reviewed appropriate action plan to take if red flag symptoms occur. Patient agreeable to treatment plan. Morenita Butler APRN.MARIA documented in this encounter [facility] 08-10-2024 Note HNO ID: [id number] Author: MADHURI RODRIGUEZ RN Service: ? Author Type: Registered Nurse Type: Progress Notes Filed: 08/10/2024 12:06 Note Text: 24 ga angio started to Left FA. Good blood return. Flushed easily with NSS. Dressing applied. Pt tolerated procedure well. No C/o's, Hep lock D/c'd and dressing applied. Patient discharged ambulatory with It Service Delivery Manager. Madhuri Rodriguez RN [facility] 08-10-2024 History of Presen t illness Narrative 22 ga angio started to Left FA. Good blood return. Flushed easily with NSS. Dressing applied. Pt tolerated procedure well. No C/o's, Hep lock D/c'd and dressing applied. Patient discharged ambulatory with It Service Delivery Manager. Madhuri Rodriguez RN documented in this encounter [facility] 07-06-2024 Telephone encounter Note Prescription Refill Information The patient has been identified by name and date of : Yes Caregiver verified no other encounters exist for this prescription request: Yes Caregiver confirmed with patient/requestor that no other refills are due, in the near future, with this provider at this time: Yes The last office visit in the department: 06/23/2024 Does the patient have a future office visit with this provider/department: Yes, 07/22/2024 Requested Prescriptions Pending Prescriptions Disp Refills metFORMIN ER (GLUCOPHAGE XR) 500 mg 24 hr tablet 360 tablet 1 Sig: Take 2 tablets by mouth two times a day at 6 am and 9 pm. ROOPA Benjamin July 06, 2024 3:11 PM [facility] 07-06-2024 Miscellaneous Notes Prescription Refill Information The patient has been identified by name and date of : Yes Caregiver verified no other encounters exist for this prescription request: Yes Caregiver confirmed with patient/requestor that no other refills are due, in the near future, with this provider at this time: Yes The last office visit in the department: 06/23/2024 Does the patient have a future office visit with this provider/department: Yes, 07/22/2024 Requested Prescriptions Pending Prescriptions Disp Refills metFORMIN ER (GLUCOPHAGE XR) 500 mg 24 hr tablet 360 tablet 1 Sig: Take 2 tablets by mouth two times a day at 6 am and 9 pm. ROOPA Benjamin July 06, 2024 3:11 PM documented in this encounter [facility] 06-23-2024 Note HNO ID: [id number] Author: QUENTIN SALAZAR PA-C Service: ? Author Type: Physician [place] Caulker Type: Progress Notes Filed: 06/23/2024 09:17 Note Text: 06/23/2024 Patient presents with: Cough with SOB AND intermittent wheeze x6 months SUBJECTIVE: This is a 49 year old that is here today for cough x 6 months. States she had CXR in March-normal. Prednisone seemed to help. She then recently had a cold on top of the cough and repeat CXR was normal on 06/17/24. URI symptoms improved overall, but cough is persisting. Describes as deep cough with wheezing and some SOB. Denies fever/chills, chest pain, hemoptysis, night sweats, weight loss, recent travel, leg swelling, recent surgeries, calf pain. No history of asthma or COPD. Non-smoker. FH cardiac disease-maternal GF with [place] at age 49. PMH DM-well controlled. Last A1c 5.7 1 month ago. PAST MEDICAL HISTORY Diagnosis Date Anxiety Carpal tunnel syndrome Clostridium difficile diarrhea Recurrent infection 2011 Diabetes mellitus (HCC) Dysmetabolic syndrome Gestational diabetes Hypertension Obesity RANDA (obstructive sleep apnea) DME [facility] for AutoPAP - AHI 70.5 ALLERGIES Amoxicillin, Lisinopril, and Niacin MEDICATIONS Current Outpatient Medications Medication Sig ergocalciferol 50,000 unit capsule (VITAMIN D2, DRISDOL) Take 1 capsule by mouth one time a week. busPIRone (BUSPAR) 10 mg tablet Take 1 tablet by mouth two times a day. gabapentin (NEURONTIN) 100 mg capsule Take 1 capsule by mouth three times a day for 180 days. semaglutide (OZEMPIC) 2 mg/dose (8 mg/3 mL) pen injector Inject 2 mg subcutaneously one time a week. ferrous sulfate 325 mg (65 mg iron) tablet Take 1 tablet by mouth two times a day with meals. potassium chloride (K-TAB) 10 mEq tablet Take 1 tablet by mouth daily with breakfast. metFORMIN ER (GLUCOPHAGE XR) 500 mg 24 hr tablet Take 2 tablets by mouth two times a day at 6 am and 9 pm. losartan-hydroCHLOROthiazide (HYZAAR) 50-12.5 mg per tablet Take 1 tablet by mouth once daily. sertraline (ZOLOFT) 100 mg tablet TAKE 1 AND 1/2 TABLETS ONCEDAILY pioglitazone (ACTOS) 15 mg tablet take 1 tablet once daily pravastatin (PRAVACHOL) 20 mg tablet take 1 tablet once daily glimepiride (AMARYL) 4 mg tablet TAKE 1 TABLET DAILY WITH BREAKFAST CPAP Settings 13 - 20 cm H2O, suitable mask per pt preference, chin strap, head gear, humidity, filters, tubing, lifetime supplies. G47.33 RANDA Lancing Device misc Use to monitor blood sugars a directed Lancets lancets Use as instructed to monitor blood sugars when prompted by Freestyle Shilo. Up to 4 per day. insulin needles, DISPOSABLE, (BD INSULIN PEN NEEDLE UF) 31 gauge x 5/16 1 Each once daily. With Victoza. ICD10: E11.65 aspirin 81 mg chewable tablet CHEW 1 TABLET ONCE DAILY Blood-Glucose Meter monitoring kit Glucose Meter of Choice (pending insurance coverage) - Kit - Dx: Type 2 DM - Uncontrolled E11.65 predniSONE (DELTASONE) 10 mg tablet TAKE BY MOUTH 4 TABLETS DAILY FOR 2 DAYS, THEN 3 TABLETS DAILY FOR 2 DAYS, THEN 2 TABLETS DAILY FOR 2 DAYS, THEN 1 TABLET DAILY FOR 2 DAYS. (Patient not taking: Reported on 06/17/2024) NORGESTIMATE-ETHINYL ESTRADIOL (PREVIFEM ORAL) Take 1 tablet by mouth once daily. (Patient not taking: Reported on 06/23/2024) No current facility-administered medications for this visit. SOCIAL HISTORY Social History Tobacco Use Smoking status: Never Smokeless tobacco: Never Vaping Use Vaping status: Never Used Substance Use Topics Alcohol use: No Drug use: No REVIEW OF SYSTEMS See HPI OBJECTIVE: BP 117/73 Pulse 67 Temp (!) 35.1 ?C (95.2 ?F) (Temporal) Resp 16 Wt (!) 140.3 kg (309 lb 6.4 oz) LMP 11/05/2023 (Exact Date) SpO2 97% BMI 51.49 kg/m? PHYSICAL EXAMINATION: General appearance: Well appearing, alert, in no acute distress, well-hydrated, well nourished. Skin: Skin color, texture, turgor normal, no suspicious rashes or lesions Head: Normocephalic, no masses, lesions, tenderness or abnormalities Eyes: Anicteric sclera. Pupils are equally round and reactive to light. Extraocular movements are intact. Nose/Sinuses: Nares normal, septum midline, mucosa normal, no drainage or sinus tenderness Oropharynx: Lips, mucosa, and tongue normal, teeth and gums normal, oropharynx normal Neck: Supple, no adenopathy; thyroid symmetric, normal size, no bruits Back: Lungs: Lungs clear to auscultation. + SINDHU scattered expiratory wheezing, no ronchi, rales. No accessory muscle use. Heart: RRR without murmur, gallop, or rubs EXT no LE edema. No calf TTP. Negative Homans' SINDHU. ASSESSMENT/PLAN: 1. Controlled type 2 diabetes mellitus without complication, without long-term current use of insulin (HCC) - ICD9: 250.00, ICD10: E11.9 (primary diagnosis) - Controlled - Continue current medications - STRESS ECHO TREADMILL - ECG COMPLETE 2. SOB (shortness of breath) - ICD9: 786.05, ICD10: R06.02 (more content not included)... [facility] 06-23-2024 History of Presen t illness Narrative 06/23/2024 Patient presents with: Cough with SOB & intermittent wheeze x6 months SUBJECTIVE: This is a 49 year old that is here today for cough x 6 months. States she had CXR in March-normal. Prednisone seemed to help. She then recently had a cold on top of the cough and repeat CXR was normal on 06/17/24. URI symptoms improved overall, but cough is persisting. Describes as deep cough with wheezing and some SOB. Denies fever/chills, chest pain, hemoptysis, night sweats, weight loss, recent travel, leg swelling, recent surgeries, calf pain. No history of asthma or COPD. Non-smoker. FH cardiac disease-maternal GF with KS at age 49. PMH DM-well controlled. Last A1c 5.7 1 month ago. PAST MEDICAL HISTORY Diagnosis Date Anxiety Carpal tunnel syndrome Clostridium difficile diarrhea Recurrent infection 2011 Diabetes mellitus (HCC) Dysmetabolic syndrome Gestational diabetes Hypertension Obesity RANDA (obstructive sleep apnea) DME [facility] for AutoPAP - AHI 70.5 ALLERGIES Amoxicillin, Lisinopril, and Niacin MEDICATIONS Current Outpatient Medications Medication Sig ergocalciferol 50,000 unit capsule (VITAMIN D2, DRISDOL) Take 1 capsule by mouth one time a week. busPIRone (BUSPAR) 10 mg tablet Take 1 tablet by mouth two times a day. gabapentin (NEURONTIN) 100 mg capsule Take 1 capsule by mouth three times a day for 180 days. semaglutide (OZEMPIC) 2 mg/dose (8 mg/3 mL) pen injector Inject 2 mg subcutaneously one time a week. ferrous sulfate 325 mg (65 mg iron) tablet Take 1 tablet by mouth two times a day with meals. potassium chloride (K-TAB) 10 mEq tablet Take 1 tablet by mouth daily with breakfast. metFORMIN ER (GLUCOPHAGE XR) 500 mg 24 hr tablet Take 2 tablets by mouth two times a day at 6 am and 9 pm. losartan-hydroCHLOROthiazide (HYZAAR) 50-12.5 mg per tablet Take 1 tablet by mouth once daily. sertraline (ZOLOFT) 100 mg tablet TAKE 1 AND 1/2 TABLETS ONCEDAILY pioglitazone (ACTOS) 15 mg tablet take 1 tablet once daily pravastatin (PRAVACHOL) 20 mg tablet take 1 tablet once daily glimepiride (AMARYL) 4 mg tablet TAKE 1 TABLET DAILY WITH BREAKFAST CPAP Settings 13 - 20 cm H2O, suitable mask per pt preference, chin strap, head gear, humidity, filters, tubing, lifetime supplies. G47.33 RANDA Lancing Device misc Use to monitor blood sugars a directed Lancets lancets Use as instructed to monitor blood sugars when prompted by Freestyle Shilo. Up to 4 per day. insulin needles, DISPOSABLE, (BD INSULIN PEN NEEDLE UF) 31 gauge x 5/16 1 Each once daily. With Victoza. ICD10: E11.65 aspirin 81 mg chewable tablet CHEW 1 TABLET ONCE DAILY Blood-Glucose Meter monitoring kit Glucose Meter of Choice (pending insurance coverage) - Kit - Dx: Type 2 DM - Uncontrolled E11.65 predniSONE (DELTASONE) 10 mg tablet TAKE BY MOUTH 4 TABLETS DAILY FOR 2 DAYS, THEN 3 TABLETS DAILY FOR 2 DAYS, THEN 2 TABLETS DAILY FOR 2 DAYS, THEN 1 TABLET DAILY FOR 2 DAYS. (Patient not taking: Reported on 06/17/2024) NORGESTIMATE-ETHINYL ESTRADIOL (PREVIFEM ORAL) Take 1 tablet by mouth once daily. (Patient not taking: Reported on 06/23/2024) No current facility-administered medications for this visit. SOCIAL HISTORY Social History Tobacco Use Smoking status: Never Smokeless tobacco: Never Vaping Use Vaping status: Never Used Substance Use Topics Alcohol use: No Drug use: No REVIEW OF SYSTEMS See HPI OBJECTIVE: BP 117/73 Pulse 67 Temp (!) 35.1 C (95.2 F) (Temporal) Resp 16 Wt (!) 140.3 kg (309 lb 6.4 oz) LMP 11/05/2023 (Exact Date) SpO2 97% BMI 51.49 kg/m PHYSICAL EXAMINATION: General appearance: Well appearing, alert, in no acute distress, well-hydrated, well nourished. Skin: Skin color, texture, turgor normal, no suspicious rashes or lesions Head: Normocephalic, no masses, lesions, tenderness or abnormalities Eyes: Anicteric sclera. Pupils are equally round and reactive to light. Extraocular movements are intact. Nose/Sinuses: Nares normal, septum midline, mucosa normal, no drainage or sinus tenderness Oropharynx: Lips, mucosa, and tongue normal, teeth and gums normal, oropharynx normal Neck: Supple, no adenopathy; thyroid symmetric, normal size, no bruits Back: Lungs: Lungs clear to auscultation. + SINDHU scattered expiratory wheezing, no ronchi, rales. No accessory muscle use. Heart: RRR without murmur, gallop, or rubs EXT no LE edema. No calf TTP. Negative Homans' SINDHU. ASSESSMENT/PLAN: 1. Controlled type 2 diabetes mellitus without complication, without long-term current use of insulin (HCC) - ICD9: 250.00, ICD10: E11.9 (primary diagnosis) - Controlled - Continue current medications - STRESS ECHO TREADMILL - ECG COMPLETE 2. SOB (shortness of breath) - ICD9: 786.05, ICD10: R06.02 SOB with exertion-recommend - SPIROMETRY - BASELINE AND POST DILATOR - STRESS ECHO TREADMILL - PERFLUTREN LIPID MICROSPHERES 1.1 MG/ML INJECTION IN NS 10 ML - SODIUM CHLORIDE 0.9 % (FLUSH) INJECTION SYRINGE - ECG COMPLETE Reviewed red flags and when to seek care sooner in ED 3. Acute cough - ICD9: 786.2, ICD10: R05.1 PFTs, will start albuterol prn and pulmicort with current symptoms - SPIROMETRY - BASELINE AND POST DILATOR Consider consult to pulmonology. 2 recent CXR normal. Consider chest CT. 4. Wheezing - ICD9: 786.07, ICD10: R06.2 As above Reviewed red flags and when to seek care sooner. - SPIROMETRY - BASELINE AND POST DILATOR The patient indicates understanding of these issues and agrees with the plan. Reviewed red flags and when to seek care sooner. Quentin Salazar PA-C documented in this encounter [facility] 06-18-2024 Telephone encounter Note Pt reviewed her results on Mychart on 06/18 @ 10:42 am. Yana Munoz LPN [facility] 06-18-2024 Miscellaneous Notes Pt reviewed her results on Mychart on 06/18 @ 10:42 am. Yana Munoz LPN Negative COVID flu RSV documented in this encounter [facility] 06-18-2024 Telephone encounter Note Negative COVID flu RSV [facility] Work Phone: 06-17-2024 History of Presen t illness Narrative Radiology Service Progress Note PATIENT NAME: Tobi Farfan DATE OF SERVICE: June 17, 2024 TIME: 12:00 PM PATIENT IDENTITY VERIFICATION COMPLETED USING TWO (2) IDENTIFIERS: Name and Date of confirmed by patient verbally. FALL SCREENING: Has the patient had 2 falls in the last year or 1 fall with injury or currently using an Ambulatory Assistive Device (Walker, Cane, Wheelchair, Crutches, etc.)? No PATIENT GENDER DATA: Assigned female at . status: : No status: NO. PATIENT RELEVANT IMPLANT DATA REVIEWED: Not Applicable PATIENT PRESENTS WITH AN IMPLANTABLE OR ATTACHED [place] MACHINE OPERATOR: No RADIOLOGY DEPARTMENT: General X-ray: Exam(s) Completed: Chest X-Ray PERIPHERAL IV DATA: Not applicable SIGNED BY: Candelario Bedoya June 17, 2024 12:00 PM documented in this encounter [facility] 06-17-2024 Note HNO ID: [id number] Author: JENNIFER FERRER Tech Service: ? Author Type: Technologist Type: Progress Notes Filed: 06/17/2024 12:00 Note Text: Radiology Service Progress Note PATIENT NAME: Tobi Farfan DATE OF SERVICE: June 17, 2024 TIME: 12:00 PM PATIENT IDENTITY VERIFICATION COMPLETED USING TWO (2) IDENTIFIERS: Name and Date of confirmed by patient verbally. FALL SCREENING: Has the patient had 2 falls in the last year or 1 fall with injury or currently using an Ambulatory Assistive Device (Walker, Cane, Wheelchair, Crutches, etc.)? No PATIENT GENDER DATA: Assigned female at . status: : No status: NO. PATIENT RELEVANT IMPLANT DATA REVIEWED: Not Applicable PATIENT PRESENTS WITH AN IMPLANTABLE OR ATTACHED [place] MACHINE OPERATOR: No RADIOLOGY DEPARTMENT: General X-ray: Exam(s) Completed: Chest X-Ray PERIPHERAL IV DATA: Not applicable SIGNED BY: Candelario Bedoya June 17, 2024 12:00 PM [facility] 06-17-2024 Note HNO ID: [id number] Author: NEVAEH PARKER APRN.[employer]TA[employer] W[employer]LESS SALES REPRESENTATIVE Service: ? Author Type: Nurse Practitioner Type: Progress Notes Filed: 06/17/2024 12:47 Note Text: Subjective HPI HPI Tobi Farfan is a 49 year old female who presents today for CC of cough, sob, congestion. This started 5 days ago. Has tried otc medication for relief. Symptoms are worsened by nothing. nonsmoker Has had cough/sob for 6 months .Patient presents with: Cough: Sob, sore throat, chest congestion x 5 days PAST MEDICAL HISTORY Diagnosis Date Anxiety Carpal tunnel syndrome Clostridium difficile diarrhea Recurrent infection 2011 Diabetes mellitus (HCC) Dysmetabolic syndrome Gestational diabetes Hypertension Obesity RANDA (obstructive sleep apnea) DME [facility] for AutoPAP - AHI 70.5 PAST SURGICAL HISTORY Procedure Laterality Date DELIVERY ONLY 12/03/2011 , low transverse; wound infection DILATION AND CURETTAGE DXAND/THER NONOBSTETRIC 11/24/2013 Dilation AND curettage HYSTEROSCOPY, DIAGNOSTIC (SEPARATE 11/24/2013 Hysteroscopy PAST SURGICAL HISTORY OF 01/12/2012 debridement post infection WOUND VAC 2011 ALLERGIES Amoxicillin, Lisinopril, and Niacin MEDICATIONS ergocalciferol 50,000 unit capsule (VITAMIN D2, DRISDOL) Take 1 capsule by mouth one time a week. busPIRone (BUSPAR) 10 mg tablet Take 1 tablet by mouth two times a day. gabapentin (NEURONTIN) 100 mg capsule Take 1 capsule by mouth three times a day for 180 days. semaglutide (OZEMPIC) 2 mg/dose (8 mg/3 mL) pen injector Inject 2 mg subcutaneously one time a week. ferrous sulfate 325 mg (65 mg iron) tablet Take 1 tablet by mouth two times a day with meals. potassium chloride (K-TAB) 10 mEq tablet Take 1 tablet by mouth daily with breakfast. metFORMIN ER (GLUCOPHAGE XR) 500 mg 24 hr tablet Take 2 tablets by mouth two times a day at 6 am and 9 pm. losartan-hydroCHLOROthiazide (HYZAAR) 50-12.5 mg per tablet Take 1 tablet by mouth once daily. sertraline (ZOLOFT) 100 mg tablet TAKE 1 AND 1/2 TABLETS ONCEDAILY pioglitazone (ACTOS) 15 mg tablet take 1 tablet once daily pravastatin (PRAVACHOL) 20 mg tablet take 1 tablet once daily glimepiride (AMARYL) 4 mg tablet TAKE 1 TABLET DAILY WITH BREAKFAST CPAP Settings 13 - 20 cm H2O, suitable mask per pt preference, chin strap, head gear, humidity, filters, tubing, lifetime supplies. G47.33 RANDA Lancing Device misc Use to monitor blood sugars a directed Lancets lancets Use as instructed to monitor blood sugars when prompted by Freestyle Shilo. Up to 4 per day. insulin needles, DISPOSABLE, (BD INSULIN PEN NEEDLE UF) 31 gauge x 5/16 1 Each once daily. With Victoza. ICD10: E11.65 aspirin 81 mg chewable tablet CHEW 1 TABLET ONCE DAILY Blood-Glucose Meter monitoring kit Glucose Meter of Choice (pending insurance coverage) - Kit - Dx: Type 2 DM - Uncontrolled E11.65 predniSONE (DELTASONE) 10 mg tablet TAKE BY MOUTH 4 TABLETS DAILY FOR 2 DAYS, THEN 3 TABLETS DAILY FOR 2 DAYS, THEN 2 TABLETS DAILY FOR 2 DAYS, THEN 1 TABLET DAILY FOR 2 DAYS. (Patient not taking: Reported on 06/17/2024) NORGESTIMATE-ETHINYL ESTRADIOL (PREVIFEM ORAL) Take 1 tablet by mouth once daily. FAMILY HISTORY Problem Relation Age of Onset Osteoporosis Mother Psychiatry Mother anorexia, depression Diabetes Father Hypertension Father Psychiatry Father bipolar d/o Cancer Maternal Grandmother Liver Heart Maternal Grandfather [place] Diabetes Paternal Aunt Social History Tobacco Use Smoking status: Never Smokeless tobacco: Never Vaping Use Vaping status: Never Used Substance Use Topics Alcohol use: No Drug use: No Review of Systems Constitutional: Negative for fever. HENT: Positive for congestion and sore throat. Negative for ear pain and nosebleeds. Respiratory: Positive for cough and shortness of breath. Negative for wheezing. Musculoskeletal: Negative for neck pain. Objective Blood pressure 114/80, pulse 70, temperature 36.7 ?C (98.1 ?F), resp. rate 20, weight (!) 141.1 kg (311 lb 1.1 oz), last menstrual period 11/05/2023, SpO2 98%. Physical Exam Constitutional: General: She is not in acute distress. Appearance: She is not toxic-appearing or diaphoretic. HENT: Head: Normocephalic and atraumatic. Cardiovascular: Rate and Rhythm: Normal rate and regular rhythm. Heart sounds: Normal heart sounds, S1 normal and S2 normal. Pulmonary: Effort: Pulmonary effort is normal. Breath sounds: Examination of the right-lower field reveals wheezing. Examination of the left-lower field reveals wheezing. Wheezing present. No decreased breath sounds, rhonchi or rales. Lymphadenopathy: Cervical: No cervical adenopathy. Right cervical: No superficial cervical adenopathy. Left cervical: No superficial cervical adenopathy. Neurological: Mental Status: She is alert and oriented to person, place, and time. Gait: Gait is intact. ASSESSMENT/PLAN: 1. UR (more content not included)... [facility] 06-17-2024 History of Presen t illness Narrative Subjective HPI HPI Tobi Farfan is a 49 year old female who presents today for CC of cough, sob, congestion. This started 5 days ago. Has tried otc medication for relief. Symptoms are worsened by nothing. nonsmoker Has had cough/sob for 6 months .Patient presents with: Cough: Sob, sore throat, chest congestion x 5 days PAST MEDICAL HISTORY Diagnosis Date Anxiety Carpal tunnel syndrome Clostridium difficile diarrhea Recurrent infection 2011 Diabetes mellitus (HCC) Dysmetabolic syndrome Gestational diabetes Hypertension Obesity RANDA (obstructive sleep apnea) DME [facility] for AutoPAP - AHI 70.5 PAST SURGICAL HISTORY Procedure Laterality Date DELIVERY ONLY 12/03/2011 , low transverse; wound infection DILATION & CURETTAGE DX&/THER NONOBSTETRIC 11/24/2013 Dilation & curettage HYSTEROSCOPY, DIAGNOSTIC (SEPARATE 11/24/2013 Hysteroscopy PAST SURGICAL HISTORY OF 01/12/2012 debridement post infection WOUND VAC 2011 ALLERGIES Amoxicillin, Lisinopril, and Niacin MEDICATIONS ergocalciferol 50,000 unit capsule (VITAMIN D2, DRISDOL) Take 1 capsule by mouth one time a week. busPIRone (BUSPAR) 10 mg tablet Take 1 tablet by mouth two times a day. gabapentin (NEURONTIN) 100 mg capsule Take 1 capsule by mouth three times a day for 180 days. semaglutide (OZEMPIC) 2 mg/dose (8 mg/3 mL) pen injector Inject 2 mg subcutaneously one time a week. ferrous sulfate 325 mg (65 mg iron) tablet Take 1 tablet by mouth two times a day with meals. potassium chloride (K-TAB) 10 mEq tablet Take 1 tablet by mouth daily with breakfast. metFORMIN ER (GLUCOPHAGE XR) 500 mg 24 hr tablet Take 2 tablets by mouth two times a day at 6 am and 9 pm. losartan-hydroCHLOROthiazide (HYZAAR) 50-12.5 mg per tablet Take 1 tablet by mouth once daily. sertraline (ZOLOFT) 100 mg tablet TAKE 1 AND 1/2 TABLETS ONCEDAILY pioglitazone (ACTOS) 15 mg tablet take 1 tablet once daily pravastatin (PRAVACHOL) 20 mg tablet take 1 tablet once daily glimepiride (AMARYL) 4 mg tablet TAKE 1 TABLET DAILY WITH BREAKFAST CPAP Settings 13 - 20 cm H2O, suitable mask per pt preference, chin strap, head gear, humidity, filters, tubing, lifetime supplies. G47.33 RANDA Lancing Device misc Use to monitor blood sugars a directed Lancets lancets Use as instructed to monitor blood sugars when prompted by Freestyle Shilo. Up to 4 per day. insulin needles, DISPOSABLE, (BD INSULIN PEN NEEDLE UF) 31 gauge x 5/16 1 Each once daily. With Victoza. ICD10: E11.65 aspirin 81 mg chewable tablet CHEW 1 TABLET ONCE DAILY Blood-Glucose Meter monitoring kit Glucose Meter of Choice (pending insurance coverage) - Kit - Dx: Type 2 DM - Uncontrolled E11.65 predniSONE (DELTASONE) 10 mg tablet TAKE BY MOUTH 4 TABLETS DAILY FOR 2 DAYS, THEN 3 TABLETS DAILY FOR 2 DAYS, THEN 2 TABLETS DAILY FOR 2 DAYS, THEN 1 TABLET DAILY FOR 2 DAYS. (Patient not taking: Reported on 06/17/2024) NORGESTIMATE-ETHINYL ESTRADIOL (PREVIFEM ORAL) Take 1 tablet by mouth once daily. FAMILY HISTORY Problem Relation Age of Onset Osteoporosis Mother Psychiatry Mother anorexia, depression Diabetes Father Hypertension Father Psychiatry Father bipolar d/o Cancer Maternal Grandmother Liver Heart Maternal Grandfather [place] Diabetes Paternal Aunt Social History Tobacco Use Smoking status: Never Smokeless tobacco: Never Vaping Use Vaping status: Never Used Substance Use Topics Alcohol use: No Drug use: No Review of Systems Constitutional: Negative for fever. HENT: Positive for congestion and sore throat. Negative for ear pain and nosebleeds. Respiratory: Positive for cough and shortness of breath. Negative for wheezing. Musculoskeletal: Negative for neck pain. Objective Blood pressure 114/80, pulse 70, temperature 36.7 C (98.1 F), resp. rate 20, weight (!) 141.1 kg (311 lb 1.1 oz), last menstrual period 11/05/2023, SpO2 98%. Physical Exam Constitutional: General: She is not in acute distress. Appearance: She is not toxic-appearing or diaphoretic. HENT: Head: Normocephalic and atraumatic. Cardiovascular: Rate and Rhythm: Normal rate and regular rhythm. Heart sounds: Normal heart sounds, S1 normal and S2 normal. Pulmonary: Effort: Pulmonary effort is normal. Breath sounds: Examination of the right-lower field reveals wheezing. Examination of the left-lower field reveals wheezing. Wheezing present. No decreased breath sounds, rhonchi or rales. Lymphadenopathy: Cervical: No cervical adenopathy. Right cervical: No superficial cervical adenopathy. Left cervical: No superficial cervical adenopathy. Neurological: Mental Status: She is alert and oriented to person, place, and time. Gait: Gait is intact. ASSESSMENT/PLAN: 1. URI, acute - ICD9: 465.9, ICD10: J06.9 (primary diagnosis) - Discussed viral etiology and rationale for treatment. - Symptomatic treatment with prn analgesia - Supportive care with fluids and rest - Follow up in 3-5 days if symptoms persist or sooner if worsening of symptoms If covid positive is outside of window for treatment. - COVID & INFLUENZA A/B & RSV PCR, ROUTINE - PREDNISONE 20 MG TABLET 2. Acute cough - ICD9: 786.2, ICD10: R05.1 3. Wheezing - ICD9: 786.07, ICD10: R06.2 Will schedule with pcp, 6 months of cough/sob. - PREDNISONE 20 MG TABLET Nevaeh Parker APRN.RETAIL WIRELESS SALES REPRESENTATIVE documented in this encounter [facility] 05-21-2024 Note HNO ID: [id number] Author: SOLITARIO PERERA MD Service: ? Author Type: Physician Type: Progress Notes Filed: 05/21/2024 14:43 Note Text: This note was created using [employer]. Subjective Tobi Farfan is a 49 year old female. She developed progressively severe pain and swelling of the left wrist 12 days ago. 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 She was seen in 3 days ago, and xray of the wrist was negative. She was given a wrist splint. Advil 2 caps TID was not helping. Her diabetes mellitus was controlled. Review of Systems Constitutional: Negative for fatigue and fever. Neurological: Negative for weakness and numbness. ACTIVE PROBLEM LIST Morbid Obesity (Hcc) Dysmetabolic Syndrome X Essential Hypertension Mixed Hyperlipidemia Abnormal Echocardiogram Routine Gynecological Examination Carpal Tunnel Syndrome Anxiety Panic Attack Randa (Obstructive Sleep Apnea) Controlled Type 2 Diabetes Mellitus Without Complication, Without Long-Term Current Use of Insulin ([facility]) Social History Tobacco Use Smoking status: Never Smokeless tobacco: Never Vaping Use Vaping status: Never Used Substance Use Topics Alcohol use: No Drug use: No Current Outpatient Medications Medication Sig ergocalciferol 50,000 unit capsule (VITAMIN D2, DRISDOL) Take 1 capsule by mouth one time a week. busPIRone (BUSPAR) 10 mg tablet Take 1 tablet by mouth two times a day. gabapentin (NEURONTIN) 100 mg capsule Take 1 capsule by mouth three times a day for 180 days. semaglutide (OZEMPIC) 2 mg/dose (8 mg/3 mL) pen injector Inject 2 mg subcutaneously one time a week. ferrous sulfate 325 mg (65 mg iron) tablet Take 1 tablet by mouth two times a day with meals. potassium chloride (K-TAB) 10 mEq tablet Take 1 tablet by mouth daily with breakfast. metFORMIN ER (GLUCOPHAGE XR) 500 mg 24 hr tablet Take 2 tablets by mouth two times a day at 6 am and 9 pm. losartan-hydroCHLOROthiazide (HYZAAR) 50-12.5 mg per tablet Take 1 tablet by mouth once daily. sertraline (ZOLOFT) 100 mg tablet TAKE 1 AND 1/2 TABLETS ONCEDAILY pioglitazone (ACTOS) 15 mg tablet take 1 tablet once daily pravastatin (PRAVACHOL) 20 mg tablet take 1 tablet once daily glimepiride (AMARYL) 4 mg tablet TAKE 1 TABLET DAILY WITH BREAKFAST CPAP Settings 13 - 20 cm H2O, suitable mask per pt preference, chin strap, head gear, humidity, filters, tubing, lifetime supplies. G47.33 RANDA Lancing Device misc Use to monitor blood sugars a directed Lancets lancets Use as instructed to monitor blood sugars when prompted by Tamy Montgomery. Up to 4 per day. insulin needles, DISPOSABLE, (BD INSULIN PEN NEEDLE UF) 31 gauge x 5/16 1 Each once daily. With Victoza. ICD10: E11.65 aspirin 81 mg chewable tablet CHEW 1 TABLET ONCE DAILY Blood-Glucose Meter monitoring kit Glucose Meter of Choice (pending insurance coverage) - Kit - Dx: Type 2 DM - Uncontrolled E11.65 NORGESTIMATE-ETHINYL ESTRADIOL (PREVIFEM ORAL) Take 1 tablet by mouth once daily. No current facility-administered medications for this visit. Objective BP 118/53 (BP Site: Left Arm, BP Position: Sitting, BP Cuff Size: Large Adult) Pulse 72 Temp 36.6 ?C (97.9 ?F) (Temporal) Resp 20 Wt (!) 140.3 kg (309 lb 4.9 oz) LMP 11/05/2023 (Exact Date) SpO2 99% BMI 51.47 kg/m? Physical Exam Constitutional: Appearance: She is not ill-appearing. Pulmonary: Effort: Pulmonary effort is normal. Musculoskeletal: Left elbow: Normal. Left forearm: Normal. Left wrist: Swelling and tenderness present. No deformity, effusion or crepitus. Decreased range of motion. Normal pulse. Left hand: Swelling present. No deformity or tenderness. Normal strength. Normal sensation. Normal capillary refill. Skin: Findings: No erythema. Neurological: Mental Status: She is alert. Sensory: No sensory deficit. Motor: No weakness. Assessment and Plan 1. Acute wrist pain, left - ICD9: 719.43, ICD10: M25.532 (primary diagnosis) Overuse vs. Crystal induced. - PREDNISONE 10 MG TABLET Discussed medication dosage, usage, goals of therapy, and side effects. Hold Advil temporarily. - Continue splint for support till better. - Work excuse per request. 2. Controlled type 2 diabetes mellitus without complication, without long-term current use of insulin ([facility]) - ICD9: 250.00, ICD10: E11.9 - Controlled - Expect temporary glucose elevation on prednisone. Solitario Perera MD [facility] 05-21-2024 History of Presen t illness Narrative This note was created using MaX[employer]. Subjective Tobi Farfan is a 49 year old female. She developed progressively severe pain and swelling of the left wrist 12 days ago. 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 She was seen in 3 days ago, and xray of the wrist was negative. She was given a wrist splint. Advil 2 caps TID was not helping. Her diabetes mellitus was controlled. Review of Systems Constitutional: Negative for fatigue and fever. Neurological: Negative for weakness and numbness. ACTIVE PROBLEM LIST Morbid Obesity (Hcc) Dysmetabolic Syndrome X Essential Hypertension Mixed Hyperlipidemia Abnormal Echocardiogram Routine Gynecological Examination Carpal Tunnel Syndrome Anxiety Panic Attack Randa (Obstructive Sleep Apnea) Controlled Type 2 Diabetes Mellitus Without Complication, Without Long-Term Current Use of Insulin ([facility]) Social History Tobacco Use Smoking status: Never Smokeless tobacco: Never Vaping Use Vaping status: Never Used Substance Use Topics Alcohol use: No Drug use: No Current Outpatient Medications Medication Sig ergocalciferol 50,000 unit capsule (VITAMIN D2, DRISDOL) Take 1 capsule by mouth one time a week. busPIRone (BUSPAR) 10 mg tablet Take 1 tablet by mouth two times a day. gabapentin (NEURONTIN) 100 mg capsule Take 1 capsule by mouth three times a day for 180 days. semaglutide (OZEMPIC) 2 mg/dose (8 mg/3 mL) pen injector Inject 2 mg subcutaneously one time a week. ferrous sulfate 325 mg (65 mg iron) tablet Take 1 tablet by mouth two times a day with meals. potassium chloride (K-TAB) 10 mEq tablet Take 1 tablet by mouth daily with breakfast. metFORMIN ER (GLUCOPHAGE XR) 500 mg 24 hr tablet Take 2 tablets by mouth two times a day at 6 am and 9 pm. losartan-hydroCHLOROthiazide (HYZAAR) 50-12.5 mg per tablet Take 1 tablet by mouth once daily. sertraline (ZOLOFT) 100 mg tablet TAKE 1 AND 1/2 TABLETS ONCEDAILY pioglitazone (ACTOS) 15 mg tablet take 1 tablet once daily pravastatin (PRAVACHOL) 20 mg tablet take 1 tablet once daily glimepiride (AMARYL) 4 mg tablet TAKE 1 TABLET DAILY WITH BREAKFAST CPAP Settings 13 - 20 cm H2O, suitable mask per pt preference, chin strap, head gear, humidity, filters, tubing, lifetime supplies. G47.33 RANDA Lancing Device misc Use to monitor blood sugars a directed Lancets lancets Use as instructed to monitor blood sugars when prompted by Freestyle Shilo. Up to 4 per day. insulin needles, DISPOSABLE, (BD INSULIN PEN NEEDLE UF) 31 gauge x 5/16 1 Each once daily. With Victoza. ICD10: E11.65 aspirin 81 mg chewable tablet CHEW 1 TABLET ONCE DAILY Blood-Glucose Meter monitoring kit Glucose Meter of Choice (pending insurance coverage) - Kit - Dx: Type 2 DM - Uncontrolled E11.65 NORGESTIMATE-ETHINYL ESTRADIOL (PREVIFEM ORAL) Take 1 tablet by mouth once daily. No current facility-administered medications for this visit. Objective BP 118/53 (BP Site: Left Arm, BP Position: Sitting, BP Cuff Size: Large Adult) Pulse 72 Temp 36.6 C (97.9 F) (Temporal) Resp 20 Wt (!) 140.3 kg (309 lb 4.9 oz) LMP 11/05/2023 (Exact Date) SpO2 99% BMI 51.47 kg/m Physical Exam Constitutional: Appearance: She is not ill-appearing. Pulmonary: Effort: Pulmonary effort is normal. Musculoskeletal: Left elbow: Normal. Left forearm: Normal. Left wrist: Swelling and tenderness present. No deformity, effusion or crepitus. Decreased range of motion. Normal pulse. Left hand: Swelling present. No deformity or tenderness. Normal strength. Normal sensation. Normal capillary refill. Skin: Findings: No erythema. Neurological: Mental Status: She is alert. Sensory: No sensory deficit. Motor: No weakness. Assessment and Plan 1. Acute wrist pain, left - ICD9: 719.43, ICD10: M25.532 (primary diagnosis) Overuse vs. Crystal induced. - PREDNISONE 10 MG TABLET Discussed medication dosage, usage, goals of therapy, and side effects. Hold Advil temporarily. - Continue splint for support till better. - Work excuse per request. 2. Controlled type 2 diabetes mellitus without complication, without long-term current use of insulin ([facility]) - ICD9: 250.00, ICD10: E11.9 - Controlled - Expect temporary glucose elevation on prednisone. Solitario Perera MD documented in this encounter [facility] 05-21-2024 Telephone encounter Note Pt calling in and states she was [facility] for left wrist pain. Pt states the pain is worse and she had to call off of work today. States the swelling in her left hand is much worse. States her hand and fingers are so swollen and tight that she can't make a fist or fasten her seatbelt. States pain is an 8/10. Pt booked for an appt with Dr. Perera at 220 pm this afternoon. [facility] 05-21-2024 Miscellaneous Notes Pt calling in and states she was seen [facility] on Saturday for left wrist pain. Pt states the pain is worse and she had to call off of work today. States the swelling in her left hand is much worse. States her hand and fingers are so swollen and tight that she can't make a fist or fasten her seatbelt. States pain is an 8/10. Pt booked for an appt with Dr. Perera at 220 pm this afternoon. documented in this encounter [facility] 05-21-2024 Telephone encounter Note Pt booked for an appt today as she cannot tolerate the pain and states her swelling is worse. Booked with Dr. Perera at 220 pm. [facility] 05-21-2024 Miscellaneous Notes Pt booked for an appt today as she cannot tolerate the pain and states her swelling is worse. Booked with Dr. Perera at 220 pm. documented in this encounter [facility] 05-18-2024 History of Presen t illness Narrative Radiology Service Progress Note PATIENT NAME: Tobi Farfan DATE OF SERVICE: May 18, 2024 TIME: 5:34 PM PATIENT IDENTITY VERIFICATION COMPLETED USING TWO (2) IDENTIFIERS: Name and Date of confirmed by patient verbally. FALL SCREENING: Has the patient had 2 falls in the last year or 1 fall with injury or currently using an Ambulatory Assistive Device (Walker, Cane, Wheelchair, Crutches, etc.)? No PATIENT GENDER DATA: Female. status: : No status: NO. PATIENT RELEVANT IMPLANT DATA REVIEWED: Not Applicable PATIENT PRESENTS WITH AN IMPLANTABLE OR ATTACHED [place] MACHINE OPERATOR: No RADIOLOGY DEPARTMENT: General X-ray: Exam(s) Completed: Upper Extremity X-Ray(s): Wrist, left PERIPHERAL IV DATA: Not applicable SIGNED BY: RT Vilma(Shanthi) May 18, 2024 5:34 PM documented in this encounter [facility] 05-18-2024 Note HNO ID: [id number] Author: MORAIMA HOWELL RT (R) Service: Radiology Author Type: Technologist Type: Progress Notes Filed: 05/18/2024 17:39 Note Text: Radiology Service Progress Note PATIENT NAME: Tobi Farfan DATE OF SERVICE: May 18, 2024 TIME: 5:34 PM PATIENT IDENTITY VERIFICATION COMPLETED USING TWO (2) IDENTIFIERS: Name and Date of confirmed by patient verbally. FALL SCREENING: Has the patient had 2 falls in the last year or 1 fall with injury or currently using an Ambulatory Assistive Device (Walker, Cane, Wheelchair, Crutches, etc.)? No PATIENT GENDER DATA: Female. status: : No status: NO. PATIENT RELEVANT IMPLANT DATA REVIEWED: Not Applicable PATIENT PRESENTS WITH AN IMPLANTABLE OR ATTACHED [place]IN MACHINE OPERATOR: No RADIOLOGY DEPARTMENT: General X-ray: Exam(s) Completed: Upper Extremity X-Ray(s): Wrist, left PERIPHERAL IV DATA: Not applicable SIGNED BY: RT Vilma(R) May 18, 2024 5:34 PM [facility] 05-18-2024 Note HNO ID: [id number] Author: BEBETO LOPEZ MD Service: ? Author Type: Physician Type: Progress Notes Filed: 05/18/2024 18:54 Note Text: Patient presents with: left wrist pain: X 8-9 days-cannot recall an injury HPI: Left wrist pain: Duration: 9 days. Thinks it may have been triggered by playing a new handheld game. Location: left ulnar wrist Character: aching and throbbing Radiation: sometimes up the forearm Aggravating: twisting and bending wrist, flexing fingers Relieving: Pain relievers: Advil, ice, heat, cockup splint Associated: numbness in 3-5th fingers, swelling Pertinent negatives: MEDICATIONS: ergocalciferol 50,000 unit capsule (VITAMIN D2, DRISDOL) Take 1 capsule by mouth one time a week. busPIRone (BUSPAR) 10 mg tablet Take 1 tablet by mouth two times a day. gabapentin (NEURONTIN) 100 mg capsule Take 1 capsule by mouth three times a day for 180 days. semaglutide (OZEMPIC) 2 mg/dose (8 mg/3 mL) pen injector Inject 2 mg subcutaneously one time a week. ferrous sulfate 325 mg (65 mg iron) tablet Take 1 tablet by mouth two times a day with meals. potassium chloride (K-TAB) 10 mEq tablet Take 1 tablet by mouth daily with breakfast. metFORMIN ER (GLUCOPHAGE XR) 500 mg 24 hr tablet Take 2 tablets by mouth two times a day at 6 am and 9 pm. losartan-hydroCHLOROthiazide (HYZAAR) 50-12.5 mg per tablet Take 1 tablet by mouth once daily. sertraline (ZOLOFT) 100 mg tablet TAKE 1 AND 1/2 TABLETS ONCEDAILY pioglitazone (ACTOS) 15 mg tablet take 1 tablet once daily pravastatin (PRAVACHOL) 20 mg tablet take 1 tablet once daily glimepiride (AMARYL) 4 mg tablet TAKE 1 TABLET DAILY WITH BREAKFAST CPAP Settings 13 - 20 cm H2O, suitable mask per pt preference, chin strap, head gear, humidity, filters, tubing, lifetime supplies. G47.33 RANDA Lancing Device misc Use to monitor blood sugars a directed Lancets lancets Use as instructed to monitor blood sugars when prompted by Freestyle Shilo. Up to 4 per day. insulin needles, DISPOSABLE, (BD INSULIN PEN NEEDLE UF) 31 gauge x 5/16 1 Each once daily. With Victoza. ICD10: E11.65 aspirin 81 mg chewable tablet CHEW 1 TABLET ONCE DAILY Blood-Glucose Meter monitoring kit Glucose Meter of Choice (pending insurance coverage) - Kit - Dx: Type 2 DM - Uncontrolled E11.65 NORGESTIMATE-ETHINYL ESTRADIOL (PREVIFEM ORAL) Take 1 tablet by mouth once daily. ALLERGIES: ALLERGIES Allergen Reactions Amoxicillin Rash Lisinopril Cough cough Niacin Intolerance Caused whole body to become red and warm. VITALS: BP 112/68 Pulse 60 Temp 36.4 ?C (97.5 ?F) (Tympanic) Resp 18 Wt (!) 141.8 kg (312 lb 9.8 oz) LMP 11/05/2023 (Exact Date) SpO2 99% BMI 52.02 kg/m? PHYSICAL EXAM: GEN: pleasant, alert, no acute distress ELBOW: Left. No pain with flexion or extension. Near normal supination and pronation. No distal symptoms with cubital tunnel percussion. WRIST: left. Mild swelling. Limits flexion and extension. No pain with radial or ulnar deviation. Tender ulnar wrist. No snuffbox tenderness. HAND: left. Subjective pain with movement of medial fingers. Limited flexion and avoids full extension. Normal distal sensation. ASSESSMENT/PLAN: 1. Acute wrist pain, left - ICD9: 719.43, ICD10: M25.532 - XR WRIST GENERAL 3V PA/LAT/OBL LEFT - RESULT: No fracture, dislocation or destructive changes. Joint spaces and articular surfaces are preserved. Small ossicles project along the volar to the carpal bones on the lateral view. Suspect ulnar neuropathy and connective tissue irritation from positioning and overuse with new game system. Continue treatment with rest, ice, cock up splint, and NSAID. She may continue using ibuprofen 400 mg 3 times a day. Follow up with orthopedics with persistent or worsening symptoms. Bebeto Lopez MD [facility] 05-18-2024 History of Presen t illness Narrative Patient presents with: left wrist pain: X 8-9 days-cannot recall an injury HPI: Left wrist pain: Duration: 9 days. Thinks it may have been triggered by playing a new handheld game. Location: left ulnar wrist Character: aching and throbbing Radiation: sometimes up the forearm Aggravating: twisting and bending wrist, flexing fingers Relieving: Pain relievers: Advil, ice, heat, cockup splint Associated: numbness in 3-5th fingers, swelling Pertinent negatives: MEDICATIONS: ergocalciferol 50,000 unit capsule (VITAMIN D2, DRISDOL) Take 1 capsule by mouth one time a week. busPIRone (BUSPAR) 10 mg tablet Take 1 tablet by mouth two times a day. gabapentin (NEURONTIN) 100 mg capsule Take 1 capsule by mouth three times a day for 180 days. semaglutide (OZEMPIC) 2 mg/dose (8 mg/3 mL) pen injector Inject 2 mg subcutaneously one time a week. ferrous sulfate 325 mg (65 mg iron) tablet Take 1 tablet by mouth two times a day with meals. potassium chloride (K-TAB) 10 mEq tablet Take 1 tablet by mouth daily with breakfast. metFORMIN ER (GLUCOPHAGE XR) 500 mg 24 hr tablet Take 2 tablets by mouth two times a day at 6 am and 9 pm. losartan-hydroCHLOROthiazide (HYZAAR) 50-12.5 mg per tablet Take 1 tablet by mouth once daily. sertraline (ZOLOFT) 100 mg tablet TAKE 1 AND 1/2 TABLETS ONCEDAILY pioglitazone (ACTOS) 15 mg tablet take 1 tablet once daily pravastatin (PRAVACHOL) 20 mg tablet take 1 tablet once daily glimepiride (AMARYL) 4 mg tablet TAKE 1 TABLET DAILY WITH BREAKFAST CPAP Settings 13 - 20 cm H2O, suitable mask per pt preference, chin strap, head gear, humidity, filters, tubing, lifetime supplies. G47.33 RANDA Lancing Device [facility] Use to monitor blood sugars a directed Lancets lancets Use as instructed to monitor blood sugars when prompted by Freestyle Shilo. Up to 4 per day. insulin needles, DISPOSABLE, (BD INSULIN PEN NEEDLE UF) 31 gauge x 5/16 1 Each once daily. With Victoza. ICD10: E11.65 aspirin 81 mg chewable tablet CHEW 1 TABLET ONCE DAILY Blood-Glucose Meter monitoring kit Glucose Meter of Choice (pending insurance coverage) - Kit - Dx: Type 2 DM - Uncontrolled E11.65 NORGESTIMATE-ETHINYL ESTRADIOL (PREVIFEM ORAL) Take 1 tablet by mouth once daily. ALLERGIES: ALLERGIES Allergen Reactions Amoxicillin Rash Lisinopril Cough cough Niacin Intolerance Caused whole body to become red and warm. VITALS: BP 112/68 Pulse 60 Temp 36.4 C (97.5 F) (Tympanic) Resp 18 Wt (!) 141.8 kg (312 lb 9.8 oz) LMP 11/05/2023 (Exact Date) SpO2 99% BMI 52.02 kg/m PHYSICAL EXAM: GEN: pleasant, alert, no acute distress ELBOW: Left. No pain with flexion or extension. Near normal supination and pronation. No distal symptoms with cubital tunnel percussion. WRIST: left. Mild swelling. Limits flexion and extension. No pain with radial or ulnar deviation. Tender ulnar wrist. No snuffbox tenderness. HAND: left. Subjective pain with movement of medial fingers. Limited flexion and avoids full extension. Normal distal sensation. ASSESSMENT/PLAN: 1. Acute wrist pain, left - ICD9: 719.43, ICD10: M25.532 - XR WRIST GENERAL 3V PA/LAT/OBL LEFT - RESULT: No fracture, dislocation or destructive changes. Joint spaces and articular surfaces are preserved. Small ossicles project along the volar to the carpal bones on the lateral view. Suspect ulnar neuropathy and connective tissue irritation from positioning and overuse with new game system. Continue treatment with rest, ice, cock up splint, and NSAID. She may continue using ibuprofen 400 mg 3 times a day. Follow up with orthopedics with persistent or worsening symptoms. Bebeto Lopez MD documented in this encounter [facility] 05-14-2024 Telephone encounter Note The following approved medication requests have been transmitted electronically. Requested Prescriptions Pending Prescriptions Disp Refills ergocalciferol 50,000 unit capsule (VITAMIN D2, DRISDOL) 12 capsule 0 Sig: Take 1 capsule by mouth one time a week. busPIRone (BUSPAR) 10 mg tablet 180 tablet 0 Sig: Take 1 tablet by mouth two times a day. gabapentin (NEURONTIN) 100 mg capsule 270 capsule 1 Sig: Take 1 capsule by mouth three times a day for 180 days. semaglutide (OZEMPIC) 2 mg/dose (8 mg/3 mL) pen injector 3 Each 5 Sig: Inject 2 mg subcutaneously one time a week. Rosa Ballard APRN.CNP [facility] 05-14-2024 Miscellaneous Notes The following approved medication requests have been transmitted electronically. Requested Prescriptions Pending Prescriptions Disp Refills ergocalciferol 50,000 unit capsule (VITAMIN D2, DRISDOL) 12 capsule 0 Sig: Take 1 capsule by mouth one time a week. busPIRone (BUSPAR) 10 mg tablet 180 tablet 0 Sig: Take 1 tablet by mouth two times a day. gabapentin (NEURONTIN) 100 mg capsule 270 capsule 1 Sig: Take 1 capsule by mouth three times a day for 180 days. semaglutide (OZEMPIC) 2 mg/dose (8 mg/3 mL) pen injector 3 Each 5 Sig: Inject 2 mg subcutaneously one time a week. Rosa Ballard APRN.CNP The patient has been identified by name and date of : Yes Caregiver verified no other encounters exist for this prescription request: Yes Caregiver confirmed with patient/requestor that no other refills are due, in the near future, with this provider at this time: Yes The last office visit in the department: 11/01/2023 Does the patient have a future office visit with this provider/department: Yes 06/24/2024 Requested Prescriptions Pending Prescriptions Disp Refills ergocalciferol 50,000 unit capsule (VITAMIN D2, DRISDOL) 12 capsule 1 Sig: Take 1 capsule by mouth one time a week. busPIRone (BUSPAR) 10 mg tablet 180 tablet 3 Sig: Take 1 tablet by mouth two times a day. gabapentin (NEURONTIN) 100 mg capsule 270 capsule 1 Sig: Take 1 capsule by mouth three times a day for 180 days. semaglutide (OZEMPIC) 2 mg/dose (8 mg/3 mL) pen injector 3 Each 5 Sig: Inject 2 mg subcutaneously one time a week. Patient had to reschedule appt for today DATA PROCESSING SYSTEMS CONSULTANT called off, patient needs refills on meds. Viv Frausto LPN May 14, 2024 1:54 PM documented in this encounter [facility] 05-14-2024 Telephone encounter Note The patient has been identified by name and date of : Yes Caregiver verified no other encounters exist for this prescription request: Yes Caregiver confirmed with patient/requestor that no other refills are due, in the near future, with this provider at this time: Yes The last office visit in the department: 11/01/2023 Does the patient have a future office visit with this provider/department: Yes 06/24/2024 Requested Prescriptions Pending Prescriptions Disp Refills ergocalciferol 50,000 unit capsule (VITAMIN D2, DRISDOL) 12 capsule 1 Sig: Take 1 capsule by mouth one time a week. busPIRone (BUSPAR) 10 mg tablet 180 tablet 3 Sig: Take 1 tablet by mouth two times a day. gabapentin (NEURONTIN) 100 mg capsule 270 capsule 1 Sig: Take 1 capsule by mouth three times a day for 180 days. semaglutide (OZEMPIC) 2 mg/dose (8 mg/3 mL) pen injector 3 Each 5 Sig: Inject 2 mg subcutaneously one time a week. Patient had to reschedule appt for today DATA PROCESSING SYSTEMS CONSULTANT called off, patient needs refills on meds. Viv Frausto LPN May 14, 2024 1:54 PM [facility] 03-26-2024 History of Presen t illness Narrative Radiology Service Progress Note PATIENT NAME: Tobi Farfan DATE OF SERVICE: March 26, 2024 TIME: 4:50 PM PATIENT IDENTITY VERIFICATION COMPLETED USING TWO (2) IDENTIFIERS: Name and Date of confirmed by patient verbally. FALL SCREENING: Has the patient had 2 falls in the last year or 1 fall with injury or currently using an Ambulatory Assistive Device (Walker, Cane, Wheelchair, Crutches, etc.)? No PATIENT GENDER DATA: Female. status: : No status: NO. PATIENT RELEVANT IMPLANT DATA REVIEWED: Yes PATIENT PRESENTS WITH AN IMPLANTABLE OR ATTACHED [place] MACHINE OPERATOR: No RADIOLOGY DEPARTMENT: General X-ray: Exam(s) Completed: Chest X-Ray PERIPHERAL IV DATA: Not applicable SIGNED BY: RT Juan Antonio(Shanthi) March 26, 2024 4:50 PM documented in this encounter [facility] 03-26-2024 Note HNO ID: [id number] Author: ESEQUIEL DAVIS RT(R) Service: ? Author Type: Roll Up Helper Type: Progress Notes Filed: 03/26/2024 16:57 Note Text: Radiology Service Progress Note PATIENT NAME: Tobi Farfan DATE OF SERVICE: March 26, 2024 TIME: 4:50 PM PATIENT IDENTITY VERIFICATION COMPLETED USING TWO (2) IDENTIFIERS: Name and Date of confirmed by patient verbally. FALL SCREENING: Has the patient had 2 falls in the last year or 1 fall with injury or currently using an Ambulatory Assistive Device (Walker, Cane, Wheelchair, Crutches, etc.)? No PATIENT GENDER DATA: Female. status: : No status: NO. PATIENT RELEVANT IMPLANT DATA REVIEWED: Yes PATIENT PRESENTS WITH AN IMPLANTABLE OR ATTACHED [place] MACHINE OPERATOR: No RADIOLOGY DEPARTMENT: General X-ray: Exam(s) Completed: Chest X-Ray PERIPHERAL IV DATA: Not applicable SIGNED BY: RONY Romano) March 26, 2024 4:50 PM [facility] 03-26-2024 Note HNO ID: [id number] Author: CHEYENNE SOTELO APRN.RETAIL WIRELESS SALES REPRESENTATIVE Service: ? Author Type: Nurse Practitioner Type: Progress Notes Filed: 03/26/2024 17:49 Note Text: CC: Patient presents with: Cough: Cough persistent x 6 months last week became more deep AND productive Cough with sore throat, intermittent fever AND chest congesti: Persistent cough x 6 months last week became more deep with productive in the last 48 HR HPI: Tobi Farfan is a 49 year old female who presents to the office with complaint of chest congestion, head congestion, and cough, nonproductive for 2 weeks. Symptoms are worsening Associated symptoms includes wheezing and dyspnea. Denies nausea, vomiting , and diarrhea. Treatments tried include nothing so far. with no relief of symptoms. Sick contacts: unknown. History of asthma, frequent episodes of bronchitis, chronic bronchitis, bronchiectasis or COPD: No Smoker: No Seasonal/environmental allergies: No The ROS is otherwise negative. The patient's pmh, medications, allergies, and past visits are reviewed. PHYSICAL EXAM: BP 120/78 Pulse 72 Temp 37.3 ?C (99.2 ?F) (Left Tympanic) Resp 20 Wt (!) 137.9 kg (304 lb 0.2 oz) LMP 11/05/2023 (Exact Date) SpO2 96% BMI 50.59 kg/m? General appearance: alert, cooperative, pleasant, in no acute distress Head: Normocephalic Eyes: EOM's intact, conjunctiva pink and moist, no icterus, sclera white, non-injected Ears: Right ear: External ear/canal- Normal, TM - clear with good landmarks. Left ear: External ear/canal- Normal, TM - clear with good landmarks Oropharynx:mild erythema, without exudates present Heart: Negative. RRR without obvious murmur, gallop, or rubs. No ectopy. Lungs: clear to auscultation, without rales or wheeze, good air exchange PAST MEDICAL HISTORY Diagnosis Date Anxiety Carpal tunnel syndrome Clostridium difficile diarrhea Recurrent infection 2011 Diabetes mellitus (HCC) Dysmetabolic syndrome Gestational diabetes Hypertension Obesity RANDA (obstructive sleep apnea) DME [employer] for AutoPAP - AHI 70.5 PAST SURGICAL HISTORY Procedure Laterality Date DELIVERY ONLY 12/03/2011 , low transverse; wound infection DILATION AND CURETTAGE DXAND/THER NONOBSTETRIC 11/24/2013 Dilation AND curettage HYSTEROSCOPY, DIAGNOSTIC (SEPARATE 11/24/2013 Hysteroscopy PAST SURGICAL HISTORY OF 01/12/2012 debridement post infection WOUND VAC 2011 ALLERGIES Amoxicillin, Lisinopril, and Niacin MEDICATIONS ferrous sulfate 325 mg (65 mg iron) tablet Take 1 tablet by mouth two times a day with meals. semaglutide (OZEMPIC) 2 mg/dose (8 mg/3 mL) pen injector Inject 2 mg subcutaneously one time a week. potassium chloride (K-TAB) 10 mEq tablet Take 1 tablet by mouth daily with breakfast. gabapentin (NEURONTIN) 100 mg capsule Take 1 capsule by mouth three times a day for 180 days. metFORMIN ER (GLUCOPHAGE XR) 500 mg 24 hr tablet Take 2 tablets by mouth two times a day at 6 am and 9 pm. ergocalciferol 50,000 unit capsule (VITAMIN D2, DRISDOL) Take 1 capsule by mouth one time a week. losartan-hydroCHLOROthiazide (HYZAAR) 50-12.5 mg per tablet Take 1 tablet by mouth once daily. sertraline (ZOLOFT) 100 mg tablet TAKE 1 AND 1/2 TABLETS ONCEDAILY pioglitazone (ACTOS) 15 mg tablet take 1 tablet once daily pravastatin (PRAVACHOL) 20 mg tablet take 1 tablet once daily glimepiride (AMARYL) 4 mg tablet TAKE 1 TABLET DAILY WITH BREAKFAST busPIRone (BUSPAR) 10 mg tablet Take 1 tablet by mouth two times a day. CPAP Settings 13 - 20 cm H2O, suitable mask per pt preference, chin strap, head gear, humidity, filters, tubing, lifetime supplies. G47.33 RANDA Lancing Device misc Use to monitor blood sugars a directed Lancets lancets Use as instructed to monitor blood sugars when prompted by Freestyle Shilo. Up to 4 per day. insulin needles, DISPOSABLE, (BD INSULIN PEN NEEDLE UF) 31 gauge x 5/16 1 Each once daily. With Victoza. ICD10: E11.65 aspirin 81 mg chewable tablet CHEW 1 TABLET ONCE DAILY Blood-Glucose Meter monitoring kit Glucose Meter of Choice (pending insurance coverage) - Kit - Dx: Type 2 DM - Uncontrolled E11.65 NORGESTIMATE-ETHINYL ESTRADIOL (PREVIFEM ORAL) Take 1 tablet by mouth once daily. (Patient not taking: Reported on 11/26/2023) FAMILY HISTORY Problem Relation Age of Onset Osteoporosis Mother Psychiatry Mother anorexia, depression Diabetes Father Hypertension Father Psychiatry Father bipolar d/o Cancer Maternal Grandmother Liver Heart Maternal Grandfather [place] Diabetes Paternal Aunt Social History Tobacco Use Smoking status: Never Smokeless tobacco: Never Vaping Use Vaping status: Never Used Substance Use Topics Alcohol use: No Drug use: No ASSESSMENT/PLAN: 1. Acute cough - ICD9: 786.2, ICD10: R05.1 (primary diagnosis) - XR CHEST 2V FRONTAL/LAT - neg 2. Rhinosinusitis - ICD9: 473.9, ICD10: J32.9 - DOXYCY (more content not included)... [facility] 03-26-2024 History of Presen t illness Narrative CC: Patient presents with: Cough: Cough persistent x 6 months last week became more deep & productive Cough with sore throat, intermittent fever & chest congesti: Persistent cough x 6 months last week became more deep with productive in the last 48 HR HPI: Tobi Farfan is a 49 year old female who presents to the office with complaint of chest congestion, head congestion, and cough, nonproductive for 2 weeks. Symptoms are worsening Associated symptoms includes wheezing and dyspnea. Denies nausea, vomiting , and diarrhea. Treatments tried include nothing so far. with no relief of symptoms. Sick contacts: unknown. History of asthma, frequent episodes of bronchitis, chronic bronchitis, bronchiectasis or COPD: No Smoker: No Seasonal/environmental allergies: No The ROS is otherwise negative. The patient's pmh, medications, allergies, and past visits are reviewed. PHYSICAL EXAM: BP 120/78 Pulse 72 Temp 37.3 C (99.2 F) (Left Tympanic) Resp 20 Wt (!) 137.9 kg (304 lb 0.2 oz) LMP 11/05/2023 (Exact Date) SpO2 96% BMI 50.59 kg/m General appearance: alert, cooperative, pleasant, in no acute distress Head: Normocephalic Eyes: EOM's intact, conjunctiva pink and moist, no icterus, sclera white, non-injected Ears: Right ear: External ear/canal- Normal, TM - clear with good landmarks. Left ear: External ear/canal- Normal, TM - clear with good landmarks Oropharynx:mild erythema, without exudates present Heart: Negative. RRR without obvious murmur, gallop, or rubs. No ectopy. Lungs: clear to auscultation, without rales or wheeze, good air exchange PAST MEDICAL HISTORY Diagnosis Date Anxiety Carpal tunnel syndrome Clostridium difficile diarrhea Recurrent infection 2011 Diabetes mellitus (HCC) Dysmetabolic syndrome Gestational diabetes Hypertension Obesity RANDA (obstructive sleep apnea) DME [employer] for AutoPAP - AHI 70.5 PAST SURGICAL HISTORY Procedure Laterality Date DELIVERY ONLY 12/03/2011 , low transverse; wound infection DILATION & CURETTAGE DX&/THER NONOBSTETRIC 11/24/2013 Dilation & curettage HYSTEROSCOPY, DIAGNOSTIC (SEPARATE 11/24/2013 Hysteroscopy PAST SURGICAL HISTORY OF 01/12/2012 debridement post infection WOUND VAC 2011 ALLERGIES Amoxicillin, Lisinopril, and Niacin MEDICATIONS ferrous sulfate 325 mg (65 mg iron) tablet Take 1 tablet by mouth two times a day with meals. semaglutide (OZEMPIC) 2 mg/dose (8 mg/3 mL) pen injector Inject 2 mg subcutaneously one time a week. potassium chloride (K-TAB) 10 mEq tablet Take 1 tablet by mouth daily with breakfast. gabapentin (NEURONTIN) 100 mg capsule Take 1 capsule by mouth three times a day for 180 days. metFORMIN ER (GLUCOPHAGE XR) 500 mg 24 hr tablet Take 2 tablets by mouth two times a day at 6 am and 9 pm. ergocalciferol 50,000 unit capsule (VITAMIN D2, DRISDOL) Take 1 capsule by mouth one time a week. losartan-hydroCHLOROthiazide (HYZAAR) 50-12.5 mg per tablet Take 1 tablet by mouth once daily. sertraline (ZOLOFT) 100 mg tablet TAKE 1 AND 1/2 TABLETS ONCEDAILY pioglitazone (ACTOS) 15 mg tablet take 1 tablet once daily pravastatin (PRAVACHOL) 20 mg tablet take 1 tablet once daily glimepiride (AMARYL) 4 mg tablet TAKE 1 TABLET DAILY WITH BREAKFAST busPIRone (BUSPAR) 10 mg tablet Take 1 tablet by mouth two times a day. CPAP Settings 13 - 20 cm H2O, suitable mask per pt preference, chin strap, head gear, humidity, filters, tubing, lifetime supplies. G47.33 RANDA Lancing Device misc Use to monitor blood sugars a directed Lancets lancets Use as instructed to monitor blood sugars when prompted by Freestyle Shilo. Up to 4 per day. insulin needles, DISPOSABLE, (BD INSULIN PEN NEEDLE UF) 31 gauge x 5/16 1 Each once daily. With Victoza. ICD10: E11.65 aspirin 81 mg chewable tablet CHEW 1 TABLET ONCE DAILY Blood-Glucose Meter monitoring kit Glucose Meter of Choice (pending insurance coverage) - Kit - Dx: Type 2 DM - Uncontrolled E11.65 NORGESTIMATE-ETHINYL ESTRADIOL (PREVIFEM ORAL) Take 1 tablet by mouth once daily. (Patient not taking: Reported on 11/26/2023) FAMILY HISTORY Problem Relation Age of Onset Osteoporosis Mother Psychiatry Mother anorexia, depression Diabetes Father Hypertension Father Psychiatry Father bipolar d/o Cancer Maternal Grandmother Liver Heart Maternal Grandfather [place] Diabetes Paternal Aunt Social History Tobacco Use Smoking status: Never Smokeless tobacco: Never Vaping Use Vaping status: Never Used Substance Use Topics Alcohol use: No Drug use: No ASSESSMENT/PLAN: 1. Acute cough - ICD9: 786.2, ICD10: R05.1 (primary diagnosis) - XR CHEST 2V FRONTAL/LAT - neg 2. Rhinosinusitis - ICD9: 473.9, ICD10: J32.9 - DOXYCYCLINE HYCLATE 100 MG TABLET Prescription instructions reviewed with patient as applicable. Potential red flag symptoms discussed with the patient. Reviewed appropriate action plan to take if red flag symptoms occur. Patient agreeable to treatment plan. Cheeynne Sotelo APRN.RETAIL WIRELESS SALES REPRESENTATIVE documented in this encounter [facility] 03-11-2024 Telephone encounter Note Prescription Refill Information The patient has been identified by name and date of : Yes Caregiver verified no other encounters exist for this prescription request: Yes Caregiver confirmed with patient/requestor that no other refills are due, in the near future, with this provider at this time: Yes The last office visit in the department: 10/13/23 Does the patient have a future office visit with this provider/department: Yes 05/14/24 Requested Prescriptions Pending Prescriptions Disp Refills ferrous sulfate 325 mg (65 mg iron) tablet 180 tablet 1 Sig: Take 1 tablet by mouth two times a day with meals. Jess Mcmanus LPN March 11, 2024 9:09 AM [facility] 03-11-2024 Miscellaneous Notes Prescription Refill Information The patient has been identified by name and date of : Yes Caregiver verified no other encounters exist for this prescription request: Yes Caregiver confirmed with patient/requestor that no other refills are due, in the near future, with this provider at this time: Yes The last office visit in the department: 10/13/23 Does the patient have a future office visit with this provider/department: Yes 05/14/24 Requested Prescriptions Pending Prescriptions Disp Refills ferrous sulfate 325 mg (65 mg iron) tablet 180 tablet 1 Sig: Take 1 tablet by mouth two times a day with meals. Jess Mcmanus LPN March 11, 2024 9:09 AM documented in this encounter [facility] 03-11-2024 Telephone encounter Note Prescription Refill Information The patient has been identified by name and date of : Yes Caregiver verified no other encounters exist for this prescription request: Yes Caregiver confirmed with patient/requestor that no other refills are due, in the near future, with this provider at this time: Yes The last office visit in the department: 11/01/23 Does the patient have a future office visit with this provider/department: Yes 05/14/24 Requested Prescriptions Pending Prescriptions Disp Refills semaglutide (OZEMPIC) 2 mg/dose (8 mg/3 mL) pen injector 3 Each 5 Sig: Inject 2 mg subcutaneously one time a week. Jess Mcmanus LPN March 11, 2024 7:29 AM [facility] 03-11-2024 Miscellaneous Notes Prescription Refill Information The patient has been identified by name and date of : Yes Caregiver verified no other encounters exist for this prescription request: Yes Caregiver confirmed with patient/requestor that no other refills are due, in the near future, with this provider at this time: Yes The last office visit in the department: 11/01/23 Does the patient have a future office visit with this provider/department: Yes 05/14/24 Requested Prescriptions Pending Prescriptions Disp Refills semaglutide (OZEMPIC) 2 mg/dose (8 mg/3 mL) pen injector 3 Each 5 Sig: Inject 2 mg subcutaneously one time a week. Jess Mcmanus LPN March 11, 2024 7:29 AM documented in this encounter [facility] 12-31-2023 Note HNO ID: [id number] Author: NAWAF GALLARDO APRN.RETAIL WIRELESS SALES REPRESENTATIVE Service: ? Author Type: Nurse Practitioner Type: Progress Notes Filed: 12/31/2023 19:55 Note Text: Subjective HPI Nontoxic-appearing female presents urgent care chief complaint possible cellulitis. Duration of symptoms 1 week. Associated symptoms pain redness. Initially area was rash that was pruritic. States itching has improved pain is stayed persistent. No OTC medications today. Has tried a triple antibiotic. Feels like symptoms are worsening. No recent medication changes antibiotic use. Overall feels well. Denies any fever body aches chills productive cough chest pain shortness of breath pleuritic pain hemoptysis nausea vomiting abdominal pain change in bowel or bladder habits. Past medical history prescription medication use and allergies reviewed. Denies chance of . BP 115/77 Pulse 63 Temp 36.4 ?C (97.5 ?F) Resp 18 Wt (!) 138.2 kg (304 lb 10.8 oz) LMP 11/05/2023 (Exact Date) SpO2 98% BMI 50.70 kg/m? .Patient presents with: Derm Problem: Sore on abdomen possibly infected x1 week PAST MEDICAL HISTORY No date: Anxiety No date: Carpal tunnel syndrome No date: Clostridium difficile diarrhea Comment: Recurrent infection 2011 No date: Diabetes mellitus (HCC) No date: Dysmetabolic syndrome No date: Gestational diabetes No date: Hypertension No date: Obesity No date: RANDA (obstructive sleep apnea) Comment: [facility] for AutoPAP - AHI 70.5 PAST SURGICAL HISTORY 12/03/2011: DELIVERY ONLY Comment: , low transverse; wound infection 11/24/2013: DILATION AND CURETTAGE DXAND/THER NONOBSTETRIC Comment: Dilation AND curettage 11/24/2013: HYSTEROSCOPY, DIAGNOSTIC (SEPARATE Comment: Hysteroscopy 01/12/2012: PAST SURGICAL HISTORY OF Comment: debridement post infection 2011: WOUND VAC ALLERGIES Amoxicillin, Lisinopril, and Niacin MEDICATIONS potassium chloride (K-TAB) 10 mEq tablet Take 1 tablet by mouth daily with breakfast. gabapentin (NEURONTIN) 100 mg capsule Take 1 capsule by mouth three times a day for 180 days. metFORMIN ER (GLUCOPHAGE XR) 500 mg 24 hr tablet Take 2 tablets by mouth two times a day at 6 am and 9 pm. ergocalciferol 50,000 unit capsule (VITAMIN D2, DRISDOL) Take 1 capsule by mouth one time a week. losartan-hydroCHLOROthiazide (HYZAAR) 50-12.5 mg per tablet Take 1 tablet by mouth once daily. sertraline (ZOLOFT) 100 mg tablet TAKE 1 AND 1/2 TABLETS ONCEDAILY pioglitazone (ACTOS) 15 mg tablet take 1 tablet once daily pravastatin (PRAVACHOL) 20 mg tablet take 1 tablet once daily glimepiride (AMARYL) 4 mg tablet TAKE 1 TABLET DAILY WITH BREAKFAST busPIRone (BUSPAR) 10 mg tablet Take 1 tablet by mouth two times a day. CPAP Settings 13 - 20 cm H2O, suitable mask per pt preference, chin strap, head gear, humidity, filters, tubing, lifetime supplies. G47.33 RANDA semaglutide (OZEMPIC) 2 mg/dose (8 mg/3 mL) pen injector Inject 2 mg subcutaneously one time a week. ferrous sulfate 325 mg (65 mg iron) tablet Take 1 tablet by mouth twice daily with meals. Lancing Device misc Use to monitor blood sugars a directed Lancets lancets Use as instructed to monitor blood sugars when prompted by Freestyle Shilo. Up to 4 per day. insulin needles, DISPOSABLE, (BD INSULIN PEN NEEDLE UF) 31 gauge x 5/16 1 Each once daily. With Victoza. ICD10: E11.65 aspirin 81 mg chewable tablet CHEW 1 TABLET ONCE DAILY Blood-Glucose Meter monitoring kit Glucose Meter of Choice (pending insurance coverage) - Kit - Dx: Type 2 DM - Uncontrolled E11.65 NORGESTIMATE-ETHINYL ESTRADIOL (PREVIFEM ORAL) Take 1 tablet by mouth once daily. (Patient not taking: Reported on 11/26/2023) FAMILY HISTORY Problem Relation Age of Onset Osteoporosis Mother Psychiatry Mother anorexia, depression Diabetes Father Hypertension Father Psychiatry Father bipolar d/o Cancer Maternal Grandmother Liver Heart Maternal Grandfather [place] Diabetes Paternal Aunt Social History Tobacco Use Smoking status: Never Smokeless tobacco: Never Vaping Use Vaping status: Never Used Substance Use Topics Alcohol use: No Drug use: No Review of Systems Constitutional: Negative for chills, fever and malaise/fatigue. HENT: Negative for congestion, ear discharge, ear pain, sinus pain and sore throat. Eyes: Negative for blurred vision, pain, discharge and redness. Respiratory: Negative for cough, hemoptysis, sputum production, shortness of breath, wheezing and stridor. Cardiovascular: Negative for chest pain. Gastrointestinal: Negative for abdominal pain, diarrhea, nausea and vomiting. Musculoskeletal: Negative for myalgias. Nonhealing wound Skin: Negative for itching and rash. Neurological: Negative for dizziness and headaches. Objective Physical Exam Constitutional: General: She is not in acute distress. Appearance: She is not toxic-appearing. HENT: Head (more content not included)... [facility] 12-31-2023 History of Presen t illness Narrative Images from the original note were not included. Subjective HPI Nontoxic-appearing female presents urgent care chief complaint possible cellulitis. Duration of symptoms 1 week. Associated symptoms pain redness. Initially area was rash that was pruritic. States itching has improved pain is stayed persistent. No OTC medications today. Has tried a triple antibiotic. Feels like symptoms are worsening. No recent medication changes antibiotic use. Overall feels well. Denies any fever body aches chills productive cough chest pain shortness of breath pleuritic pain hemoptysis nausea vomiting abdominal pain change in bowel or bladder habits. Past medical history prescription medication use and allergies reviewed. Denies chance of . BP 115/77 Pulse 63 Temp 36.4 C (97.5 F) Resp 18 Wt (!) 138.2 kg (304 lb 10.8 oz) LMP 11/05/2023 (Exact Date) SpO2 98% BMI 50.70 kg/m .Patient presents with: Derm Problem: Sore on abdomen possibly infected x1 week PAST MEDICAL HISTORY No date: Anxiety No date: Carpal tunnel syndrome No date: Clostridium difficile diarrhea Comment: Recurrent infection 2011 No date: Diabetes mellitus (HCC) No date: Dysmetabolic syndrome No date: Gestational diabetes No date: Hypertension No date: Obesity No date: RANDA (obstructive sleep apnea) Comment: [facility] Ar[employer]ate for AutoPAP - AHI 70.5 PAST SURGICAL HISTORY 12/03/2011: DELIVERY ONLY Comment: , low transverse; wound infection 11/24/2013: DILATION & CURETTAGE DX&/THER NONOBSTETRIC Comment: Dilation & curettage 11/24/2013: HYSTEROSCOPY, DIAGNOSTIC (SEPARATE Comment: Hysteroscopy 01/12/2012: PAST SURGICAL HISTORY OF Comment: debridement post infection 2012: WOUND VAC ALLERGIES Amoxicillin, Lisinopril, and Niacin MEDICATIONS potassium chloride (K-TAB) 10 mEq tablet Take 1 tablet by mouth daily with breakfast. gabapentin (NEURONTIN) 100 mg capsule Take 1 capsule by mouth three times a day for 180 days. metFORMIN ER (GLUCOPHAGE XR) 500 mg 24 hr tablet Take 2 tablets by mouth two times a day at 6 am and 9 pm. ergocalciferol 50,000 unit capsule (VITAMIN D2, DRISDOL) Take 1 capsule by mouth one time a week. losartan-hydroCHLOROthiazide (HYZAAR) 50-12.5 mg per tablet Take 1 tablet by mouth once daily. sertraline (ZOLOFT) 100 mg tablet TAKE 1 AND 1/2 TABLETS ONCEDAILY pioglitazone (ACTOS) 15 mg tablet take 1 tablet once daily pravastatin (PRAVACHOL) 20 mg tablet take 1 tablet once daily glimepiride (AMARYL) 4 mg tablet TAKE 1 TABLET DAILY WITH BREAKFAST busPIRone (BUSPAR) 10 mg tablet Take 1 tablet by mouth two times a day. CPAP Settings 13 - 20 cm H2O, suitable mask per pt preference, chin strap, head gear, humidity, filters, tubing, lifetime supplies. G47.33 RANDA semaglutide (OZEMPIC) 2 mg/dose (8 mg/3 mL) pen injector Inject 2 mg subcutaneously one time a week. ferrous sulfate 325 mg (65 mg iron) tablet Take 1 tablet by mouth twice daily with meals. Lancing Device misc Use to monitor blood sugars a directed Lancets lancets Use as instructed to monitor blood sugars when prompted by Freestyle Shilo. Up to 4 per day. insulin needles, DISPOSABLE, (BD INSULIN PEN NEEDLE UF) 31 gauge x 5/16 1 Each once daily. With Victoza. ICD10: E11.65 aspirin 81 mg chewable tablet CHEW 1 TABLET ONCE DAILY Blood-Glucose Meter monitoring kit Glucose Meter of Choice (pending insurance coverage) - Kit - Dx: Type 2 DM - Uncontrolled E11.65 NORGESTIMATE-ETHINYL ESTRADIOL (PREVIFEM ORAL) Take 1 tablet by mouth once daily. (Patient not taking: Reported on 11/26/2023) FAMILY HISTORY Problem Relation Age of Onset Osteoporosis Mother Psychiatry Mother anorexia, depression Diabetes Father Hypertension Father Psychiatry Father bipolar d/o Cancer Maternal Grandmother Liver Heart Maternal Grandfather [place] Diabetes Paternal Aunt Social History Tobacco Use Smoking status: Never Smokeless tobacco: Never Vaping Use Vaping status: Never Used Substance Use Topics Alcohol use: No Drug use: No Review of Systems Constitutional: Negative for chills, fever and malaise/fatigue. HENT: Negative for congestion, ear discharge, ear pain, sinus pain and sore throat. Eyes: Negative for blurred vision, pain, discharge and redness. Respiratory: Negative for cough, hemoptysis, sputum production, shortness of breath, wheezing and stridor. Cardiovascular: Negative for chest pain. Gastrointestinal: Negative for abdominal pain, diarrhea, nausea and vomiting. Musculoskeletal: Negative for myalgias. Nonhealing wound Skin: Negative for itching and rash. Neurological: Negative for dizziness and headaches. Objective Physical Exam Constitutional: General: She is not in acute distress. Appearance: She is not toxic-appearing. HENT: Head: Normocephalic. Nose: Nose normal. Mouth/Throat: Mouth: Mucous membranes are moist. Pharynx: Oropharynx is clear. No oropharyngeal exudate or posterior oropharyngeal erythema. Eyes: Pupils: Pupils are equal, round, and reactive to light. Cardiovascular: Rate and Rhythm: Normal rate. Pulmonary: Effort: Pulmonary effort is normal. No respiratory distress. Musculoskeletal: Cervical back: Normal range of motion. Skin: General: Skin is warm and dry. Comments: Multiple areas of excoriation noted. Surrounding erythema noted. No drainage. No remote redness or fluctuance. No abscess formation noted. Neurological: General: No focal deficit present. Mental Status: She is alert. ASSESSMENT/PLAN: 1. Cellulitis of skin - ICD9: 682.9, ICD10: L03.90 Diagnosis cellulitis skin. Suspicious poison laura exposure initially secondary bacterial infection due to skin opening from excoriation. Treat with doxycycline and mupirocin. Patient was educated on supportive therapies. Patient will follow up with primary care provider as needed. Patient was instructed to immediately proceed to emergency room for any new, worsening, or symptoms lasting longer than anticipated. The patient's clinical presentation is otherwise unremarkable at this time. Based on exam and clinical finding, the patient is stable for discharge. Plan of care was discussed with patient. Patient verbalizes understanding and agrees to plan of care. This note was generated using Songkick software. It may contain errors in wording, punctuation, or spelling. Nawaf Gallardo APRN.MARIA documented in this encounter [facility] 12-31-2023 Telephone encounter Note Notified via [employer] [facility] 12-31-2023 Miscellaneous Notes Notified via [employer] This was refilled on 10/31 for a 6 month supply, she should have a refill remaining Miriam Pratt APRN.MARIA Patient has been identified by name and date of : Yes Patient phones for refill(s): Requested Prescriptions Pending Prescriptions Disp Refills gabapentin (NEURONTIN) 100 mg capsule 270 capsule 1 Sig: Take 1 capsule by mouth three times a day for 180 days. Date of last office visit in primary care: 11/01/2023 Date of next office visit in primary care: 05/14/2024 Please advise. Thank you. Anisha Trejo LPN. documented in this encounter [facility] 12-31-2023 Telephone encounter Note This was refilled on 10/31 for a 6 month supply, she should have a refill remaining Miriam Pratt APRN.RETAIL WIRELESS SALES REPRESENTATIVE [facility] 12-30-2023 Telephone encounter Note Patient has been identified by name and date of : Yes Patient phones for refill(s): Requested Prescriptions Pending Prescriptions Disp Refills gabapentin (NEURONTIN) 100 mg capsule 270 capsule 1 Sig: Take 1 capsule by mouth three times a day for 180 days. Date of last office visit in primary care: 11/01/2023 Date of next office visit in primary care: 05/14/2024 Please advise. Thank you. Anisha Trejo LPN. [facility] 12-12-2023 History of Presen t illness Narrative Radiology Service Progress Note PATIENT NAME: Tobi Farfan DATE OF SERVICE: December 12, 2023 TIME: 3:07 PM PATIENT IDENTITY VERIFICATION COMPLETED USING TWO (2) IDENTIFIERS: Name and Date of confirmed by patient verbally. FALL SCREENING: Has the patient had 2 falls in the last year or 1 fall with injury or currently using an Ambulatory Assistive Device (Walker, Cane, Wheelchair, Crutches, etc.)? No PATIENT GENDER DATA: Female. status: : No status: NO. PATIENT RELEVANT IMPLANT DATA REVIEWED: Yes PATIENT PRESENTS WITH AN IMPLANTABLE OR ATTACHED [place] MACHINE OPERATOR: No RADIOLOGY DEPARTMENT: MR; Exam(s) Completed: Lower MSK: Knee, right PERIPHERAL IV DATA: Not applicable SIGNED BY: RT Irina(Shanthi) December 12, 2023 3:07 PM documented in this encounter [facility] 12-12-2023 Note HNO ID: [id number] Author: GLADYS PANCHAL RT(Shanthi) Service: ? Author Type: Technologist Type: Progress Notes Filed: 12/12/2023 15:08 Note Text: Radiology Service Progress Note PATIENT NAME: Tobi Farfan DATE OF SERVICE: December 12, 2023 TIME: 3:07 PM PATIENT IDENTITY VERIFICATION COMPLETED USING TWO (2) IDENTIFIERS: Name and Date of confirmed by patient verbally. FALL SCREENING: Has the patient had 2 falls in the last year or 1 fall with injury or currently using an Ambulatory Assistive Device (Walker, Cane, Wheelchair, Crutches, etc.)? No PATIENT GENDER DATA: Female. status: : No status: NO. PATIENT RELEVANT IMPLANT DATA REVIEWED: Yes PATIENT PRESENTS WITH AN IMPLANTABLE OR ATTACHED [place]APKIN MACHINE OPERATOR: No RADIOLOGY DEPARTMENT: MR; Exam(s) Completed: Lower MSK: Knee, right PERIPHERAL IV DATA: Not applicable SIGNED BY: RT Irina(R) December 12, 2023 3:07 PM [facility] 12-04-2023 Note IMPRESSION: INCOMPLE TE: NEED ADDITIONAL IMAGING EVALUATION The oval asymmetry within the skin is indeterminate. An ultrasound is recommended. Geovany norris/sweta:12/04/2023 11:39:38 Production Roustabout(s): RT Bernard(R)(M), [facility] Mammogram BI-RADS: Category 0: Incomplete: Need Additional Imaging Evaluation Multiple national specialty organizations have released breast cancer screening guidelines for women at average risk for developing breast cancer - guidelines that are based on both evidence and opinion, yet differ on when to start and how often to screen for breast cancer. With representation from Breast Imaging, Internal Medicine, Women's Health, Family Medicine, and Medical/Surgical Oncology, the [facility] has carefully reviewed the data and reached the following consensus: 1) All women should engage in shared decision-making with their providers to decide when to start and how often to screen; 2) All women should have the opportunity to start screening mammography at age 40; 3) For women ages 45-55, we recommend annual screening mammograms; 4) For women ages 55 and over, we support both the transition from an annual to a biennial interval if this aligns more with patient's values and preferences, or continuation with annual screening; 5) All women should discuss with their providers when to stop screening mammograms. Console Attendant: Sweta Transcribe Date/Time: Dec 04 2023 10:37A Dictated by: GEOVANY CROWELL MD This examination was interpreted and the report reviewed and electronically signed by: GEOVANY CROWELL MD on Dec 04 2023 11:39AM [facility] DIVISION OF RADIOLOGY 12-04-2023 History of Presen t illness Narrative Radiology Service Progress Note PATIENT NAME: Tobi Farfan DATE OF SERVICE: December 04, 2023 TIME: 3:23 PM PATIENT IDENTITY VERIFICATION COMPLETED USING TWO (2) IDENTIFIERS: Name and Date of confirmed by patient verbally. FALL SCREENING: Has the patient had 2 falls in the last year or 1 fall with injury or currently using an Ambulatory Assistive Device (Walker, Cane, Wheelchair, Crutches, etc.)? No PATIENT GENDER DATA: Female. status: : No status: NO. PATIENT RELEVANT IMPLANT DATA REVIEWED: Not Applicable PATIENT PRESENTS WITH AN IMPLANTABLE OR ATTACHED [place]APKIN MACHINE OPERATOR: No RADIOLOGY DEPARTMENT: Ultrasound PERIPHERAL IV DATA: Not applicable SIGNED BY: Marisol Ibarra RDMS December 04, 2023 3:23 PM documented in this encounter [facility] 12-04-2023 Note HNO ID: [id number] Author: MARISOL IBARRA RDMS Service: ? Author Type: Roll Up Helper Type: Progress Notes Filed: 12/04/2023 15:24 Note Text: Radiology Service Progress Note PATIENT NAME: Tobi Farfan DATE OF SERVICE: December 04, 2023 TIME: 3:23 PM PATIENT IDENTITY VERIFICATION COMPLETED USING TWO (2) IDENTIFIERS: Name and Date of confirmed by patient verbally. FALL SCREENING: Has the patient had 2 falls in the last year or 1 fall with injury or currently using an Ambulatory Assistive Device (Walker, Cane, Wheelchair, Crutches, etc.)? No PATIENT GENDER DATA: Female. status: : No status: NO. PATIENT RELEVANT IMPLANT DATA REVIEWED: Not Applicable PATIENT PRESENTS WITH AN IMPLANTABLE OR ATTACHED NAPKIN MACHINE OPERATOR: No RADIOLOGY DEPARTMENT: Ultrasound PERIPHERAL IV DATA: Not applicable SIGNED BY: Marisol Ibarra RDMS December 04, 2023 3:23 PM [facility] 12-04-2023 History of Presen t illness Narrative Radiology Service Progress Note PATIENT NAME: Tobi Farfan DATE OF SERVICE: December 04, 2023 TIME: 1:04 PM PATIENT IDENTITY VERIFICATION COMPLETED USING TWO (2) IDENTIFIERS: Name and Date of confirmed by patient verbally. FALL SCREENING: Has the patient had 2 falls in the last year or 1 fall with injury or currently using an Ambulatory Assistive Device (Walker, Cane, Wheelchair, Crutches, etc.)? No PATIENT GENDER DATA: Female. status: : No status: NO. PATIENT RELEVANT IMPLANT DATA REVIEWED: Not Applicable PATIENT PRESENTS WITH AN IMPLANTABLE OR ATTACHED [place]APKIN MACHINE OPERATOR: No RADIOLOGY DEPARTMENT: Mammography PERIPHERAL IV DATA: Not applicable SIGNED BY: Shari Wagner December 04, 2023 1:04 PM documented in this encounter [facility] 12-04-2023 Note HNO ID: [id number] Author: FELIPE STOREY Mammo Tech Service: ? Author Type: Technologist Type: Progress Notes Filed: 12/04/2023 13:05 Note Text: Radiology Service Progress Note PATIENT NAME: Tobi Farfan DATE OF SERVICE: December 04, 2023 TIME: 1:04 PM PATIENT IDENTITY VERIFICATION COMPLETED USING TWO (2) IDENTIFIERS: Name and Date of confirmed by patient verbally. FALL SCREENING: Has the patient had 2 falls in the last year or 1 fall with injury or currently using an Ambulatory Assistive Device (Walker, Cane, Wheelchair, Crutches, etc.)? No PATIENT GENDER DATA: Female. status: : No status: NO. PATIENT RELEVANT IMPLANT DATA REVIEWED: Not Applicable PATIENT PRESENTS WITH AN IMPLANTABLE OR ATTACHED [place]APKIN MACHINE OPERATOR: No RADIOLOGY DEPARTMENT: Mammography PERIPHERAL IV DATA: Not applicable SIGNED BY: Shari Wagner December 04, 2023 1:04 PM [facility] 12-04-2023 Telephone encounter Note The patient has been identified by name and date of : Yes Caregiver verified no other encounters exist for this prescription request: Yes Caregiver confirmed with patient/requestor that no other refills are due, in the near future, with this provider at this time: Yes The last office visit in the department: 11/01/2023 Does the patient have a future office visit with this provider/department: 05/14/2024 Requested Prescriptions Pending Prescriptions Disp Refills potassium chloride (K-TAB) 10 mEq tablet 90 tablet 3 Sig: Take 1 tablet by mouth daily with breakfast. Eliana Mcmahon RN December 04, 2023 8:13 AM [facility] 12-04-2023 Miscellaneous Notes The patient has been identified by name and date of : Yes Caregiver verified no other encounters exist for this prescription request: Yes Caregiver confirmed with patient/requestor that no other refills are due, in the near future, with this provider at this time: Yes The last office visit in the department: 11/01/2023 Does the patient have a future office visit with this provider/department: 05/14/2024 Requested Prescriptions Pending Prescriptions Disp Refills potassium chloride (K-TAB) 10 mEq tablet 90 tablet 3 Sig: Take 1 tablet by mouth daily with breakfast. Eliana Mcmahon RN December 04, 2023 8:13 AM documented in this encounter [facility] 11-26-2023 Note HNO ID: [id number] Author: MANDI WATSON APRN.RETAIL WIRELESS SALES REPRESENTATIVE Service: ? Author Type: Nurse Practitioner Type: Progress Notes Filed: 11/26/2023 10:05 Note Text: Tobi is a 48 year old who presents for an annual gynecologic exam without complaints. [place] transfer Menses: cycles every 25-30 days and 5 days of flow. Contraception: none HPV vaccine: No Last Pap: 2020 normal HPV: 2020 negative History of abnormal pap: No Last mammogram: Dx upcoming @ [facility] Sexually active: Yes Patient concerns for STD exposure: No. 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 History Comments: Sexual Activity: Yes; Male Contraception: No contraception data on record PAST MEDICAL HISTORY Diagnosis Date Anxiety Carpal tunnel syndrome Clostridium difficile diarrhea Recurrent infection 2011 Diabetes mellitus (HCC) Dysmetabolic syndrome Gestational diabetes Hypertension Obesity RANDA (obstructive sleep apnea) DME [employer] for AutoPAP - AHI 70.5 PAST SURGICAL HISTORY Procedure Laterality Date DELIVERY ONLY 12/03/2011 , low transverse; wound infection DILATION AND CURETTAGE DXAND/THER NONOBSTETRIC 11/24/2013 Dilation AND curettage HYSTEROSCOPY, DIAGNOSTIC (SEPARATE 11/24/2013 Hysteroscopy PAST SURGICAL HISTORY OF 01/12/2012 debridement post infection WOUND VAC 2011 FAMILY HISTORY Problem Relation Age of Onset Osteoporosis Mother Psychiatry Mother anorexia, depression Diabetes Father Hypertension Father Psychiatry Father bipolar d/o Cancer Maternal Grandmother Liver Heart Maternal Grandfather [place] Diabetes Paternal Aunt SOCIAL HISTORY Social History Tobacco Use Smoking status: Never Smokeless tobacco: Never Vaping Use Vaping Use: Never used Substance Use Topics Alcohol use: No Drug use: No REVIEW OF SYSTEMS Abdomen: No abdominal pain, nausea, vomiting, diarrhea, or constipation. No bloating, early satiety, indigestion, or increased flatulence. Bladder: No dysuria, gross hematuria, urinary frequency, urinary urgency, or incontinence. Breast: No breast lumps, nipple d/c, overlying skin changes, redness or skin retraction and +right armpit lump. Allergies and current medication updated:Yes EXAM: BP 132/82 Ht 5' 5 (1.65m) Wt 296 lb (134.3kg) LMP 11/05/2023 BMI 49.26 kg/(m2). GENERAL: pleasant, female in no apparent distress HEENT: Normocephalic, atraumatic, mucus membranes moist, and no lesions NECK: Supple, full range of motion, no adenopathy, and thyroid normal DERMATOLOGY: Normal, without lesions, non-icteric, and non-hirsute BREAST: soft, non-tender, symmetric, no dominant mass, normal nipple-areolar complex, no lymphadenopathy, and no nipple discharge +small firm lump in the right armpit CHEST: Normal inspiratory effort ABDOMEN: soft, non-tender, and no masses PELVIC: external genitalia normal, normal Bartholin's glands, urethra, [place]'s glands, no vulvar lesions, no cervical lesions, good vaginal support, physiologic discharge present, normal appearing perineal body and perianal region BIMANUAL: uterus normal size, shape and consistency, no adnexal masses, and non-tender RECTOVAGINAL: deferred. NEURO: alert and oriented x3,exam grossly non-focal EXTREMITIES: normal ASSESSMENT/PLAN: 1) Health maintenance: Pap done with HPV. Mammogram up to date . Nutrition, exercise and routine health maintenance exams reviewed. Calcium/Vitamin D supplementation information provided. Colon cancer screening: doing Cologuard 2) Contraception: none. Contraceptive options reviewed and information provided. 3) STD screening: Declined STD check. 4) Follow up one year or sooner as needed Mandi Watson APRN.RETAIL WIRELESS SALES REPRESENTATIVE [facility] 11-26-2023 History of Presen t illness Narrative Tobi is a 48 year old who presents for an annual gynecologic exam without complaints. [place] transfer Menses: cycles every 25-30 days and 5 days of flow. Contraception: none HPV vaccine: No Last Pap: 2019 normal HPV: 2020 negative History of abnormal pap: No Last mammogram: Dx upcoming @ [facility] Sexually active: Yes Patient concerns for STD exposure: No. 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 History Comments: Sexual Activity: Yes; Male Contraception: No contraception data on record PAST MEDICAL HISTORY Diagnosis Date Anxiety Carpal tunnel syndrome Clostridium difficile diarrhea Recurrent infection 2011 Diabetes mellitus (HCC) Dysmetabolic syndrome Gestational diabetes Hypertension Obesity RANDA (obstructive sleep apnea) DME [employer] for AutoPAP - AHI 70.5 PAST SURGICAL HISTORY Procedure Laterality Date DELIVERY ONLY 12/03/2011 , low transverse; wound infection DILATION & CURETTAGE DX&/THER NONOBSTETRIC 11/24/2013 Dilation & curettage HYSTEROSCOPY, DIAGNOSTIC (SEPARATE 11/24/2013 Hysteroscopy PAST SURGICAL HISTORY OF 01/12/2012 debridement post infection WOUND VAC 2012 FAMILY HISTORY Problem Relation Age of Onset Osteoporosis Mother Psychiatry Mother anorexia, depression Diabetes Father Hypertension Father Psychiatry Father bipolar d/o Cancer Maternal Grandmother Liver Heart Maternal Grandfather [place] Diabetes Paternal Aunt SOCIAL HISTORY Social History Tobacco Use Smoking status: Never Smokeless tobacco: Never Vaping Use Vaping Use: Never used Substance Use Topics Alcohol use: No Drug use: No REVIEW OF SYSTEMS Abdomen: No abdominal pain, nausea, vomiting, diarrhea, or constipation. No bloating, early satiety, indigestion, or increased flatulence. Bladder: No dysuria, gross hematuria, urinary frequency, urinary urgency, or incontinence. Breast: No breast lumps, nipple d/c, overlying skin changes, redness or skin retraction and +right armpit lump. Allergies and current medication updated:Yes EXAM: BP 132/82 Ht 5' 5 (1.65m) Wt 296 lb (134.3kg) LMP 11/05/2023 BMI 49.26 kg/(m^2). GENERAL: pleasant, female in no apparent distress HEENT: Normocephalic, atraumatic, mucus membranes moist, and no lesions NECK: Supple, full range of motion, no adenopathy, and thyroid normal DERMATOLOGY: Normal, without lesions, non-icteric, and non-hirsute BREAST: soft, non-tender, symmetric, no dominant mass, normal nipple-areolar complex, no lymphadenopathy, and no nipple discharge +small firm lump in the right armpit CHEST: Normal inspiratory effort ABDOMEN: soft, non-tender, and no masses PELVIC: external genitalia normal, normal Bartholin's glands, urethra, [place]'s glands, no vulvar lesions, no cervical lesions, good vaginal support, physiologic discharge present, normal appearing perineal body and perianal region BIMANUAL: uterus normal size, shape and consistency, no adnexal masses, and non-tender RECTOVAGINAL: deferred. NEURO: alert and oriented x3,exam grossly non-focal EXTREMITIES: normal ASSESSMENT/PLAN: 1) Health maintenance: Pap done with HPV. Mammogram up to date . Nutrition, exercise and routine health maintenance exams reviewed. Calcium/Vitamin D supplementation information provided. Colon cancer screening: doing Cologuard 2) Contraception: none. Contraceptive options reviewed and information provided. 3) STD screening: Declined STD check. 4) Follow up one year or sooner as needed Mandi Watson APRN.MARIA documented in this encounter [facility] 11-13-2023 Telephone encounter Note Patient notified. Order faxed to [facility]. [facility] 11-13-2023 Miscellaneous Notes Patient notified. Order faxed to [facility]. Last mammogram on record was in September of 2022, when I first looked at it I thought it was this past September. So either way she is overdue for mammogram. She can call her insurance to verify coverage. Thank you Morenita Butler APRN.CNP Patient is wanting to know if diagnostic mammogram is necessary. She is concerned that her insurance will not pay for the additional imaging. Please contact patient to advise. May we please have orders placed for Bilateral Diagnostic Mammogram for right breast lump. Pt is due for bilateral, last screening was completed in September of 2022 at [facility]. Pt will need to be rescheduled for Diagnostic mammogram with ultrasound to follow. Thank you so much! Marisol Ibarra RDMS documented in this encounter [facility] 11-13-2023 Telephone encounter Note Last mammogram on record was in September of 2022, when I first looked at it I thought it was this past September. So either way she is overdue for mammogram. She can call her insurance to verify coverage. Thank you Morenita Butler APRN.CNP [facility] 11-13-2023 Telephone encounter Note Patient is wanting to know if diagnostic mammogram is necessary. She is concerned that her insurance will not pay for the additional imaging. Please contact patient to advise. [facility] 11-13-2023 Telephone encounter Note May we please have orders placed for Bilateral Diagnostic Mammogram for right breast lump. Pt is due for bilateral, last screening was completed in September of 2022 at [facility]. Pt will need to be rescheduled for Diagnostic mammogram with ultrasound to follow. Thank you so much! Marisol Ibarra RDMS [facility] 11-01-2023 Instructions Morenita Butler APRN.CNP - 11/01/2023 10:35 AM EDT Call insurance to see if cologuard is covered documented in this encounter [facility] 11-01-2023 History of Presen t illness Narrative CC: Patient presents with: Recheck: 6 month follow up HPI Tobi Farfan is a 48 year old female who presents today for routine follow up. DIABETES MELLITUS: Ms. Farfan denies excessive thirst or increased frequency of urination, chest pain or dyspnea , numbness, tingling or pain in extremities, new or unusual visual symptoms, low sugar/hypoglycemic reactions, weight loss/gain, lightheadedness/dizziness, and bowel changes/loose stools. Follows a diabetic diet most of the time. She is compliant with medication(s) and is tolerating med(s) without any side effects. She reports checking her glucose on a infrequent to not at all basis schedule . Patient's last HgA1C was Hemoglobin A1C (%) Date Value 10/29/2023 6.0 04/29/2023 6.3 07/04/2021 8.7 04/01/2021 9.4 ) Last Ophthalmology exam was within the past 12 months HTN and HLD: Ms. Farfan indicates that she is feeling well and denies any symptoms referable to elevated blood pressure. Specifically denies headache, chest pain, palpitations, dyspnea, and peripheral edema. Patient denies any side effects of her medication(s) and is compliant with their regimen. She does not check BP's generally. Tobi plays basketball with son 3 days a week. She watches her diet for sodium, low fat and low cholesterol most of the time. Last 3 Encounter BP Readings: Date: BP: 11/01/2023 130/78 08/16/2023 120/80 07/10/2023 130/100 Has noticed a bump to her right axillary for the past few months. Is not getting larger. Denies pain to area, irritations, redness, or drainage. Had a negative mammogram last month at [facility] which the lump was present at that time too. REVIEW OF SYSTEMS See HPI PAST MEDICAL HISTORY Diagnosis Date Anxiety Carpal tunnel syndrome Clostridium difficile diarrhea Recurrent infection 2011 Dysmetabolic syndrome Gestational diabetes Hypertension Obesity RANDA (obstructive sleep apnea) DME [employer] for AutoPAP - AHI 70.5 PAST SURGICAL HISTORY Procedure Laterality Date DELIVERY ONLY 12/03/11 , low transverse; wound infection DILATION & CURETTAGE DX&/THER NONOBSTETRIC 11/24/2013 Dilation & curettage HYSTEROSCOPY, DIAGNOSTIC (SEPARATE 11/24/2013 Hysteroscopy PAST SURGICAL HISTORY OF 01/2012 debridement post infection ALLERGIES Amoxicillin, Lisinopril, and Niacin MEDICATIONS gabapentin (NEURONTIN) 100 mg capsule Take 1 capsule by mouth three times a day for 30 days. metFORMIN ER (GLUCOPHAGE XR) 500 mg 24 hr tablet Take 2 tablets by mouth two times a day at 6 am and 9 pm. ergocalciferol 50,000 unit capsule (VITAMIN D2, DRISDOL) Take 1 capsule by mouth one time a week. losartan-hydroCHLOROthiazide (HYZAAR) 50-12.5 mg per tablet Take 1 tablet by mouth once daily for 14 days. losartan-hydroCHLOROthiazide (HYZAAR) 50-12.5 mg per tablet Take 1 tablet by mouth once daily. sertraline (ZOLOFT) 100 mg tablet TAKE 1 AND 1/2 TABLETS ONCEDAILY pioglitazone (ACTOS) 15 mg tablet take 1 tablet once daily pravastatin (PRAVACHOL) 20 mg tablet take 1 tablet once daily glimepiride (AMARYL) 4 mg tablet TAKE 1 TABLET DAILY WITH BREAKFAST busPIRone (BUSPAR) 10 mg tablet Take 1 tablet by mouth two times a day. CPAP Settings 13 - 20 cm H2O, suitable mask per pt preference, chin strap, head gear, humidity, filters, tubing, lifetime supplies. G47.33 RANDA semaglutide (OZEMPIC) 2 mg/dose (8 mg/3 mL) pen injector Inject 2 mg subcutaneously one time a week. potassium chloride (K-TAB) 10 mEq tablet TAKE 1 TABLET DAILY WITH BREAKFAST ferrous sulfate 325 mg (65 mg iron) tablet Take 1 tablet by mouth twice daily with meals. Lancing Device misc Use to monitor blood sugars a directed Lancets lancets Use as instructed to monitor blood sugars when prompted by Freestyle Shilo. Up to 4 per day. insulin needles, DISPOSABLE, (BD INSULIN PEN NEEDLE UF) 31 gauge x 5/16 1 Each once daily. With Victoza. ICD10: E11.65 aspirin 81 mg chewable tablet CHEW 1 TABLET ONCE DAILY Blood-Glucose Meter monitoring kit Glucose Meter of Choice (pending insurance coverage) - Kit - Dx: Type 2 DM - Uncontrolled E11.65 albuterol HFA (PROAIR HFA) 90 mcg/actuation inhaler Inhale 2 Puffs as instructed every 4 hours as needed for Wheezing/Shortness of Breath. NORGESTIMATE-ETHINYL ESTRADIOL (PREVIFEM ORAL) Take 1 tablet by mouth once daily. FAMILY HISTORY Problem Relation Age of Onset Diabetes Father Hypertension Father Osteoporosis Mother Cancer Maternal Grandmother Liver Heart Maternal Grandfather [place] Diabetes Paternal Aunt Psychiatry Mother anorexia, depression Psychiatry Father bipolar d/o Social History Tobacco Use Smoking status: Never Smokeless tobacco: Never Vaping Use Vaping Use: Never used Substance Use Topics Alcohol use: No Drug use: No PHYSICAL EXAM BP 130/78 Pulse 80 Resp 16 Wt 134.3 kg (296 lb) LMP 07/02/2016 SpO2 97% BMI 50.81 kg/m General Appearance: well appearing, in no acute distress, alert Skin: Soft tissue mass to right axillary without tenderness, redness, or open area. Eyes: conjunctiva pink and moist, no icterus, sclera white, non-injected Neck: Thyroid normal size and symmetric without palpable nodules, Neck supple, No adenopathy Lymph nodes: No cervical lymphadenopathy and No supraclavicular lymphadenopathy Lungs: Lungs clear to auscultation. No wheezing, rhonchi, rales. No axillary lymphadenopathy. Heart: RRR without murmur, gallop, or rubs. No ectopy Feet:Shoes and socks removed, normal distal pulses, sensitive to 10 gm monofilament, and vibratory perception normal Health maintenance reviewed with patient: Colorectal Cancer Screening Never done BP Controlled (<130/80) due on 07/27/2022 Cervical Cancer Screening due on 05/10/2023 Mammogram Screening due on 09/12/2023 Urine Albumin:Creatinine Ratio due on 10/19/2023 Diabetic Foot Exam due on 10/23/2023 DTaP,Tdap,Td Vaccine(9 - Td or Tdap) due on 05/02/2024 Hepatitis B Vaccine(1 of 3 - 19+ 3-dose series) due on 05/02/2024 Covid-19 Vaccine(2022- season) due on 05/02/2024 HbA1C due on 04/29/2024 Dilated Retinal Exam due on 08/11/2024 Annual PCP Team Chronic Disease Visit due on 08/15/2024 LDL Cholesterol due on 10/28/2024 Influenza Vaccine Completed Behavioral Health Screening Completed Hepatitis C Screening Completed HIV Screening Completed Pneumococcal Vaccine Completed HPV Vaccine Aged Out DATA REVIEWED: Most recent labs and imaging results. ASSESSMENT/PLAN: 1. Controlled type 2 diabetes mellitus without complication, without long-term current use of insulin (HCC) - ICD9: 250.00, ICD10: E11.9 (primary diagnosis) - Controlled - Continue current medications - Blood glucose monitoring on a once daily schedule - Counseled on healthy diet and regular exercise - Discussed need for and benefit of weight loss. BMI 50.81 kg/(m^2) - ALBUMIN/CREATININE RATIO, URINE - HEMOGLOBIN A1C - BASIC METABOLIC PANEL 2. Essential hypertension - ICD9: 401.9, ICD10: I10 - Controlled - Continue current medications - Recommend home blood pressure monitoring, to bring results to next visit - Encouraged sodium restriction, DASH or Mediterranean diet - Recommend regular aerobic exercise - BASIC METABOLIC PANEL 3. Mixed hyperlipidemia - ICD9: 272.2, ICD10: E78.2 - Controlled - Continue current medications - Counseled on healthy diet and regular exercise - Discussed need for and benefit of weight loss. BMI 50.81 kg/(m^2) 4. Mass of right axilla - ICD9: 782.2, ICD10: R22.31 Soft tissue - probable cyst. With recent mammogram and presentation, do not feel repeat mammography is indicated at this time. - US AXILLA ONLY RIGHT 5. Acute pain of right knee - ICD9: 719.46, ICD10: M25.561 Refill needed - MRI previously ordered but not completed yet - GABAPENTIN 100 MG CAPSULE 6. Positive Lauryn test of right knee, initial encounter - ICD9: 836.2, ICD10: S83.206A As above - GABAPENTIN 100 MG CAPSULE Prescription instructions reviewed with patient as applicable. Potential red flag symptoms discussed with the patient. Reviewed appropriate action plan to take if red flag symptoms occur. Patient agreeable to treatment plan. Morenita Butler APRN.CNP documented in this encounter [facility] 10-23-2023 Telephone encounter Note Call placed to patient and message left on secure identified voicemail that fasting labs have been ordered. [facility] phone number left for further questions. Eliana Mcmahon RN [facility] 10-23-2023 Miscellaneous Notes Call placed to patient and message left on secure identified voicemail that fasting labs have been ordered. [facility] phone number left for further questions. Eliana Mcmahon RN Fasting blood work orders placed. Thank you Morenita Butler APRN.CNP Patient calls to ask about lab orders prior to appointment on 11/01/2023. Patient requesting an A1C and any other labs provider would want to order. Pended A1C. Patient aware provider is out until Saturday. Please call patient back [phone] once orders placed. Eliana Mcmahon RN documented in this encounter [facility] 10-23-2023 Telephone encounter Note Fasting blood work orders placed. Thank you Morenita Butler APRN.[employer]TA[employer] WIRELESS SALES REPRESENTATIVE [facility] 10-21-2023 Telephone encounter Note Patient calls to ask about lab orders prior to appointment on 11/01/2023. Patient requesting an A1C and any other labs provider would want to order. Pended A1C. Patient aware provider is out until Saturday. Please call patient back [phone] once orders placed. Eliana Mcmahon RN [facility] 10-19-2023 Telephone encounter Note The following approved medication requests have been transmitted electronically. Requested Prescriptions Signed Prescriptions Disp Refills gabapentin (NEURONTIN) 100 mg capsule 90 capsule 0 Sig: Take 1 capsule by mouth three times a day for 30 days. Authorizing Provider: SOLITARIO PERERA MD [facility] 10-19-2023 Miscellaneous Notes The following approved medication requests have been transmitted electronically. Requested Prescriptions Signed Prescriptions Disp Refills gabapentin (NEURONTIN) 100 mg capsule 90 capsule 0 Sig: Take 1 capsule by mouth three times a day for 30 days. Authorizing Provider: SOLITARIO PERERA MD Patient has been identified by name and date of : Yes, Patient phones for refill(s): Requested Prescriptions Pending Prescriptions Disp Refills gabapentin (NEURONTIN) 100 mg capsule 90 capsule 0 Sig: Take 1 capsule by mouth three times a day for 30 days. Date of last office visit in primary care: 08/16/2023 Date of next office visit in primary care: 11/01/2023 Please advise. Thank you. Jess Mcmanus LPN. documented in this encounter [facility] 10-18-2023 Telephone encounter Note Patient has been identified by name and date of : Yes, Patient phones for refill(s): Requested Prescriptions Pending Prescriptions Disp Refills metFORMIN ER (GLUCOPHAGE XR) 500 mg 24 hr tablet 360 tablet 3 Sig: Take 2 tablets by mouth two times a day at 6 am and 9 pm. ergocalciferol 50,000 unit capsule (VITAMIN D2, DRISDOL) 12 capsule 1 Sig: Take 1 capsule by mouth one time a week. Date of last office visit in primary care: 08/16/2023 Date of next office visit in primary care: 11/01/2023 Please advise. Thank you. Jess Mcmanus LPN. [facility] 10-18-2023 Miscellaneous Notes Patient has been identified by name and date of : Yes, Patient phones for refill(s): Requested Prescriptions Pending Prescriptions Disp Refills metFORMIN ER (GLUCOPHAGE XR) 500 mg 24 hr tablet 360 tablet 3 Sig: Take 2 tablets by mouth two times a day at 6 am and 9 pm. ergocalciferol 50,000 unit capsule (VITAMIN D2, DRISDOL) 12 capsule 1 Sig: Take 1 capsule by mouth one time a week. Date of last office visit in primary care: 08/16/2023 Date of next office visit in primary care: 11/01/2023 Please advise. Thank you. Jess Mcmanus LPN. documented in this encounter [facility] 10-18-2023 Telephone encounter Note Patient has been identified by name and date of : Yes, Patient phones for refill(s): Requested Prescriptions Pending Prescriptions Disp Refills gabapentin (NEURONTIN) 100 mg capsule 90 capsule 0 Sig: Take 1 capsule by mouth three times a day for 30 days. Date of last office visit in primary care: 08/16/2023 Date of next office visit in primary care: 11/01/2023 Please advise. Thank you. Jess Mcmanus LPN. [facility] 10-11-2023 Telephone encounter Note Patient has been identified by name and date of : Yes, Patient phones for refill(s): Requested Prescriptions Pending Prescriptions Disp Refills losartan-hydroCHLOROthiazide (HYZAAR) 50-12.5 mg per tablet 14 tablet 3 Sig: Take 1 tablet by mouth once daily. Date of last office visit in primary care: 08/16/2023 Date of next office visit in primary care: 11/01/2023 Please advise. Thank you. Jess Mcmanus LPN. [facility] 10-11-2023 Miscellaneous Notes Patient has been identified by name and date of : Yes, Patient phones for refill(s): Requested Prescriptions Pending Prescriptions Disp Refills losartan-hydroCHLOROthiazide (HYZAAR) 50-12.5 mg per tablet 14 tablet 3 Sig: Take 1 tablet by mouth once daily. Date of last office visit in primary care: 08/16/2023 Date of next office visit in primary care: 11/01/2023 Please advise. Thank you. Jess Mcmanus LPN. documented in this encounter [facility] 10-11-2023 Telephone encounter Note Prescription Refill Information The patient has been identified by name and date of : Yes Caregiver verified no other encounters exist for this prescription request: Yes Caregiver confirmed with patient/requestor that no other refills are due, in the near future, with this provider at this time: Yes The last office visit in the department: 08/16/23 Does the patient have a future office visit with this provider/department: Yes Requested Prescriptions Pending Prescriptions Disp Refills losartan-hydroCHLOROthiazide (HYZAAR) 50-12.5 mg per tablet 90 tablet 3 Sig: Take 1 tablet by mouth once daily. Kaylen Sanford LPN October 11, 2023 7:49 AM [facility] 10-11-2023 Miscellaneous Notes Prescription Refill Information The patient has been identified by name and date of : Yes Caregiver verified no other encounters exist for this prescription request: Yes Caregiver confirmed with patient/requestor that no other refills are due, in the near future, with this provider at this time: Yes The last office visit in the department: 08/16/23 Does the patient have a future office visit with this provider/department: Yes Requested Prescriptions Pending Prescriptions Disp Refills losartan-hydroCHLOROthiazide (HYZAAR) 50-12.5 mg per tablet 90 tablet 3 Sig: Take 1 tablet by mouth once daily. Kaylen Sanford LPN October 11, 2023 7:49 AM documented in this encounter [facility] 10-04-2023 Telephone encounter Note The following approved medication requests have been transmitted electronically. Requested Prescriptions Pending Prescriptions Disp Refills sertraline (ZOLOFT) 100 mg tablet [Pharmacy Med Name: SERTRALINE TAB 100MG] 135 tablet 3 Sig: TAKE 1 AND 1/2 TABLETS ONCEDAILY pioglitazone (ACTOS) 15 mg tablet [Pharmacy Med Name: PIOGLITAZONE TAB 15MG] 90 tablet 3 Sig: take 1 tablet once daily Pascual Brothers APRN.CNP [facility] Work Phone: 10-04-2023 Miscellaneous Notes The following approved medication requests have been transmitted electronically. Requested Prescriptions Pending Prescriptions Disp Refills sertraline (ZOLOFT) 100 mg tablet [Pharmacy Med Name: SERTRALINE TAB 100MG] 135 tablet 3 Sig: TAKE 1 AND 1/2 TABLETS ONCEDAILY pioglitazone (ACTOS) 15 mg tablet [Pharmacy Med Name: PIOGLITAZONE TAB 15MG] 90 tablet 3 Sig: take 1 tablet once daily Pascual Brothers APRN.MARIA Patient has been identified by name and date of : No Patient phones for refill(s): Requested Prescriptions Pending Prescriptions Disp Refills sertraline (ZOLOFT) 100 mg tablet [Pharmacy Med Name: SERTRALINE TAB 100MG] 135 tablet 3 Sig: TAKE 1 AND 1/2 TABLETS ONCEDAILY pioglitazone (ACTOS) 15 mg tablet [Pharmacy Med Name: PIOGLITAZONE TAB 15MG] 90 tablet 3 Sig: take 1 tablet once daily Date of last office visit in primary care: 08/16/2023 Date of next office visit in primary care: 11/01/2023 Please advise. Thank you. Kaylen Sanford LPN. documented in this encounter [facility] 10-04-2023 Telephone encounter Note Patient has been identified by name and date of : No Patient phones for refill(s): Requested Prescriptions Pending Prescriptions Disp Refills sertraline (ZOLOFT) 100 mg tablet [Pharmacy Med Name: SERTRALINE TAB 100MG] 135 tablet 3 Sig: TAKE 1 AND 1/2 TABLETS ONCEDAILY pioglitazone (ACTOS) 15 mg tablet [Pharmacy Med Name: PIOGLITAZONE TAB 15MG] 90 tablet 3 Sig: take 1 tablet once daily Date of last office visit in primary care: 08/16/2023 Date of next office visit in primary care: 11/01/2023 Please advise. Thank you. Kaylen Sanford LPN. [facility] 08-16-2023 History of Presen t illness Narrative Radiology Service Progress Note PATIENT NAME: Tobi Farfan DATE OF SERVICE: August 16, 2023 TIME: 10:48 AM PATIENT IDENTITY VERIFICATION COMPLETED USING TWO (2) IDENTIFIERS: Name and Date of confirmed by patient verbally. FALL SCREENING: Has the patient had 2 falls in the last year or 1 fall with injury or currently using an Ambulatory Assistive Device (Walker, Cane, Wheelchair, Crutches, etc.)? No PATIENT GENDER DATA: Female. status: : No status: NO. PATIENT RELEVANT IMPLANT DATA REVIEWED: Not Applicable PATIENT PRESENTS WITH AN IMPLANTABLE OR ATTACHED [place] MACHINE OPERATOR: No RADIOLOGY DEPARTMENT: General X-ray: Exam(s) Completed: Lower Extremity X-Ray(s): Knee, AP / LAT Right and Wt. Bearing PERIPHERAL IV DATA: Not applicable SIGNED BY: RT Vilma(R) August 16, 2023 10:48 AM documented in this encounter [facility] 08-16-2023 History of Presen t illness Narrative SUBJECTIVE Tobi Farfan is a 48 year old female here today for acute concern. Chief Complaint Patient presents with: Right Knee Pain HPI Tobi Farfan is a 48 year old female. She is an established patient of Darshana Munoz MD. She is here today acutely for concerns of right knee pain. Onset was yesterday, she was shooting baskets with her son and felt a pop, knee gave out but did not fall. Tried doing heat, ice, rest, elevation. Not helping. Tried tylenol last night. Not overly helpful. Located to the knee and worse with movement out to the side. She is limping some, hard to walk on it. It has been constant since the time of the event this occurred. IT is sore, aching. Not improving. Her medications were reviewed today and her list is now up to date. Medications Current Outpatient Medications Medication Sig pravastatin (PRAVACHOL) 20 mg tablet take 1 tablet once daily glimepiride (AMARYL) 4 mg tablet TAKE 1 TABLET DAILY WITH BREAKFAST ergocalciferol 50,000 unit capsule (VITAMIN D2, DRISDOL) Take 1 capsule by mouth one time a week. busPIRone (BUSPAR) 10 mg tablet Take 1 tablet by mouth two times a day. CPAP Settings 13 - 20 cm H2O, suitable mask per pt preference, chin strap, head gear, humidity, filters, tubing, lifetime supplies. G47.33 RANDA semaglutide (OZEMPIC) 2 mg/dose (8 mg/3 mL) pen injector Inject 2 mg subcutaneously one time a week. metFORMIN ER (GLUCOPHAGE XR) 500 mg 24 hr tablet Take 2 tablets by mouth twice daily at 6AM and 9PM. pioglitazone (ACTOS) 15 mg tablet Take 1 tablet by mouth once daily. sertraline (ZOLOFT) 100 mg tablet Take 1.5 tablets by mouth once daily. potassium chloride (K-TAB) 10 mEq tablet TAKE 1 TABLET DAILY WITH BREAKFAST losartan-hydroCHLOROthiazide (HYZAAR) 50-12.5 mg per tablet TAKE 1 TABLET ONCE DAILY ferrous sulfate 325 mg (65 mg iron) tablet Take 1 tablet by mouth twice daily with meals. flash glucose scanning reader (FREESTYLE SHILO 2 READER) Use to monitor blood sugars 4 times daily flash glucose sensor (FREESTYLE SHILO 2 SENSOR) kit Use to monitor blood sugars 4 times daily blood sugar diagnostic (FREESTYLE PRECISION JULIÁN STRIPS) test strip Use as instructed to monitor blood sugars when prompted by Freestyle Shilo. Up to 4 per day. Lancing Device misc Use to monitor blood sugars a directed Lancets lancets Use as instructed to monitor blood sugars when prompted by Freestyle Shilo. Up to 4 per day. insulin needles, DISPOSABLE, (BD INSULIN PEN NEEDLE UF) 31 gauge x 5/16 1 Each once daily. With Victoza. ICD10: E11.65 aspirin 81 mg chewable tablet CHEW 1 TABLET ONCE DAILY Blood-Glucose Meter monitoring kit Glucose Meter of Choice (pending insurance coverage) - Kit - Dx: Type 2 DM - Uncontrolled E11.65 albuterol HFA (PROAIR HFA) 90 mcg/actuation inhaler Inhale 2 Puffs as instructed every 4 hours as needed for Wheezing/Shortness of Breath. gabapentin (NEURONTIN) 100 mg capsule Take 1 capsule by mouth three times a day for 30 days. NORGESTIMATE-ETHINYL ESTRADIOL (PREVIFEM ORAL) Take 1 tablet by mouth once daily. No current facility-administered medications for this visit. ALLERGIES Allergen Reactions Amoxicillin Rash Lisinopril Cough cough Niacin Intolerance Caused whole body to become red and warm. ACTIVE PROBLEM LIST Morbid Obesity (Hcc) - 12/18/2006 (A priority) Routine Gynecological Examination - 07/04/2011 (B priority, Chronic) Comment: Dr Molina Essential Hypertension - 01/09/2008 (B priority) Mixed Hyperlipidemia - 09/01/2010 (C priority) Controlled Type 2 Diabetes Mellitus Without Complication, Without Long-Term Current Use of Insulin (Hcc) - 10/01/2018 Randa (Obstructive Sleep Apnea) - 08/14/2017 Panic Attack - 03/01/2015 Comment: Patient has been having panic attacks for the past 1 year which is pretty well controlled with the zoloft. But she also has manic symptoms on the high dose pf zoloft. Anxiety Comment: She is on 200 mgs of zoloft. Feels manic at times. Has her highs and lows and wants more help Carpal Tunnel Syndrome Clostridium Difficile Diarrhea Comment: Recurrent infection 2011 Abnormal Echocardiogram - 10/23/2010 Comment: Mild pulm htn -- 10/2010 (trivial TR) Dysmetabolic Syndrome X - 01/02/2007 Social History Tobacco Use Smoking status: Never Smokeless tobacco: Never Vaping Use Vaping Use: Never used Substance Use Topics Alcohol use: No Drug use: No Review of Systems Respiratory: Negative. Cardiovascular: Negative. Musculoskeletal: Positive for arthralgias and gait problem. Negative for joint swelling. OBJECTIVE BP 120/80 Pulse 64 Temp (Src) 97.5 (Left Tympanic) Resp 16 Wt 293 lb (132.9kg) LMP 07/02/2016 Physical Exam Vitals and nursing note reviewed. Constitutional: General: She is awake. She is not in acute distress. Appearance: Normal appearance. She is well-developed and well-groomed. She is obese. She is not ill-appearing, toxic-appearing or diaphoretic. HENT: Head: Normocephalic. Right Ear: External ear normal. Left Ear: External ear normal. Nose: Nose normal. Eyes: General: Vision grossly intact. Conjunctiva/sclera: Conjunctivae normal. Pupils: Pupils are equal, round, and reactive to light. Neck: Vascular: No JVD. Trachea: Trachea normal. Cardiovascular: Pulses: Normal pulses. Pulmonary: Effort: Pulmonary effort is normal. No accessory muscle usage, prolonged expiration or respiratory distress. Musculoskeletal: Cervical back: Neck supple. Right knee: No swelling, deformity, effusion, erythema, ecchymosis, lacerations, bony tenderness or crepitus. Decreased range of motion. No LCL laxity, MCL laxity, ACL laxity or PCL laxity. Abnormal meniscus (tender). Normal alignment and normal patellar mobility. Normal pulse. Instability Tests: Anterior drawer test negative. Posterior drawer test negative. Lateral Lauryn test positive. Medial Lauryn test negative. Skin: General: Skin is warm and dry. Capillary Refill: Capillary refill takes less than 2 seconds. Neurological: General: No focal deficit present. Mental Status: She is alert and oriented to person, place, and time. Mental status is at baseline. Psychiatric: Attention and Perception: Attention and perception normal. Mood and Affect: Mood and affect normal. Speech: Speech normal. Behavior: Behavior normal. Behavior is cooperative. Thought Content: Thought content normal. Cognition and Memory: Cognition and memory normal. Judgment: Judgment normal. ASSESSMENT/PLAN: 1. Acute pain of right knee - ICD9: 719.46, ICD10: M25.561 (primary diagnosis) Discussed continuing rest, ice, compression, elevation, tylenol ok and discussed safe, short term use of NSAIDs like ibuprofen. Can restart her gabapentin. Check xray but given her exam and very high suspicion for mensicus injury and possible tear we will also set up for MRI. - GABAPENTIN 100 MG CAPSULE - XR KNEE LIMITED 2V AP/LAT RIGHT - MRI KNEE WO IVCON RIGHT 2. Positive Lauryn test of right knee, initial encounter - ICD9: 836.2, ICD10: S83.206A - GABAPENTIN 100 MG CAPSULE - XR KNEE LIMITED 2V AP/LAT RIGHT - MRI KNEE WO IVCON RIGHT Portions of this note have been entered by ancillary staff. I have reviewed and when necessary edited, so that they are an adequate record of my encounter with this patient Please note that parts of this document were created using voice recognition software and therefore may contain grammatical errors. Patient verbalizes understanding of instructions from today's visit and in agreement with treatment plan. Questions answered. Agrees to call the office if questions, concerns of issues with acute symptoms not improving or if they worsen. See diagnoses and orders for additional plan(s). Allergies and medications were reviewed, list was updated, and refills given if needed. Past medical, surgical, social, and family history reviewed and updated as appropriate. Encouraged proper diet & exercise as well as compliance with taking medications. Age-appropriate health preventative measures were discussed. Return if symptoms worsen or fail to improve, for Keep next scheduled appointment.. MONSERRAT Orozco documented in this encounter [facility] 07-10-2023 History of Presen t illness Narrative Radiology Service Progress Note PATIENT NAME: Tobi Farfan DATE OF SERVICE: July 10, 2023 TIME: 5:26 PM PATIENT IDENTITY VERIFICATION COMPLETED USING TWO (2) IDENTIFIERS: Name and Date of confirmed by patient verbally. FALL SCREENING: Has the patient had 2 falls in the last year or 1 fall with injury or currently using an Ambulatory Assistive Device (Walker, Cane, Wheelchair, Crutches, etc.)? No PATIENT GENDER DATA: Female. status: : No status: NO. PATIENT RELEVANT IMPLANT DATA REVIEWED: Yes PATIENT PRESENTS WITH AN IMPLANTABLE OR ATTACHED [place] MACHINE OPERATOR: No RADIOLOGY DEPARTMENT: General X-ray: Exam(s) Completed: Upper Extremity X-Ray(s): Wrist, right and Hand, right PERIPHERAL IV DATA: Not applicable SIGNED BY: RT Juan Antonio(R) July 10, 2023 5:26 PM documented in this encounter [facility] 07-10-2023 History of Presen t illness Narrative Subjective HPI Nontoxic-appearing female presents urgent care chief complaint right hand and wrist pain. Duration of symptoms 1 day. Associated symptoms right hand and wrist pain. Patient states she was on her computer around 2 AM this morning when she noticed some pain in her wrist. Pain has worsened since this morning. On the way home from work she noticed increased pain with movement. Points to anterior aspect of wrist and dorsal aspect of hand. Pain is exacerbated by movement of the fingers. Improved by rest. Denied any trauma. No numbness or tingling. No decrease sensation. Past medical history prescription medications allergies reviewed. .Patient presents with: Pain: Right hand pain, swelling x 1 day PAST MEDICAL HISTORY Diagnosis Date Anxiety Carpal tunnel syndrome Clostridium difficile diarrhea Recurrent infection 2012 Dysmetabolic syndrome Gestational diabetes Hypertension Obesity RANDA (obstructive sleep apnea) DME [facility] for AutoPAP - AHI 70.5 PAST SURGICAL HISTORY Procedure Laterality Date DELIVERY ONLY 12/03/11 , low transverse; wound infection DILATION & CURETTAGE DX&/THER NONOBSTETRIC 11/24/2013 Dilation & curettage HYSTEROSCOPY, DIAGNOSTIC (SEPARATE 11/24/2013 Hysteroscopy PAST SURGICAL HISTORY OF 01/2012 debridement post infection ALLERGIES Amoxicillin, Lisinopril, and Niacin MEDICATIONS pravastatin (PRAVACHOL) 20 mg tablet take 1 tablet once daily glimepiride (AMARYL) 4 mg tablet TAKE 1 TABLET DAILY WITH BREAKFAST gabapentin (NEURONTIN) 100 mg capsule Take 1 capsule by mouth two times a day for 30 days. ergocalciferol 50,000 unit capsule (VITAMIN D2, DRISDOL) Take 1 capsule by mouth one time a week. busPIRone (BUSPAR) 10 mg tablet Take 1 tablet by mouth two times a day. CPAP Settings 13 - 20 cm H2O, suitable mask per pt preference, chin strap, head gear, humidity, filters, tubing, lifetime supplies. G47.33 RANDA semaglutide (OZEMPIC) 2 mg/dose (8 mg/3 mL) pen injector Inject 2 mg subcutaneously one time a week. metFORMIN ER (GLUCOPHAGE XR) 500 mg 24 hr tablet Take 2 tablets by mouth twice daily at 6AM and 9PM. pioglitazone (ACTOS) 15 mg tablet Take 1 tablet by mouth once daily. sertraline (ZOLOFT) 100 mg tablet Take 1.5 tablets by mouth once daily. potassium chloride (K-TAB) 10 mEq tablet TAKE 1 TABLET DAILY WITH BREAKFAST losartan-hydroCHLOROthiazide (HYZAAR) 50-12.5 mg per tablet TAKE 1 TABLET ONCE DAILY ferrous sulfate 325 mg (65 mg iron) tablet Take 1 tablet by mouth twice daily with meals. Lancing Device misc Use to monitor blood sugars a directed Lancets lancets Use as instructed to monitor blood sugars when prompted by Freestyle Shilo. Up to 4 per day. insulin needles, DISPOSABLE, (BD INSULIN PEN NEEDLE UF) 31 gauge x 5/16 1 Each once daily. With Victoza. ICD10: E11.65 aspirin 81 mg chewable tablet CHEW 1 TABLET ONCE DAILY Blood-Glucose Meter monitoring kit Glucose Meter of Choice (pending insurance coverage) - Kit - Dx: Type 2 DM - Uncontrolled E11.65 albuterol HFA (PROAIR HFA) 90 mcg/actuation inhaler Inhale 2 Puffs as instructed every 4 hours as needed for Wheezing/Shortness of Breath. NORGESTIMATE-ETHINYL ESTRADIOL (PREVIFEM ORAL) Take 1 tablet by mouth once daily. flash glucose scanning reader (EnerVaultSTYLE SHILO 2 READER) Use to monitor blood sugars 4 times daily flash glucose sensor (FREESTYLE SHILO 2 SENSOR) kit Use to monitor blood sugars 4 times daily blood sugar diagnostic (FREESTYLE PRECISION JULIÁN STRIPS) test strip Use as instructed to monitor blood sugars when prompted by Freestyle Shilo. Up to 4 per day. FAMILY HISTORY Problem Relation Age of Onset Diabetes Father Hypertension Father Osteoporosis Mother Cancer Maternal Grandmother Liver Heart Maternal Grandfather [place] Diabetes Paternal Aunt Psychiatry Mother anorexia, depression Psychiatry Father bipolar d/o Social History Tobacco Use Smoking status: Never Smokeless tobacco: Never Vaping Use Vaping Use: Never used Substance Use Topics Alcohol use: No Drug use: No BP 130/100 Pulse 72 Temp 36.7 C (98.1 F) Resp 21 Wt 134.9 kg (297 lb 6.4 oz) LMP 07/02/2016 SpO2 98% BMI 51.05 kg/m Review of Systems Constitutional: Negative for chills, fever and malaise/fatigue. HENT: Negative for congestion, ear discharge, ear pain, sinus pain and sore throat. Eyes: Negative for blurred vision, pain, discharge and redness. Respiratory: Negative for cough, hemoptysis, sputum production, shortness of breath, wheezing and stridor. Cardiovascular: Negative for chest pain. Gastrointestinal: Negative for abdominal pain, diarrhea, nausea and vomiting. Musculoskeletal: Positive for joint pain. Negative for myalgias. Skin: Negative for itching and rash. Neurological: Negative for dizziness and headaches. Objective Physical Exam Constitutional: General: She is not in acute distress. Appearance: She is not toxic-appearing. HENT: Head: Normocephalic. Nose: Nose normal. Eyes: Pupils: Pupils are equal, round, and reactive to light. Cardiovascular: Rate and Rhythm: Normal rate. Pulmonary: Effort: Pulmonary effort is normal. No respiratory distress. Musculoskeletal: Right forearm: Normal. Left forearm: Normal. Right wrist: Tenderness and bony tenderness present. No swelling, deformity, effusion, lacerations or snuff box tenderness. Decreased range of motion. Normal pulse. Left wrist: Normal. Right hand: Tenderness and bony tenderness present. No swelling, deformity or lacerations. Decreased range of motion. Normal capillary refill. Normal pulse. Left hand: Normal. Cervical back: Normal range of motion. Comments: With palpation over dorsal aspect of right hand and anterior aspect of right wrist. No snuffbox tenderness. Neurovascular intact. No erythema. No breaks in skin. Skin: General: Skin is warm and dry. Neurological: General: No focal deficit present. Mental Status: She is alert. ASSESSMENT/PLAN: 1. Pain of right hand - ICD9: 729.5, ICD10: M79.641 - XR HAND GENERAL 3V PA/LAT/OBL RIGHT - XR WRIST INJURY 4V PA/LAT/OBL/SCAPH RIGHT COMBINED IMPRESSION IMPRESSION: No acute osseous abnormalities are identified. Degenerative changes Wrist x-ray negative. Suspicious of tendinitis or nerve impingement. Treat conservatively. Patient was educated on supportive therapies. Patient will follow up with primary care provider as needed. Patient was instructed to immediately proceed to emergency room for any new, worsening, or symptoms lasting longer than anticipated. The patient's clinical presentation is otherwise unremarkable at this time. Based on exam and clinical finding, the patient is stable for discharge. Plan of care was discussed with patient. Patient verbalizes understanding and agrees to plan of care. This note was generated using Songkick software. It may contain errors in wording, punctuation, or spelling. Nawaf Gallardo APRN.[employer] REPRESENTATIVE documented in this encounter [facility] 07-01-2023 Miscellaneous Notes Patient has been identified by name and date of : No Patient phones for refill(s): Requested Prescriptions Pending Prescriptions Disp Refills pravastatin (PRAVACHOL) 20 mg tablet [Pharmacy Med Name: PRAVASTATIN TAB 20MG] 90 tablet 1 Sig: take 1 tablet once daily Date of last office visit in primary care: 05/02/2023 Date of next office visit in primary care: 06/30/2023 Please advise. Thank you. Kaylen Sanford LPN. documented in this encounter [facility] 06-26-2023 Miscellaneous Notes Patient has been identified by name and date of : Yes Patient phones for refill(s): Requested Prescriptions Pending Prescriptions Disp Refills gabapentin (NEURONTIN) 300 mg capsule 60 capsule 5 Sig: Take 1 capsule by mouth two times a day for 30 days. Date of last office visit in primary care: 05/02/2023 Date of next office visit in primary care: 11/01/2023 Please advise. Thank you. ROOPA Benjamin. documented in this encounter [facility] 05-02-2023 Instructions Morenita Butler APRN.MARIA - 05/02/2023 10:22 AM EST Call insurance in regards to coverage for cologuard colon cancer screening. documented in this encounter [facility] 05-02-2023 History of Presen t illness Narrative CC: Patient presents with: Recheck: 6 month follow up Immunizations: Flu vaccination HPI Tobi Farfan is a 48 year old female who presents today for routine follow up but has felt more tired than usual over the last few months. Has not been taking her Vit d supplement in a few months. Sleeps an average of 6-7 of sleep at night. Uses her cpap nightly for at least 5 hours a night. Even got a new machine a month ago. DIABETES MELLITUS: Ms. Farfan denies excessive thirst or increased frequency of urination, chest pain or dyspnea , numbness, tingling or pain in extremities, new or unusual visual symptoms, low sugar/hypoglycemic reactions, weight loss/gain, lightheadedness/dizziness, and bowel changes/loose stools. Follows a diabetic diet some of the time. She is compliant with medication(s) and is tolerating med(s) without any side effects. She reports checking her glucose on a infrequent to not at all basis schedule. Patient's last HgA1C was Hemoglobin A1C (%) Date Value 04/29/2023 6.3 10/18/2022 6.0 07/04/2021 8.7 04/01/2021 9.4 ) Last Ophthalmology exam was over a year ago. [facility]es [facility]. REVIEW OF SYSTEMS General: no fevers, no chills, no night sweats, no recurrent infections, no change in appetite, and no significant changes in weight Respiratory: no cough, no wheezing, no shortness of breath, no hemoptysis Cardiovascular: no chest pain, no chest pressure, no palpitations, and no swelling GI: No nausea, vomiting, or diarrhea Endocrine: no hair loss, no cold intolerance, no heat intolerance, no polyuria, no polyphagia, and no polydipsia Neurologic: No headache, weakness, numbness, tingling, dizziness, memory loss, syncope. PAST MEDICAL HISTORY Diagnosis Date Anxiety Carpal tunnel syndrome Clostridium difficile diarrhea Recurrent infection 2011 Dysmetabolic syndrome Gestational diabetes Hypertension Obesity RANDA (obstructive sleep apnea) DME [facility] for AutoPAP - AHI 70.5 PAST SURGICAL HISTORY Procedure Laterality Date DELIVERY ONLY 12/03/11 , low transverse; wound infection DILATION & CURETTAGE DX&/THER NONOBSTETRIC 11/24/2013 Dilation & curettage HYSTEROSCOPY, DIAGNOSTIC (SEPARATE 11/24/2013 Hysteroscopy PAST SURGICAL HISTORY OF 01/2012 debridement post infection ALLERGIES Amoxicillin, Lisinopril, and Niacin MEDICATIONS busPIRone (BUSPAR) 10 mg tablet Take 1 tablet by mouth two times a day. glimepiride (AMARYL) 4 mg tablet Take 1 tablet by mouth daily with breakfast. CPAP Settings 13 - 20 cm H2O, suitable mask per pt preference, chin strap, head gear, humidity, filters, tubing, lifetime supplies. G47.33 RANDA semaglutide (OZEMPIC) 2 mg/dose (8 mg/3 mL) pen injector Inject 2 mg subcutaneously one time a week. pravastatin (PRAVACHOL) 20 mg tablet Take 1 tablet by mouth once daily. metFORMIN ER (GLUCOPHAGE XR) 500 mg 24 hr tablet Take 2 tablets by mouth twice daily at 6AM and 9PM. pioglitazone (ACTOS) 15 mg tablet Take 1 tablet by mouth once daily. sertraline (ZOLOFT) 100 mg tablet Take 1.5 tablets by mouth once daily. potassium chloride (K-TAB) 10 mEq tablet TAKE 1 TABLET DAILY WITH BREAKFAST losartan-hydroCHLOROthiazide (HYZAAR) 50-12.5 mg per tablet TAKE 1 TABLET ONCE DAILY ergocalciferol 50,000 unit capsule (VITAMIN D2, DRISDOL) Take 1 capsule by mouth one time a week. ferrous sulfate 325 mg (65 mg iron) tablet Take 1 tablet by mouth twice daily with meals. flash glucose scanning reader (EnerVaultSTYLE SHILO 2 READER) Use to monitor blood sugars 4 times daily flash glucose sensor (FREESTYLE SHILO 2 SENSOR) kit Use to monitor blood sugars 4 times daily blood sugar diagnostic (FREESTYLE PRECISION JULIÁN STRIPS) test strip Use as instructed to monitor blood sugars when prompted by Freestyle Shilo. Up to 4 per day. Lancing Device misc Use to monitor blood sugars a directed Lancets lancets Use as instructed to monitor blood sugars when prompted by Freestyle Shilo. Up to 4 per day. insulin needles, DISPOSABLE, (BD INSULIN PEN NEEDLE UF) 31 gauge x 5/16 1 Each once daily. With Victoza. ICD10: E11.65 aspirin 81 mg chewable tablet CHEW 1 TABLET ONCE DAILY Blood-Glucose Meter monitoring kit Glucose Meter of Choice (pending insurance coverage) - Kit - Dx: Type 2 DM - Uncontrolled E11.65 albuterol HFA (PROAIR HFA) 90 mcg/actuation inhaler Inhale 2 Puffs as instructed every 4 hours as needed for Wheezing/Shortness of Breath. NORGESTIMATE-ETHINYL ESTRADIOL (PREVIFEM ORAL) Take 1 tablet by mouth once daily. FAMILY HISTORY Problem Relation Age of Onset Diabetes Father Hypertension Father Osteoporosis Mother Cancer Maternal Grandmother Liver Heart Maternal Grandfather [place] Diabetes Paternal Aunt Psychiatry Mother anorexia, depression Psychiatry Father bipolar d/o Social History Tobacco Use Smoking status: Never Smokeless tobacco: Never Vaping Use Vaping Use: Never used Substance Use Topics Alcohol use: No Drug use: No PHYSICAL EXAM BP 118/70 Pulse 68 Resp 16 Wt 132.9 kg (293 lb) LMP 07/02/2016 SpO2 97% BMI 50.29 kg/m General Appearance: well appearing, in no acute distress, alert Pysch: mood and affect broad and appropriate Skin: Skin color, texture, turgor normal for age; Eyes: conjunctiva pink and moist, no icterus, sclera white, non-injected Neck: Thyroid normal size and symmetric without palpable nodules, No adenopathy Lymph nodes: No cervical lymphadenopathy and No supraclavicular lymphadenopathy Lungs: Lungs clear to auscultation. No wheezing, rhonchi, rales. Heart: RRR without murmur, gallop, or rubs. No ectopy Health maintenance reviewed with patient: Hepatitis B Vaccine(1 of 3 - 3-dose series) Never done DTaP,Tdap,Td Vaccine(9 - Td or Tdap) due on 01/02/2022 Colorectal Cancer Screening Never done Dilated Retinal Exam due on 12/26/2022 Influenza Vaccine(1) due on 01/11/2023 Covid-19 Vaccine( season) due on 01/11/2023 Mammogram Screening due on 09/12/2023 Urine Albumin:Creatinine Ratio due on 10/19/2023 Diabetic Foot Exam due on 10/23/2023 Annual PCP Team Chronic Disease Visit due on 10/23/2023 BP Controlled (<130/80) due on 10/23/2023 HbA1C due on 10/29/2023 LDL Cholesterol due on 04/29/2024 Pap Testing due on 05/10/2025 HPV Testing due on 05/10/2025 Depression Assessment Completed Hepatitis C Screening Completed HIV Screening Completed Pneumococcal Vaccine Completed HPV Vaccine Aged Out DATA REVIEWED: Most recent labs ASSESSMENT/PLAN: 1. Controlled type 2 diabetes mellitus without complication, without long-term current use of insulin (HCC) - ICD9: 250.00, ICD10: E11.9 (primary diagnosis) - Controlled - Continue current medications - Blood glucose monitoring on a once daily schedule - Counseled on healthy diet and regular exercise - Discussed need for and benefit of weight loss. BMI 50.29 kg/(m^2) 2. Other fatigue - ICD9: 780.79, ICD10: R53.83 -unsure on cause - will further evaluate - IRON + TIBC - FERRITIN BLD - VITAMIN B12 BLOOD - TSH BLD - T4 FREE/FREE THYROX 3. RANDA (obstructive sleep apnea) - ICD9: 327.23, ICD10: G47.33 Compliant with cpap and cpap new. Doubtful that this would because of fatigue 4. Vitamin D deficiency - ICD9: 268.9, ICD10: E55.9 - restart prescription - ERGOCALCIFEROL (VITAMIN D2) 1,250 MCG (50,000 UNIT) CAPSULE 5. Need for influenza vaccination - ICD9: V04.81, ICD10: Z23 - INFLUENZA VACCINE, AGE 6 MO - 64 YR, QUADRIVALENT (AFLURIA, FLULAVAL, FLUZONE) 6. History of iron deficiency - ICD9: V12.3, ICD10: Z86.39 - IRON + TIBC - FERRITIN BLD Prescription instructions reviewed with patient as applicable. Potential red flag symptoms discussed with the patient. Reviewed appropriate action plan to take if red flag symptoms occur. Patient agreeable to treatment plan. Morenita Butler APRN.CNP documented in this encounter [facility] 11-28-2022 Miscellaneous Notes Rx printed and given to Kaylen to fax. Janelle Nowak PA-C RX sent electronically to Pharmacy. Please print pended RX. Placed order for CPAP as requested. Would you be able to fax this to [facility]AP [facility] supplies please? Janelle Nowak PA-C documented in this encounter [facility] 09-14-2022 Miscellaneous Notes Patient has been identified by name and date of : No Patient phones for refill(s): Requested Prescriptions Pending Prescriptions Disp Refills potassium chloride (K-TAB) 10 mEq tablet [Pharmacy Med Name: POT CHLOR KT TAB 10MEQ ER] 90 tablet 3 Sig: TAKE 1 TABLET DAILY WITH BREAKFAST Date of last office visit in primary care: 05/09/22 Last 2 Encounter Wt Readings: Date: Wt: 05/09/2022 131.1 kg (289 lb) 02/07/2022 132 kg (291 lb) Previous labs/tests for medication: Not applicable Please advise. Thank you. Kaylen Ramsay LPN documented in this encounter [facility] 08-27-2022 Miscellaneous Notes Patient has been identified by name and date of : No Patient phones for refill(s): Requested Prescriptions Pending Prescriptions Disp Refills losartan-hydroCHLOROthiazide (HYZAAR) 50-12.5 mg per tablet [Pharmacy Med Name: LOSARTAN/HCT TAB 50-12.5] 90 tablet 3 Sig: TAKE 1 TABLET ONCE DAILY Date of last office visit in primary care: 05/09/22 Last 2 Encounter Wt Readings: Date: Wt: 05/09/2022 131.1 kg (289 lb) 02/07/2022 132 kg (291 lb) Previous labs/tests for medication: Blood Pressure: BUN (mg/dL) Date Value 02/03/2022 8 09/24/2020 11 Sodium (mmol/L) Date Value 02/03/2022 137 09/24/2020 137 Last 1 Encounter BP Readings: Date: BP: 05/09/2022 118/70 Please advise. Thank you. Kaylen Ramsay LPN documented in this encounter [facility] 07-17-2022 Miscellaneous Notes Patient has been identified by name and date of : No Patient phones for refill(s): Requested Prescriptions Pending Prescriptions Disp Refills ergocalciferol 50,000 unit capsule (VITAMIN D2, DRISDOL) 12 capsule 1 Sig: Take 1 capsule by mouth one time a week. Date of last office visit in primary care: 05/09/22 Last 2 Encounter Wt Readings: Date: Wt: 05/09/2022 131.1 kg (289 lb) 02/07/2022 132 kg (291 lb) Previous labs/tests for medication: Not applicable Please advise. Thank you. Kaylen Ramsay LPN documented in this encounter [facility] 05-09-2022 History of Presen t illness Narrative CC: Patient presents with: Recheck: 3 month DM follow up HPI Tobi Farfan is a 47 year old female who presents today for diabetic follow up. DIABETES MELLITUS: Ms. Farfan denies excessive thirst or increased frequency of urination, chest pain or dyspnea , numbness, tingling or pain in extremities, new or unusual visual symptoms, low sugar/hypoglycemic reactions, weight loss/gain, lightheadedness/dizziness, and bowel changes/loose stools. Follows a diabetic diet some of the time. She is compliant with medication(s) and is tolerating med(s) without any side effects but has been having difficulty getting the correct dosage of ozempic since it is on back order. She reports checking her glucose on a infrequent to not at all basis schedule. Patient's last HgA1C was Hemoglobin A1C (%) Date Value 05/08/2022 7.5 02/03/2022 6.6 07/04/2021 8.7 04/01/2021 9.4 ) REVIEW OF SYSTEMS General: no fevers, no chills, no night sweats, no recurrent infections, no change in appetite, no change in energy, and no significant changes in weight Respiratory: no cough, no wheezing, no shortness of breath, no hemoptysis Cardiovascular: no chest pain, no chest pressure, no palpitations, and no swelling Endocrine: no fatigue, no cold intolerance, no heat intolerance, no polyuria, no polyphagia, and no polydipsia Neurologic: No headache, weakness, numbness, tingling, dizziness, syncope. PAST MEDICAL HISTORY Diagnosis Date Anxiety Carpal tunnel syndrome Clostridium difficile diarrhea Recurrent infection 2011 Dysmetabolic syndrome Gestational diabetes Hypertension Obesity RANDA (obstructive sleep apnea) DME [facility] for AutoPAP - AHI 70.5 PAST SURGICAL HISTORY Procedure Laterality Date DELIVERY ONLY 12/03/11 , low transverse; wound infection DILATION & CURETTAGE DX&/THER NONOBSTETRIC 11/24/2013 Dilation & curettage HYSTEROSCOPY, DIAGNOSTIC (SEPARATE 11/24/2013 Hysteroscopy PAST SURGICAL HISTORY OF 01/2012 debridement post infection ALLERGIES Amoxicillin, Lisinopril, and Niacin MEDICATIONS semaglutide (OZEMPIC) 1 mg/dose (4 mg/3 mL) pen Inject 1 mg subcutaneously one time a week. pravastatin (PRAVACHOL) 20 mg tablet Take 1 tablet by mouth once daily. busPIRone (BUSPAR) 10 mg tablet Take 1 tablet by mouth twice daily. ferrous sulfate 325 mg (65 mg iron) tablet Take 1 tablet by mouth twice daily with meals. gabapentin (NEURONTIN) 300 mg capsule Take 1 capsule by mouth twice daily for 30 days. potassium chloride (K-TAB) 10 mEq tablet Take 1 tablet by mouth daily with breakfast. buPROPion (WELLBUTRIN) 75 mg tablet Take 1 tablet by mouth twice daily. metFORMIN ER (GLUCOPHAGE XR) 500 mg 24 hr tablet Take 2 tablets by mouth twice daily at 6AM and 9PM. pioglitazone (ACTOS) 15 mg tablet Take 1 tablet by mouth once daily. ergocalciferol 50,000 unit capsule (VITAMIN D2, DRISDOL) Take 1 capsule by mouth one time a week. losartan-hydroCHLOROthiazide (HYZAAR) 50-12.5 mg per tablet TAKE 1 TABLET ONCE DAILY sertraline (ZOLOFT) 100 mg tablet Take 1.5 tablets by mouth once daily. flash glucose scanning reader (FREESTYLE SHILO 2 READER) Use to monitor blood sugars 4 times daily flash glucose sensor (FREESTYLE SHILO 2 SENSOR) kit Use to monitor blood sugars 4 times daily blood sugar diagnostic (FREESTYLE PRECISION JULIÁN STRIPS) test strip Use as instructed to monitor blood sugars when prompted by Freestyle Shilo. Up to 4 per day. Lancing Device misc Use to monitor blood sugars a directed Lancets lancets Use as instructed to monitor blood sugars when prompted by Freestyle Shilo. Up to 4 per day. insulin needles, DISPOSABLE, (BD INSULIN PEN NEEDLE UF) 31 gauge x 5/16 1 Each once daily. With Victoza. ICD10: E11.65 aspirin 81 mg chewable tablet CHEW 1 TABLET ONCE DAILY CPAP Settings 13 - 20 cm H2O, suitable mask per pt preference, chin strap, head gear, humidity, filters, tubing, lifetime supplies. G47.33 RANDA Blood-Glucose Meter monitoring kit Glucose Meter of Choice (pending insurance coverage) - Kit - Dx: Type 2 DM - Uncontrolled E11.65 albuterol HFA (PROAIR HFA) 90 mcg/actuation inhaler Inhale 2 Puffs as instructed every 4 hours as needed for Wheezing/Shortness of Breath. NORGESTIMATE-ETHINYL ESTRADIOL (PREVIFEM ORAL) Take 1 tablet by mouth once daily. FAMILY HISTORY Problem Relation Age of Onset Diabetes Father Hypertension Father Osteoporosis Mother Cancer Maternal Grandmother Liver Heart Maternal Grandfather [place] Diabetes Paternal Aunt Psychiatry Mother anorexia, depression Psychiatry Father bipolar d/o Social History Tobacco Use Smoking status: Never Smokeless tobacco: Never Vaping Use Vaping Use: Never used Substance Use Topics Alcohol use: No Drug use: No PHYSICAL EXAM BP 118/70 Pulse 60 Resp 16 Wt 131.1 kg (289 lb) LMP 07/02/2016 BMI 49.61 kg/m General Appearance: well appearing, in no acute distress, alert Eyes: conjunctiva pink and moist, no icterus, sclera white, non-injected Lungs: Lungs clear to auscultation. No wheezing, rhonchi, rales. Heart: RRR without murmur, gallop, or rubs. No ectopy Health maintenance reviewed with patient: PNEUMOCOCCAL(1 - PCV) due on 07/27/2022 HEPATITIS B(1 of 3 - 3-dose series) due on 11/03/2022 DTAP,TDAP,TD(8 - Td or Tdap) due on 02/07/2023 COLORECTAL CANCER SCREENING due on 02/07/2023 COVID-19 VACCINE(4 - Booster for Pfizer series) due on 02/07/2023 MAMMOGRAM due on 09/01/2022 URINE ALBUMIN:CREATININE RATIO due on 10/30/2022 LDL CHOLESTEROL due on 10/30/2022 DIABETIC FOOT EXAM due on 11/03/2022 HBA1C due on 11/06/2022 DILATED RETINAL EXAM due on 12/26/2022 ANNUAL PCP TEAM CHRONIC DISEASE VISIT due on 02/07/2023 BP CONTROLLED (<130/80) due on 02/07/2023 PAP TESTING due on 05/10/2025 HPV TESTING due on 05/10/2025 INFLUENZA Completed DEPRESSION ASSESSMENT Completed HEPATITIS C SCREENING Completed HIV SCREENING Completed DATA REVIEWED: Most recent labs ASSESSMENT/PLAN: 1. Controlled type 2 diabetes mellitus without complication, without long-term current use of insulin (HCC) - ICD9: 250.00, ICD10: E11.9 worsening control - probable result of unreliable ozempic dosing - will switch from ozempic to mounjaro and restart glimepiride once daily - Continue other current medications - Blood glucose monitoring on a once a day schedule - Ophthalmology referral for eval/management of diabetic eye changes - BP goal of <130/80 - LDL goal of <100 - GLIMEPIRIDE 4 MG TABLET Prescription instructions reviewed with patient as applicable. Potential red flag symptoms discussed with the patient. Reviewed appropriate action plan to take if red flag symptoms occur. Patient agreeable to treatment plan. Morenita Butler APRN.CNP documented in this encounter [facility] 05-08-2022 Miscellaneous Notes patient is here now for labs. Patient has appointment tomorrow with Morenita Butler. Labs pending, please file Kaylen Ramsay LPN documented in this encounter [facility] 04-10-2022 Miscellaneous Notes Spoke with pt and information listed below given. Pt verbalizes understanding. Lauryn Pires LPN Left a message for pt to call the office and ask to speak to a nurse. Lauryn Pires LPN Left message for return call. Please let patient know this information. I am going to order the 1mg dose but patient needs to watch her blood sugar closely as she may see an increase. Thank you Morenita Butler APRN.CNP Lupe with [facility] calling to let you know medication Ozempic 2 mg pens are on back order and they do not have a release date. Requesting a different medication be sent into the pharmacy for pt. PH: [phone] order number is [id number]. Order has been placed on hold till they hear back. No alternative given from the pharmacy. Above phone number will get you to the pharmacy. Lauryn Pires LPN documented in this encounter [facility] 03-28-2022 Miscellaneous Notes Duplicate med request, refilled on 03/27/2022 by Abdirashid Miller documented in this encounter [facility] 03-27-2022 Miscellaneous Notes Patient has been identified by name and date of : Yes Patient phones for refill(s): Requested Prescriptions Pending Prescriptions Disp Refills semaglutide (OZEMPIC) 2 mg/dose (8 mg/3 mL) pen injector 9 mL 2 Sig: Inject 2 mg subcutaneously one time a week. Date of last office visit in primary care: 02/07/2022 Last 2 Encounter Wt Readings: Date: Wt: 02/07/2022 132 kg (291 lb) 11/03/2021 139.3 kg (307 lb) Previous labs/tests for medication: Diabetes: Hemoglobin A1C (%) Date Value 02/03/2022 6.6 10/30/2021 8.8 07/04/2021 8.7 04/01/2021 9.4 Please advise. Thank you. Kaylen Ramsay LPN documented in this encounter [facility] 03-27-2022 Miscellaneous Notes Patient has been identified by name and date of : Yes Patient phones for refill(s): Requested Prescriptions Pending Prescriptions Disp Refills pravastatin (PRAVACHOL) 20 mg tablet 90 tablet 1 Sig: Take 1 tablet by mouth once daily. Date of last office visit in primary care: 02/07/2022 Last 2 Encounter Wt Readings: Date: Wt: 02/07/2022 132 kg (291 lb) 11/03/2021 139.3 kg (307 lb) Previous labs/tests for medication: Cholesterol: HDL Cholesterol (mg/dL) Date Value 10/30/2021 30 09/24/2020 35 LDL Cholesterol (mg/dL) Date Value 10/30/2021 95 09/24/2020 87 ALT (U/L) Date Value 02/03/2022 22 09/24/2020 15 Non HDL Cholesterol (mg/dL) Date Value 10/30/2021 111 09/24/2020 115 Please advise. Thank you. Kaylen Ramsay LPN documented in this encounter [facility] 02-28-2022 Miscellaneous Notes NOV 05/09/22 MIHIR 02/07/22 Patient electronically sent a request for the following prescription(s) Requested Prescriptions Pending Prescriptions Disp Refills busPIRone (BUSPAR) 10 mg tablet 180 tablet 3 Sig: Take 1 tablet by mouth twice daily. Patient aware RX will be sent to pharmacy. No need to notify patient. Please review. Rosa Carter MA documented in this encounter [facility] 02-09-2022 Miscellaneous Notes Care Transition Back to PCP Our mutual patient, Tobi Farfan, has achieved adequate control of their Diabetes during their care with us. We will not be scheduling further follow up with pharmacy at this time. They have been encouraged to follow up with you for ongoing management. As always, you may refer Tobi Farfan back to pharmacy for management in the future. Next PCP team appointment: 05/09/22 Thank you for utilizing primary care pharmacy services. Luz Sun RPh documented in this encounter [facility] 01-08-2022 Miscellaneous Notes MIHIR: 11/03/2021 Last refill: 09/04/2021 QTY: 180 Refills: 1 documented in this encounter [facility] 01-01-2022 Miscellaneous Notes Patient has been identified by name and date of : Yes Patient phones for refill(s): Requested Prescriptions Pending Prescriptions Disp Refills gabapentin (NEURONTIN) 300 mg capsule 60 capsule 1 Sig: Take 1 capsule by mouth twice daily for 30 days. Date of last office visit in primary care: 11/03/21 Last 2 Encounter Wt Readings: Date: Wt: 11/03/2021 139.3 kg (307 lb) 07/27/2021 140.2 kg (309 lb) Previous labs/tests for medication: Not applicable Please advise. Thank you. Kaylen Ramsay LPN documented in this encounter [facility] 01-01-2022 Miscellaneous Notes Patient has been identified by name and date of : Yes Patient phones for refill(s): Requested Prescriptions Pending Prescriptions Disp Refills potassium chloride (K-TAB) 10 mEq tablet 90 tablet 3 Sig: Take 1 tablet by mouth daily with breakfast. Date of last office visit in primary care: 11/03/21 Last 2 Encounter Wt Readings: Date: Wt: 11/03/2021 139.3 kg (307 lb) 07/27/2021 140.2 kg (309 lb) Previous labs/tests for medication: Not applicable Please advise. Thank you. Kaylen Ramsay LPN documented in this encounter [facility] 12-12-2021 Miscellaneous Notes Patient has been identified by name and date of : Yes Pharmacy phones for refill(s): Pending Prescriptions Disp Refills BUPROPION HCL 75 MG TABLET 180 tablet 1 Sig: Take 1 tablet by mouth twice daily. RICKY: No Date of last office visit in primary care: 11/03/21 next apt 02/06/22 Last 2 Encounter Wt Readings: Date: Wt: 11/03/2021 139.3 kg (307 lb) 07/27/2021 140.2 kg (309 lb) Previous labs/tests for medication: Not applicable Please advise. Thank you. Lauryn Pires LPN Patient has been identified by name and date of : Yes Last office visit in this department: Visit date not found RX INSTRUCTIONS:Pharmacy requested this meduication Patient phones requesting refills as follows: Pending Prescriptions Disp Refills BUPROPION HCL 75 MG TABLET 180 tablet 1 Sig: Take 1 tablet by mouth twice daily. RICKY: No Please review and advise. Debra Smiley documented in this encounter [facility] 10-23-2021 Miscellaneous Notes Patient has been identified by name and date of : Yes Patient phones for refill(s): Pending Prescriptions Disp Refills GABAPENTIN 300 MG CAPSULE 60 capsule 1 Sig: Take 1 capsule by mouth twice daily for 30 days. RICKY: No Date of last office visit in primary care: 07/27/21 next apt 11/03/21 Last 2 Encounter Wt Readings: Date: Wt: 07/27/2021 140.2 kg (309 lb) 04/04/2021 141.1 kg (311 lb) Previous labs/tests for medication: Not applicable Please advise. Thank you. Lauryn Pires LPN documented in this encounter [facility] 09-05-2021 Miscellaneous Notes The following approved medication requests have been transmitted electronically. Signed Prescriptions Disp Refills semaglutide (OZEMPIC) 1 mg/dose (4 mg/3 mL) pen injector 9 mL 4 Sig: Inject 1 mg subcutaneously one time a week. Luz Sun PharmD, BCACP Primary Care Clinical Pharmacist [facility] documented in this encounter [facility] 09-05-2021 Miscellaneous Notes 11/03/21 MIHIR 07/27/21 Patient electronically sent a request for the following prescription(s) Pending Prescriptions Disp Refills ERGOCALCIFEROL (VITAMIN D2) 1,250 MCG (50,000 UNIT) CAPSULE 12 capsule 1 Sig: Take 1 capsule by mouth one time a week. RICKY: No Patient aware RX will be sent to pharmacy. No need to notify patient. Please review. Rosa Carter MA documented in this encounter [facility] 09-04-2021 Miscellaneous Notes Patient has been identified by name and date of : Yes Patient phones for refill(s): Pending Prescriptions Disp Refills FERROUS SULFATE 325 MG (65 MG IRON) TABLET 180 tablet 0 Sig: Take 1 tablet by mouth twice daily with meals. RICKY: No Date of last office visit in primary care: Last OV on 11/04/2014 No appointment scheduled Last 2 Encounter Wt Readings: Date: Wt: 07/27/2021 140.2 kg (309 lb) 04/04/2021 141.1 kg (311 lb) Please advise. Thank you. MICHELLE Benjamin documented in this encounter [facility] 08-21-2021 Miscellaneous Notes 11/03/21 MIHIR 07/27/21 Patient electronically sent a request for the following prescription(s) Pending Prescriptions Disp Refills LOSARTAN 50 MG-HYDROCHLOROTHIAZIDE 12.5 MG TABLET 90 tablet 3 Sig: TAKE 1 TABLET ONCE DAILY RICKY: Yes Patient aware RX will be sent to pharmacy. No need to notify patient. Please review. Rosa Carter MA documented in this encounter [facility] 04-11-2021 History of Past i llness Narrative Problem Noted Date Resolved Date Right sided sciatica 04/11/2021 05/11/2021 Elevated blood pressure read ing without diagnosis of hypertension 12/18/2006 01/09/2008 documented as of this encounter (statuses as of 08/21/2021) [address]30-[address]21 History of Past illness Narrative* Problem Noted Date Resolved Date Right sided sciatica 04/11/2021 05/11/2021 Elevated blood pressure read ing without diagnosis of hypertension 12/18/2006 01/09/2008 documented as of this encounter (statuses as of 09/04/2021) [address]30-2021 History of Past illness Narrative* Problem Noted Date Resolved Date Right sided sciatica 04/11/2021 05/11/2021 Elevated blood pressure read ing without diagnosis of hypertension 12/18/2006 01/09/2008 documented as of this encounter (statuses as of 09/05/2021) [address]30-2021 History of Past illness Narrative* Problem Noted Date Resolved Date Right sided sciatica 04/11/2021 05/11/2021 Elevated blood pressure read ing without diagnosis of hypertension 12/18/2006 01/09/2008 documented as of this encounter (statuses as of 09/06/2021) [address]30-2021 History of Past illness Narrative* Problem Noted Date Resolved Date Right sided sciatica 04/11/2021 05/11/2021 Elevated blood pressure read ing without diagnosis of hypertension 12/18/2006 01/09/2008 documented as of this encounter (statuses as of 10/10/2021) [address]30-2021 History of Past illness Narrative* Problem Noted Date Resolved Date Right sided sciatica 04/11/2021 05/11/2021 Elevated blood pressure read ing without diagnosis of hypertension 12/18/2006 01/09/2008 documented as of this encounter (statuses as of 10/20/2021) [address]30-2021 History of Past illness Narrative* Problem Noted Date Resolved Date Right sided sciatica 04/11/2021 05/11/2021 Elevated blood pressure read ing without diagnosis of hypertension 12/18/2006 01/09/2008 documented as of this encounter (statuses as of 10/23/2021) [address]30-2021 History of Past illness Narrative* Problem Noted Date Resolved Date Right sided sciatica 04/11/2021 05/11/2021 Elevated blood pressure read ing without diagnosis of hypertension 12/18/2006 01/09/2008 documented as of this encounter (statuses as of 10/23/2021) [address]30-2021 History of Past illness Narrative* Problem Noted Date Resolved Date Right sided sciatica 04/11/2021 05/11/2021 Elevated blood pressure read ing without diagnosis of hypertension 12/18/2006 01/09/2008 documented as of this encounter (statuses as of 12/13/2021) [address]30-2021 History of Past illness Narrative* Problem Noted Date Resolved Date Right sided sciatica 04/11/2021 05/11/2021 Elevated blood pressure read ing without diagnosis of hypertension 12/18/2006 01/09/2008 documented as of this encounter (statuses as of 01/03/2022) [address]30-2021 History of Past illness Narrative* Problem Noted Date Resolved Date Right sided sciatica 04/11/2021 05/11/2021 Elevated blood pressure read ing without diagnosis of hypertension 12/18/2006 01/09/2008 documented as of this encounter (statuses as of 01/03/2022) [address]30-2021 History of Past illness Narrative* Problem Noted Date Resolved Date Right sided sciatica 04/11/2021 05/11/2021 Elevated blood pressure read ing without diagnosis of hypertension 12/18/2006 01/09/2008 documented as of this encounter (statuses as of 01/08/2022) [facility] History of Past illness Narrative* Problem Noted Date Resolved Date Right sided sciatica 04/11/2021 05/11/2021 Elevated blood pressure read ing without diagnosis of hypertension 12/18/2006 01/09/2008 documented as of this encounter (statuses as of 02/09/2022) [address]30-2021 History of Past illness Narrative* Problem Noted Date Resolved Date Right sided sciatica 04/11/2021 05/11/2021 Elevated blood pressure read ing without diagnosis of hypertension 12/18/2006 01/09/2008 documented as of this encounter (statuses as of 03/01/2022) [address]30-2021 History of Past illness Narrative* Problem Noted Date Resolved Date Right sided sciatica 04/11/2021 05/11/2021 Elevated blood pressure read ing without diagnosis of hypertension 12/18/2006 01/09/2008 documented as of this encounter (statuses as of 03/27/2022) [address]30-2021 History of Past illness Narrative* Problem Noted Date Resolved Date Right sided sciatica 04/11/2021 05/11/2021 Elevated blood pressure read ing without diagnosis of hypertension 12/18/2006 01/09/2008 documented as of this encounter (statuses as of 03/27/2022) [address]30-2021 History of Past illness Narrative* Problem Noted Date Resolved Date Right sided sciatica 04/11/2021 05/11/2021 Elevated blood pressure read ing without diagnosis of hypertension 12/18/2006 01/09/2008 documented as of this encounter (statuses as of 03/28/2022) [address]30-2021 History of Past illness Narrative* Problem Noted Date Resolved Date Right sided sciatica 04/11/2021 05/11/2021 Elevated blood pressure read ing without diagnosis of hypertension 12/18/2006 01/09/2008 documented as of this encounter (statuses as of 04/10/2022) [address]30-2021 History of Past illness Narrative* Problem Noted Date Resolved Date Right sided sciatica 04/11/2021 05/11/2021 Elevated blood pressure read ing without diagnosis of hypertension 12/18/2006 01/09/2008 documented as of this encounter (statuses as of 05/16/2022) [address]30-2021 History of Past illness Narrative* Problem Noted Date Resolved Date Right sided sciatica 04/11/2021 05/11/2021 Elevated blood pressure read ing without diagnosis of hypertension 12/18/2006 01/09/2008 documented as of this encounter (statuses as of 05/16/2022) [address]30-2021 History of Past illness Narrative* Problem Noted Date Resolved Date Right sided sciatica 04/11/2021 05/11/2021 Elevated blood pressure read ing without diagnosis of hypertension 12/18/2006 01/09/2008 documented as of this encounter (statuses as of 07/18/2022) [address]30-2021 History of Past illness Narrative* Problem Noted Date Resolved Date Right sided sciatica 04/11/2021 05/11/2021 Elevated blood pressure read ing without diagnosis of hypertension 12/18/2006 01/09/2008 documented as of this encounter (statuses as of 08/27/2022) [address]30-2021 History of Past illness Narrative* Problem Noted Date Resolved Date Right sided sciatica 04/11/2021 05/11/2021 Elevated blood pressure read ing without diagnosis of hypertension 12/18/2006 01/09/2008 documented as of this encounter (statuses as of 09/14/2022) [address]30-2021 History of Past illness Narrative* Problem Noted Date Diagnosed Date Resolved Date Right sided sciatica 04/11/2021 021 Elevated blood pressure read ing without diagnosis of hypertension 12/18/2006 01/09/2008 documented as of this encounter (statuses as of 11/28/2022) [facility] History of Past illness Narrative* Problem Noted Date Diagnosed Date Resolved Date Right sided sciatica 04/11/2021 021 Elevated blood pressure read ing without diagnosis of hypertension 12/18/2006 01/09/2008 documented as of this encounter (statuses as of 05/03/2023) [address]30-2021 History of Past illness Narrative* Problem Noted Date Diagnosed Date Resolved Date Right sided sciatica 04/11/2021 021 Elevated blood pressure read ing without diagnosis of hypertension 12/18/2006 01/09/2008 documented as of this encounter (statuses as of 06/27/2023) [address]30-2021 History of Past illness Narrative* Problem Noted Date Diagnosed Date Resolved Date Right sided sciatica 04/11/2021 021 Elevated blood pressure read ing without diagnosis of hypertension 12/18/2006 01/09/2008 documented as of this encounter (statuses as of 07/01/2023) [address]30-2021 History of Past illness Narrative* Problem Noted Date Diagnosed Date Resolved Date Right sided sciatica 04/11/20212 021 Elevated blood pressure read ing without diagnosis of hypertension 12/18/2006 01/09/2008 documented as of this encounter (statuses as of 07/11/2023) [address]30-2021 History of Past illness Narrative* Problem Noted Date Diagnosed Date Resolved Date Right sided sciatica 04/11/2021 021 Elevated blood pressure read ing without diagnosis of hypertension 12/18/2006 01/09/2008 documented as of this encounter (statuses as of 08/21/2023) [facility] History of Past illness Narrative* Problem Noted Date Diagnosed Date Resolved Date Right sided sciatica 04/11/2021 021 Elevated blood pressure read ing without diagnosis of hypertension 12/18/2006 01/09/2008 documented as of this encounter (statuses as of 08/16/2023) [facility] Diagnosis Controlled type 2 diabetes mellitus without complication, without long-term current use of insulin (HCC)- Primary [facility] Diagnosis Vitamin D deficiency Unspecified vitamin D deficiency [facility] noteNo assessment information availableWDelaware [facility] Work Phone: Evaluation note* Diagnosis Controlled type 2 diabetes mellitus without complication, without long-term current use of insulin (HCC) Mixed hyperlipidemia [facility]* Diagnosis Anxiety Anxiety state, unspecified [facility]* Diagnosis Hypokalemia Hypopotassemia [facility]* Diagnosis Controlled type 2 diabetes mellitus without complication, without long-term current use of insulin (HCC) [facility]* Diagnosis Mixed hyperlipidemia [facility]* Diagnosis Controlled type 2 diabetes mellitus without complication, without long-term current use of insulin (HCC) [facility]* Diagnosis Controlled type 2 diabetes mellitus without complication, without long-term current use of insulin (HCC) [facility] Diagnosis Controlled type 2 diabetes mellitus without complication, without long-term current use of insulin (HCC)- Primary [facility]* Diagnosis Controlled type 2 diabetes mellitus without complication, without long-term current use of insulin (HCC)- Primary [facility] Diagnosis Vitamin D deficiency Unspecified vitamin D deficiency [facility] Diagnosis Hypokalemia Hypopotassemia [facility]* Diagnosis RANDA (obstructive sleep apnea)- Primary Obstructive sleep apnea (adult) (pediatric) [facility]* Diagnosis Controlled type 2 diabetes mellitus without complication, without long-term current use of insulin (HCC)- Primary Other fatigue RANDA (obstructive sleep apnea) Obstructive sleep apnea (adult) (pediatric) Vitamin D deficiency Unspecified vitamin D deficiency Need for influenza vaccination Need for prophylactic vaccination and inoculation against influenza History of iron deficiency Personal history of diseases of blood and blood-forming organs [facility] Diagnosis Mixed hyperlipidemia [facility]* Diagnosis Pain of right hand- Primary Pain in limb [facility] Diagnosis Acute pain of right knee Positive Lauryn test of right knee, initial encounter [facility] Diagnosis Controlled type 2 diabetes mellitus without complication, without long-term current use of insulin (HCC)- Primary Vitamin D deficiency Unspecified vitamin D deficiency [facility] Diagnosis Encounter for screening mammogram for breast cancer [facility]* Diagnosis Controlled type 2 diabetes mellitus without complication, without long-term current use of insulin (HCC)- Primary Essential hypertension Unspecified essential hypertension Mixed hyperlipidemia Vitamin D deficiency Unspecified vitamin D deficiency [facility]* Diagnosis Controlled type 2 diabetes mellitus without complication, without long-term current use of insulin (HCC)- Primary Essential hypertension Unspecified essential hypertension Mixed hyperlipidemia Mass of right axilla Acute pain of right knee Positive Lauryn test of right knee, initial encounter [facility] Diagnosis Mass of right axilla- Primary [facility]* Diagnosis Screening for colon cancer Special screening for malignant neoplasms, colon [facility]* Diagnosis Encounter for gynecological examination (general) (routine) without abnormal findings- Primary Screening for cervical cancer Screening for malignant neoplasm of the cervix Encounter for screening for human papillomavirus (HPV) Special screening examination for human papillomavirus (HPV) [facility]* Diagnosis Hypokalemia Hypopotassemia [facility] Mass of right axilla documented in this encounter [facility]* Diagnosis Mass of right axilla documented in this encounter [facility] note* Diagnosis Acute pain of right knee Positive Luaryn test of right knee, initial encounter documented in this encounter [facility] note* Diagnosis Tear of medial meniscus of knee, current, unspecified laterality, unspecified tear type, subsequent encounter- Primary documented in this encounter [facility] note* Diagnosis Acute bronchitis, unspecified organism- Primary Morbid obesity, unspecified obesity type (HCC) Vitamin D deficiency Unspecified vitamin D deficiency Chronic fatigue Other malaise and fatigue Panic attack 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 agoraphobia Anxiety Anxiety state, unspecified Snoring Other dyspnea and respiratory abnormality Bipolar 1 disorder (HCC) Bipolar I disorder, most recent episode (or current) unspecified Excessive sleepiness- Primary Hypersomnia, unspecified Unspecified essential hypertension Morbid obesity, unspecified obesity type (HCC) Fatigue, unspecified type Witnessed episode of apnea Anxiety Anxiety state, unspecified Panic attack 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 agoraphobia Panic attacks- Primary 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 agoraphobia Unspecified essential hypertension Morbid obesity, unspecified obesity type (HCC) Multiple environmental allergies Other allergy, other than to medicinal agents Essential hypertension- Primary Unspecified essential hypertension Morbid obesity (HCC) Morbid obesity Mixed hyperlipidemia Panic attack 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 agoraphobia Anxiety Anxiety state, unspecified RANDA (obstructive sleep apnea)- Primary Obstructive sleep apnea (adult) (pediatric) Anxiety Anxiety state, unspecified Morbid obesity (HCC) Morbid obesity Acute pain of right knee Positive Lauryn test of right knee, initial encounter documented in this encounter [facility] note* Diagnosis Acute bronchitis, unspecified organism- Primary Morbid obesity, unspecified obesity type (HCC) Vitamin D deficiency Unspecified vitamin D deficiency Chronic fatigue Other malaise and fatigue Panic attack 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 agoraphobia Anxiety Anxiety state, unspecified Snoring Other dyspnea and respiratory abnormality Bipolar 1 disorder (HCC) Bipolar I disorder, most recent episode (or current) unspecified Excessive sleepiness- Primary Hypersomnia, unspecified Unspecified essential hypertension Morbid obesity, unspecified obesity type (HCC) Fatigue, unspecified type Witnessed episode of apnea Anxiety Anxiety state, unspecified Panic attack 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 agoraphobia Panic attacks- Primary 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 agoraphobia Unspecified essential hypertension Morbid obesity, unspecified obesity type (HCC) Multiple environmental allergies Other allergy, other than to medicinal agents Essential hypertension- Primary Unspecified essential hypertension Morbid obesity (HCC) Morbid obesity Mixed hyperlipidemia Panic attack 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 agoraphobia Anxiety Anxiety state, unspecified RANDA (obstructive sleep apnea)- Primary Obstructive sleep apnea (adult) (pediatric) Anxiety Anxiety state, unspecified Morbid obesity (HCC) Morbid obesity Cellulitis of skin- Primary Cellulitis and abscess of unspecified site [facility]* Diagnosis Acute bronchitis, unspecified organism- Primary Morbid obesity, unspecified obesity type (HCC) Vitamin D deficiency Unspecified vitamin D deficiency Chronic fatigue Other malaise and fatigue Panic attack 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 agoraphobia Anxiety Anxiety state, unspecified Snoring Other dyspnea and respiratory abnormality Bipolar 1 disorder (HCC) Bipolar I disorder, most recent episode (or current) unspecified Excessive sleepiness- Primary Hypersomnia, unspecified Unspecified essential hypertension Morbid obesity, unspecified obesity type (HCC) Fatigue, unspecified type Witnessed episode of apnea Anxiety Anxiety state, unspecified Panic attack 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 agoraphobia Panic attacks- Primary 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 agoraphobia Unspecified essential hypertension Morbid obesity, unspecified obesity type (HCC) Multiple environmental allergies Other allergy, other than to medicinal agents Essential hypertension- Primary Unspecified essential hypertension Morbid obesity (HCC) Morbid obesity Mixed hyperlipidemia Panic attack 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 agoraphobia Anxiety Anxiety state, unspecified RANDA (obstructive sleep apnea)- Primary Obstructive sleep apnea (adult) (pediatric) Anxiety Anxiety state, unspecified Morbid obesity (HCC) Morbid obesity Acute pain of right knee Positive Lauryn test of right knee, initial encounter [facility]* Diagnosis Acute bronchitis, unspecified organism- Primary Morbid obesity, unspecified obesity type (HCC) Vitamin D deficiency Unspecified vitamin D deficiency Chronic fatigue Other malaise and fatigue Panic attack 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 agoraphobia Anxiety Anxiety state, unspecified Snoring Other dyspnea and respiratory abnormality Bipolar 1 disorder (HCC) Bipolar I disorder, most recent episode (or current) unspecified Excessive sleepiness- Primary Hypersomnia, unspecified Unspecified essential hypertension Morbid obesity, unspecified obesity type (HCC) Fatigue, unspecified type Witnessed episode of apnea Anxiety Anxiety state, unspecified Panic attack 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 agoraphobia Panic attacks- Primary 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 agoraphobia Unspecified essential hypertension Morbid obesity, unspecified obesity type (HCC) Multiple environmental allergies Other allergy, other than to medicinal agents Essential hypertension- Primary Unspecified essential hypertension Morbid obesity (HCC) Morbid obesity Mixed hyperlipidemia Panic attack 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 agoraphobia Anxiety Anxiety state, unspecified RANDA (obstructive sleep apnea)- Primary Obstructive sleep apnea (adult) (pediatric) Anxiety Anxiety state, unspecified Morbid obesity (HCC) Morbid obesity Pain of right hand Pain in limb documented in this encounter [facility] note* Diagnosis Acute pain of right knee- Primary Positive Lauryn test of right knee, initial encounter documented in this encounter [facility] note* Diagnosis Acute bronchitis, unspecified organism- Primary Morbid obesity, unspecified obesity type (HCC) Vitamin D deficiency Unspecified vitamin D deficiency Chronic fatigue Other malaise and fatigue Panic attack 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 agoraphobia Anxiety Anxiety state, unspecified Snoring Other dyspnea and respiratory abnormality Bipolar 1 disorder (HCC) Bipolar I disorder, most recent episode (or current) unspecified Excessive sleepiness- Primary Hypersomnia, unspecified Unspecified essential hypertension Morbid obesity, unspecified obesity type (HCC) Fatigue, unspecified type Witnessed episode of apnea Anxiety Anxiety state, unspecified Panic attack 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 agoraphobia Panic attacks- Primary 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 agoraphobia Unspecified essential hypertension Morbid obesity, unspecified obesity type (HCC) Multiple environmental allergies Other allergy, other than to medicinal agents Essential hypertension- Primary Unspecified essential hypertension Morbid obesity (HCC) Morbid obesity Mixed hyperlipidemia Panic attack 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 agoraphobia Anxiety Anxiety state, unspecified RANDA (obstructive sleep apnea)- Primary Obstructive sleep apnea (adult) (pediatric) Anxiety Anxiety state, unspecified Morbid obesity (HCC) Morbid obesity Controlled type 2 diabetes mellitus without complication, without long-term current use of insulin (HCC) documented in this encounter [facility] note* Diagnosis Acute bronchitis, unspecified organism- Primary Morbid obesity, unspecified obesity type (HCC) Vitamin D deficiency Unspecified vitamin D deficiency Chronic fatigue Other malaise and fatigue Panic attack 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 agoraphobia Anxiety Anxiety state, unspecified Snoring Other dyspnea and respiratory abnormality Bipolar 1 disorder (HCC) Bipolar I disorder, most recent episode (or current) unspecified Excessive sleepiness- Primary Hypersomnia, unspecified Unspecified essential hypertension Morbid obesity, unspecified obesity type (HCC) Fatigue, unspecified type Witnessed episode of apnea Anxiety Anxiety state, unspecified Panic attack 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 agoraphobia Panic attacks- Primary 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 agoraphobia Unspecified essential hypertension Morbid obesity, unspecified obesity type (HCC) Multiple environmental allergies Other allergy, other than to medicinal agents Essential hypertension- Primary Unspecified essential hypertension Morbid obesity (HCC) Morbid obesity Mixed hyperlipidemia Panic attack 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 agoraphobia Anxiety Anxiety state, unspecified RANDA (obstructive sleep apnea)- Primary Obstructive sleep apnea (adult) (pediatric) Anxiety Anxiety state, unspecified Morbid obesity (HCC) Morbid obesity Acute cough- Primary Rhinosinusitis Unspecified sinusitis (chronic) Acute cough documented in this encounter [facility] note* Diagnosis Acute bronchitis, unspecified organism- Primary Morbid obesity, unspecified obesity type (HCC) Vitamin D deficiency Unspecified vitamin D deficiency Chronic fatigue Other malaise and fatigue Panic attack 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 agoraphobia Anxiety Anxiety state, unspecified Snoring Other dyspnea and respiratory abnormality Bipolar 1 disorder (HCC) Bipolar I disorder, most recent episode (or current) unspecified Excessive sleepiness- Primary Hypersomnia, unspecified Unspecified essential hypertension Morbid obesity, unspecified obesity type (HCC) Fatigue, unspecified type Witnessed episode of apnea Anxiety Anxiety state, unspecified Panic attack 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 agoraphobia Panic attacks- Primary 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 agoraphobia Unspecified essential hypertension Morbid obesity, unspecified obesity type (HCC) Multiple environmental allergies Other allergy, other than to medicinal agents Essential hypertension- Primary Unspecified essential hypertension Morbid obesity (HCC) Morbid obesity Mixed hyperlipidemia Panic attack 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 agoraphobia Anxiety Anxiety state, unspecified RANDA (obstructive sleep apnea)- Primary Obstructive sleep apnea (adult) (pediatric) Anxiety Anxiety state, unspecified Morbid obesity (HCC) Morbid obesity Acute cough documented in this encounter [facility] note* Diagnosis Acute bronchitis, unspecified organism- Primary Morbid obesity, unspecified obesity type (HCC) Vitamin D deficiency Unspecified vitamin D deficiency Chronic fatigue Other malaise and fatigue Panic attack 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 agoraphobia Anxiety Anxiety state, unspecified Snoring Other dyspnea and respiratory abnormality Bipolar 1 disorder (HCC) Bipolar I disorder, most recent episode (or current) unspecified Excessive sleepiness- Primary Hypersomnia, unspecified Unspecified essential hypertension Morbid obesity, unspecified obesity type (HCC) Fatigue, unspecified type Witnessed episode of apnea Anxiety Anxiety state, unspecified Panic attack 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 agoraphobia Panic attacks- Primary 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 agoraphobia Unspecified essential hypertension Morbid obesity, unspecified obesity type (HCC) Multiple environmental allergies Other allergy, other than to medicinal agents Essential hypertension- Primary Unspecified essential hypertension Morbid obesity (HCC) Morbid obesity Mixed hyperlipidemia Panic attack 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 agoraphobia Anxiety Anxiety state, unspecified RANDA (obstructive sleep apnea)- Primary Obstructive sleep apnea (adult) (pediatric) Anxiety Anxiety state, unspecified Morbid obesity (HCC) Morbid obesity Anxiety- Primary Anxiety state, unspecified Vitamin D deficiency Unspecified vitamin D deficiency Acute pain of right knee Positive Lauryn test of right knee, initial encounter Controlled type 2 diabetes mellitus without complication, without long-term current use of insulin (HCC) [facility]* Diagnosis Acute bronchitis, unspecified organism- Primary Morbid obesity, unspecified obesity type (HCC) Vitamin D deficiency Unspecified vitamin D deficiency Chronic fatigue Other malaise and fatigue Panic attack 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 agoraphobia Anxiety Anxiety state, unspecified Snoring Other dyspnea and respiratory abnormality Bipolar 1 disorder (HCC) Bipolar I disorder, most recent episode (or current) unspecified Excessive sleepiness- Primary Hypersomnia, unspecified Unspecified essential hypertension Morbid obesity, unspecified obesity type (HCC) Fatigue, unspecified type Witnessed episode of apnea Anxiety Anxiety state, unspecified Panic attack 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 agoraphobia Panic attacks- Primary 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 agoraphobia Unspecified essential hypertension Morbid obesity, unspecified obesity type (HCC) Multiple environmental allergies Other allergy, other than to medicinal agents Essential hypertension- Primary Unspecified essential hypertension Morbid obesity (HCC) Morbid obesity Mixed hyperlipidemia Panic attack 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 agoraphobia Anxiety Anxiety state, unspecified RANDA (obstructive sleep apnea)- Primary Obstructive sleep apnea (adult) (pediatric) Anxiety Anxiety state, unspecified Morbid obesity (HCC) Morbid obesity Acute wrist pain, left- Primary Acute wrist pain, left [facility] Diagnosis Acute bronchitis, unspecified organism- Primary Morbid obesity, unspecified obesity type (HCC) Vitamin D deficiency Unspecified vitamin D deficiency Chronic fatigue Other malaise and fatigue Panic attack 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 agoraphobia Anxiety Anxiety state, unspecified Snoring Other dyspnea and respiratory abnormality Bipolar 1 disorder (HCC) Bipolar I disorder, most recent episode (or current) unspecified Excessive sleepiness- Primary Hypersomnia, unspecified Unspecified essential hypertension Morbid obesity, unspecified obesity type (HCC) Fatigue, unspecified type Witnessed episode of apnea Anxiety Anxiety state, unspecified Panic attack 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 agoraphobia Panic attacks- Primary 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 agoraphobia Unspecified essential hypertension Morbid obesity, unspecified obesity type (HCC) Multiple environmental allergies Other allergy, other than to medicinal agents Essential hypertension- Primary Unspecified essential hypertension Morbid obesity (HCC) Morbid obesity Mixed hyperlipidemia Panic attack 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 agoraphobia Anxiety Anxiety state, unspecified RANDA (obstructive sleep apnea)- Primary Obstructive sleep apnea (adult) (pediatric) Anxiety Anxiety state, unspecified Morbid obesity (HCC) Morbid obesity Acute wrist pain, left documented [facility]* Diagnosis Acute bronchitis, unspecified organism- Primary Morbid obesity, unspecified obesity type (HCC) Vitamin D deficiency Unspecified vitamin D deficiency Chronic fatigue Other malaise and fatigue Panic attack 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 agoraphobia Anxiety Anxiety state, unspecified Snoring Other dyspnea and respiratory abnormality Bipolar 1 disorder (HCC) Bipolar I disorder, most recent episode (or current) unspecified Excessive sleepiness- Primary Hypersomnia, unspecified Unspecified essential hypertension Morbid obesity, unspecified obesity type (HCC) Fatigue, unspecified type Witnessed episode of apnea Anxiety Anxiety state, unspecified Panic attack 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 agoraphobia Panic attacks- Primary 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 agoraphobia Unspecified essential hypertension Morbid obesity, unspecified obesity type (HCC) Multiple environmental allergies Other allergy, other than to medicinal agents Essential hypertension- Primary Unspecified essential hypertension Morbid obesity (HCC) Morbid obesity Mixed hyperlipidemia Panic attack 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 agoraphobia Anxiety Anxiety state, unspecified RANDA (obstructive sleep apnea)- Primary Obstructive sleep apnea (adult) (pediatric) Anxiety Anxiety state, unspecified Morbid obesity (HCC) Morbid obesity Acute wrist pain, left- Primary Controlled type 2 diabetes mellitus without complication, without long-term current use of insulin (HCC) documented in this encounter [facility] note* Diagnosis Acute bronchitis, unspecified organism- Primary Morbid obesity, unspecified obesity type (HCC) Vitamin D deficiency Unspecified vitamin D deficiency Chronic fatigue Other malaise and fatigue Panic attack 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 agoraphobia Anxiety Anxiety state, unspecified Snoring Other dyspnea and respiratory abnormality Bipolar 1 disorder (HCC) Bipolar I disorder, most recent episode (or current) unspecified Excessive sleepiness- Primary Hypersomnia, unspecified Unspecified essential hypertension Morbid obesity, unspecified obesity type (HCC) Fatigue, unspecified type Witnessed episode of apnea Anxiety Anxiety state, unspecified Panic attack 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 agoraphobia Panic attacks- Primary 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 agoraphobia Unspecified essential hypertension Morbid obesity, unspecified obesity type (HCC) Multiple environmental allergies Other allergy, other than to medicinal agents Essential hypertension- Primary Unspecified essential hypertension Morbid obesity (HCC) Morbid obesity Mixed hyperlipidemia Panic attack 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 agoraphobia Anxiety Anxiety state, unspecified RANDA (obstructive sleep apnea)- Primary Obstructive sleep apnea (adult) (pediatric) Anxiety Anxiety state, unspecified Morbid obesity (HCC) Morbid obesity URI, acute- Primary Acute upper respiratory infections of unspecified site Acute cough Wheezing [facility]* Diagnosis Acute bronchitis, unspecified organism- Primary Morbid obesity, unspecified obesity type (HCC) Vitamin D deficiency Unspecified vitamin D deficiency Chronic fatigue Other malaise and fatigue Panic attack 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 agoraphobia Anxiety Anxiety state, unspecified Snoring Other dyspnea and respiratory abnormality Bipolar 1 disorder (HCC) Bipolar I disorder, most recent episode (or current) unspecified Excessive sleepiness- Primary Hypersomnia, unspecified Unspecified essential hypertension Morbid obesity, unspecified obesity type (HCC) Fatigue, unspecified type Witnessed episode of apnea Anxiety Anxiety state, unspecified Panic attack 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 agoraphobia Panic attacks- Primary 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 agoraphobia Unspecified essential hypertension Morbid obesity, unspecified obesity type (HCC) Multiple environmental allergies Other allergy, other than to medicinal agents Essential hypertension- Primary Unspecified essential hypertension Morbid obesity (HCC) Morbid obesity Mixed hyperlipidemia Panic attack 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 agoraphobia Anxiety Anxiety state, unspecified RANDA (obstructive sleep apnea)- Primary Obstructive sleep apnea (adult) (pediatric) Anxiety Anxiety state, unspecified Morbid obesity (HCC) Morbid obesity Controlled type 2 diabetes mellitus without complication, without long-term current use of insulin (HCC)- Primary SOB (shortness of breath) Shortness of breath Acute cough Wheezing [facility]* Diagnosis Acute bronchitis, unspecified organism- Primary Morbid obesity, unspecified obesity type (HCC) Vitamin D deficiency Unspecified vitamin D deficiency Chronic fatigue Other malaise and fatigue Panic attack 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 agoraphobia Anxiety Anxiety state, unspecified Snoring Other dyspnea and respiratory abnormality Bipolar 1 disorder (HCC) Bipolar I disorder, most recent episode (or current) unspecified Excessive sleepiness- Primary Hypersomnia, unspecified Unspecified essential hypertension Morbid obesity, unspecified obesity type (HCC) Fatigue, unspecified type Witnessed episode of apnea Anxiety Anxiety state, unspecified Panic attack 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 agoraphobia Panic attacks- Primary 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 agoraphobia Unspecified essential hypertension Morbid obesity, unspecified obesity type (HCC) Multiple environmental allergies Other allergy, other than to medicinal agents Essential hypertension- Primary Unspecified essential hypertension Morbid obesity (HCC) Morbid obesity Mixed hyperlipidemia Panic attack 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 agoraphobia Anxiety Anxiety state, unspecified RANDA (obstructive sleep apnea)- Primary Obstructive sleep apnea (adult) (pediatric) Anxiety Anxiety state, unspecified Morbid obesity (HCC) Morbid obesity Controlled type 2 diabetes mellitus without complication, without long-term current use of insulin (HCC) documented in this encounter [facility] note* Diagnosis Acute bronchitis, unspecified organism- Primary Morbid obesity, unspecified obesity type (HCC) Vitamin D deficiency Unspecified vitamin D deficiency Chronic fatigue Other malaise and fatigue Panic attack 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 agoraphobia Anxiety Anxiety state, unspecified Snoring Other dyspnea and respiratory abnormality Bipolar 1 disorder (HCC) Bipolar I disorder, most recent episode (or current) unspecified Excessive sleepiness- Primary Hypersomnia, unspecified Unspecified essential hypertension Morbid obesity, unspecified obesity type (HCC) Fatigue, unspecified type Witnessed episode of apnea Anxiety Anxiety state, unspecified Panic attack 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 agoraphobia Panic attacks- Primary 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 agoraphobia Unspecified essential hypertension Morbid obesity, unspecified obesity type (HCC) Multiple environmental allergies Other allergy, other than to medicinal agents Essential hypertension- Primary Unspecified essential hypertension Morbid obesity (HCC) Morbid obesity Mixed hyperlipidemia Panic attack 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 agoraphobia Anxiety Anxiety state, unspecified RANDA (obstructive sleep apnea)- Primary Obstructive sleep apnea (adult) (pediatric) Anxiety Anxiety state, unspecified Morbid obesity (HCC) Morbid obesity SOB (shortness of breath) Shortness of breath Acute cough Wheezing documented in this encounter [facility] note* Diagnosis Acute bronchitis, unspecified organism- Primary Morbid obesity, unspecified obesity type (HCC) Vitamin D deficiency Unspecified vitamin D deficiency Chronic fatigue Other malaise and fatigue Panic attack 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 agoraphobia Anxiety Anxiety state, unspecified Snoring Other dyspnea and respiratory abnormality Bipolar 1 disorder (HCC) Bipolar I disorder, most recent episode (or current) unspecified Excessive sleepiness- Primary Hypersomnia, unspecified Unspecified essential hypertension Morbid obesity, unspecified obesity type (HCC) Fatigue, unspecified type Witnessed episode of apnea Anxiety Anxiety state, unspecified Panic attack 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 agoraphobia Panic attacks- Primary 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 agoraphobia Unspecified essential hypertension Morbid obesity, unspecified obesity type (HCC) Multiple environmental allergies Other allergy, other than to medicinal agents Essential hypertension- Primary Unspecified essential hypertension Morbid obesity (HCC) Morbid obesity Mixed hyperlipidemia Panic attack 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 agoraphobia Anxiety Anxiety state, unspecified RANDA (obstructive sleep apnea)- Primary Obstructive sleep apnea (adult) (pediatric) Anxiety Anxiety state, unspecified Morbid obesity (HCC) Morbid obesity Controlled type 2 diabetes mellitus without complication, without long-term current use of insulin (HCC) SOB (shortness of breath) Shortness of breath [facility]* Diagnosis Acute bronchitis, unspecified organism- Primary Morbid obesity, unspecified obesity type (HCC) Vitamin D deficiency Unspecified vitamin D deficiency Chronic fatigue Other malaise and fatigue Panic attack 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 agoraphobia Anxiety Anxiety state, unspecified Snoring Other dyspnea and respiratory abnormality Bipolar 1 disorder (HCC) Bipolar I disorder, most recent episode (or current) unspecified Excessive sleepiness- Primary Hypersomnia, unspecified Unspecified essential hypertension Morbid obesity, unspecified obesity type (HCC) Fatigue, unspecified type Witnessed episode of apnea Anxiety Anxiety state, unspecified Panic attack 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 agoraphobia Panic attacks- Primary 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 agoraphobia Unspecified essential hypertension Morbid obesity, unspecified obesity type (HCC) Multiple environmental allergies Other allergy, other than to medicinal agents Essential hypertension- Primary Unspecified essential hypertension Morbid obesity (HCC) Morbid obesity Mixed hyperlipidemia Panic attack 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 agoraphobia Anxiety Anxiety state, unspecified RANDA (obstructive sleep apnea)- Primary Obstructive sleep apnea (adult) (pediatric) Anxiety Anxiety state, unspecified Morbid obesity (HCC) Morbid obesity Dyspnea on exertion- Primary Other dyspnea and respiratory abnormality LVH (left ventricular hypertrophy) Cardiomegaly Family history of sudden cardiac Family history of sudden cardiac (SCD) Chronic cough Cough Wheezing Post-nasal drainage Unspecified sinusitis (chronic) History of iron deficiency Personal history of diseases of blood and blood-forming organs Mixed hyperlipidemia Anxiety Anxiety state, unspecified [facility] Diagnosis Acute bronchitis, unspecified organism- Primary Morbid obesity, unspecified obesity type (HCC) Vitamin D deficiency Unspecified vitamin D deficiency Chronic fatigue Other malaise and fatigue Panic attack 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 agoraphobia Anxiety Anxiety state, unspecified Snoring Other dyspnea and respiratory abnormality Bipolar 1 disorder (HCC) Bipolar I disorder, most recent episode (or current) unspecified Excessive sleepiness- Primary Hypersomnia, unspecified Unspecified essential hypertension Morbid obesity, unspecified obesity type (HCC) Fatigue, unspecified type Witnessed episode of apnea Anxiety Anxiety state, unspecified Panic attack 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 agoraphobia Panic attacks- Primary 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 agoraphobia Unspecified essential hypertension Morbid obesity, unspecified obesity type (HCC) Multiple environmental allergies Other allergy, other than to medicinal agents Essential hypertension- Primary Unspecified essential hypertension Morbid obesity (HCC) Morbid obesity Mixed hyperlipidemia Panic attack 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 agoraphobia Anxiety Anxiety state, unspecified RANDA (obstructive sleep apnea)- Primary Obstructive sleep apnea (adult) (pediatric) Anxiety Anxiety state, unspecified Morbid obesity (HCC) Morbid obesity Anxiety Anxiety state, unspecified documented in this encounter [facility]* Diagnosis Acute bronchitis, unspecified organism- Primary Morbid obesity, unspecified obesity type (HCC) Vitamin D deficiency Unspecified vitamin D deficiency Chronic fatigue Other malaise and fatigue Panic attack 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 agoraphobia Anxiety Anxiety state, unspecified Snoring Other dyspnea and respiratory abnormality Bipolar 1 disorder (HCC) Bipolar I disorder, most recent episode (or current) unspecified Excessive sleepiness- Primary Hypersomnia, unspecified Unspecified essential hypertension Morbid obesity, unspecified obesity type (HCC) Fatigue, unspecified type Witnessed episode of apnea Anxiety Anxiety state, unspecified Panic attack 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 agoraphobia Panic attacks- Primary 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 agoraphobia Unspecified essential hypertension Morbid obesity, unspecified obesity type (HCC) Multiple environmental allergies Other allergy, other than to medicinal agents Essential hypertension- Primary Unspecified essential hypertension Morbid obesity (HCC) Morbid obesity Mixed hyperlipidemia Panic attack 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 agoraphobia Anxiety Anxiety state, unspecified RANDA (obstructive sleep apnea)- Primary Obstructive sleep apnea (adult) (pediatric) Anxiety Anxiety state, unspecified Morbid obesity (HCC) Morbid obesity Controlled type 2 diabetes mellitus without complication, without long-term current use of insulin (HCC) Mixed hyperlipidemia [facility] Diagnosis Acute bronchitis, unspecified organism- Primary Morbid obesity, unspecified obesity type (HCC) Vitamin D deficiency Unspecified vitamin D deficiency Chronic fatigue Other malaise and fatigue Panic attack 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 agoraphobia Anxiety Anxiety state, unspecified Snoring Other dyspnea and respiratory abnormality Bipolar 1 disorder (HCC) Bipolar I disorder, most recent episode (or current) unspecified Excessive sleepiness- Primary Hypersomnia, unspecified Unspecified essential hypertension Morbid obesity, unspecified obesity type (HCC) Fatigue, unspecified type Witnessed episode of apnea Anxiety Anxiety state, unspecified Panic attack 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 agoraphobia Panic attacks- Primary 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 agoraphobia Unspecified essential hypertension Morbid obesity, unspecified obesity type (HCC) Multiple environmental allergies Other allergy, other than to medicinal agents Essential hypertension- Primary Unspecified essential hypertension Morbid obesity (HCC) Morbid obesity Mixed hyperlipidemia Panic attack 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 agoraphobia Anxiety Anxiety state, unspecified RANDA (obstructive sleep apnea)- Primary Obstructive sleep apnea (adult) (pediatric) Anxiety Anxiety state, unspecified Morbid obesity (HCC) Morbid obesity Chronic cough- Primary Cough Dyspnea on exertion Other dyspnea and respiratory abnormality Wheezing Essential hypertension Unspecified essential hypertension Obstructive sleep apnea (adult) (pediatric) Iron deficiency Iron deficiency anemia, unspecified Controlled type 2 diabetes mellitus without complication, without long-term current use of insulin (HCC) Hypokalemia Hypopotassemia Encounter for immunization Need for other specified prophylactic vaccination against single bacterial disease [facility] Diagnosis Acute bronchitis, unspecified organism- Primary Morbid obesity, unspecified obesity type (HCC) Vitamin D deficiency Unspecified vitamin D deficiency Chronic fatigue Other malaise and fatigue Panic attack 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 agoraphobia Anxiety Anxiety state, unspecified Snoring Other dyspnea and respiratory abnormality Bipolar 1 disorder (HCC) Bipolar I disorder, most recent episode (or current) unspecified Excessive sleepiness- Primary Hypersomnia, unspecified Unspecified essential hypertension Morbid obesity, unspecified obesity type (HCC) Fatigue, unspecified type Witnessed episode of apnea Anxiety Anxiety state, unspecified Panic attack 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 agoraphobia Panic attacks- Primary 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 agoraphobia Unspecified essential hypertension Morbid obesity, unspecified obesity type (HCC) Multiple environmental allergies Other allergy, other than to medicinal agents Essential hypertension- Primary Unspecified essential hypertension Morbid obesity (HCC) Morbid obesity Mixed hyperlipidemia Panic attack 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 agoraphobia Anxiety Anxiety state, unspecified RANDA (obstructive sleep apnea)- Primary Obstructive sleep apnea (adult) (pediatric) Anxiety Anxiety state, unspecified Morbid obesity (HCC) Morbid obesity Rash and other nonspecific skin eruption- Primary Dyspnea on exertion Other dyspnea and respiratory abnormality Wheezing Rhinosinusitis Unspecified sinusitis (chronic) documented in this encounter [facility] for referral (narrative)* Diagnostic Procedure Only (Urgent) - Closed Specialty Diagnoses / Procedures Referred By Contac t Referred To Contact XR IMAGING Diagnoses Pain of right hand Procedures XR WRIST INJURY 4V PA/LAT/OBL/SCAPH RIGHT RADEX WRIST COMPLETE MINIMUM 3 VIEWS Nawaf Gallardo APRN.RETAIL WIRELESS SALES REPRESENTATIVE [address] [place] [address] [place] [address] Referral ID Status Reason Start Date Expiration Date V isits Requested Visits Authorized [id number] Closed Auto-Generate d Referral 07/10/2023 08/08/2024 1 1 * Diagnostic Procedure Only (Urgent) - Closed Specialty Diagnoses / Procedures Referred By Tiffanyac t Referred To Contact XR IMAGING Diagnoses Pain of right hand Procedures XR HAND GENERAL 3V PA/LAT/OBL RIGHT RADEX HAND MINIMUM 3 VIEWS Nawaf Gallardo APRN.RETAIL WIRELESS SALES REPRESENTATIVE [address] [place] [address] [place] [address] Referral ID Status Reason Start Date Expiration Date V isits Requested Visits Authorized [id number] Closed Auto-Generate d Referral 07/10/2023 08/08/2024 1 1 [facility] for referral (narrative)* Diagnostic Procedure Only (Routine) - Pending Review Specialty Diagnoses / Procedures Referred By Contac t Referred To Contact BR IMAGING Diagnoses Encounter for screening mammogram for breast cancer Procedures TOLU SCREENING SCREENING MAMMOGRAPHY BI 2-VIEW BREAST INC Darshana Weston MD [address] [place] [address] [facility] [address] [place] [address] Referral ID Status Reason Start Date Expiration Date Visits Requested Visits Authorized [id number] Pending Review Auto-Generat ed Referral 10/16/2023 11/14/2024 1 1 [facility] for referral (narrative)* Diagnostic Procedure Only (Routine) - Authorized Specialty Diagnoses / Procedures Referred By Contac t Referred To Contact BR IMAGING Diagnoses Mass of right axilla Procedures US AXILLA ONLY RIGHT US LMTD JOINT/OTH NONVASC XTR STRUX R-T W/IMG Morenita Butler APRN.RETAIL WIRELESS SALES REPRESENTATIVE [address] [place] [address] [facility] [address] [address] Referral ID Status Reason Start Date Expiration Date Visits Requested Visits Authorized [id number] Authorized Auto-Generat ed Referral 11/01/2023 11/30/2024 1 1 [facility] for referral (narrative)* Diagnostic Procedure Only (Routine) - Authorized Specialty Diagnoses / Procedures Referred By Umm t Referred To Contact BR IMAGING Diagnoses Mass of right axilla Procedures TOLU DIAGNOSTIC BILATERAL DIAGNOSTIC MAMMOGRAPHY COMPUTER-AIDED DETCJ BI Morenita Butler APRN.RETAIL WIRELESS SALES REPRESENTATIVE [address] [place] [address] [facility] [address] [address] Referral ID Status Reason Start Date Expiration Date Visits Requested Visits Authorized [id number] Authorized Auto-Generat ed Referral 11/13/2023 12/12/2024 1 1 [facility] for referral (narrative)* Diagnostic Procedure Only (Routine) - Closed Specialty Diagnoses / Procedures Referred By Contac t Referred To Contact BR IMAGING Diagnoses Mass of right axilla Procedures US AXILLA ONLY RIGHT US LMTD JOINT/OTH NONVASC XTR STRUX R-T W/IMG Morenita Butler APRN.RETAIL WIRELESS SALES REPRESENTATIVE [address] [place] [address] [facility] [address] [place] [address] Referral ID Status Reason Start Date Expiration Date V isits Requested Visits Authorized [id number] Closed Auto-Generate d Referral 11/01/2023 11/30/2024 1 1 [facility] for referral (narrative)* Diagnostic Procedure Only (Routine) - Closed Specialty Diagnoses / Procedures Referred By Contac t Referred To Contact XR IMAGING Diagnoses Acute pain of right knee Positive Lauryn test of right knee, initial encounter Procedures XR KNEE LIMITED 2V AP/LAT RIGHT RADIOLOGIC EXAMINATION KNEE 1/2 VIEWS Ludwig Lindsay APRN.RETAIL WIRELESS SALES REPRESENTATIVE [address] [place] [address] [place] [address] Referral ID Status Reason Start Date Expiration Date V isits Requested Visits Authorized [id number] Closed Auto-Generate d Referral 08/16/2023 09/14/2024 1 1 [facility] for referral (narrative)* Diagnostic Procedure Only (Urgent) - Closed Specialty Diagnoses / Procedures Referred By Contac t Referred To Contact XR IMAGING Diagnoses Pain of right hand Procedures XR WRIST INJURY 4V PA/LAT/OBL/SCAPH RIGHT RADEX WRIST COMPLETE MINIMUM 3 VIEWS Nawaf Gallardo APRN.RETAIL WIRELESS SALES REPRESENTATIVE [address] [place] [address] [place] [address] Referral ID Status Reason Start Date Expiration Date V isits Requested Visits Authorized [id number] Closed Auto-Generate d Referral 07/10/2023 08/08/2024 1 1 * Diagnostic Procedure Only (Urgent) - Closed Specialty Diagnoses / Procedures Referred By Contac t Referred To Contact XR IMAGING Diagnoses Pain of right hand Procedures XR HAND GENERAL 3V PA/LAT/OBL RIGHT RADEX HAND MINIMUM 3 VIEWS Nawaf Gallardo APRN.RETAIL WIRELESS SALES REPRESENTATIVE [address] [place] [address] [place] [address] Referral ID Status Reason Start Date Expiration Date V isits Requested Visits Authorized [id number] Closed Auto-Generate d Referral 07/10/2023 08/08/2024 1 1 [facility] for referral (narrative)* Diagnostic Procedure Only (Urgent) - Closed Specialty Diagnoses / Procedures Referred By Contac t Referred To Contact XR IMAGING Diagnoses Acute wrist pain, left Procedures XR WRIST GENERAL 3V PA/LAT/OBL LEFT RADEX WRIST COMPLETE MINIMUM 3 VIEWS Bebeto Lopez MD [address] [place] [address] [place] [address] Referral ID Status Reason Start Date Expiration Date V isits Requested Visits Authorized [id number] Closed Auto-Generate d Referral 05/18/2024 06/17/2025 1 1 [facility] for referral (narrative)* Diagnostic Procedure Only (Urgent) - Closed Specialty Diagnoses / Procedures Referred By Contac t Referred To Contact XR IMAGING Diagnoses Acute wrist pain, left Procedures XR WRIST GENERAL 3V PA/LAT/OBL LEFT RADEX WRIST COMPLETE MINIMUM 3 VIEWS Bebeto Lopez MD [address] [place] [address] [place] [address] Referral ID Status Reason Start Date Expiration Date V isits Requested Visits Authorized [id number] Closed Auto-Generate d Referral 05/18/2024 06/17/2025 1 1 [facility] for visit Narrative* Diagnostic Procedure Only (Routine) - Closed Specialty Diagnoses / Procedures Referred By Contac t Referred To Contact BR IMAGING Diagnoses Mass of right axilla Procedures TOLU DIAGNOSTIC BILATERAL DIAGNOSTIC MAMMOGRAPHY COMPUTER-AIDED DETCJ Morenita Baker APRN.CNP [address] [place] [address] [facility] [address] [place] [address] Referral ID Status Reason Start Date Expiration Date V isits Requested Visits Authorized [id number] Closed Auto-Generate d Referral 11/13/2023 12/12/2024 1 1 [facility] for visit Narrative* Diagnostic Procedure Only (Routine) - Closed Specialty Diagnoses / Procedures Referred By Contac t Referred To Contact XR IMAGING Diagnoses Acute pain of right knee Positive Lauryn test of right knee, initial encounter Procedures XR KNEE LIMITED 2V AP/LAT RIGHT RADIOLOGIC EXAMINATION KNEE 1/2 VIEWS Ludwig Lindsay, SALES AND MANAGEMENT TRAINEE.RETAIL WIRELESS SALES REPRESENTATIVE [address] [place] [address] [place] [address] Referral ID Status Reason Start Date Expiration Date V isits Requested Visits Authorized [id number] Closed Auto-Generate d Referral 08/16/2023 09/14/2024 1 1 [facility] for visit Narrative* Diagnostic Procedure Only (Urgent) - Closed Specialty Diagnoses / Procedures Referred By Contac t Referred To Contact XR IMAGING Diagnoses Pain of right hand Procedures XR WRIST INJURY 4V PA/LAT/OBL/SCAPH RIGHT RADEX WRIST COMPLETE MINIMUM 3 VIEWS Nawaf Gallardo, SALES AND MANAGEMENT TRAINEE.RETAIL WIRELESS SALES REPRESENTATIVE [address] [place] [address] [place] [address] Referral ID Status Reason Start Date Expiration Date V isits Requested Visits Authorized [id number] Closed Auto-Generate d Referral 07/10/2023 08/08/2024 1 1 [facility] for visit Narrative* Diagnostic Procedure Only (Urgent) - Closed Specialty Diagnoses / Procedures Referred By Contac t Referred To Contact XR IMAGING Diagnoses Acute wrist pain, left Procedures XR WRIST GENERAL 3V PA/LAT/OBL LEFT RADEX WRIST COMPLETE MINIMUM 3 VIEWS Bebeto Lopez MD [address] [place] [address] [place] [address] Referral ID Status Reason Start Date Expiration Date V isits Requested Visits Authorized [id number] Closed Auto-Generate d Referral 05/18/2024 06/17/2025 1 1 [facility] for visit Narrative* Outpatient Procedure (Routine) - Closed Specialty Diagnoses / Procedures Referred By Contac t Referred To [facility] Diagnoses Controlled type 2 diabetes mellitus without complication, without long-term current use of insulin (HCC) SOB (shortness of breath) Procedures STRESS ECHO TREADMILL ECHO TTHRC R-T 2D W/WO M-MODE COMPLETE REST&ST Quentin Salazar PA-C [address] [place] [address] Phone: tel: fax: [facility] [address] [place] [address] Referral ID Status Reason Start Date Expiration Date V isits Requested Visits Authorized [id number] Closed Auto-Generate d Referral 06/23/2024 06/23/2025 1 1 [facility] Summary Purpose Family History No Family History Records FoundNo Family History Records FoundNo Family History Records Found Advance Directives No Advanced Directives Records Found Advance Directive Response Recorded Date/ Time Advance Directives No November 19 14 10:29am Living Will No January 19 019 6:00pm Power of Buckle Sewer Machine No January 19, 2019 6:00pm Chief Complaint and Reason for Visit Chief Complaint SCREENING Reason for Referral Specialty Diagnoses / Procedures Referred By Contac t Referred To Contact Morenita Butler APRN.RETAIL WIRELESS SALES REPRESENTATIVE [address] [id number] Referral ID Status Reason Start Date Expiration Date Visits Re quested Visits Authorized [id number] Denied 1 1 Specialty Diagnoses / Procedures Referred By Contac t Referred To Contact Orthopedics Diagnoses Tear of medial meniscus of knee, current, unspecified laterality, unspecified tear type, subsequent encounter Procedures CONSULT TO ORTHOPAEDICS OFFICE/OUTPATIENT [facility] 60 MINUTES Ludwig Lindsay APRN.RETAIL WIRELESS SALES REPRESENTATIVE [address] [place] [address] Referral ID Status Reason Start Date Expiration Date Visits Requested Visits Authorized [id number] Authorized PCP Requested Referral 12/25/2023 12/24/2024 1 1 Specialty Diagnoses / Procedures Referred By Contac t Referred To Contact MR IMAGING Diagnoses Acute pain of right knee Positive Lauryn test of right knee, initial encounter Procedures MRI KNEE WO IVCON RIGHT MRI ANY JT LOWER EXTREM W/O CONTRAST MATRL Ludwig Lindsay APRN.RETAIL WIRELESS SALES REPRESENTATIVE [address] [place] [address] [place] [address] Referral ID Status Reason Start Date Expiration Date Visits Requested Visits Authorized [id number] Authorized Auto-Generat ed Referral 08/16/2023 09/14/2024 1 1 Specialty Diagnoses / Procedures Referred By Umm gonsalez Referred To Contact XR IMAGING Diagnoses Acute pain of right knee Positive Lauryn test of right knee, initial encounter Procedures XR KNEE LIMITED 2V AP/LAT RIGHT RADIOLOGIC EXAMINATION KNEE 1/2 VIEWS Ludwig Lindsay APRN.RETAIL WIRELESS SALES REPRESENTATIVE [address] [place] [address] [place] [address] Referral ID Status Reason Start Date Expiration Date V isits Requested Visits Authorized [id number] Closed Auto-Generate d Referral 08/16/2023 09/14/2024 1 1 Additional Source Comments INFORMATION SOURCE (unrecogn ized section and content) DATE CREATED AUTHOR 11/06/2017 [facility] DATE CREATED AUTHOR AUTHOR'S ORGANIZ ATION 11/01/2024 [facility] DATE CREATED AUTHOR AUTHOR'S ORGANIZ ATION 11/09/2024 [facility] Source Comments (unrecognize d section and content) In the event this informatio n is protected by the Federal Confidentiality of Alcohol and Drug Abuse Patient Records regulations: The Federal rules restrict any use of the information to criminally investigate or prosecute any alcohol or drug abuse patient.[facility] the event this information is protected by the Federal Confidentiality of Alcohol and Drug Abuse Patient Records regulations: The Federal rules restrict any use of the information to criminally investigate or prosecute any alcohol or drug abuse patient.[facility] the event this information is protected by the Federal Confidentiality of Alcohol and Drug Abuse Patient Records regulations: The Federal rules restrict any use of the information to criminally investigate or prosecute any alcohol or drug abuse patient.[facility] the event this information is protected by the Federal Confidentiality of Alcohol and Drug Abuse Patient Records regulations: The Federal rules restrict any use of the information to criminally investigate or prosecute any alcohol or drug abuse patient.[facility] the event this information is protected by the Federal Confidentiality of Alcohol and Drug Abuse Patient Records regulations: The Federal rules restrict any use of the information to criminally investigate or prosecute any alcohol or drug abuse patient.[facility] the event this information is protected by the Federal Confidentiality of Alcohol and Drug Abuse Patient Records regulations: The Federal rules restrict any use of the information to criminally investigate or prosecute any alcohol or drug abuse patient.[facility] Center[facility] the event this information is protected by the Federal Confidentiality of Alcohol and Drug Abuse Patient Records regulations: The Federal rules restrict any use of the information to criminally investigate or prosecute any alcohol or drug abuse patient.[facility] Center[facility] the event this information is protected by the Federal Confidentiality of Alcohol and Drug Abuse Patient Records regulations: The Federal rules restrict any use of the information to criminally investigate or prosecute any alcohol or drug abuse patient.[facility] Center[facility] the event this information is protected by the Federal Confidentiality of Alcohol and Drug Abuse Patient Records regulations: The Federal rules restrict any use of the information to criminally investigate or prosecute any alcohol or drug abuse patient.[facility] the event this information is protected by the Federal Confidentiality of Alcohol and Drug Abuse Patient Records regulations: The Federal rules restrict any use of the information to criminally investigate or prosecute any alcohol or drug abuse patient.[facility] the event this information is protected by the Federal Confidentiality of Alcohol and Drug Abuse Patient Records regulations: The Federal rules restrict any use of the information to criminally investigate or prosecute any alcohol or drug abuse patient.[facility] Center[facility] the event this information is protected by the Federal Confidentiality of Alcohol and Drug Abuse Patient Records regulations: The Federal rules restrict any use of the information to criminally investigate or prosecute any alcohol or drug abuse patient.[facility] Center[facility] the event this information is protected by the Federal Confidentiality of Alcohol and Drug Abuse Patient Records regulations: The Federal rules restrict any use of the information to criminally investigate or prosecute any alcohol or drug abuse patient.[facility] Center[facility] the event this information is protected by the Federal Confidentiality of Alcohol and Drug Abuse Patient Records regulations: The Federal rules restrict any use of the information to criminally investigate or prosecute any alcohol or drug abuse patient.[facility] Center[facility] the event this information is protected by the Federal Confidentiality of Alcohol and Drug Abuse Patient Records regulations: The Federal rules restrict any use of the information to criminally investigate or prosecute any alcohol or drug abuse patient.[facility] Center[facility] the event this information is protected by the Federal Confidentiality of Alcohol and Drug Abuse Patient Records regulations: The Federal rules restrict any use of the information to criminally investigate or prosecute any alcohol or drug abuse patient.[facility] Center[facility] the event this information is protected by the Federal Confidentiality of Alcohol and Drug Abuse Patient Records regulations: The Federal rules restrict any use of the information to criminally investigate or prosecute any alcohol or drug abuse patient.[facility] Center[facility] the event this information is protected by the Federal Confidentiality of Alcohol and Drug Abuse Patient Records regulations: The Federal rules restrict any use of the information to criminally investigate or prosecute any alcohol or drug abuse patient.[facility] CenterIn the event this information is protected by the Federal Confidentiality of Alcohol and Drug Abuse Patient Records regulations: The Federal rules restrict any use of the information to criminally investigate or prosecute any alcohol or drug abuse patient.[facility] CenterIn the event this information is protected by the Federal Confidentiality of Alcohol and Drug Abuse Patient Records regulations: The Federal rules restrict any use of the information to criminally investigate or prosecute any alcohol or drug abuse patient.[facility] CenterIn the event this information is protected by the Federal Confidentiality of Alcohol and Drug Abuse Patient Records regulations: The Federal rules restrict any use of the information to criminally investigate or prosecute any alcohol or drug abuse patient.[facility] CenterIn the event this information is protected by the Federal Confidentiality of Alcohol and Drug Abuse Patient Records regulations: The Federal rules restrict any use of the information to criminally investigate or prosecute any alcohol or drug abuse patient.[facility] CenterIn the event this information is protected by the Federal Confidentiality of Alcohol and Drug Abuse Patient Records regulations: The Federal rules restrict any use of the information to criminally investigate or prosecute any alcohol or drug abuse patient.[facility] CenterIn the event this information is protected by the Federal Confidentiality of Alcohol and Drug Abuse Patient Records regulations: The Federal rules restrict any use of the information to criminally investigate or prosecute any alcohol or drug abuse patient.[facility] CenterIn the event this information is protected by the Federal Confidentiality of Alcohol and Drug Abuse Patient Records regulations: The Federal rules restrict any use of the information to criminally investigate or prosecute any alcohol or drug abuse patient.[facility] CenterIn the event this information is protected by the Federal Confidentiality of Alcohol and Drug Abuse Patient Records regulations: The Federal rules restrict any use of the information to criminally investigate or prosecute any alcohol or drug abuse patient.[facility] CenterIn the event this information is protected by the Federal Confidentiality of Alcohol and Drug Abuse Patient Records regulations: The Federal rules restrict any use of the information to criminally investigate or prosecute any alcohol or drug abuse patient.[facility] CenterIn the event this information is protected by the Federal Confidentiality of Alcohol and Drug Abuse Patient Records regulations: The Federal rules restrict any use of the information to criminally investigate or prosecute any alcohol or drug abuse patient.[facility] CenterIn the event this information is protected by the Federal Confidentiality of Alcohol and Drug Abuse Patient Records regulations: The Federal rules restrict any use of the information to criminally investigate or prosecute any alcohol or drug abuse patient.[facility] CenterIn the event this information is protected by the Federal Confidentiality of Alcohol and Drug Abuse Patient Records regulations: The Federal rules restrict any use of the information to criminally investigate or prosecute any alcohol or drug abuse patient.[facility] CenterIn the event this information is protected by the Federal Confidentiality of Alcohol and Drug Abuse Patient Records regulations: The Federal rules restrict any use of the information to criminally investigate or prosecute any alcohol or drug abuse patient.[facility] CenterIn the event this information is protected by the Federal Confidentiality of Alcohol and Drug Abuse Patient Records regulations: The Federal rules restrict any use of the information to criminally investigate or prosecute any alcohol or drug abuse patient.[facility] CenterIn the event this information is protected by the Federal Confidentiality of Alcohol and Drug Abuse Patient Records regulations: The Federal rules restrict any use of the information to criminally investigate or prosecute any alcohol or drug abuse patient.[facility] CenterIn the event this information is protected by the Federal Confidentiality of Alcohol and Drug Abuse Patient Records regulations: The Federal rules restrict any use of the information to criminally investigate or prosecute any alcohol or drug abuse patient.[facility] CenterIn the event this information is protected by the Federal Confidentiality of Alcohol and Drug Abuse Patient Records regulations: The Federal rules restrict any use of the information to criminally investigate or prosecute any alcohol or drug abuse patient.[facility] CenterIn the event this information is protected by the Federal Confidentiality of Alcohol and Drug Abuse Patient Records regulations: The Federal rules restrict any use of the information to criminally investigate or prosecute any alcohol or drug abuse patient.[facility] CenterIn the event this information is protected by the Federal Confidentiality of Alcohol and Drug Abuse Patient Records regulations: The Federal rules restrict any use of the information to criminally investigate or prosecute any alcohol or drug abuse patient.[facility] CenterIn the event this information is protected by the Federal Confidentiality of Alcohol and Drug Abuse Patient Records regulations: The Federal rules restrict any use of the information to criminally investigate or prosecute any alcohol or drug abuse patient.[facility] CenterIn the event this information is protected by the Federal Confidentiality of Alcohol and Drug Abuse Patient Records regulations: The Federal rules restrict any use of the information to criminally investigate or prosecute any alcohol or drug abuse patient.[facility] CenterIn the event this information is protected by the Federal Confidentiality of Alcohol and Drug Abuse Patient Records regulations: The Federal rules restrict any use of the information to criminally investigate or prosecute any alcohol or drug abuse patient.[facility] CenterIn the event this information is protected by the Federal Confidentiality of Alcohol and Drug Abuse Patient Records regulations: The Federal rules restrict any use of the information to criminally investigate or prosecute any alcohol or drug abuse patient.[facility] CenterIn the event this information is protected by the Federal Confidentiality of Alcohol and Drug Abuse Patient Records regulations: The Federal rules restrict any use of the information to criminally investigate or prosecute any alcohol or drug abuse patient.[facility] CenterIn the event this information is protected by the Federal Confidentiality of Alcohol and Drug Abuse Patient Records regulations: The Federal rules restrict any use of the information to criminally investigate or prosecute any alcohol or drug abuse patient.[facility] CenterIn the event this information is protected by the Federal Confidentiality of Alcohol and Drug Abuse Patient Records regulations: The Federal rules restrict any use of the information to criminally investigate or prosecute any alcohol or drug abuse patient.[facility] CenterIn the event this information is protected by the Federal Confidentiality of Alcohol and Drug Abuse Patient Records regulations: The Federal rules restrict any use of the information to criminally investigate or prosecute any alcohol or drug abuse patient.[facility] CenterIn the event this information is protected by the Federal Confidentiality of Alcohol and Drug Abuse Patient Records regulations: The Federal rules restrict any use of the information to criminally investigate or prosecute any alcohol or drug abuse patient.[facility] CenterIn the event this information is protected by the Federal Confidentiality of Alcohol and Drug Abuse Patient Records regulations: The Federal rules restrict any use of the information to criminally investigate or prosecute any alcohol or drug abuse patient.[facility] CenterIn the event this information is protected by the Federal Confidentiality of Alcohol and Drug Abuse Patient Records regulations: The Federal rules restrict any use of the information to criminally investigate or prosecute any alcohol or drug abuse patient.[facility] CenterIn the event this information is protected by the Federal Confidentiality of Alcohol and Drug Abuse Patient Records regulations: The Federal rules restrict any use of the information to criminally investigate or prosecute any alcohol or drug abuse patient.[facility] CenterIn the event this information is protected by the Federal Confidentiality of Alcohol and Drug Abuse Patient Records regulations: The Federal rules restrict any use of the information to criminally investigate or prosecute any alcohol or drug abuse patient.[facility] CenterIn the event this information is protected by the Federal Confidentiality of Alcohol and Drug Abuse Patient Records regulations: The Federal rules restrict any use of the information to criminally investigate or prosecute any alcohol or drug abuse patient.[facility] CenterIn the event this information is protected by the Federal Confidentiality of Alcohol and Drug Abuse Patient Records regulations: The Federal rules restrict any use of the information to criminally investigate or prosecute any alcohol or drug abuse patient.[facility] CenterIn the event this information is protected by the Federal Confidentiality of Alcohol and Drug Abuse Patient Records regulations: The Federal rules restrict any use of the information to criminally investigate or prosecute any alcohol or drug abuse patient.[facility] CenterIn the event this information is protected by the Federal Confidentiality of Alcohol and Drug Abuse Patient Records regulations: The Federal rules restrict any use of the information to criminally investigate or prosecute any alcohol or drug abuse patient.[facility] CenterIn the event this information is protected by the Federal Confidentiality of Alcohol and Drug Abuse Patient Records regulations: The Federal rules restrict any use of the information to criminally investigate or prosecute any alcohol or drug abuse patient.[facility] CenterIn the event this information is protected by the Federal Confidentiality of Alcohol and Drug Abuse Patient Records regulations: The Federal rules restrict any use of the information to criminally investigate or prosecute any alcohol or drug abuse patient.[facility] CenterIn the event this information is protected by the Federal Confidentiality of Alcohol and Drug Abuse Patient Records regulations: The Federal rules restrict any use of the information to criminally investigate or prosecute any alcohol or drug abuse patient.[facility] CenterIn the event this information is protected by the Federal Confidentiality of Alcohol and Drug Abuse Patient Records regulations: The Federal rules restrict any use of the information to criminally investigate or prosecute any alcohol or drug abuse patient.[facility] CenterIn the event this information is protected by the Federal Confidentiality of Alcohol and Drug Abuse Patient Records regulations: The Federal rules restrict any use of the information to criminally investigate or prosecute any alcohol or drug abuse patient.[facility] CenterIn the event this information is protected by the Federal Confidentiality of Alcohol and Drug Abuse Patient Records regulations: The Federal rules restrict any use of the information to criminally investigate or prosecute any alcohol or drug abuse patient.[facility] CenterIn the event this information is protected by the Federal Confidentiality of Alcohol and Drug Abuse Patient Records regulations: The Federal rules restrict any use of the information to criminally investigate or prosecute any alcohol or drug abuse patient.[facility] CenterIn the event this information is protected by the Federal Confidentiality of Alcohol and Drug Abuse Patient Records regulations: The Federal rules restrict any use of the information to criminally investigate or prosecute any alcohol or drug abuse patient.[facility] CenterIn the event this information is protected by the Federal Confidentiality of Alcohol and Drug Abuse Patient Records regulations: The Federal rules restrict any use of the information to criminally investigate or prosecute any alcohol or drug abuse patient.[facility] CenterIn the event this information is protected by the Federal Confidentiality of Alcohol and Drug Abuse Patient Records regulations: The Federal rules restrict any use of the information to criminally investigate or prosecute any alcohol or drug abuse patient.[facility] CenterIn the event this information is protected by the Federal Confidentiality of Alcohol and Drug Abuse Patient Records regulations: The Federal rules restrict any use of the information to criminally investigate or prosecute any alcohol or drug abuse patient.[facility] CenterIn the event this information is protected by the Federal Confidentiality of Alcohol and Drug Abuse Patient Records regulations: The Federal rules restrict any use of the information to criminally investigate or prosecute any alcohol or drug abuse patient.[facility] CenterIn the event this information is protected by the Federal Confidentiality of Alcohol and Drug Abuse Patient Records regulations: The Federal rules restrict any use of the information to criminally investigate or prosecute any alcohol or drug abuse patient.[facility] CenterIn the event this information is protected by the Federal Confidentiality of Alcohol and Drug Abuse Patient Records regulations: The Federal rules restrict any use of the information to criminally investigate or prosecute any alcohol or drug abuse patient.[facility] CenterIn the event this information is protected by the Federal Confidentiality of Alcohol and Drug Abuse Patient Records regulations: The Federal rules restrict any use of the information to criminally investigate or prosecute any alcohol or drug abuse patient.[facility] CenterIn the event this information is protected by the Federal Confidentiality of Alcohol and Drug Abuse Patient Records regulations: The Federal rules restrict any use of the information to criminally investigate or prosecute any alcohol or drug abuse patient.[facility] CenterIn the event this information is protected by the Federal Confidentiality of Alcohol and Drug Abuse Patient Records regulations: The Federal rules restrict any use of the information to criminally investigate or prosecute any alcohol or drug abuse patient.[facility] CenterIn the event this information is protected by the Federal Confidentiality of Alcohol and Drug Abuse Patient Records regulations: The Federal rules restrict any use of the information to criminally investigate or prosecute any alcohol or drug abuse patient.[facility] CenterIn the event this information is protected by the Federal Confidentiality of Alcohol and Drug Abuse Patient Records regulations: The Federal rules restrict any use of the information to criminally investigate or prosecute any alcohol or drug abuse patient.[facility] CenterIn the event this information is protected by the Federal Confidentiality of Alcohol and Drug Abuse Patient Records regulations: The Federal rules restrict any use of the information to criminally investigate or prosecute any alcohol or drug abuse patient.[facility] CenterIn the event this information is protected by the Federal Confidentiality of Alcohol and Drug Abuse Patient Records regulations: The Federal rules restrict any use of the information to criminally investigate or prosecute any alcohol or drug abuse patient.[facility] CenterIn the event this information is protected by the Federal Confidentiality of Alcohol and Drug Abuse Patient Records regulations: The Federal rules restrict any use of the information to criminally investigate or prosecute any alcohol or drug abuse patient.[facility] CenterIn the event this information is protected by the Federal Confidentiality of Alcohol and Drug Abuse Patient Records regulations: The Federal rules restrict any use of the information to criminally investigate or prosecute any alcohol or drug abuse patient.[facility] CenterIn the event this information is protected by the Federal Confidentiality of Alcohol and Drug Abuse Patient Records regulations: The Federal rules restrict any use of the information to criminally investigate or prosecute any alcohol or drug abuse patient.[facility] CenterIn the event this information is protected by the Federal Confidentiality of Alcohol and Drug Abuse Patient Records regulations: The Federal rules restrict any use of the information to criminally investigate or prosecute any alcohol or drug abuse patient.[facility] Reason for Visit (unrecogniz ed section and content) Reason Comments Refill Request Reason Onset Date Comments Refill Request 09/03/2021 Reason Onset Date Comments Refill Request 10/22/2021 Reason Onset Date Comments Refill Request 12/12/2021 Reason Onset Date Comments Refill Request 12/31/2021 Reason Onset Date Comments Refill Request 01/06/2022 Reason Comments Transition Of Care Reason Onset Date Comments Refill Request 02/28/2022 Reason Onset Date Comments Refill Request 03/27/2022 Reason Comments Med Change Request Reason Comments Medication Problem Reason Comments Recheck 3 month DM follow up Reason Comments Orders Reason Onset Date Comments Refill Request 07/17/2022 Reason Onset Date Comments Recheck 6 month follow u p Immunizations 05/02/2023 Flu vaccination Reason Comments Pain Right hand pain, swe lling x 1 day Reason Onset Date Comments Refill Request 10/11/2023 Reason Onset Date Comments Refill Request 10/17/2023 Reason Comments Patient Question Reason Comments Recheck 6 month follow up Reason Comments Orders Reason Comments Yearly Exam SAV[place] from [place] Reason Onset Date Comments Refill Request 12/04/2023 Reason Comments Radiology US Specialty Diagnoses / Procedures Referred By Umm gonsalez Referred To Contact [facility] Diagnoses Mass of right axilla Procedures US AXILLA ONLY RIGHT US LMTD JOINT/OTH NONVASC XTR STRUX R-T W/IMG Morenita Butler APRN.[employer]ESS SALES REPRESENTATIVE [address] [place] [address] [facility] [address] [place] [address] Referral ID Status Reason Start Date Expiration Date V isits Requested Visits Authorized [id number] Closed Auto-Generate d Referral 11/01/2023 11/30/2024 1 1 Specialty Diagnoses / Procedures Referred By Umm gonsalez Referred To Contact [facility] Diagnoses Acute pain of right knee Positive Lauryn test of right knee, initial encounter Procedures MRI KNEE WO IVCON RIGHT MRI ANY JT LOWER EXTREM W/O CONTRAST MATRL Ludwig Lindsay APRN.[employer]TA[employer] W[employer]LESS SALES REPRESENTATIVE [address] [place] [address] Mr Imaging [id number] Referral ID Status Reason Start Date Expiration Date V isits Requested Visits Authorized [id number] Closed Auto-Generate d Referral 08/16/2023 09/14/2024 1 1 Reason Comments Results Reason Onset Date Comments Refill Request 12/30/2023 Reason Comments Derm Problem Sore on abdomen poss ibly infected x1 week Reason Comments Right Knee Pain Reason Onset Date Comments Refill Request 03/10/2024 Reason Comments Cough Cough persistent x 6 months last week became more deep & productive Cough with sore throat, inte rmittent fever & chest congesti Persistent cough x 6 months last week became more deep with productive in the last 48 HR Reason Onset Date Comments Refill Request 05/14/2024 Reason Comments left wrist pain X 8-9 days-cannot re call an injury Reason Comments continued left wrist pain Reason Comments Left wrist pain Reason Comments Cough Sob, sore throat, ch est congestion x 5 days Reason Comments Results Reason Comments Cough with SOB & intermittent wheeze x6 months Reason Onset Date Comments Refill Request 07/04/2024 Reason Comments Spirometry Specialty Diagnoses / Procedures Referred By Contac t Referred To Contact [facility] Diagnoses SOB (shortness of breath) Acute cough Wheezing Procedures SPIROMETRY - BASELINE AND POST DILATOR BRNCDILAT RSPSE SPMTRY PRE&POST-BRNCDILAT Quentin Pastor PA-C [address] [place] [address] Phone: tel: fax: [facility] [address] [place] [id number] Referral ID Status Reason Start Date Expiration Date V isits Requested Visits Authorized [id number] Closed Auto-Generate d Referral 06/23/2024 07/23/2025 1 1 Reason Comments Recheck DM follow up Reason Onset Date Comments Refill Request 08/22/2024 Needs only short term Reason Onset Date Comments Refill Request 09/16/2024 Reason Comments Recheck 6 week follow up Reason Onset Date Comments Refill Request 10/26/2024 Reason Comments Rash R inner arm, R inner thigh and L side Care Teams (unrecognized sec tion and content) Mitten Stitcher Relationship Specialty Start Date End Date Darshana Munoz MD [address] [place] [address] PCP - General Internal Medicine 03/02/15 [facility] [address] [place] [address] Pharmacist Pharmacy 04/26/21 Mitten Stitcher Relationship Specialty Start Date End Date Darshana Munoz MD [address] [place] [address] PCP - General Internal Medicine 03/02/15 [facility] [address] [place] [address] Pharmacist Pharmacy 04/26/21 Mitten Stitcher Relationship Specialty Start Date End Date Darshana Munoz MD [address] [place] [address] PCP - General Internal Medicine 03/02/15 [facility] [address] [place] [address] Pharmacist Pharmacy 04/26/21 Mitten Stitcher Relationship Specialty Start Date End Date Darshana Munoz MD [address] [place] [address] PCP - General Internal Medicine 03/02/15 Luz Sun, [facility] [address] [place] [address] Pharmacist Pharmacy 04/26/21 Mitten Stitcher Relationship Specialty Start Date End Date Darshana Munoz MD [address] [place] [address] PCP - General Internal Medicine 03/02/15 Luz Sun, [facility] [address] [place] [address] Pharmacist Pharmacy 04/26/21 Mitten Stitcher Relationship Specialty Start Date End Date Darshana Munoz MD [address] [place] [address] PCP - General Internal Medicine 03/02/15 Luz Sun, [facility] [address] [place] [address] Pharmacist Pharmacy 04/26/21 Mitten Stitcher Relationship Specialty Start Date End Date Darshana Munoz MD [address] [place] [address] PCP - General Internal Medicine 03/02/15 Luz Sun, [facility] [address] [place] [address] Pharmacist Pharmacy 04/26/21 Mitten Stitcher Relationship Specialty Start Date End Date Darshana Munoz MD [address] [place] [address] PCP - General Internal Medicine 03/02/15 Luz Sun, [facility] [address] [place] [address] Pharmacist Pharmacy 04/26/21 Mitten Stitcher Relationship Specialty Start Date End Date Darshana Munoz MD [address] [place] [address] PCP - General Internal Medicine 03/02/15 [facility] Stitcher Relationship Specialty Start Date End Date Darshana Munoz MD [address] [place] [address] PCP - General Internal Medicine 03/02/15 Mitten Stitcher Relationship Specialty Start Date End Date Darshana Munoz MD [address] [place] [address] PCP - General Internal Medicine 03/02/15 Mitten Stitcher Relationship Specialty Start Date End Date Darshana Munoz MD [address] [place] [address] PCP - General Internal Medicine 03/02/15 Mitten Stitcher Relationship Specialty Start Date End Date Darshana Munoz MD [address] [place] [address] PCP - General Internal Medicine 03/02/15 Mitten Stitcher Relationship Specialty Start Date End Date Darshana Munoz MD [address] [place] [address] PCP - General Internal Medicine 03/02/15 Mitten Stitcher Relationship Specialty Start Date End Date Darshana Munoz MD [address] [place] [address] PCP - General Internal Medicine 03/02/15 Team Status: Active Member Role Status Dates Dr. Darshana Munoz MD Family Provider Active Dr. Darshana Munoz MD Primary Care Provider Active Team Status: Inactive Member Role Status Dates Dr. Darshana Munoz MD Primary Care Provider Active Dr. Vicky Mcdermott DO Attending Provider, [facility] Provider Active Mitten Stitcher Relationship Specialty Start Date End Date Darshana Munoz MD [address] [place] [address] PCP - General Internal Medicine 03/02/15 Mitten Stitcher Relationship Specialty Start Date End Date Darshana Munoz MD [address] [place] [address] PCP - General Internal Medicine 03/02/15 Mitten Stitcher Relationship Specialty Start Date End Date Darshana Munoz MD [address] [place] [address] PCP - General Internal Medicine 03/02/15 Mitten Stitcher Relationship Specialty Start Date End Date Darshana Munoz MD [address] [place] [address] PCP - General Internal Medicine 03/02/15 Mitten Stitcher Relationship Specialty Start Date End Date Darshana Munoz MD [address] [facility] [place] [address] PCP - General Internal Medicine 03/02/15 Mitten Stitcher Relationship Specialty Start Date End Date Darshana Munoz MD [address] [place] [address] PCP - General Internal Medicine 03/02/15 Mitten Stitcher Relationship Specialty Start Date End Date Darshana Munoz MD [address] [place] [address] PCP - General Internal Medicine 03/02/15 Mitten Stitcher Relationship Specialty Start Date End Date Darshana Munoz MD [address] [place] [address] PCP - General Internal Medicine 03/02/15 Mitten Stitcher Relationship Specialty Start Date End Date Darshana Munoz MD [address] [place] [address] PCP - General Internal Medicine 03/02/15 Mitten Stitcher Relationship Specialty Start Date End Date Darshana Munoz MD [address] [place] [address] PCP - General Internal Medicine 03/02/15 Mitten Stitcher Relationship Specialty Start Date End Date Darshana Munoz MD [address] [place] [address] PCP - General Internal Medicine 03/02/15 Mitten Stitcher Relationship Specialty Start Date End Date Darshana Munoz MD [address] [place] [address] PCP - General Internal Medicine 03/02/15 Mitten Stitcher Relationship Specialty Start Date End Date Darshana Munoz MD [address] [place] [address] PCP - General Internal Medicine 03/02/15 Mitten Stitcher Relationship Specialty Start Date End Date Darshana Munoz MD [address] [place] [address] PCP - General Internal Medicine 03/02/15 Mitten Stitcher Relationship Specialty Start Date End Date Darshana Munoz MD [address] [place] [address] PCP - General Internal Medicine 03/02/15 Mitten Stitcher Relationship Specialty Start Date End Date Darshana Munoz MD [address] [place] [address] PCP - General Internal Medicine 03/02/15 Mitten Stitcher Relationship Specialty Start Date End Date Darshana Munoz MD [address] [place] [address] PCP - General Internal Medicine 03/02/15 Mitten Stitcher Relationship Specialty Start Date End Date Darshana Mnuoz MD [address] [place] [address] PCP - General Internal Medicine 03/02/15 Mitten Stitcher Relationship Specialty Start Date End Date Darshana Munoz MD [address] [place] [address] PCP - General Internal Medicine 03/02/15 Mitten Stitcher Relationship Specialty Start Date End Date Darshana Munoz MD [address] [facility] [place] [address] PCP - General Internal Medicine 03/02/15 Mitten Stitcher Relationship Specialty Start Date End Date Darshana Munoz MD [address] [facility] [place] [address] PCP - General Internal Medicine 03/02/15 Mitten Stitcher Relationship Specialty Start Date End Date Darshana Munoz MD [address] [facility] [place] [address] PCP - General Internal Medicine 03/02/15 Mitten Stitcher Relationship Specialty Start Date End Date Darshana Munoz MD [address] [facility] [place] [address] PCP - General Internal Medicine 03/02/15 Mitten Stitcher Relationship Specialty Start Date End Date Darshana Munoz MD [address] [facility] [place] [address] PCP - General Internal Medicine 03/02/15 Mitten Stitcher Relationship Specialty Start Date End Date Darshana Munoz MD [address] [facility] [place] [address] PCP - General Internal Medicine 03/02/15 Mitten Stitcher Relationship Specialty Start Date End Date Darshana Munoz MD [address] [facility] [place] [address] PCP - General Internal Medicine 03/02/15 Mitten Stitcher Relationship Specialty Start Date End Date Darshana Munoz MD [address] [facility] [place] [address] PCP - General Internal Medicine 03/02/15 Janelle Nowak PA-C [address] [place] [address] [facility] 04/19/24 Morenita Butler APRN.RETAIL WIRELESS SALES REPRESENTATIVE [address] [place] [address] [facility] 04/19/24 Quentin Salazar PA-C [address] [place] [address] [facility] 04/19/24 Mitten Stitcher Relationship Specialty Start Date End Date Darshana Munoz MD [address] [place] [address] PCP - General Internal Medicine 03/02/15 Janelle Nowak PA-C [address] [place] [address] [facility] 04/19/24 Morenita Butler APRN.RETAIL WIRELESS SALES REPRESENTATIVE [address] [place] [address] [facility] 04/19/24 Quentin Salazar PA-C [address] [place] [address] [facility] 04/19/24 Mitten Stitcher Relationship Specialty Start Date End Date Darshana Munoz MD [address] [place] [address] PCP - General Internal Medicine 03/02/15 Janelle Nowak PA-C [address] [place] [address] [facility] 04/19/24 Morenita Butler APRN.RETAIL WIRELESS SALES REPRESENTATIVE [address] [place] [address] [facility] 04/19/24 Quentin Salazar PA-C [address] [place] [address] [facility] Mitten Stitcher Relationship Specialty Start Date End Date Darshana Munoz MD [address] [place] [address] PCP - General Internal Medicine 03/02/15 Janelle Nowak PA-C [address] [place] [address] [facility] 04/[facility]/24 Morenita Butler APRN.RETAIL WIRELESS SALES REPRESENTATIVE [address] [place] [address] [facility] 04/19/24 Quentin Salazar PA-C [address] [place] [address] [facility] 04/19/24 Mitten Stitcher Relationship Specialty Start Date End Date Darshana Munoz MD [address] [place] [address] PCP - General Internal Medicine 03/02/15 Janelle Nowak PA-C [address] [place] [address] [facility] 04/19/24 Morenita Butler APRN.RETAIL WIRELESS SALES REPRESENTATIVE [address] [place] [address] [facility] 04/19/24 Quentin Salazar PA-C [address] [place] [address] [facility] 04/19/24 Mitten Stitcher Relationship Specialty Start Date End Date Darshana Munoz MD [address] [place] [address] PCP - General Internal Medicine 03/02/15 Janelle Nowak PA-C [address] [place] [address] [phone] [facility] 04/19/24 Morenita Butler APRN.RETAIL WIRELESS SALES REPRESENTATIVE [address] [place] [address] [facility] 04/19/24 Quentin Salazar PA-C [address] [place] [address] [facility] 04/19/24 Mitten Stitcher Relationship Specialty Start Date End Date Darshana Munoz MD [address] [place] [address] PCP - General Internal Medicine 03/02/15 Janelle Nowak PA-C [address] [place] [address] [phone] [facility] 04/19/24 Morenita Butler APRN.RETAIL WIRELESS SALES REPRESENTATIVE [address] [place] [address] [facility] 04/19/24 Quentin Salazar PA-C [address] [place] [address] [facility] 04/19/24 Mitten Stitcher Relationship Specialty Start Date End Date Darshana Munoz MD [address] [place] [address] PCP - General Internal Medicine 03/02/15 Janelle Nowak PA-C [address] [place], [place] [phone] [facility] 04/19/24 Morenita Butler APRN.RETAIL WIRELESS SALES REPRESENTATIVE [address] [place] [address] [facility] 04/19/24 Quentin Salazar PA-C [address] [place] [address] [facility] 04/19/24 Mitten Stitcher Relationship Specialty Start Date End Date Darshana Munoz MD [address] [place] [address] PCP - General Internal Medicine 03/02/15 Janelle Nowak PA-C [address] [place] [address] [facility] 04/19/24 Morenita Butler APRN.RETAIL WIRELESS SALES REPRESENTATIVE [address] [place] [address] [facility] 04/19/24 Quentin Salazar PA-C [address] [place] [address] [facility] 04/19/24 Mitten Stitcher Relationship Specialty Start Date End Date Darshana Munoz MD [address] [place] [address] PCP - General Internal Medicine 03/02/15 Janelle Nowak PA-C [address] [place], [place] [phone] [facility] 04/19/24 Morenita Butler APRN.RETAIL WIRELESS SALES REPRESENTATIVE [address] [place] [address] [facility] 04/19/24 Quentin Salazar PA-C [address] [place] [address] [facility] 04/19/24 Mitten Stitcher Relationship Specialty Start Date End Date Darshana Munoz MD [address] [place] [address] PCP - General Internal Medicine 03/02/15 Janelle Nowak PA-C [address] [place] [address] [facility] 04/19/24 Morenita Butler APRN.RETAIL WIRELESS SALES REPRESENTATIVE [address] [place] [address] [facility] 04/19/24 Quentin Salazar PA-C [address] [place] [address] [facility] 04/19/24 Mitten Stitcher Relationship Specialty Start Date End Date Darshana Munoz MD [address] [place] [address] PCP - General Internal Medicine 03/02/15 Morenita Butler APRN.RETAIL WIRELESS SALES REPRESENTATIVE [address] [place] [address] [facility] 04/19/24 Mitten Stitcher Relationship Specialty Start Date End Date Darshana Munoz MD [address] [place] [address] PCP - General Internal Medicine 03/02/15 Morenita Butler APRN.RETAIL WIRELESS SALES REPRESENTATIVE [address] [place] [address] [facility] 04/19/24 Mitten Stitcher Relationship Specialty Start Date End Date Darshana Munoz MD [address] [place] [address] PCP - General Internal Medicine 03/02/15 Morenita Butler SALES AND MANAGEMENT TRAINEE.RETAIL WIRELESS SALES REPRESENTATIVE [address] [place] [address] [facility] 04/19/24 Mitten Stitcher Relationship Specialty Start Date End Date Darshana Munoz MD [address] [place] [address] PCP - General Internal Medicine 03/02/15 Morenita Butler APRN.RETAIL WIRELESS SALES REPRESENTATIVE [address] [place] [address] [facility] 04/19/24 Mitten Stitcher Relationship Specialty Start Date End Date Darshana Munoz MD [address] [place] [address] PCP - General Internal Medicine 03/02/15 Morenita Butler APRN.RETAIL WIRELESS SALES REPRESENTATIVE [address] [place] [address] [facility] 04/19/24 Mitten Stitcher Relationship Specialty Start Date End Date Darshana Munoz MD [address] [place] [address] PCP - General Internal Medicine 03/02/15 Morenita Butler APRN.RETAIL WIRELESS SALES REPRESENTATIVE [address] [facility] [address] [facility] 04/19/24 Mitten Stitcher Relationship Specialty Start Date End Date Darshana Munoz MD [address] [place] [address] PCP - General Internal Medicine 03/02/15 Morenita Butler APRN.RETAIL WIRELESS SALES REPRESENTATIVE [address] [place] [address] [facility] 04/19/24 Mitten Stitcher Relationship Specialty Start Date End Date Darshana Munoz MD [address] [facility] [place] [address] PCP - General Internal Medicine 03/02/15 Morenita Butler APRN.RETAIL WIRELESS SALES REPRESENTATIVE [address] [facility] [address] [facility] 04/19/24 Mitten Stitcher Relationship Specialty Start Date End Date Darshana Munoz MD [address] [facility] [place] [address] PCP - General Internal Medicine 03/02/15 Morenita Butler APRN.RETAIL WIRELESS SALES REPRESENTATIVE [address] [facility] [place] [place] [address] [facility] 04/19/24 Mitten Stitcher Relationship Specialty Start Date End Date Darshana Munoz MD [address] [place], [place] 783671 PCP - General Internal Medicine 03/02/15 Morenita Butler APRN.RETAIL WIRELESS SALES REPRESENTATIVE [address] [place] [address] [facility] 04/19/24 Goals (unrecognized section and content) Goals may be documented in a n alternate sectionGoals may be documented in an alternate section FOR RECORDS PERTAINING TO PATIENTS WHO ARE OR HAVE BEEN ENROLLED IN A CHEMICAL DEPENDENCY/SUBSTANCEABUSE PROGRAM, SOME INFORMATION MAY BE OMITTED. This clinical summary was aggregated from multiple sources. Caution should be exercised in using it in the provision of clinical care. This summary normalizes information from multiple sources, and as a consequence, information in this document may materially change the coding, format and clinical context of patient data. In addition, data may be omitted in some cases. CLINICAL DECISIONS SHOULD BE BASED ON THE PRIMARY CLINICAL RECORDS. [employer] provides no warranty or guarantee of the accuracy or completeness of information in this document.
--- NOTE | 2024-11-10 06:59 | ECHOCS_ITS ---
Reason For Study Reason For Study: Chest Pain Procedure This was a 2D Doppler, Color Flow transthoracic echocardiogram. Contrast injection was performed. Exam performed in department. Left Ventricle Normal LV size. Left ventricular systolic function is normal. The left ventricular ejection fraction is 60 %. No regional wall motion abnormalities noted. Right Ventricle Normal RV size. Normal systolic function. Tricuspid Valve Normal tricuspid valve. Aortic Valve Trisinus/trileaflet aortic valve. Mild focal aortic valve calcification. Pulmonic Valve Normal pulmonic valve. Great Vessels Normal aortic root. The pulmonary artery is normal size. Pericardium/Pleural No pericardial effusion. Medication Diluted definity 2.5ml given slow IV push to enhance endocardial definition. MMode/2D Measurements & Calculations LVIDd: 4.9 cm IVSd: 1.1 cm Ao root diam: 3.2 cm LVIDs: 3.6 cm LVPWd: 1.1 cm RVDd: 3.4 cm FS: 26.0 % LAV(MOD-bp): 49.7 ml LVAd ap4: 34.9 cm2 SV(MOD-sp4): 66.7 ml LAV(MOD-bp) Indexed: 20.7 ml/m2 LVLd ap4: 8.2 cm SI(MOD-sp4): 27.8 ml/m2 LAV(MOD-sp2): 39.1 ml EDV(MOD-sp4): 119.3 ml LAV(MOD-sp4): 58.5 ml EDV(sp4-el): 125.7 ml LVAs ap4: 21.1 cm2 LVLs ap4: 7.0 cm ESV(MOD-sp4): 52.6 ml ESV(sp4-el): 54.1 ml EF(MOD-sp4): 55.9 % EF(sp4-el): 57.0 % SV(sp4-el): 71.6 ml LA dimension(2D): 4.4 cm LA A4 area: 20.0 cm2 RA A4 area: 10.3 cm2 TAPSE: 2.5 cm Time Measurements MV dec time: 0.20 sec Doppler Measurements & Calculations MV E max keanu: 78.8 cm/sec Lat Peak E' Keanu: 7.4 cm/sec Med Peak E' Keanu: 8.8 cm/sec MV A max keanu: 89.6 cm/sec E/E' lat: 10.7 E/E' med: 9.0 MV E/A: 0.88 Ao V2 max: 171.0 cm/sec LV V1 max: 123.1 cm/sec MV dec slope: 394.8 cm/sec2 Ao max P.7 mmHg LV V1 max P.1 mmHg Ao V2 mean: 122.8 cm/sec LV V1 mean P.5 mmHg Ao mean P.6 mmHg LV V1 mean: 87.9 cm/sec Ao V2 VTI: 36.1 cm LV V1 VTI: 28.6 cm AV (velocity ratio): 0.79 PA V2 max: 123.0 cm/sec TR max keanu: 259.8 cm/sec TR max P.0 mmHg ECHO/Echo Complete W/ Contrast Interpretation Summary Normal LV size. Left ventricular systolic function is normal. The left ventricular ejection fraction is 60 %. Normal systolic function. Mild focal aortic valve calcification. Contrast injection was performed. Ordering Physician: Juan Barker Referring Physician: Liana Ashley Performed By: Janelle Bess RDCS, RVT
--- NOTE | 2024-11-10 17:32 | STRESSREP ---
Stress Test Report Pharmacologic myocardial perfusion stress test. 49-year-old lady with history of chest pain Resting EKG demonstrates sinus rhythm with a rate of 60 bpm. Resting blood pressure is 128/60 mmHg. 0.4 mg of regadenoson was infused per usual protocol followed by rapid intravenous saline flush injection. Continuous EKG monitoring was performed. The maximum heart rate was 90 bpm which was 52% of max impacted heart rate the maximum workload was 1 metabolic equivalent. At rest there were no ST or T wave changes noted to suggest ischemia and at peak infusion nonspecific ST changes were noted which did not meet the criteria for ischemia. No clinical angina is noted. The final blood pressure was 118/70 mmHg. Myocardial perfusion protocol. 14.7 mCi of technetium 99m sestamibi was injected at rest. 0.4 mg of regadenoson was infused per usual protocol. At peak infusion 44.5 mCi of technetium 99m sestamibi was injected stress images were obtained stress and rest images were reconstructed and compared in the short axis vertical long and horizontal long axis. Gated images were also obtained. Perfusion SPECT analysis: Review of the stress images demonstrate normal uptake of tracer noted in all areas of the myocardium. The resting images similar demonstrated normal uptake of tracer noted in all areas of the myocardium. No areas of reversibility are noted to suggest ischemia and no previous infarct is noted. Gated SPECT analysis: The gated ejection fraction is 61%. Conclusion: Normal pharmacologic myocardial perfusion stress test. Preserved ejection fraction.
== END | disposition home or self-care (01) ==
LOC: CVS 06:55
PROVIDERS: PCP Internal Medicine; Referring Provider Internal Medicine Cardiovascular Disease; Visit Provider Internal Medicine Cardiovascular Disease
DX: R07.9 Chest pain, unspecified (principal)
CPT/HCPCS: 78452; 93017; 93306; A9500; Q9957; A4216; C8929; J2785

== ENCOUNTER → 2024-12-18 | Outpatient (CLI) | payer OTHER, SELFPAY ==
--- NOTE | 2024-12-18 12:43 | BI_ITS ---
EXAM: SCRN MAMM (CAD)W/NASREEN BILAT DATE: 12/18/2024 CLINICAL HISTORY: F, Age 49 y/o , SCREEN TECHNIQUE: SCRN MAMM (CAD)W/NASREEN BILAT COMPARISON: Prior exam(s) dated 12/04/2023, 09/11/2022, 09/01/2021. FINDINGS: TISSUE DENSITY: There are scattered areas of fibroglandular density. Bilateral Breast Mammographic Findings: No significant masses, calcifications or other abnormalities are identified. BI/SCRN MAMM (CAD)W/NASREEN BILAT IMPRESSION: There is no mammographic evidence of malignancy. OVERALL FINAL ASSESSMENT BI-RADS 1: NEGATIVE. RECOMMENDATION: Routine annual follow-up in 1 Year A letter with findings and recommendations will be mailed to the patient. Reading Location: [id number]
--- NOTE | 2024-12-18 12:43 | BI_ITS ---
EXAM: SCRN MAMM (CAD)W/NASREEN BILAT DATE: 12/18/2024 CLINICAL HISTORY: F, Age 49 y/o , SCREEN TECHNIQUE: SCRN MAMM (CAD)W/NASREEN BILAT COMPARISON: Prior exam(s) dated 12/04/2023, 09/11/2022, 09/01/2021. FINDINGS: TISSUE DENSITY: There are scattered areas of fibroglandular density. Bilateral Breast Mammographic Findings: No significant masses, calcifications or other abnormalities are identified. BI/SCRN MAMM (CAD)W/NASREEN BILAT IMPRESSION: There is no mammographic evidence of malignancy. OVERALL FINAL ASSESSMENT BI-RADS 1: NEGATIVE. RECOMMENDATION: Routine annual follow-up in 1 Year A letter with findings and recommendations will be mailed to the patient. Reading Location: [id number]
== END | disposition home or self-care (01) ==
LOC: OPBI 12:42
PROVIDERS: PCP Internal Medicine; Referring Provider Internal Medicine; Visit Provider Internal Medicine
DX: Z12.31 Encounter for screening mammogram for malignant neoplasm of breast (principal)
CPT/HCPCS: 77063; 77067